=== PATIENT | female | born 1950 | race Caucasian/White ===

== ENCOUNTER 2017-04-12 07:28 | Day surgery (SDC) | payer MEDICARE ==
[2017-04-10 15:59] VITALS: BMI 24.4
[~2017-04-12 07:28] MED LIST: TRIAMCINOLONE ACET 40MG/1ML VIAL IJ ONE
[2017-04-12] MEDS ORDERED: TRIAMCINOLONE ACET 40MG/1ML VIAL ONE (07:38)
[2017-04-12] MEDS ORDERED: ACETAMINOPHEN 325 MG TABLET (FP) PO PRN (07:42)
[2017-04-12] MEDS ORDERED: CIPROFLOXACIN 0.3% EYE DROPS 5 ML BOTTLE ONE (08:11)
[2017-04-12] MEDS ORDERED: FLURBIPROFEN 0.03% OPHTH SOLN 2.5 ML BOTTLE ONE (08:11)
[2017-04-12] MEDS ORDERED: TROPICAMIDE 1% OPHTH SOLN 15 ML BOTTLE ONE (08:11)
[2017-04-12] MEDS ORDERED: PHENYLEPHRINE 2.5% OPHTH SOLN 15 ML BOTTLE ONE (08:11)
[2017-04-12] MEDS ORDERED: CYCLOPENTOLATE HCL 1% OPHTH SOLN 2 ML BOTTLE ONE (08:11)
[2017-04-12] MEDS: CIPROFLOXACIN HCL 0.3% OPHTH 2.5ML BOTTLE OP SCH ×3 (08:20→08:36)
[2017-04-12 08:34] VITALS: TEMP 97.8
[2017-04-12] MEDS ORDERED: LIDOCAINE HCL 2% JELLY (5 ML/TUBE) ONE (08:46)
[2017-04-12] MEDS ORDERED: MIDAZOLAM HCL 2 MG/2 ML SINGLE DOSE VIAL ONE (08:46)
[2017-04-12] MEDS ORDERED: LIDOCAINE HCL 2% JELLY (5 ML/TUBE) TP ONE (08:51)
[2017-04-12] MEDS ORDERED: POVIDONE-IODINE 5% OPHTHALMIC PREP 30 ML SOLUTION OS ONE (09:12)
[2017-04-12] MEDS ORDERED: BSS (NA/CA/MG/K) BALANCED SALT SOLUTION OPHTH SOLN 15 ML BOTTLE OS ONE (09:17)
[2017-04-12] MEDS ORDERED: TRIAMCINOLONE ACET 40MG/1ML VIAL IJ ONE (09:45)
[2017-04-12] MEDS ORDERED: ACETAMINOPHEN 325 MG TABLET (FP) ONE (10:56)
[2017-04-12 11:58] VITALS: BP 132/67; PULSE 78
--- NOTE | 2017-04-12 12:03 | OP ---
DATE OF OPERATION: 04/12/2017 SURGEON: Saad Calderón M.D. PREOPERATIVE DIAGNOSIS: Pterygium, left eye. POSTOPERATIVE DIAGNOSIS: Pterygium, left eye. PROCEDURE: Excision of pterygium with amniotic membrane transplant and Tisseel glue fixation. ANESTHESIA: Topical MAC. COMPLICATONS: None. DESCRIPTION OF PROCEDURE: The patient was brought into the operating room and correctly identified along with the operative site. She was then prepped and draped in the usual sterile fashion including 5% Betadine solution in the conjunctival sac and an eyelid drape. An eyelid speculum was then placed into the right eye. The eye was inspected, and the base of the pterygium was marked with a marking pen. Two relaxing incisions were made superiorly and inferiorly on the pterygium, and dissection placement performed beneath it using Ethan scissors to bare sclera. The head of the pterygium was then freed from the corneal surface with blunt dissection using Colibri forceps as well as a Weck-Merna spear-sponge. The corneal defect was then polished using a 57 blade as well as a raúl gosia. There was no residual opacity noted. The pterygium was then excised at its base, and the conjunctival defect measured 5 mm horizontally by 7 mm vertically. An appropriately sized amniotic membrane transplant was then created and placed in the conjunctival defect. It was then secured with five 10-0 nylon sutures in the corners, and then, Tisseel glue placed beneath it. At the end of the procedure, the amniotic membrane was noted to be well secured. Subconjunctival Kenalog given. Topical vancomycin given. The eye patched, and the patient discharged from the operating room in a stable condition. SAAD CALDERÓN M.D. [id number]
--- NOTE | 2017-04-13 13:47 | PATH ---
Surgical Pathology Report Patient Name: MARISA ZIEGLER [facility]. Rec. #: [id number] /Age/Gender: 1950 (Age: 67) / F Account: [id number] Location: [facility] SURGICAL Taken: 04/12/2017 Received: 04/12/2017 Reported: 04/13/2017 Physicians: Saad Escalante M.D. Specimen(s) Received PTERYGIUM, LEFT EYE Clinical History Pterygium left eye Final Diagnosis CONJUNCTIVA, LEFT EYE, EXCISION: PTERYGIUM. Electronically Signed Jordan Aguilar M.D. Gross Description Received in formalin, labeled "pterygium left eye" is a way, irregular portion of soft tissue measuring 0.2 cm. in greatest dimension. The specimen is submitted in toto in one cassette. 04/12/201704/12/2017
== END 2017-04-12 11:35 | disposition home or self-care (01) ==
LOC: JASU-SURG 07:28
PROVIDERS: ATTEND Ophthalmology
PROC: 08R Eye, Replacement (ICD-10-PCS; principal; 2017-04-12 09:00)
DX: H11.002 Unspecified pterygium of left eye (principal)
CPT/HCPCS: 88304-TC

== ENCOUNTER 2017-09-17 18:28 | Emergency (ER) | payer MEDICARE ==
[2017-09-17 18:53] VITALS: BP 163/78; PULSE 99; TEMP 99.5; BMI 24.4
[2017-09-17] MEDS ORDERED: ONDANSETRON 4 MG/2 ML VIAL IVPB ONE ×2 (19:05→22:14)
[2017-09-17] MEDS ORDERED: SODIUM CHLORIDE 1,000 ML IV STA (19:05)
--- NOTE | 2017-09-17 19:05 | PDOC ---
History of Present Illness - History of Present Illness Initial Comments: 09/17/17 19:55 History of Present Illness: 67 y/o F with a PMH of metastatic ovarian CA, high grade serous carcinoma, splenectomy presents to the ED with LUQ pain and vomiting for over a week. She reports going to see her doctor earlier this week, whoc prescribed her Zofran, which did not relieve her symptoms. She reports attempting to eat soup earlier today, but could not keep it down and vomited immediately after. She reports some constipation. She had a CT and blood work done on 5 days ago, and is going for follow up with her doctor this week. Patient is going to start chemotherapy on 09/29. Denies fever, chills. Denies diarrhea. Denies chest pain, SOB. Review of Systems: CONSTITUTIONAL: Absent: fever, chills, diaphoresis, generalized weakness, malaise, loss of appetite HEENT: Absent: rhinorrhea, nasal congestion, throat pain, throat swelling, difficulty swallowing, mouth swelling, ear pain, eye pain, visual changes CARDIOVASCULAR: Absent: chest pain, syncope, palpitations, irregular heart rate , lightheadedness, peripheral edema RESPIRATORY: Absent: cough, shortness of breath, dyspnea with exertion, orthopnea, wheezing, stridor, hemoptysis GASTROINTESTINAL: +LUQ pain, constipation, vomiting. Absent: abdominal distension, diarrhea, melena, hematochezia GENITOURINARY: Absent: dysuria, frequency, urgency, hesitancy, hematuria, flank pain, genital pain MUSCULOSKELETAL: Absent: myalgia, arthralgia, joint swelling SKIN: Absent: rash, itching, pallor HEMATOLOGIC/IMMUNOLOGIC: Absent: easy bleeding, easy bruising, lymphadenopathy, frequent infections ENDOCRINE: Absent: unexplained weight gain, unexplained weight loss, heat intolerance, cold intolerance NEUROLOGIC: Absent: headache, focal weakness or paresthesias, dizziness, unsteady gait, seizure, mental status changes, bladder or bowel incontinence PSYCHIATRIC: Absent: anxiety, depression, suicidal or homicidal ideation, hallucinations. <Maritza Caruso - Last Filed: 09/17/17 19:55> <Ector Guadalupe - Last Filed: 09/22/17 07:22> - General Chief Complaint: Nausea/Vomiting Stated Complaint: VOMITING, METASTATIC CANCER Time Seen by Provider: 09/17/17 19:00 Past History <Maritza Caruso - Last Filed: 09/17/17 19:55> - Past Medical History Anemia: No Asthma: No Cancer: Yes (OVARIAN CA WITH METS, HIGH GRADE SEROUS CARINOMA) Cardiac Disorders: No CVA: No COPD: No CHF: No Dementia: No Diabetes: No GI Disorders: No Disorders: No HTN: No Hypercholesterolemia: No Liver Disease: No Seizures: No Thyroid Disease: Yes - Surgical History Abdominal Surgery: Yes (SPLEENECTOMY) Appendectomy: Yes Cardiac Surgery: No Cholecystectomy: No Lung Surgery: No Neurologic Surgery: Yes (BACK SURGERY) Orthopedic Surgery: No - Suicide/Smoking/Psychosocial Hx Smoking History: Never smoked Have you smoked in the past 12 months: No Hx Alcohol Use: No Drug/Substance Use Hx: No Substance Use Type: None Hx Substance Use Treatment: No <Ector Guadalupe - Last Filed: 09/22/17 07:22> - Past Medical History Allergies/Adverse Reactions: Allergies Allergy/AdvReac Type Severity Reaction Status Date / Time No Known Drug Allergies Allergy Verified 09/17/17 18:41 Home Medications: Ambulatory Orders Docusate Sodium [Colace] 100 mg PO TID 09/17/17 Ergocalciferol (Vitamin D2) [Vitamin D2] 50,000 unit PO WEEKLY 09/17/17 Levothyroxine [Synthroid -] 50 mcg PO DAILY 09/17/17 Ondansetron [Zofran *Odt*] 8 mg SL TID PRN #20 od.tablet 09/17/17 Sennosides [Senna] 8.6 mg PO HS PRN 09/17/17 *Physical Exam - Vital Signs Last Vital Signs Temp Pulse Resp BP Pulse Ox 99.5 F 99 H 20 163/78 94 L 09/17/17 18:31 09/17/17 18:31 09/17/17 18:31 09/17/17 18:31 09/17/17 18:31 <Maritza Caruso - Last Filed: 09/17/17 19:55> - Vital Signs Last Vital Signs Temp Pulse Resp BP Pulse Ox 99.5 F 99 H 20 163/78 94 L 09/17/17 18:31 09/17/17 18:31 09/17/17 18:31 09/17/17 18:31 09/17/17 18:31 <CollinsEctor - Last Filed: 09/22/17 07:22> ED Treatment Course - LABORATORY CBC & Chemistry Diagram: 09/17/17 19:30 09/17/17 19:30 - Medications Given in the ED: ED Medications Discontinued Medications Generic Name Dose Route Start Last Admin Trade Name Lea PRN Reason Stop Dose Admin Ondansetron HCl 4 mg 09/17/17 19:05 09/17/17 19:30 Zofran Injection IVPB 09/17/17 19:06 4 mg ONCE ONE Administration <Maritza Caruso - Last Filed: 09/17/17 19:55> - LABORATORY CBC & Chemistry Diagram: 09/17/17 19:30 09/17/17 19:30 <CollinsEctor Bin - Last Filed: 09/22/17 07:22> Medical Decision Making - Medical Decision Making 09/17/17 19:39 67-year-old female with recently diagnosed mucinous carcinoma, metastatic, 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 Surgery in late August, awaiting chemotherapy. Complains of left upper quadrant pain, nausea, and vomiting for approximately 2 days. Unable to hold down food or fluids. Past medical history: Otherwise noncontributory. Patient states that oral Zofran and Reglan only make her nausea and vomiting worse. Her pain is not severe enough for her to want to take pain medication. However, she was prescribed analgesic by her physician. She had a CAT scan on Monday, along with blood work, with her oncologist, and is scheduled for another appointment next Monday Physical exam: Alert and oriented somewhat cachectic but no acute distress, cooperative. She does not appear in significant pain. She has not retching. Afebrile, vital signs normal Pale, nonicteric. PERRLA, fundi benign, ENT clear except for mildly dry mucous membranes Neck supple without bruit mass or nodes Chest clear with full breath sounds throughout bilaterally. CV regular without murmur rub or gallop pulses full and symmetric no JVD or edema Abdomen nondistended. Bowel sounds normal. Soft without mass or organomegaly. Although she indicates left upper quadrant pain, there is no tenderness to palpation or mass appreciated with vigorous palpation of the right upper quadrant of the abdomen, no rib cage, with a CVA. Neurological generalized weakness but no focal deficits. Cranial nerves intact. Extremities no CCE Skin clear, no rash, adequate turgor. Impression: Nausea and vomiting, most likely from progression of disease, or superimposed viral gastroenteritis. Left upper quadrant pain most likely gastric spasm, no tenderness whatsoever to palpation. Patient does not visibly uncomfortable. Plan: Labs, IV fluids, antiemetic, and observation. Attempt to provide symptomatic relief until next physician appointment on Monday. Since her physician has performed abdominal CAT scan less than one week ago, and will be reevaluating the patient in 2 days, no further imaging appears to be necessary at this point. Labs show no significant abnormalities. Patient much improved with Zofran and fluids. Nausea has resolved. No further vomiting. No further abdominal pain. Abdomen remained soft and nontender. Discharged fully ambulatory with family, return to ER if symptoms recur, otherwise treatment for viral gastroenteritis and follow-up with oncologist as scheduled. <Ector Guadalupe - Last Filed: 09/22/17 07:22> *DC/Admit/Observation/Transfer - Attestations Scribe Attestion: 09/17/17 19:55 Documentation prepared by Maritza Caruso, acting as medical videographer for Ector Wilson MD. <Maritza Caruso - Last Filed: 09/17/17 19:55> - Discharge Dispostion Admit: No <Ector Guadalupe - Last Filed: 09/22/17 07:22> Diagnosis at time of Disposition: Viral gastroenteritis - Discharge Dispostion Disposition: HOME Condition at time of disposition: Improved - Prescriptions Prescriptions: Ondansetron [Zofran *Odt*] 8 mg SL TID PRN #20 od.tablet PRN Reason: Nausea And/Or Vomiting - Patient Instructions Printed Discharge Instructions: DI for Nausea -- Adult, DI for Vomiting -- Adult Additional Instructions: Stay hydrated by drinking small amounts of liquid frequently. He is medication for nausea or vomiting. If symptoms worsen return to the ER or check with her primary physician or oncologist.
[2017-09-17] MEDS ORDERED: ONDANSETRON 4 MG/2 ML VIAL ONE ×2 (19:08→22:16)
[2017-09-17 19:58] LABS: HEMOGLOBIN 13.1 GM/dl (10.7-15.3); RDW 13.6 % (11.6-15.6); WHITE BLOOD COUNT 4.7 K/mm3 (4.0-10.8)
[2017-09-17 20:02] LABS: HEMATOCRIT 41.3 % (32.4-45.2); LYMPH % 22.1 % (8-40); MCH 26.9 pg (25.7-33.7); MCHC 31.8 g/dl (32.0-36.0); MEAN CELL VOLUME 84.7 fl (80-96); MONO % 7.2 % (3.8-10.2); NEUT % 69.7 % (42.8-82.8); PLATELET COUNT 423 K/MM3 (134-434); RBC 4.88 M/mm3 (3.60-5.2)
[2017-09-17 20:04] LABS: ALBUMIN 4.2 g/dl (3.5-5.0); ALK PHOS 68 U/L (32-92); ANION GAP 10 (8-16); BILIRUBIN,TOTAL 0.6 mg/dl (0.2-1.0); BLOOD UREA NITROGEN 7 mg/dl (7-18); CHLORIDE 91 mmol/L (98-107); CO2 30 mmol/L (22-28); CREATININE 0.5 mg/dl (0.6-1.3); GLUCOSE,RANDOM 164 mg/dl (74-106); POTASSIUM 4.2 mmol/L (3.5-5.1); SGOT/AST 35 U/L (10-42); SGPT/ALT 15 U/L (10-40); SODIUM 131 mmol/L (136-145)
[2017-09-17] MEDS ORDERED: ONDANSETRON *ODT* 4 MG TABLET SL ONE (23:10)
[2017-09-17] MEDS ORDERED: ONDANSETRON *ODT* 4 MG TABLET ONE (23:18)
== END 2017-09-17 23:27 | disposition home or self-care (01) ==
LOC: FER 18:28
PROC: 3E033GC Introduction of Other Therapeutic Substance into Peripheral Vein, Percutaneous Approach (ICD-10-PCS; principal; 2017-09-17)
PROC: 3E0337Z Introduction of Electrolytic and Water Balance Substance into Peripheral Vein, Percutaneous Approach (ICD-10-PCS; 2017-09-17)
DX: A08.4 Viral intestinal infection, unspecified (principal); C56.9 Malignant neoplasm of unspecified ovary
CPT/HCPCS: 36415; 80053; 85025; 99283-25

== ENCOUNTER 2019-02-05 12:07 | Inpatient (IN) | payer MEDICARE, OTHER ==
--- NOTE | 2019-02-05 12:22 | PDOC ---
History of Present Illness <Lucy Kramer - Last Filed: 02/05/19 16:34> - General History Source: Patient, [employer] Used Exam Limitations: Language Barrier - History of Present Illness Initial Comments: History is limited bc patient speaks Maltese - paymio diplomatic interpreter used - Estela - #[id number] - Patient also has a Maltese speaking aid at bedside who provides some history but does not know much about the patient's medical hx. CC: Weak, dizzy - lightheaded, not eating, E/t falling out of her hands. When she wants to call someone she is not able to hold the phone or dial. She was " of course" able to do this last week. But since Monday everything has been off. 68 yo F w a hx stage 4 recurrent ovarian cancer - currently receiving chemo for this and has peritoneal carcinomatosis. Also hx of hypothyroidism and varicose veins. "Doctor said she has a mass in her stomach" that's why she is receiving 3 additional chemo's. Cancer was diagnosed in August. She has cancer in one ovary but doesn't know which one. They have done a surgery for this cancer but not sure of the details - it was an "exploratory surgery" She states she had 3 chemotherapy treatments. Bad reaction to last chemo on Monday which has made her feel badly and now she feels weak, dizzy, and everything falls out of her hand. She doesn't want to eat. Can only eat soup and pedialyte. Also states her throat hurts, she has allergies, and her knees hurt alot. Calling patient's Oncology center: Charge Nurse practitioner Chantell states she had her last chemo on Monday the . - Chemotherapy drugs: Taxol and carboplatin Calling patient's PCP office: Last CT on 07/21/18 scan showed retroperitoneal metastatsis, peritoneal carcinomatosis, omental caking, and metastasis all over her abdomen including her stomach. PCP: Toribio Rosales Oncologist: Apple Hoyt - At [facility] - [phone] Allergies: NKA, NKDA PSH: Multiple exploratory ovarian surgeries, back scoliosis surgery 40 years ago. Social HX: Has a new home sales consultant who takes care of the patient 9 am - 3 pm Monday through Monday. Patient lives at home. The patient's niece and other family members help out as well but they do not live with the patient. The patient denies smoking, drinking, or other substance usage. <Pasha Patino - Last Filed: 02/05/19 17:30> - General Stated Complaint: Weakness Time Seen by Provider: 02/05/19 12:18 Past History <Lucy Kramer - Last Filed: 02/05/19 16:34> <Pasha Patino - Last Filed: 02/05/19 17:30> - Past Medical History Allergies/Adverse Reactions: Allergies Allergy/AdvReac Type Severity Reaction Status Date / Time No Allergy Information Allergy Verified 02/05/19 13:01 Available Review of Systems - Review of Systems Able to Perform ROS?: Yes Comments:: CONSTITUTIONAL: No fever, + chills, + fatigue EYES: No visual changes ENT: No ear pain, + sore throat CARDIOVASCULAR: No chest pain, no palpitations RESPIRATORY: No cough, + SOB GI: + abdominal pain, + nausea, no vomiting, + constipation, no diarrhea GENITOURINARY: No dysuria, no frequency, no hematuria MUSKULOSKELETAL: + backpain, + joint pain, + myalgias SKIN: No rash NEURO: No headache <Pasha Patino - Last Filed: 02/05/19 17:30> *Physical Exam - Vital Signs Last Vital Signs Temp Pulse Resp BP Pulse Ox 99.0 F 109 H 24 H 124/63 42 L 02/05/19 12:23 02/05/19 16:03 02/05/19 16:03 02/05/19 16:03 02/05/19 16:03 <Lucy Kramer - Last Filed: 02/05/19 16:34> - Physical Exam Comments: CONSTITUTIONAL: Ill-appearing. Mal-nourished. Bald. Mild distress. HEAD: Normocephalic; atraumatic EYES: PERRL; EOM intact ENMT: External appears normal; normal oropharynx NECK: Supple; non-tender; no cervical lymphadenopathy CARD: Tachycardic rate. Normal S1, S2; no murmurs, rubs, or gallops RESP: Normal chest excursion with respiration; breath sounds clear and equal bilaterally; no wheezes, rhonchi, or rales ABD: Soft, distended; non-tender; EXT: Normal ROM in all four extremities; non-tender to palpation; distal pulses intact SKIN: Warm, dry, no rash NEURO: No focal neurological deficiencies. <Pasha Patino - Last Filed: 02/05/19 17:30> ED Treatment Course - LABORATORY CBC & Chemistry Diagram: 02/05/19 15:24 02/05/19 14:14 - ADDITIONAL ORDERS Additional order review: Laboratory Results 02/05/19 02/05/19 02/05/19 16:09 14:14 14:14 PT with INR INR Anticoagulation Therapy No Result Required. VBG pH 7.29 L POC VBG pCO2 83.4 H* POC VBG pO2 50.7 H VBG HCO3 39.1 H VBG O2 Sat (Palak) 78.9 VBG Base Excess 10.2 H O2 Delivery Device No Result Required. Oxygen Flow Rate No Result Required. Vent Mode No Result Required. Vent Rate No Result Required. Mechanical Rate No Result Required. Pressure Support Vent No Result Required. Sodium Potassium Chloride Carbon Dioxide Anion Gap BUN Creatinine Est GFR (CKD-EPI)AfAm Est GFR (CKD-EPI)NonAf Random Glucose Lactic Acid Calcium Total Bilirubin AST ALT Alkaline Phosphatase Troponin I B-Natriuretic Peptide Total Protein Albumin Urine Color Urine Appearance Urine pH Ur Specific [place] Urine Protein Urine Glucose (UA) Urine Ketones Urine Blood Urine Nitrite Urine Bilirubin Urine Urobilinogen Ur Leukocyte Esterase Urine WBC (Auto) Urine RBC (Auto) Urine Casts (Auto) U Epithel Cells (Auto) Urine Bacteria (Auto) Blood Type O POSITIVE Antibody Screen Negative 02/05/19 02/05/19 02/05/19 14:14 14:14 13:57 PT with INR 13.30 H INR 1.13 H Anticoagulation Therapy VBG pH POC VBG pCO2 POC VBG pO2 VBG HCO3 VBG O2 Sat (Palak) VBG Base Excess O2 Delivery Device Oxygen Flow Rate Vent Mode Vent Rate Mechanical Rate Pressure Support Vent Sodium 126 L Potassium 4.5 Chloride 84 L Carbon Dioxide 39 H Anion Gap 4 L BUN 17 Creatinine 0.5 L Est GFR (CKD-EPI)AfAm 115.26 Est GFR (CKD-EPI)NonAf 99.45 Random Glucose 157 H Lactic Acid 1.2 Calcium 8.3 L Total Bilirubin 1.1 H AST 74 H ALT 164 H Alkaline Phosphatase 157 H Troponin I 0.09 H B-Natriuretic Peptide 7240.7 H Total Protein 6.4 Albumin 3.5 Urine Color Urine Appearance Urine pH Ur Specific [place] Urine Protein Urine Glucose (UA) Urine Ketones Urine Blood Urine Nitrite Urine Bilirubin Urine Urobilinogen Ur Leukocyte Esterase Urine WBC (Auto) Urine RBC (Auto) Urine Casts (Auto) U Epithel Cells (Auto) Urine Bacteria (Auto) Blood Type Antibody Screen 02/05/19 13:51 PT with INR INR Anticoagulation Therapy VBG pH POC VBG pCO2 POC VBG pO2 VBG HCO3 VBG O2 Sat (Palak) VBG Base Excess O2 Delivery Device Oxygen Flow Rate Vent Mode Vent Rate Mechanical Rate Pressure Support Vent Sodium Potassium Chloride Carbon Dioxide Anion Gap BUN Creatinine Est GFR (CKD-EPI)AfAm Est GFR (CKD-EPI)NonAf Random Glucose Lactic Acid Calcium Total Bilirubin AST ALT Alkaline Phosphatase Troponin I B-Natriuretic Peptide Total Protein Albumin Urine Color Yellow Urine Appearance Clear Urine pH 7.0 Ur Specific [place] 1.021 Urine Protein 1+ H Urine Glucose (UA) 1+ H Urine Ketones Negative Urine Blood Trace Urine Nitrite Negative Urine Bilirubin Negative Urine Urobilinogen 0.2 Ur Leukocyte Esterase Trace Urine WBC (Auto) 5 Urine RBC (Auto) 6 Urine Casts (Auto) 1 U Epithel Cells (Auto) 3.1 Urine Bacteria (Auto) 4.6 Blood Type Antibody Screen 02/05/19 02/05/19 02/05/19 15:24 15:11 13:40 RBC 3.48 L 3.51 L Cancelled MCV 98.7 H 98.6 H Cancelled MCHC 32.0 32.4 Cancelled RDW 15.0 14.7 Cancelled MPV 11.3 H 11.3 H Cancelled Neutrophils % 92.8 H 93.4 H Cancelled Lymphocytes % 4.3 L 3.8 L Cancelled Monocytes % 1.9 L 1.5 L Cancelled Eosinophils % 0.3 0.6 Cancelled Basophils % 0.7 0.7 Cancelled - Medications Given in the ED: ED Medications Discontinued Medications Generic Name Dose Route Start Last Admin Trade Name Freq PRN Reason Stop Dose Admin Sodium Chloride 500 mls @ 500 mls/hr 02/05/19 13:17 02/05/19 14:15 Normal Saline - IV 02/05/19 14:16 500 mls/hr ASDIR STA Administration <Lucy Kramer - Last Filed: 02/05/19 16:34> - LABORATORY CBC & Chemistry Diagram: 02/05/19 15:24 02/05/19 14:14 <Pasha Patino - Last Filed: 02/05/19 17:30> Medical Decision Making - Medical Decision Making 68 yo F w a hx stage 4 recurrent ovarian cancer - currently receiving chemo for this and has peritoneal carcinomatosis. Also hx of hypothyroidism and varicose veins. Here for weakness, lightheadedness, after chemo 5 days prior. VS: Tachycardic, tachypneic, hypoxic Patient is high risk for a PE Patient walked to bathroom and became hypoxic to the 60's EKG: There is an S1Q3T3, Tachycardia, incomplete RBBB. Bedside ECHO: RV enlarged, tachycardic. Plan: Labs - cbc, cmp, trop, bnp, lactic, vbg, UA, blood and urine cultures, CTA -PE, re-assess. CTA-PE negative for acute PE. CBC,CMP WBC 25.8 K/mm3 (4.0-10.0) H 02/05/19 15:24 Corrected WBC (auto) Cancelled 02/05/19 13:40 RBC 3.48 M/mm3 (3.60-5.2) L 02/05/19 15:24 Hgb 11.0 GM/dL (10.7-15.3) 02/05/19 15:24 Hct 34.3 % (32.4-45.2) 02/05/19 15:24 MCV 98.7 fl (80-96) H 02/05/19 15:24 MCH 31.5 pg (25.7-33.7) 02/05/19 15:24 MCHC 32.0 g/dl (32.0-36.0) 02/05/19 15:24 RDW 15.0 % (11.6-15.6) 02/05/19 15:24 Plt Count 80 K/MM3 (134-434) L 02/05/19 15:24 MPV 11.3 fl (7.5-11.1) H 02/05/19 15:24 Absolute Neuts (auto) 23.9 K/mm3 (1.5-8.0) H 02/05/19 15:24 Neutrophils % 92.8 % (42.8-82.8) H 02/05/19 15:24 Neutrophils % (Manual) 95.0 % (42.8-82.8) H 02/05/19 15:11 Band Neutrophils % 1.0 % 02/05/19 15:11 Lymphocytes % 4.3 % (8-40) L 02/05/19 15:24 Lymphocytes % (Manual) 2.0 % (8-40) L 02/05/19 15:11 Monocytes % 1.9 % (3.8-10.2) L 02/05/19 15:24 Monocytes % (Manual) 0 % (3.8-10.2) L 02/05/19 15:11 Eosinophils % 0.3 % (0-4.5) 02/05/19 15:24 Eosinophils % (Manual) 1.0 % (0-4.5) 02/05/19 15:11 Basophils % 0.7 % (0-2.0) 02/05/19 15:24 Nucleated RBC % 0 % (0-0) 02/05/19 15:24 Metamyelocytes 1 % (0-2) 02/05/19 15:11 Differential Comment 02/05/19 15:11 Other Cell Type Pelger huet 02/05/19 15:11 Platelet Estimate Decreased 02/05/19 15:11 Platelet Comment No clumping noted 02/05/19 15:11 Basophilic Stippling Rare 02/05/19 15:11 [place] Bodies Rare 02/05/19 15:11 Sodium 126 mmol/L (136-145) L 02/05/19 14:14 Potassium 4.5 mmol/L (3.5-5.1) 02/05/19 14:14 Chloride 84 mmol/L (98-107) L 02/05/19 14:14 Carbon Dioxide 39 mmol/L (21-32) H 02/05/19 14:14 Anion Gap 4 MMOL/L (8-16) L 02/05/19 14:14 BUN 17 mg/dL (7-18) 02/05/19 14:14 Creatinine 0.5 mg/dL (0.55-1.3) L 02/05/19 14:14 Est GFR (CKD-EPI)AfAm 115.26 02/05/19 14:14 Est GFR (CKD-EPI)NonAf 99.45 02/05/19 14:14 Random Glucose 157 mg/dL (74-106) H 02/05/19 14:14 Lactic Acid 1.2 mmol/L (0.4-2.0) 02/05/19 13:57 Calcium 8.3 mg/dL (8.5-10.1) L 02/05/19 14:14 Total Bilirubin 1.1 mg/dL (0.2-1) H 02/05/19 14:14 AST 74 U/L (15-37) H 02/05/19 14:14 ALT 164 U/L (13-61) H 02/05/19 14:14 Alkaline Phosphatase 157 U/L (45-117) H 02/05/19 14:14 Troponin I 0.09 ng/ml (0.00-0.05) H 02/05/19 14:14 B-Natriuretic Peptide 7240.7 pg/ml (5-125) H 02/05/19 14:14 Total Protein 6.4 g/dl (6.4-8.2) 02/05/19 14:14 Albumin 3.5 g/dl (3.4-5.0) 02/05/19 14:14 We will start Abx treatment in ED with Vanc/Zosyn and then admit the patient to [facility] for further care a disposition. <Pasha Patino - Last Filed: 02/05/19 17:30> *DC/Admit/Observation/Transfer - Discharge Dispostion Decision to Admit order: Yes Decision to Admit order Date/Time: 02/05/19 16:34 <Lucy Kramer - Last Filed: 02/05/19 16:34> - Discharge Dispostion Decision to Admit order: Yes <Pasha Patino - Last Filed: 02/05/19 17:30> Diagnosis at time of Disposition: Hyponatremia, Elevated brain natriuretic peptide (BNP) level, Hypoxia, Carcinoma of ovary, stage 4, Peritoneal carcinomatosis, Weakness, Hypercapnia, Acute respiratory failure - Discharge Dispostion Condition at time of disposition: Guarded - Referrals Referrals: Wayne Carballo MD [Primary Care Provider] -
[2019-02-05] MEDS ORDERED: SODIUM CHLORIDE 500 ML IV STA (13:17)
--- NOTE | 2019-02-05 14:14 | PDOC ---
Documentation entered by London Bhagat SCRIBE, acting as scribe for Lucy Kramer MD. Lucy Kramer MD: This documentation has been prepared by the Olayinka sam Nirvannie, SCRIBE, under my direction and personally reviewed by me in its entirety. I confirm that the documentation accurately reflects all work, treatment, procedures, and medical decision making performed by me. 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 She notes only being able to consume soup and Pedialyte since the onset of her symptoms. She notes secondary to her symptoms she has been having worsening allergies with throat pain and bilateral knee pain. Denies fever, chills, chest pain, SOB, palpitation, N, V, D, abdominal pain, bladder and bowel problems, leg swelling, No sick contacts or travel. No new changes in medications. No suspicious food intake Allergies: None Past Medical History: as documented in EMR/HPI Social history: Lives with family. No tobacco, ETOH or drug use. Surgical history: Multiple exploratory ovarian surgeries, back scoliosis surgery 40 years ago. Meds: as documented in EMR PMD: Dr. Toribio Rosales Oncologist: Dr. Apple Hoyt ([facility] - [phone]) - Physicial Exam PE: 02/05/19 13:49 Agree with the resident's HPI and PE as documented in the electronic medical record. malaised appearing, EOMI, PERRL, MMM, nl conjunctiva, anicteric; neck supple. lungs with basilar crackles, on nasal cannula, tachycardic, abdomen soft nontender. Back nontender. VENTURA x4, no focal neuro deficits. No peripheral edema. normal color for ethnicity, WWP. 02/05/19 14:10 - Critical Care Time Total Critical Care Time: 60 (acute respiratory failure) Critical Care Statement: The care of this patient involved high complexity decision making to prevent further life threatening deterioration of the patient 's condition and/or to evaluate & treat vital organ system(s) failure or risk of failure. - Medical Decision Making 02/05/19 14:10 See HPI for details. Prior notes reviewed, including admissions, discharges and consultations. Vital signs reviewed, tachycardia noted. +hypoxic to the bathroom with ambulation down to 69% - improved with rest and NRB, now on nasal cannula DDx SOB: ACS, PE, PTX, CHF, pulmonary edema, pleurisy, pneumonia, viral syndrome. effusion. anemia, electrolyte/metabolic derangements. POCUS echo and thoracic exam performed and documented/saved, indication includes chest pain/dyspnea. views obtained (PSLA, PSS, A4, SX, IVC, bilateral lung mccormick). Findings include normal EF on visual estimation, no pericardial or pleural effusion, primarily A lines, plethoric IVC with minimal collapse <50% . RV=LV. Impression: enlarged RV, hyperdynamic contractility laboratory results and imaging reviewed, basic labs and lytes notable for hyponatremia 126 , normal cr and lytes otherwise CXR_limited Cardiac panel_trop and bnp elevated biomarkers, concern for RV strain and at least submassive PE EKG sinus tachycardia at 106 bpm, no interval abnormalities, narrow QRS, ST and T wave segments and morphology normal. incomplete RBBB, Nonspecific T wave abnormalities with TWI in III, anterior leads - no prior ED course -interventions: IVF 500cc. zosyn and vancomycin - suspicion high for PE. with echo findings of dilated RV, anterior ischemia on ekg and elevated biomarkers. -while in the ED at bedside after returning from CT, hypoxia down to 40s with good waveform, dyspneic, no cyanosis. CT chest angiogram no exit of her pulmonary embolism however there is right- sided lower lobe atelectasis versus effusions/pneumonia. We'll treat as infection at this time given immunocompromised state, rabidity saturations of hypoxia with ambulation requiring supplemental oxygenation. IV vancomycin and Zosyn will be administered, gentle fluid hydration. Consultation with ICU for higher level care due to her symptoms and presentation. 02/05/19 17:14 seen by ICU team, ok for telemetry as stable on supp O2, no further desats mae in place IV abx already given as alternative etiology pna. immuncompromised state with leukocytosis and respiratory sx. admit to telemetry for medical management, IV abx, supportive care and pna tx. Heart Score/ECG Review #1 ECG reviewed & interpreted by me at: 13:20 General ECG Interpretation: Sinus Rhythm, Normal Intervals Compared to previous ECG there are: Previous ECG unavail 02/05/19 14:14 EKG sinus tachycardia at 106 bpm, no interval abnormalities, narrow QRS, ST and T wave segments and morphology normal. T wave abnormalities with TWI in III, anterior leads - no prior 02/05/19 14:15 EKG sinus tachycardia at 106 bpm, no interval abnormalities, narrow QRS, ST and T wave segments and morphology normal. incomplete RBBB, Nonspecific T wave abnormalities with TWI in III, anterior leads - no prior Procedures - Bedside Ultrasound Bedside Ultrasound: Cardiac Remarks: 02/05/19 15:33 POCUS echo and thoracic exam performed and documented/saved, indication includes chest pain/dyspnea. views obtained (PSLA, PSS, A4, SX, IVC, bilateral lung mccormick). Findings include normal EF on visual estimation, no pericardial or pleural effusion, primarily A lines, plethoric IVC with minimal collapse <50% . RV=LV. Impression: enlarged RV, hyperdynamic contractility
[2019-02-05 14:32] LABS: VENOUS PH 7.29 (7.31-7.41); VENOUS PO2 50.7 mmHg (30-40)
[2019-02-05 14:36] LABS: EPI CELLS 3.1 /HPF (0-5/HPF); HYALINE CASTS 1 /lpf (0-8); URINE APPEARANCE CLEAR; URINE BACTERIA 4.6 /hpf (NEGATIVE); URINE BILIRUBIN NEGATIVE (NEGATIVE); URINE COLOR YELLOW; URINE GLUCOSE (UA) 1+ (NEGATIVE); URINE KETONE NEGATIVE (NEGATIVE); URINE LEUK ESTERASE TRACE (NEGATIVE); URINE NITRITE NEGATIVE (NEGATIVE); URINE PROTEIN 1+ (NEGATIVE); URINE RBC 6 /hpf (0-4); URINE UROBILINOGEN 0.2 mg/dL (0.2-1.0); URINE WBC 5 /hpf (0-5)
[2019-02-05 14:39] LABS: VENOUS PC02 83.4 mmHg (41-51)
[2019-02-05 14:47] LABS: INR 1.13 (0.83-1.09); PROTHROMBIN TIME (PATIENT) 13.3 SEC (9.7-13.0)
[2019-02-05 14:56] LABS: ALBUMIN 3.5 g/dl (3.4-5.0); BILIRUBIN,TOTAL 1.1 mg/dL (0.2-1); CALCIUM 8.3 mg/dL (8.5-10.1); CREATININE 0.5 mg/dL (0.55-1.3); POTASSIUM 4.5 mmol/L (3.5-5.1); TOT PROT 6.4 g/dl (6.4-8.2)
[2019-02-05 15:22] LABS: N-TERMINAL BNP 7240.7 pg/ml (5-125)
[2019-02-05 15:29] LABS: BASO % 0.7 % (0-2.0); EOS % 0.6 % (0-4.5); HEMATOCRIT 34.6 % (32.4-45.2); HEMOGLOBIN 11.2 GM/dL (10.7-15.3); LYMPH % 3.8 % (8-40); MCH 31.9 pg (25.7-33.7); MCHC 32.4 g/dl (32.0-36.0); MEAN CELL VOLUME 98.6 fl (80-96); MEAN PLT VOLUME 11.3 fl (7.5-11.1); MONO % 1.5 % (3.8-10.2); NEUT % 93.4 % (42.8-82.8); PLATELET COUNT 75 K/MM3 (134-434); RBC 3.51 M/mm3 (3.60-5.2); RDW 14.7 % (11.6-15.6); WHITE BLOOD COUNT 24.8 K/mm3 (4.0-10.0)
[2019-02-05 15:46] LABS: BASO % 0.7 % (0-2.0); EOS % 0.3 % (0-4.5); HEMATOCRIT 34.3 % (32.4-45.2); LYMPH % 4.3 % (8-40); MCH 31.5 pg (25.7-33.7); MEAN CELL VOLUME 98.7 fl (80-96); MEAN PLT VOLUME 11.3 fl (7.5-11.1); MONO % 1.9 % (3.8-10.2); NEUT % 92.8 % (42.8-82.8); PLATELET COUNT 80 K/MM3 (134-434); RBC 3.48 M/mm3 (3.60-5.2); WHITE BLOOD COUNT 25.8 K/mm3 (4.0-10.0)
[2019-02-05] MEDS ORDERED: PIPERACILLIN/TAZOB 4.5 GM 4.5 GM in DEXTROSE 5%-WATER 100 ML IVPB ONE (17:13)
[2019-02-05] MEDS ORDERED: VANCOMYCIN 1,500 MG in DEXTROSE 5%-WATER - 250 ML IVPB ONE (17:13)
[2019-02-05 17:23] LABS: HOWELL-JOLLY BODIES RARE
[2019-02-05 17:25] LABS: PLATELET ESTIMATE DECREASED
--- NOTE | 2019-02-05 17:40 | CONSULT ---
Consultation: REQUESTING PROVIDER: Dr. Kramer CONSULT REQUEST: Hypercapnic respiratory failure HISTORY OF PRESENT ILLNESS: 68 year old chilean-speaking female with a past medical history of metastatic ovarian cancer with peritoneal carcinomatosis presents to the hospital for generalized weakness and shortness of breath since Monday. States that she received chemotherapy (carbotaxol) on Monday, and since then has been short of breath on exertion with weakness, decreased appetite and poor PO intake. States that she also has been suffering from a cough productive of yellow sputum. Denies any over chest pain, shortness of breath at rest, nausea, vomiting, diarrhea, fevers, chills. Denies any swelling in her legs, headache, vision changes, dysuria, abdominal pain. Denies recent travel or sick contacts. Patient is from [facility] and has no children. Lives alone at home with an aid for 1/4th of the day and ambulates with a walker. Reports difficulty in ambulating after her chemotherapy treatment. She states she has not had an adverse reaction from her chemotherapy in the past. She follows with Oncologist Dr. Hoyt at [facility] Reports being diagnosed with ovarian CA in 2017 and had a surgery to resect ovaries. Per ED, patient was saturating in the 60s with a respiratory acidosis on VBG and concern was risen about respiratory status and need for ICU monitoring. REVIEW OF SYSTEMS: CONSTITUTIONAL: generalized weakness, malaise Absent: fever, chills, diaphoresis, loss of appetite, weight change HEENT: Absent: rhinorrhea, nasal congestion, throat pain, throat swelling, difficulty swallowing, mouth swelling, ear pain, eye pain, visual changes CARDIOVASCULAR: Absent: chest pain, syncope, palpitations, irregular heart rate, lightheadedness , peripheral edema RESPIRATORY: cough, shortness of breath, dyspnea with exertion, Absent: orthopnea, wheezing, stridor, hemoptysis GASTROINTESTINAL: Absent: abdominal pain, abdominal distension, nausea, vomiting, diarrhea, constipation, melena, hematochezia GENITOURINARY: Absent: dysuria, frequency, urgency, hesitancy, hematuria, flank pain, genital pain MUSCULOSKELETAL: Absent: myalgia, arthralgia, joint swelling, back pain, neck pain SKIN: Absent: rash, itching, pallor HEMATOLOGIC/IMMUNOLOGIC: Absent: easy bleeding, easy bruising, lymphadenopathy, frequent infections ENDOCRINE: Absent: unexplained weight gain, unexplained weight loss, heat intolerance, cold intolerance NEUROLOGIC: Absent: headache, focal weakness or paresthesias, dizziness, unsteady gait, seizure, mental status changes, bladder or bowel incontinence PSYCHIATRIC: Absent: anxiety, depression, suicidal or homicidal ideation, hallucinations. PHYSICAL EXAMINATION Vital Signs - 24 hr 02/05/19 02/05/19 02/05/19 12:23 13:02 14:38 Temperature 99.0 F Pulse Rate 106 H Pulse Rate [ Apical] Respiratory 16 Rate Blood Pressure 142/66 Blood Pressure [Right Arm] O2 Sat by Pulse 99 100 99 Oximetry (%) 02/05/19 02/05/19 16:03 16:44 Temperature 99.0 F Pulse Rate Pulse Rate [ 109 H 99 H Apical] Respiratory 24 H 18 Rate Blood Pressure Blood Pressure 124/63 124/63 [Right Arm] O2 Sat by Pulse 42 L 98 Oximetry (%) GENERAL: A&Ox3, no acute distress EYES: PERRLA, EOMI ENT: Moist mucus membranes NECK: No JVD LUNGS: b/l crackles at bases, worse at the R base HEART: mildly tachycardic, no murmurs ABDOMEN: Soft, nontender, BS present MUSCULOSKELETAL: No CVA Tenderness EXTREMITIES: 2+ pulses, no edema. NEUROLOGICAL: Cranial nerves II-XII intact. generalized weakness with 4/5 muscle strength bilaterally in upper and lower extremities Laboratory Results - last 24 hr 02/05/19 02/05/19 02/05/19 13:40 13:51 13:57 WBC Cancelled Corrected WBC (auto) Cancelled RBC Cancelled Hgb Cancelled Hct Cancelled MCV Cancelled MCH Cancelled MCHC Cancelled RDW Cancelled Plt Count Cancelled MPV Cancelled Absolute Neuts (auto) Cancelled Neutrophils % Cancelled Neutrophils % (Manual) Band Neutrophils % Lymphocytes % Cancelled Lymphocytes % (Manual) Monocytes % Cancelled Monocytes % (Manual) Eosinophils % Cancelled Eosinophils % (Manual) Basophils % Cancelled Nucleated RBC % Cancelled Metamyelocytes Differential Comment Other Cell Type Platelet Estimate Cancelled Platelet Comment Cancelled Basophilic Stippling [place] Bodies PT with INR INR Anticoagulation Therapy Puncture Site Patient Temperature ABG pH ABG pCO2 at Pt Temp ABG pO2 at Pt Temp ABG HCO3 ABG O2 Sat (Measured) ABG O2 Content ABG Base Excess Rupesh Test VBG pH POC VBG pCO2 POC VBG pO2 VBG HCO3 VBG O2 Sat (Palak) VBG Base Excess Carboxyhemoglobin Methemoglobin O2 Delivery Device Oxygen Flow Rate Vent Mode Vent Rate Mechanical Rate PEEP Pressure Support Vent Sodium Potassium Chloride Carbon Dioxide Anion Gap BUN Creatinine Est GFR (CKD-EPI)AfAm Est GFR (CKD-EPI)NonAf Random Glucose Lactic Acid 1.2 Calcium Total Bilirubin AST ALT Alkaline Phosphatase Troponin I B-Natriuretic Peptide Total Protein Albumin Urine Color Yellow Urine Appearance Clear Urine pH 7.0 Ur Specific Oriental 1.021 Urine Protein 1+ H Urine Glucose (UA) 1+ H Urine Ketones Negative Urine Blood Trace Urine Nitrite Negative Urine Bilirubin Negative Urine Urobilinogen 0.2 Ur Leukocyte Esterase Trace Urine WBC (Auto) 5 Urine RBC (Auto) 6 Urine Casts (Auto) 1 U Epithel Cells (Auto) 3.1 Urine Bacteria (Auto) 4.6 Blood Type Antibody Screen 02/05/19 02/05/19 02/05/19 14:14 14:14 14:14 WBC Corrected WBC (auto) RBC Hgb Hct MCV MCH MCHC RDW Plt Count MPV Absolute Neuts (auto) Neutrophils % Neutrophils % (Manual) Band Neutrophils % Lymphocytes % Lymphocytes % (Manual) Monocytes % Monocytes % (Manual) Eosinophils % Eosinophils % (Manual) Basophils % Nucleated RBC % Metamyelocytes Differential Comment Other Cell Type Platelet Estimate Platelet Comment Basophilic Stippling [place] Bodies PT with INR 13.30 H INR 1.13 H Anticoagulation Therapy Puncture Site Patient Temperature ABG pH ABG pCO2 at Pt Temp ABG pO2 at Pt Temp ABG HCO3 ABG O2 Sat (Measured) ABG O2 Content ABG Base Excess Rupesh Test VBG pH POC VBG pCO2 POC VBG pO2 VBG HCO3 VBG O2 Sat (Palak) VBG Base Excess Carboxyhemoglobin Methemoglobin O2 Delivery Device Oxygen Flow Rate Vent Mode Vent Rate Mechanical Rate PEEP Pressure Support Vent Sodium 126 L Potassium 4.5 Chloride 84 L Carbon Dioxide 39 H Anion Gap 4 L BUN 17 Creatinine 0.5 L Est GFR (CKD-EPI)AfAm 115.26 Est GFR (CKD-EPI)NonAf 99.45 Random Glucose 157 H Lactic Acid Calcium 8.3 L Total Bilirubin 1.1 H AST 74 H ALT 164 H Alkaline Phosphatase 157 H Troponin I 0.09 H B-Natriuretic Peptide 7240.7 H Total Protein 6.4 Albumin 3.5 Urine Color Urine Appearance Urine pH Ur Specific Oriental Urine Protein Urine Glucose (UA) Urine Ketones Urine Blood Urine Nitrite Urine Bilirubin Urine Urobilinogen Ur Leukocyte Esterase Urine WBC (Auto) Urine RBC (Auto) Urine Casts (Auto) U Epithel Cells (Auto) Urine Bacteria (Auto) Blood Type O POSITIVE Antibody Screen Negative 02/05/19 02/05/19 02/05/19 14:14 15:11 15:24 WBC 24.8 H 25.8 H Corrected WBC (auto) RBC 3.51 L 3.48 L Hgb 11.2 11.0 Hct 34.6 34.3 MCV 98.6 H 98.7 H MCH 31.9 31.5 MCHC 32.4 32.0 RDW 14.7 15.0 Plt Count 75 L 80 L MPV 11.3 H 11.3 H Absolute Neuts (auto) 23.1 H 23.9 H Neutrophils % 93.4 H 92.8 H Neutrophils % (Manual) 95.0 H Band Neutrophils % 1.0 Lymphocytes % 3.8 L 4.3 L Lymphocytes % (Manual) 2.0 L Monocytes % 1.5 L 1.9 L Monocytes % (Manual) 0 L Eosinophils % 0.6 0.3 Eosinophils % (Manual) 1.0 Basophils % 0.7 0.7 Nucleated RBC % 0 0 Metamyelocytes 1 Differential Comment Other Cell Type Pelger huet Platelet Estimate Decreased Platelet Comment No clumping noted Basophilic Stippling Rare [place] Bodies Rare PT with INR INR Anticoagulation Therapy Puncture Site Patient Temperature ABG pH ABG pCO2 at Pt Temp ABG pO2 at Pt Temp ABG HCO3 ABG O2 Sat (Measured) ABG O2 Content ABG Base Excess Rupesh Test VBG pH 7.29 L POC VBG pCO2 83.4 H* POC VBG pO2 50.7 H VBG HCO3 39.1 H VBG O2 Sat (Palak) 78.9 VBG Base Excess 10.2 H Carboxyhemoglobin Methemoglobin O2 Delivery Device Oxygen Flow Rate Vent Mode Vent Rate Mechanical Rate PEEP Pressure Support Vent Sodium Potassium Chloride Carbon Dioxide Anion Gap BUN Creatinine Est GFR (CKD-EPI)AfAm Est GFR (CKD-EPI)NonAf Random Glucose Lactic Acid Calcium Total Bilirubin AST ALT Alkaline Phosphatase Troponin I B-Natriuretic Peptide Total Protein Albumin Urine Color Urine Appearance Urine pH Ur Specific Oriental Urine Protein Urine Glucose (UA) Urine Ketones Urine Blood Urine Nitrite Urine Bilirubin Urine Urobilinogen Ur Leukocyte Esterase Urine WBC (Auto) Urine RBC (Auto) Urine Casts (Auto) U Epithel Cells (Auto) Urine Bacteria (Auto) Blood Type Antibody Screen 02/05/19 16:09 WBC Corrected WBC (auto) RBC Hgb Hct MCV MCH MCHC RDW Plt Count MPV Absolute Neuts (auto) Neutrophils % Neutrophils % (Manual) Band Neutrophils % Lymphocytes % Lymphocytes % (Manual) Monocytes % Monocytes % (Manual) Eosinophils % Eosinophils % (Manual) Basophils % Nucleated RBC % Metamyelocytes Differential Comment Other Cell Type Platelet Estimate Platelet Comment Basophilic Stippling [place] Bodies PT with INR INR Anticoagulation Therapy Cancelled Puncture Site Cancelled Patient Temperature Cancelled ABG pH Cancelled ABG pCO2 at Pt Temp Cancelled ABG pO2 at Pt Temp Cancelled ABG HCO3 Cancelled ABG O2 Sat (Measured) Cancelled ABG O2 Content Cancelled ABG Base Excess Cancelled Rupesh Test Cancelled VBG pH POC VBG pCO2 POC VBG pO2 VBG HCO3 VBG O2 Sat (Palak) VBG Base Excess Carboxyhemoglobin Cancelled Methemoglobin Cancelled O2 Delivery Device Cancelled Oxygen Flow Rate Cancelled Vent Mode Cancelled Vent Rate Cancelled Mechanical Rate Cancelled PEEP Cancelled Pressure Support Vent Cancelled Sodium Potassium Chloride Carbon Dioxide Anion Gap BUN Creatinine Est GFR (CKD-EPI)AfAm Est GFR (CKD-EPI)NonAf Random Glucose Lactic Acid Calcium Total Bilirubin AST ALT Alkaline Phosphatase Troponin I B-Natriuretic Peptide Total Protein Albumin Urine Color Urine Appearance Urine pH Ur Specific Oriental Urine Protein Urine Glucose (UA) Urine Ketones Urine Blood Urine Nitrite Urine Bilirubin Urine Urobilinogen Ur Leukocyte Esterase Urine WBC (Auto) Urine RBC (Auto) Urine Casts (Auto) U Epithel Cells (Auto) Urine Bacteria (Auto) Blood Type Antibody Screen Active Medications Generic Name Dose Route Start Last Admin Trade Name Freq PRN Reason Stop Dose Admin Vancomycin HCl 1,500 mg/ 250 mls @ 250 mls/2 hr 02/05/19 17:13 Dextrose IVPB 02/05/19 19:12 ONCE ONE Protocol Piperacillin Sod/Tazobactam 100 mls @ 200 mls/hr 02/05/19 17:13 Sod 4.5 gm/ Dextrose IVPB 02/05/19 17:42 ONCE ONE Protocol ASSESSMENT/PLAN: #Neuro -patient is A&Ox3 without any focal neurologic deficits -weakness is generalized and likely metabolic in origin vs neurologic in #Pulmonary -patient has a primary chronic respiratory acidosis with superimposed metabolic alkalosis based on VBG analysis -patient is saturating at 100% on 3L nasal cannula and is not in any respiratory distress at rest -CTA negative for PE, however there is questionable right lower lobe atelectasis vs infiltrate consistent with physical exam findings (rhales, cough with yellow sputum) -Because white count is 25 and patient is tachycardic, meets SIRS criteria possibly secondary to pneumonia; patient may not be able to mount a fever due to immunocompromised status from chemotherapy -would recommend covering patient with abx for pneumonia given immunocompromised status. Vanc/zosyn given in ED -would recommend ordering legionella/pneumococcal antigens -recommend telemetry monitoring given O2 saturation is normal on 2-3L nasal cannula without increased work of breathing -if patient becomes more dyspneic, can consider BiPap as patient is A&Ox3 and is able to work with bipap #Cardiac -troponins were slightly elevated at 0.09, could be related to demand cardiac ischemia -would recommend trending troponins and hydrate patient -EKG: Tachycardia w/ recognized [id number], incomplete RBBB. -CTA negative for PE #Gastrointestinal -elevated transaminases -would recommend RUQ ultrasound, hepatitis panel and trending the AST/ALT in the morning #Renal -patient is hyponatremic; would get renal consultation -recommend ordering osmolarity studies -hydrate patient with normal saline, repeat serum sodium in AM -BNP elevated; patient does not appear hypervolemic #Infectious Disease -patient meets SIRS criteria (WBC 25 with neutrophilic predominance/tachycardic/ tachypneic) -questionable RLL infiltrate with cough and yellow sputum production in immunocompromised patient s/p chemotherapy, who may not be able to mount fever -would get antigens for legionella/pneumococcus -would order blood/urine cultures -empirically cover with broad spectrum antibiotics -consider ID consultation -UA negative #Heme/ONC -gets treatment at [facility] -thrombocytopenia/anemia could be 2/2 marrow suppression from chemo, repeat labs in AM #Disposition -Based on stable respiratory status on nasal cannula, can be monitored on telemetry. Please call back if needed. -If patient's respiratory status worsens, will upgrade to ICU level of care. -Thank you for this consultative opportunity. Visit type - Emergency Visit Emergency Visit: Yes Care time: The patient presented to the Emergency Department on the above date and was hospitalized for further evaluation of their emergent condition. - New Patient This patient is new to me today: Yes Date on this admission: 02/05/19 - Critical Care Critical Care patient: No
[2019-02-05] MEDS ORDERED: PIPERACILLIN/TAZOB 4.5 GM 4.5 GM/100 ML BAG IVPB ONE (18:20)
[2019-02-05] MEDS ORDERED: VANCOMYCIN 1 GRAM (PRE-DOCKED) 1,000 MG/250 ML BAG IVPB ONE (18:20)
[2019-02-05] MEDS ORDERED: VANCOMYCIN 500 MG VIAL (RESTRICTED TO ID ONLY) ONE (18:29)
[2019-02-05 18:53] LABS: ARTERIAL BLD GAS O2 SATURATION 96.8 % (95-98); ARTERIAL BLOOD GAS PO2 105 mmHg (80-105); ARTERIAL BLOOD GAS pH 7.25 (7.35-7.45)
[2019-02-05 19:08] LABS: ARTERIAL BLOOD GAS PCO2 90.3 mmHg (35-45)
[2019-02-05] MEDS ORDERED: CARBOXYMETHYLCELLULOSE SODIUM OU PRN (19:21)
[2019-02-05] MEDS ORDERED: ACETAMINOPHEN 325 MG TABLET (FP) PO PRN ×2 (19:24→22:55)
--- NOTE | 2019-02-05 19:39 | HP ---
Admitting History and Physical - Primary Care Physician PCP: Wayne Carballo - Admission Chief Complaint: shortness of breath, malaise, decreased appetite History of Present Illness: 68 year old F with h/o HLD, hypothyroidism, GERD, asthma and stage 4 recurrent ovarian cancer (receiving chemo w/ Taxol and carboplatin), complicated by peritoneal carcinomatosis (followed by [facility] oncologist) presents to ED for evaluation of malaise and dyspnea x 5days. Ms. Villegas reports symptoms started after her chemo session last thursday 02/01. She reports dizziness, malaise , dyspnea and decreased appetite, which has progressed to sore throat, productive cough, nausea prompting her to remain in bed. she denies fever/chills /vomiting, chest pain or palpitations. Upon presenting to ED vitals were: BP 124/63, HR 109bpm, RR 24, Sat 99% on 3L. Pt was noted to be hypoxic (O2 sat 69%) while ambulating to bathroom, which improved with NRB and rest. CXR w/ significant pulm congestion EKG: ST 106bpm with non-specific changes Labs: trop 0.09, WBC 25.8, Neutrophils 93%, Na 126, lac 1.2, BNP 7240.7, AST/ ALT 74/164 VEnous blood gas: 7.29/83.4/50.7/39.1/78.9% CT chest angiogram neg pulmonary embolism however there is right-sided lower lobe atelectasis versus effusions/pneumonia Pt was treated with IVF 500ml, Zosyn/vanco Follow up AB.25/90.3/105/38.1/96.8 Admitted for management of hypercapnea and possible PNA. Pt initially admitted to cardiac unit and placed on BIPAP. Decision made to transfer to ICU for closer monitoring. Repeat AB.26/88.6/60.3/38.7/86.1% History Source: Patient, Family Member Limitations to Obtaining History: No Limitations - Past Medical History Cardiovascular: Yes: Hyperlipdemia Pulmonary: Yes: Asthma Reproductive: Yes: Postmenopausal Endocrine: Yes: Hypothyroidism - Past Surgical History Additional Past Surgical History: Multiple exploratory ovarian surgeries, scoliosis surgery 40 years ago. - Advance Directives Advance Directives: Yes: Health Care Proxy (Deleelaine [phone]) - Smoking History Smoking history: Unknown if ever smoked Have you smoked in the past 12 months: No - Alcohol/Substance Use Hx Alcohol Use: No History of Substance Use: reports: None - Social History Usual Living Arrangement: Yes: Alone ADL: Support Services ([employer] 6hrs x 5days per week) History of Recent Travel: No Other Social History: Born in [facility] Home Medications - Allergies Allergies/Adverse Reactions: Allergies Allergy/AdvReac Type Severity Reaction Status Date / Time No Allergy Information Allergy Verified 02/05/19 13:01 Available - Home Medications Home Medications: Ambulatory Orders Albuterol Sulfate Inhaler - [Ventolin HFA Inhaler -] 2 puff PO QID 02/05/19 Atorvastatin Calcium [Lipitor] 1 tab PO HS 02/05/19 Carboxymethylcellulose Sodium [Refresh Celluvisc] 1 drop OU BID PRN 02/05/19 Ergocalciferol (Vitamin D2) [Vitamin D2] 1 cap PO WEEKLY 02/05/19 Ferrous Sulfate 325 mg PO DAILY 02/05/19 Levothyroxine [Synthroid -] 50 mcg PO DAILY 02/05/19 Magnesium Oxide [Magnesium] 1 tab PO DAILY 02/05/19 Omeprazole 1 tab PO DAILY 02/05/19 Family Disease History - Family Disease History Family History: Unable to Obtain Review of Systems - Review of Systems Constitutional: reports: Lethargy, Loss of Appetite, Malaise, Weakness Eyes: reports: No Symptoms HENT: reports: Other (sore throat) Neck: reports: No Symptoms Cardiovascular: reports: Shortness of Breath Respiratory: reports: Cough, SOB, SOB on Exertion Gastrointestinal: reports: Nausea Breasts: reports: No Symptoms Reported Musculoskeletal: reports: Muscle Weakness Integumentary: reports: No Symptoms Neurological: reports: Dizziness, Weakness Hematology/Lymphatic: reports: No Symptoms Psychiatric: reports: No Symptoms Physical Examination Vital Signs: Vital Signs Temperature 98.2 F 02/05/19 19:30 Pulse Rate 101 H 02/05/19 19:30 Respiratory Rate 20 02/05/19 19:30 Blood Pressure 121/62 02/05/19 19:30 O2 Sat by Pulse Oximetry (%) 98 02/05/19 16:44 Constitutional: Yes: No Distress, Ashen, Thin Eyes: Yes: Conjunctiva Clear, PERRL HENT: Yes: Atraumatic, Normocephalic, Other (significant hair loss due to chemo agents) Cardiovascular: Yes: Regular Rate and Rhythm Respiratory: Yes: CTA Bilaterally, Diminished (bases), On Nasal O2, Tachypnea Gastrointestinal: Yes: Normal Bowel Sounds, Soft ...Rectal Exam: Yes: Deferred Musculoskeletal: Yes: Muscle Weakness Extremities: Yes: WNL Edema: No Peripheral Pulses WNL: Yes Peripheral Pulses: Left Radial: 2+, Right Radial: 2+, Left Doralis Pedis: 2+, Right Dorsalis Pedis: 2+ Integumentary: Yes: WNL Neurological: Yes: Alert, Oriented Psychiatric: Yes: Oriented (but fatigued) Labs: CBC, BMP 02/05/19 15:24 02/05/19 14:14 Imaging - Results Chest X-ray: Report Reviewed (CXR 02/05/2019: impression: SColiosis with convexity to the right. Large heart, unfolded and right infiltrate with some atelectasis or infiltrate at the left base. Read by Dr. Dipak Esposito MD) Cat Scan: Report Reviewed (CTA chest 02/05/2019 Impression: No CT evidence of PE. Partial RLL atelectasis is seen. Small right sided and trace left sided pleural effusions are noted. Possible cardiomegaly. Moderate to marked dextroscoliosis. Marked T7 vertebral body anterior wedging on a congenital basis , less likely due to a remote fracture. Reported by Dr. Lawson boyer MD. R) Problem List - Problems (1) Pneumonia Assessment/Plan: ID consult placed Vanco 1G daily, check level before 4th dose Zosyn TID trend temp curve and WBC trends follow up sputum culture and blood cx nebs PRN Code(s): J18.9 - PNEUMONIA, UNSPECIFIED ORGANISM (2) Prophylactic measure Assessment/Plan: Heparin SC TID bowel regimen with senna and colace APAP PRN temp > 101.2 Turn and position Q2hrs Code(s): Z29.9 - ENCOUNTER FOR PROPHYLACTIC MEASURES, UNSPECIFIED (3) Carcinoma of ovary, stage 4 Assessment/Plan: case reviewed by ED staff with [facility] heme-onc Dr. Apple Hoyt ( [facility] - [phone]) Code(s): C56.9 - MALIGNANT NEOPLASM OF UNSPECIFIED OVARY (4) Elevated brain natriuretic peptide (BNP) level Assessment/Plan: maynorix daily monitor electrolyte daily and replete as needed Code(s): R79.89 - OTHER SPECIFIED ABNORMAL FINDINGS OF BLOOD CHEMISTRY (5) Hypercapnia Assessment/Plan: Admit to ICU Trial of BIPAP, if she continue to remain hypercapnic, consider intubation FAmily currently would like all life sustaining measures undertaken. Code(s): R06.89 - OTHER ABNORMALITIES OF BREATHING Visit type - Emergency Visit Emergency Visit: Yes ED Registration Date: 02/05/19 Care time: The patient presented to the Emergency Department on the above date and was hospitalized for further evaluation of their emergent condition. - New Patient This patient is new to me today: Yes Date on this admission: 02/05/19 - Critical Care Critical Care patient: No
--- NOTE | 2019-02-05 19:48 | PN ---
Progress Note (short form) - Note Progress Note: UPDATE 2; On arrival to ICU pt minimally responsive to sternal rub on NIPPV. Pt hemodynamics stable at this time, however pt is extremely lethargic. Discussed with family about intubation and how pt made the decision to be full code prior. Anesthesia called and intubated pt for protection of airway and hypoxic, hypercapneic respiratory failure. --will use fentanyl and ativan for comfort due to pt's labile BP with propofol. Can escalate for vent synchrony as hemodynamics permit --Changed Protonix and synthroid doses to IV equivalents --CXR post-intubation with questionable proximity to anjel; pulled ETT to marker 21 from 22 --rpt CXR and ABG in AM --given pt's hyponatremia, hypochloridemia and sepsis 2/2 to PNA will hydrate gently at 75cc/hr for 1 bag ----- UPDATE 1: Upon re-evaluation of 2 hours on BiLevel pt's ABG 7.26 (delta 0.01), pCO2 88 (delta 2), pO2 60. Pt remains compensated at current moment without any signs of CO2 narcosis, however due to likelihood of rapid decline can transfer to ICU for closer monitoring. Agree with primary team adjustment of Bilevel to 08/09/20 RR/ and increase I:E ratio. ----- Recalled to assess pt given ph 7.25, pCO2 90 on recent ABG. Pt to be trialed on BiLevel for 1 hr with repeat ABG. If improvement will watch closely on telemetry floor, however if no improvement will transfer to ICU and reassess GOC for possible intubation. Discussed with pt at bedside and pt is agreeable to current plan of action. Will reassess in 1 hr. Currently pt feels weak, however does not have any clouding of sensorium, disorientation, or lethargy
[2019-02-05 20:32] LABS: HOWELL-JOLLY BODIES RARE; PLATELET ESTIMATE DECREASED
[2019-02-05] MEDS: ALBUTEROL SO4 0.083% IH SOL 2.5 MG/3 ML VIAL.NEB. NEB SCH (21:40)
[2019-02-05] MEDS: IPRATROPIUM BR 0.02% 0.5 MG/2.5 ML VIAL.NEB. NEB SCH (21:40)
[2019-02-05 21:54] LABS: ARTERIAL BLD GAS O2 SATURATION 86.1 % (95-98); ARTERIAL BLOOD GAS BASE EXCESS 9.2 meq/l (-2-2); ARTERIAL BLOOD GAS pH 7.26 (7.35-7.45)
[2019-02-05 21:58] LABS: ALLENS TEST POSITIVE
[2019-02-05] MEDS ORDERED: MUPIROCIN 2% TOPICAL OINTMENT FOR DECOLONIZATION NS SCH (22:00)
[2019-02-05] MEDS ORDERED: CHLORHEXIDINE GLUCONATE 4% CLEANSER FOR DECOLONIZATION TP SCH (22:00)
[2019-02-05 22:01] LABS: ARTERIAL BLOOD GAS PO2 60.3 mmHg (80-105)
[2019-02-05 22:02] LABS: ARTERIAL BLOOD GAS PCO2 88.6 mmHg (35-45)
[2019-02-05] MEDS ORDERED: RAPID SEQUENCE INTUBATION KIT NR ONE (23:09)
[2019-02-05] MEDS ORDERED: fentaNYL CITRATE 250 MCG/5 ML VIAL ONE (23:36)
--- NOTE | 2019-02-05 23:46 | PROC ---
Intubation - Intubation Time of Intubation: 23:30 Intubation Method: orotracheal Blade used: Mac (4) Tube Size (cm): 7.5 Tube position @ lip (cm): 20 Tube position confirmed by: Direct visualization, CO2 detector, Chest x-ray ( CXR pending), Breath sounds Breath Sounds after Intubation: equal Post Intubation Xray: Yes (pending) Remarks: Anesthesiology Called by Resident Dr. Marina boland. pt. with worsening respiratory and mental status, hypercapnia, not improving on BiPAP. NKA, pt. NPO, K+ wnl. Pt. positioned in bed. Propofol 100mg IV followed by Succinylcholine 100mg IV. Easy BMV with AMBU. MAC 4 with grade 1 view by resident. ETT passed with ease; upon cuff inflation, noted to not hold pressure. Cuff deflated completely, ETT removed, BMV and then Propofol 100mg IV. Grade 1 view by myself, new 7.5.ETT passed with ease. Cuff inflated appropriately. VSS: BP 98/58 HR 77, SpO2 100%. CXR ordered and pending.
[2019-02-05] MEDS ORDERED: SODIUM CHLORIDE 250 ML IV STA (23:51)
[2019-02-06] MEDS: FENTANYL INJECTION 500 MCG in DEXTROSE 5%-WATER - 90 ML IVPB SCH (00:07)
[2019-02-06] MEDS: SENNOSIDES 8.6MG TABLET (FP) PO SCH ×2 (00:07→22:21)
[2019-02-06] MEDS: ATORVASTATIN CA 20 MG TABLET (FP) PO SCH ×2 (00:07→22:21)
[2019-02-06] MEDS ORDERED: PROPOFOL 1,000,000 MCG/100 ML VIAL ONE (00:10)
[2019-02-06] MEDS ORDERED: SODIUM CHLORIDE 250 ML IV STA ×2 (00:32→02:38)
[2019-02-06] MEDS ORDERED: SODIUM CHLORIDE 1,000 ML IV SCH ×2 (00:45→02:39)
[2019-02-06] MEDS ORDERED: DEXMEDETOMIDINE HCL 200 MCG in SODIUM CHLORIDE 48 ML IVPB SCH (00:45)
[2019-02-06] MEDS ORDERED: LORazepam 2 MG/ML SDV VIAL IVPUSH ONE (00:46)
[2019-02-06] MEDS ORDERED: LORazepam 2 MG/ML SDV VIAL ONE (00:47)
[2019-02-06] MEDS ORDERED: PIPERACILLIN/TAZOBACTAM 3.375 GM VIAL IVPB ONE ×2 (01:08→08:59)
[2019-02-06] MEDS ORDERED: DEXTROSE 5%-WATER - 50 ML IVPB ONE ×2 (01:08→08:59)
[2019-02-06] MEDS: HEPARIN NA (PORCINE) 5,000 UNITS/ML 1ML VIAL SQ SCH ×3 (01:36→17:14)
[2019-02-06] MEDS: PIPERACILLIN/TAZOB 3.375 GM 3.375 GM in DEXTROSE 5%-WATER - 50 ML IVPB SCH ×2 (01:36→09:57)
[2019-02-06] MEDS ORDERED: PIPERACILLIN/TAZOB 3.375 GM 3.375 GM in DEXTROSE 5%-WATER - 50 ML IVPB SCH (02:00)
[2019-02-06] MEDS ORDERED: ACETAMINOPHEN 1000 MG/100 ML VIAL (NON FORMULARY) IVPB PRN (02:37)
[2019-02-06] MEDS ORDERED: fentaNYL CITRATE 250 MCG/5 ML VIAL ONE (03:16)
[2019-02-06] MEDS ORDERED: VANCOMYCIN 1 GM in D5W (PRE-DOCKED) 1,000 MG/250 ML IVPB SCH (06:00)
[2019-02-06] MEDS: PROPOFOL 1,000,000 MCG/100 ML VIAL IVPB SCH (06:42)
[2019-02-06] MEDS: LEVOTHYROXINE SODIUM 100 MCG VIAL IVPUSH SCH (06:44)
[2019-02-06 06:58] LABS: ARTERIAL BLD GAS O2 SATURATION 98.1 % (95-98); ARTERIAL BLOOD GAS BASE EXCESS 11.4 meq/l (-2-2); ARTERIAL BLOOD GAS PCO2 43.8 mmHg (35-45); ARTERIAL BLOOD GAS PO2 87.7 mmHg (80-105); ARTERIAL BLOOD GAS pH 7.52 (7.35-7.45)
[2019-02-06 06:59] LABS: ALLENS TEST POSITIVE
[2019-02-06] MEDS ORDERED: LEVOTHYROXINE NA 50 MCG TABLET (FP) PO SCH (07:00)
[2019-02-06 07:42] LABS: BASO % 0.5 % (0-2.0); EOS % 1.1 % (0-4.5); HEMATOCRIT 32.9 % (32.4-45.2); HEMOGLOBIN 10.9 GM/dL (10.7-15.3); LYMPH % 12.8 % (8-40); MCH 32.3 pg (25.7-33.7); MEAN CELL VOLUME 97.9 fl (80-96); MEAN PLT VOLUME 12.2 fl (7.5-11.1); MONO % 1.5 % (3.8-10.2); NEUT % 84.1 % (42.8-82.8); PLATELET COUNT 51 K/MM3 (134-434); RBC 3.36 M/mm3 (3.60-5.2); RDW 15.2 % (11.6-15.6); WHITE BLOOD COUNT 8.6 K/mm3 (4.0-10.0)
[2019-02-06] MEDS: IPRATROPIUM BR 0.02% 0.5 MG/2.5 ML VIAL.NEB. NEB SCH ×4 (08:00→19:55)
[2019-02-06] MEDS: ALBUTEROL SO4 0.083% IH SOL 2.5 MG/3 ML VIAL.NEB. NEB SCH ×4 (08:00→19:55)
[2019-02-06 08:02] LABS: ALBUMIN 3.1 g/dl (3.4-5.0); CALCIUM 8.1 mg/dL (8.5-10.1); MAGNESIUM 1.5 mg/dL (1.8-2.4); POTASSIUM 3.8 mmol/L (3.5-5.1)
--- NOTE | 2019-02-06 08:06 | PN ---
Progress Note, Physician History of Present Illness: 68 year old maltese-speaking female with a past medical history of metastatic ovarian cancer with peritoneal carcinomatosis presents to the hospital for generalized weakness and shortness of breath since Monday. States that she received chemotherapy (carbotaxol) on Monday, and since then has been short of breath on exertion with weakness, decreased appetite and poor PO intake. States that she also has been suffering from a cough productive of yellow sputum. Denies any over chest pain, shortness of breath at rest, nausea, vomiting, diarrhea, fevers, chills. Denies any swelling in her legs, headache, vision changes, dysuria, abdominal pain. Denies recent travel or sick contacts. Patient is from [facility] and has no children. Lives alone at home with an aid for 1/4th of the day and ambulates with a walker. Reports difficulty in ambulating after her chemotherapy treatment. She follows with Oncologist Dr. Hoyt at [facility] Reports being diagnosed with ovarian CA in 2017 and had a surgery to resect ovaries. Per ED, patient was saturating in the 60s with a respiratory acidosis on VBG and concern was risen about respiratory status and need for ICU monitoring. - Current Medication List Current Medications: Active Medications Acetaminophen (Ofirmev Injection -) 1,000 mg IVPB Q6H PRN PRN Reason: FEVER Last Admin: 02/06/19 03:07 Dose: 1,000 mg Albuterol Sulfate (Ventolin 0.083% Nebulizer Soln -) 1 amp NEB RQID PAUL Last Admin: 02/05/19 21:40 Dose: 1 amp Atorvastatin Calcium (Lipitor -) 20 mg PO HS PAUL Last Admin: 02/06/19 00:07 Dose: Not Given Heparin Sodium (Porcine) (Heparin -) 5,000 unit SQ Q8H-IV PAUL Last Admin: 02/06/19 01:36 Dose: 5,000 unit Piperacillin Sod/Tazobactam (Sod 3.375 gm/ Dextrose) 50 mls @ 100 mls/hr IVPB Q8H-IV PAUL Piperacillin Sod/Tazobactam (Sod 3.375 gm/ Dextrose) 50 mls @ 100 mls/hr IVPB Q8H-IV PAUL Stop: 02/06/19 10:29 Last Admin: 02/06/19 01:36 Dose: 100 mls/hr Fentanyl 500 mcg/ Dextrose 100 mls @ 1 mls/hr IVPB TITR [facility]; Protocol Last Admin: 02/06/19 00:07 Dose: 5 mcg/hr, 1 mls/hr Sodium Chloride (Normal Saline -) 1,000 mls @ 125 mls/hr IV ASDIR [facility] Last Admin: 02/06/19 03:06 Dose: 125 mls/hr Propofol (Diprivan -) 1,000,000 mcg in 100 mls @ 0.72 mls/hr IVPB TITR [facility]; Protocol Last Admin: 02/06/19 06:42 Dose: 3 mcg/kg/min, 1.08 mls/hr Ipratropium [place] (Atrovent 0.02% Nebulizer -) 1 amp NEB RQID [facility] Last Admin: 02/05/19 21:40 Dose: 1 amp Levothyroxine Sodium (Synthroid Injection -) 25 mcg IVPUSH AM [facility] Last Admin: 02/06/19 06:44 Dose: 25 mcg Non-Formulary Medication (Carboxymethylcellulose Sodium [Refresh Celluvisc]) 1 drop OU BID PRN PRN Reason: DRY EYES Pantoprazole Sodium (Protonix Iv) 40 mg IVPUSH DAILY [facility] Senna (Senna -) 2 tab PO HS [facility] Last Admin: 02/06/19 00:07 Dose: Not Given Vancomycin HCl (Vancomycin (Pre-Docked)) 1,000 mg IVPB DAILY@0600 [facility]; Protocol - Objective Vital Signs: Vital Signs Temperature 100.5 F H 02/06/19 06:00 Pulse Rate 83 02/06/19 06:00 Respiratory Rate 14 02/06/19 07:00 Blood Pressure 118/63 02/06/19 06:00 O2 Sat by Pulse Oximetry (%) 100 02/05/19 23:00 Constitutional: Yes: Calm, Other (Patient orally intubated on propofol and fentany gtt/weaning off for extubation) Eyes: Yes: WNL, Conjunctiva Clear, EOM Intact HENT: Yes: WNL, Atraumatic, Normocephalic Neck: Yes: WNL Cardiovascular: Yes: WNL, Regular Rate and Rhythm Respiratory: Yes: Diminished, Mechanically Ventilated, Rhonchi (BL) Gastrointestinal: Yes: Normal Bowel Sounds Genitourinary: Yes: Sow Present Breast(s): Yes: WNL Musculoskeletal: Yes: Other (not able to assess) Extremities: Yes: WNL Edema: Yes Edema: LLE: 2+, RLE: 2+ Peripheral Pulses WNL: Yes Neurological: Yes: Alert (to verbal commands) ...Motor Strength: LUE, LLE, RUE, RLE (4/5) Psychiatric: Yes: Other (sedated) Labs: CBC, BMP 02/06/19 05:57 02/06/19 05:57 INR, PTT INR 1.13 (0.83-1.09) H 02/05/19 14:14 - ....Imaging Chest X-ray: Report Reviewed (orally intubted with ETT 1cm above anjel, BL inflltrates noted), Image Reviewed Cat Scan: Report Reviewed (CTA no PE) MRI: Report Reviewed (Impression: No CT evidence of pulmonary embolism is identified. Partial right lower lobe atelectasis is seen. An underlying infiltrate would be difficult to exclude on the basis of imaging only. Correlate clinically. Small right-sided and trace left-sided pleural effusions are noted. Possible mild cardiomegaly. Moderate to marked thoracic dextroscoliosis. Marked T7 vertebral body anterior wedging probably on a congenital basis, less likely due to a remote fracture.) Problem List - Problems (1) Acute respiratory failure Assessment/Plan: patient orally intubated overnight in ICU -plan to wean to extubation as per Critical Care -Bipap as needed post-extubation -incentive spirometry and chest PT post-extubation Code(s): J96.00 - ACUTE RESPIRATORY FAILURE, UNSP W HYPOXIA OR HYPERCAPNIA Qualifiers: Respiratory failure complication: hypoxia and hypercapnia Qualified Code(s) : J96.01 - Acute respiratory failure with hypoxia; J96.02 - Acute respiratory failure with hypercapnia (2) Carcinoma of ovary, stage 4 Assessment/Plan: -gets treatment at [facility] Code(s): C56.9 - MALIGNANT NEOPLASM OF UNSPECIFIED OVARY (3) Elevated brain natriuretic peptide (BNP) level Assessment/Plan: continue to trend BNP, downtrending -CTA negative for PE Code(s): R79.89 - OTHER SPECIFIED ABNORMAL FINDINGS OF BLOOD CHEMISTRY (4) Hypercapnia Assessment/Plan: resolved with positive pressure ventilation Code(s): R06.89 - OTHER ABNORMALITIES OF BREATHING (5) Hyponatremia Assessment/Plan: resolving maintian on NS free water restriction when taking fluids monitor daily CMP Code(s): E87.1 - HYPO-OSMOLALITY AND HYPONATREMIA (6) Hypoxia Assessment/Plan: 2/2 RLL pneumonia; patient is immunocompromised -antigens for legionella/pneumococcus -follow cultures -Vanc/Zosyn -continue with supplemental O2 with BiPap as needed Code(s): R09.02 - HYPOXEMIA (7) Pneumonia Assessment/Plan: - RLL pneumonia; patient is immunocompromised -follow cultures -Vanc/Zosyn -ID following and appreciate -UA negative Code(s): J18.9 - PNEUMONIA, UNSPECIFIED ORGANISM (8) Prophylactic measure Assessment/Plan: FEN monitor daily CMP NPO, advance as tolerated IVF NS Heparin sq 5000u TID PPI BID Dispo -ICU monitoring full code possible transfer to in patient floor in am Code(s): Z29.9 - ENCOUNTER FOR PROPHYLACTIC MEASURES, UNSPECIFIED (9) Thrombocytopenia Assessment/Plan: -thrombocytopenia/anemia could be 2/2 marrow suppression from chemo, platelets decreasing to 51 - reassess in AM and consider Heme/Onc consultation if continues to decrease further Code(s): D69.6 - THROMBOCYTOPENIA, UNSPECIFIED (10) Transaminitis Assessment/Plan: -elevated transaminases - RUQ ultrasound showed fatty liver -hepatitis panel pending Code(s): R74.0 - NONSPEC ELEV OF LEVELS OF TRANSAMNS & LACTIC ACID DEHYDRGNSE (11) Admitted to intensive care unit Assessment/Plan: remains in ICU appreciate Critical Care mananagement possible transfer to floor in am Code(s): Z78.9 - OTHER SPECIFIED HEALTH STATUS Visit type - Emergency Visit Emergency Visit: Yes ED Registration Date: 02/05/19 Care time: The patient presented to the Emergency Department on the above date and was hospitalized for further evaluation of their emergent condition. - New Patient This patient is new to me today: Yes Date on this admission: 02/06/19 - Critical Care Critical Care patient: Yes Total Critical Care Time (in minutes): 30 Critical Care Statement: The care of this patient involved high complexity decision making to prevent further life threatening deterioration of the patient 's condition and/or to evaluate & treat vital organ system(s) failure or risk of failure. - Discharge Referral Referred to [facility] No
[2019-02-06 08:14] LABS: BILIRUBIN,TOTAL 1.1 mg/dL (0.2-1); CREATININE 0.5 mg/dL (0.55-1.3); N-TERMINAL BNP 4916.4 pg/ml (5-125); PHOSPHOROUS 1.3 mg/dL (2.5-4.9); TOT PROT 5.5 g/dl (6.4-8.2)
[2019-02-06 08:29] LABS: INR 1.17 (0.83-1.09); PROTHROMBIN TIME (PATIENT) 13.8 SEC (9.7-13.0)
[2019-02-06 08:32] LABS: ACTIVATED PTT 29.4 SECONDS (25.2-36.5)
--- NOTE | 2019-02-06 08:57 | PN ---
Physical Exam: SUBJECTIVE: Patient seen and examined at bedside. She is awake and alert, oriented. She is vented. Overnight she was intubated for airway protection due to lethargy and likely CO2 narcosis. Has been off of propofol this morning. Febrile overnight OBJECTIVE: Vital Signs Period Temp Pulse Resp BP Sys/Humphrey Pulse Ox Last 24 Hr 98.2 F-101 F 81-109 14-24 81-142/54-66 42-100 GENERAL: A&O, no acute distress, patient is vented EYES: PERRLA, EOMI ENT: Moist mucus membranes NECK: No JVD LUNGS: course breath sounds bilaterally, no wheezes HEART: RRR, no murmurs ABDOMEN: Soft, nontender, BS present MUSCULOSKELETAL: No CVA Tenderness EXTREMITIES: 2+ pulses, no edema. NEUROLOGICAL: Cranial nerves II-XII intact. Laboratory Results - last 24 hr 02/05/19 02/05/19 02/05/19 13:40 13:51 13:57 WBC Cancelled Corrected WBC (auto) Cancelled RBC Cancelled Hgb Cancelled Hct Cancelled MCV Cancelled MCH Cancelled MCHC Cancelled RDW Cancelled Plt Count Cancelled MPV Cancelled Absolute Neuts (auto) Cancelled Neutrophils % Cancelled Neutrophils % (Manual) Band Neutrophils % Lymphocytes % Cancelled Lymphocytes % (Manual) Monocytes % Cancelled Monocytes % (Manual) Eosinophils % Cancelled Eosinophils % (Manual) Basophils % Cancelled Nucleated RBC % Cancelled Metamyelocytes Differential Comment Other Cell Type Platelet Estimate Cancelled Platelet Comment Cancelled Basophilic Stippling Mendoza-Cliffdell Bodies PT with INR INR PTT (Actin FS) Anticoagulation Therapy Puncture Site Patient Temperature ABG pH ABG pCO2 at Pt Temp ABG pO2 at Pt Temp ABG HCO3 ABG O2 Sat (Measured) ABG O2 Content ABG Base Excess Rupesh Test VBG pH POC VBG pCO2 POC VBG pO2 VBG HCO3 VBG O2 Sat (Palak) VBG Base Excess Carboxyhemoglobin Methemoglobin O2 Delivery Device Oxygen Flow Rate Vent Mode Vent Rate Mechanical Rate PEEP Pressure Support Vent Sodium Potassium Chloride Carbon Dioxide Anion Gap BUN Creatinine Est GFR (CKD-EPI)AfAm Est GFR (CKD-EPI)NonAf Random Glucose Lactic Acid 1.2 Calcium Phosphorus Magnesium Total Bilirubin AST ALT Alkaline Phosphatase Troponin I B-Natriuretic Peptide Total Protein Albumin TSH Urine Color Yellow Urine Appearance Clear Urine pH 7.0 Ur Specific [place] 1.021 Urine Protein 1+ H Urine Glucose (UA) 1+ H Urine Ketones Negative Urine Blood Trace Urine Nitrite Negative Urine Bilirubin Negative Urine Urobilinogen 0.2 Ur Leukocyte Esterase Trace Urine WBC (Auto) 5 Urine RBC (Auto) 6 Urine Casts (Auto) 1 U Epithel Cells (Auto) 3.1 Urine Bacteria (Auto) 4.6 Blood Type Antibody Screen 02/05/19 02/05/19 02/05/19 14:14 14:14 14:14 WBC Corrected WBC (auto) RBC Hgb Hct MCV MCH MCHC RDW Plt Count MPV Absolute Neuts (auto) Neutrophils % Neutrophils % (Manual) Band Neutrophils % Lymphocytes % Lymphocytes % (Manual) Monocytes % Monocytes % (Manual) Eosinophils % Eosinophils % (Manual) Basophils % Nucleated RBC % Metamyelocytes Differential Comment Other Cell Type Platelet Estimate Platelet Comment Basophilic Stippling Mendoza-Cliffdell Bodies PT with INR 13.30 H INR 1.13 H PTT (Actin FS) Anticoagulation Therapy Puncture Site Patient Temperature ABG pH ABG pCO2 at Pt Temp ABG pO2 at Pt Temp ABG HCO3 ABG O2 Sat (Measured) ABG O2 Content ABG Base Excess Rupesh Test VBG pH POC VBG pCO2 POC VBG pO2 VBG HCO3 VBG O2 Sat (Palak) VBG Base Excess Carboxyhemoglobin Methemoglobin O2 Delivery Device Oxygen Flow Rate Vent Mode Vent Rate Mechanical Rate PEEP Pressure Support Vent Sodium 126 L Potassium 4.5 Chloride 84 L Carbon Dioxide 39 H Anion Gap 4 L BUN 17 Creatinine 0.5 L Est GFR (CKD-EPI)AfAm 115.26 Est GFR (CKD-EPI)NonAf 99.45 Random Glucose 157 H Lactic Acid Calcium 8.3 L Phosphorus Magnesium Total Bilirubin 1.1 H AST 74 H ALT 164 H Alkaline Phosphatase 157 H Troponin I 0.09 H B-Natriuretic Peptide 7240.7 H Total Protein 6.4 Albumin 3.5 TSH Urine Color Urine Appearance Urine pH Ur Specific [place] Urine Protein Urine Glucose (UA) Urine Ketones Urine Blood Urine Nitrite Urine Bilirubin Urine Urobilinogen Ur Leukocyte Esterase Urine WBC (Auto) Urine RBC (Auto) Urine Casts (Auto) U Epithel Cells (Auto) Urine Bacteria (Auto) Blood Type O POSITIVE Antibody Screen Negative 02/05/19 02/05/19 02/05/19 14:14 15:11 15:24 WBC 24.8 H 25.8 H Corrected WBC (auto) RBC 3.51 L 3.48 L Hgb 11.2 11.0 Hct 34.6 34.3 MCV 98.6 H 98.7 H MCH 31.9 31.5 MCHC 32.4 32.0 RDW 14.7 15.0 Plt Count 75 L 80 L MPV 11.3 H 11.3 H Absolute Neuts (auto) 23.1 H 23.9 H Neutrophils % 93.4 H 92.8 H Neutrophils % (Manual) 95.0 H 95.0 H Band Neutrophils % 1.0 1.0 Lymphocytes % 3.8 L 4.3 L Lymphocytes % (Manual) 2.0 L 2.0 L Monocytes % 1.5 L 1.9 L Monocytes % (Manual) 0 L 0 L Eosinophils % 0.6 0.3 Eosinophils % (Manual) 1.0 1.0 Basophils % 0.7 0.7 Nucleated RBC % 0 0 Metamyelocytes 1 1 Differential Comment Other Cell Type Pelger huet Platelet Estimate Decreased Decreased Platelet Comment No clumping noted No clumping noted Basophilic Stippling Rare Rare Mendoza-Cliffdell Bodies Rare Rare PT with INR INR PTT (Actin FS) Anticoagulation Therapy Puncture Site Patient Temperature ABG pH ABG pCO2 at Pt Temp ABG pO2 at Pt Temp ABG HCO3 ABG O2 Sat (Measured) ABG O2 Content ABG Base Excess Rupesh Test VBG pH 7.29 L POC VBG pCO2 83.4 H* POC VBG pO2 50.7 H VBG HCO3 39.1 H VBG O2 Sat (Palak) 78.9 VBG Base Excess 10.2 H Carboxyhemoglobin Methemoglobin O2 Delivery Device Oxygen Flow Rate Vent Mode Vent Rate Mechanical Rate PEEP Pressure Support Vent Sodium Potassium Chloride Carbon Dioxide Anion Gap BUN Creatinine Est GFR (CKD-EPI)AfAm Est GFR (CKD-EPI)NonAf Random Glucose Lactic Acid Calcium Phosphorus Magnesium Total Bilirubin AST ALT Alkaline Phosphatase Troponin I B-Natriuretic Peptide Total Protein Albumin TSH Urine Color Urine Appearance Urine pH Ur Specific [place] Urine Protein Urine Glucose (UA) Urine Ketones Urine Blood Urine Nitrite Urine Bilirubin Urine Urobilinogen Ur Leukocyte Esterase Urine WBC (Auto) Urine RBC (Auto) Urine Casts (Auto) U Epithel Cells (Auto) Urine Bacteria (Auto) Blood Type Antibody Screen 06/04/19 06/04/19 06/04/19 16:09 17:26 21:25 WBC Corrected WBC (auto) RBC Hgb Hct MCV MCH MCHC RDW Plt Count MPV Absolute Neuts (auto) Neutrophils % Neutrophils % (Manual) Band Neutrophils % Lymphocytes % Lymphocytes % (Manual) Monocytes % Monocytes % (Manual) Eosinophils % Eosinophils % (Manual) Basophils % Nucleated RBC % Metamyelocytes Differential Comment Other Cell Type Platelet Estimate Platelet Comment Basophilic Stippling Mendoza-Cliffdell Bodies PT with INR INR PTT (Actin FS) Anticoagulation Therapy Cancelled No Result Required. No Result Required. Puncture Site Cancelled No Result Required. Left radial Patient Temperature Cancelled ABG pH Cancelled 7.25 L 7.26 L ABG pCO2 at Pt Temp Cancelled 90.3 H* 88.6 H* ABG pO2 at Pt Temp Cancelled 105 60.3 L ABG HCO3 Cancelled 38.1 H 38.7 H ABG O2 Sat (Measured) Cancelled 96.8 86.1 L ABG O2 Content Cancelled 16.4 13.2 L ABG Base Excess Cancelled 8.0 H 9.2 H Rupesh Test Cancelled No Result Required. Positive VBG pH POC VBG pCO2 POC VBG pO2 VBG HCO3 VBG O2 Sat (Palak) VBG Base Excess Carboxyhemoglobin Cancelled Methemoglobin Cancelled O2 Delivery Device Cancelled No Result Required. Bipap Oxygen Flow Rate Cancelled No Result Required. 30% Vent Mode Cancelled No Result Required. S/t Vent Rate Cancelled No Result Required. 14 Mechanical Rate Cancelled No Result Required. No Result Required. PEEP Cancelled Pressure Support Vent Cancelled No Result Required. 12/6 Sodium Potassium Chloride Carbon Dioxide Anion Gap BUN Creatinine Est GFR (CKD-EPI)AfAm Est GFR (CKD-EPI)NonAf Random Glucose Lactic Acid Calcium Phosphorus Magnesium Total Bilirubin AST ALT Alkaline Phosphatase Troponin I B-Natriuretic Peptide Total Protein Albumin TSH Urine Color Urine Appearance Urine pH Ur Specific [place] Urine Protein Urine Glucose (UA) Urine Ketones Urine Blood Urine Nitrite Urine Bilirubin Urine Urobilinogen Ur Leukocyte Esterase Urine WBC (Auto) Urine RBC (Auto) Urine Casts (Auto) U Epithel Cells (Auto) Urine Bacteria (Auto) Blood Type Antibody Screen 02/06/19 02/06/19 02/06/19 05:57 05:57 06:50 WBC 8.6 Corrected WBC (auto) RBC 3.36 L Hgb 10.9 Hct 32.9 MCV 97.9 H MCH 32.3 MCHC 33.0 RDW 15.2 Plt Count 51 L D MPV 12.2 H Absolute Neuts (auto) 7.2 Neutrophils % 84.1 H Neutrophils % (Manual) Band Neutrophils % Lymphocytes % 12.8 D Lymphocytes % (Manual) Monocytes % 1.5 L Monocytes % (Manual) Eosinophils % 1.1 D Eosinophils % (Manual) Basophils % 0.5 Nucleated RBC % 0 Metamyelocytes Differential Comment Other Cell Type Platelet Estimate Platelet Comment Basophilic Stippling Mendoza-Cliffdell Bodies PT with INR INR PTT (Actin FS) Anticoagulation Therapy Puncture Site Right radial Patient Temperature ABG pH 7.52 H ABG pCO2 at Pt Temp 43.8 ABG pO2 at Pt Temp 87.7 ABG HCO3 35.5 H ABG O2 Sat (Measured) 98.1 H ABG O2 Content 14.0 L ABG Base Excess 11.4 H Rupesh Test Positive VBG pH POC VBG pCO2 POC VBG pO2 VBG HCO3 VBG O2 Sat (Palak) VBG Base Excess Carboxyhemoglobin Methemoglobin O2 Delivery Device Oxygen Flow Rate 40% Vent Mode A/c Vent Rate 14 Mechanical Rate PEEP 5.0 Pressure Support Vent 400 Sodium 133 L Potassium 3.8 Chloride 91 L Carbon Dioxide 36 H Anion Gap 6 L BUN 10 Creatinine 0.5 L Est GFR (CKD-EPI)AfAm 115.26 Est GFR (CKD-EPI)NonAf 99.45 Random Glucose 87 Lactic Acid Calcium 8.1 L Phosphorus 1.3 L Magnesium 1.5 L Total Bilirubin 1.1 H AST 57 H ALT 124 H Alkaline Phosphatase 130 H Troponin I 0.08 H B-Natriuretic Peptide 4916.4 H Total Protein 5.5 L Albumin 3.1 L TSH 5.39 H Urine Color Urine Appearance Urine pH Ur Specific [place] Urine Protein Urine Glucose (UA) Urine Ketones Urine Blood Urine Nitrite Urine Bilirubin Urine Urobilinogen Ur Leukocyte Esterase Urine WBC (Auto) Urine RBC (Auto) Urine Casts (Auto) U Epithel Cells (Auto) Urine Bacteria (Auto) Blood Type Antibody Screen 02/06/19 02/06/19 08:00 08:00 WBC Corrected WBC (auto) RBC Hgb Hct MCV MCH MCHC RDW Plt Count MPV Absolute Neuts (auto) Neutrophils % Neutrophils % (Manual) Band Neutrophils % Lymphocytes % Lymphocytes % (Manual) Monocytes % Monocytes % (Manual) Eosinophils % Eosinophils % (Manual) Basophils % Nucleated RBC % Metamyelocytes Differential Comment Other Cell Type Platelet Estimate Platelet Comment Basophilic Stippling Mendoza-Cliffdell Bodies PT with INR 13.80 H INR 1.17 H PTT (Actin FS) 29.4 Anticoagulation Therapy Puncture Site Patient Temperature ABG pH ABG pCO2 at Pt Temp ABG pO2 at Pt Temp ABG HCO3 ABG O2 Sat (Measured) ABG O2 Content ABG Base Excess Rupesh Test VBG pH POC VBG pCO2 POC VBG pO2 VBG HCO3 VBG O2 Sat (Palak) VBG Base Excess Carboxyhemoglobin Methemoglobin O2 Delivery Device Oxygen Flow Rate Vent Mode Vent Rate Mechanical Rate PEEP Pressure Support Vent Sodium Potassium Chloride Carbon Dioxide Anion Gap BUN Creatinine Est GFR (CKD-EPI)AfAm Est GFR (CKD-EPI)NonAf Random Glucose Lactic Acid 1.3 Calcium Phosphorus Magnesium Total Bilirubin AST ALT Alkaline Phosphatase Troponin I B-Natriuretic Peptide Total Protein Albumin TSH Urine Color Urine Appearance Urine pH Ur Specific [place] Urine Protein Urine Glucose (UA) Urine Ketones Urine Blood Urine Nitrite Urine Bilirubin Urine Urobilinogen Ur Leukocyte Esterase Urine WBC (Auto) Urine RBC (Auto) Urine Casts (Auto) U Epithel Cells (Auto) Urine Bacteria (Auto) Blood Type Antibody Screen Active Medications Generic Name Dose Route Start Last Admin Trade Name Freq PRN Reason Stop Dose Admin Acetaminophen 1,000 mg 02/06/19 02:37 02/06/19 03:07 Ofirmev Injection - IVPB 1,000 mg Q6H PRN Administration FEVER Albuterol Sulfate 1 amp 02/05/19 20:00 02/05/19 21:40 Ventolin 0.083% Nebulizer Soln - NEB 1 amp RQID PAUL Administration Atorvastatin Calcium 20 mg 02/05/19 22:00 02/06/19 00:07 Lipitor - PO Not Given HS PAUL Heparin Sodium (Porcine) 5,000 unit 02/06/19 02:00 02/06/19 01:36 Heparin - SQ 5,000 unit Q8H-IV PAUL Administration Piperacillin Sod/Tazobactam 50 mls @ 100 mls/hr 02/06/19 02:00 Sod 3.375 gm/ Dextrose IVPB Q8H-IV PAUL Piperacillin Sod/Tazobactam 50 mls @ 100 mls/hr 02/06/19 02:00 02/06/19 01:36 Sod 3.375 gm/ Dextrose IVPB 02/06/19 10:29 100 mls/hr Q8H-IV PAUL Administration Fentanyl 500 mcg/ Dextrose 100 mls @ 1 mls/hr 02/05/19 23:45 02/06/19 00:07 IVPB 5 mcg/hr TITR PAUL 1 mls/hr Administration Protocol 5 MCG/HR Sodium Chloride 1,000 mls @ 125 mls/hr 02/06/19 02:39 02/06/19 03:06 Normal Saline - IV 125 mls/hr ASDIR PAUL Administration Propofol 1,000,000 mcg in 100 mls @ 0.72 mls/hr 02/06/19 06:15 02/06/19 06:42 Diprivan - IVPB 3 mcg/kg/min TITR PAUL 1.08 mls/hr Administration Protocol 2 MCG/KG/MIN Ipratropium [place] 1 amp 02/05/19 20:00 02/05/19 21:40 Atrovent 0.02% Nebulizer - NEB 1 amp RQID PAUL Administration Levothyroxine Sodium 25 mcg 02/06/19 07:00 02/06/19 06:44 Synthroid Injection - IVPUSH 25 mcg AM PAUL Administration Magnesium Sulfate 2 gm 02/06/19 08:08 Magnesium Sulfate IVPB 02/06/19 08:09 ONCE ONE Non-Formulary Medication 1 drop 02/05/19 19:21 Carboxymethylcellulose Sodium [Refresh Celluvisc] OU BID PRN DRY EYES Pantoprazole Sodium 40 mg 02/06/19 10:00 Protonix Iv IVPUSH DAILY [facility] Potassium Phos/Sodium Phos 1 packet 02/06/19 08:50 Phos-Nak Packet - NGT 02/06/19 08:51 ONCE ONE Senna 2 tab 02/05/19 22:00 02/06/19 00:07 Senna - PO Not Given HS [facility] Vancomycin HCl 1,000 mg 02/06/19 06:00 Vancomycin (Pre-Docked) IVPB DAILY@0600 [facility] Protocol ASSESSMENT/PLAN: 68 year old french-speaking female with a past medical history of metastatic ovarian cancer with peritoneal carcinomatosis presents to the hospital for generalized weakness and shortness of breath since Monday and admitted for hypoxic/hypercapnic respiratory failure due to sepsis/pneumonia #Neuro -patient is A&Ox3 without any focal neurologic deficits, previously sedated on propofol, off since this morning and mentating well #Pulmonary -she is vented on A/C with settings tV 400, rate 12, FiO2 40, PEEP5; PIP 12, plateau pressure 13.5; RSBI 25 -patient's ABG improved and is now alkalotic at a pH of 7.52, CO2 43.8 (down from 89), and HCO3 of 35. -patient does well on spontaneous breathing trial, but occasional apnea for several seconds, could be 2/2 to decreased respiratory drive, which could explain CO2 retention -extubate today -CTA negative for PE, however there is questionable right lower lobe atelectasis vs infiltrate consistent with physical exam findings (rhales, cough with yellow sputum) -white count improved to 8 from 25 -patient is newly febrile overnight -continue zosyn per ID -ID consultation #Cardiac -troponins were slightly elevated at 0.09, could be related to demand cardiac ischemia, repeat plateaued to 0.08 -hydrating patient decreased BNP -EKG: Tachycardia w/ recognized [id number], incomplete RBBB. -CTA negative for PE #Gastrointestinal -elevated transaminases -f/u RUQ ultrasound and hepatitis panel #Renal -patient is hyponatremic, improved from yesterday -hydrate patient with normal saline, repeat serum sodium in AM -BNP elevated; but patient does not appear hypervolemic #Infectious Disease -patient meets sepsis 2/2 RLL pneumonia; patient is immunocompromised -antigens for legionella/pneumococcus -follow cultures -Vanc/Zosyn -ID consultation -UA negative #Heme/ONC -gets treatment at [facility] -thrombocytopenia/anemia could be 2/2 marrow suppression from chemo, platelets decreasing today, reassess in AM and consider Heme/Onc consultation if continues to decrease #Disposition -ICU monitoring -Thank you for this consultative opportunity. Visit type - Emergency Visit Emergency Visit: No - New Patient This patient is new to me today: No - Critical Care Critical Care patient: Yes Total Critical Care Time (in minutes): 35 Critical Care Statement: The care of this patient involved high complexity decision making to prevent further life threatening deterioration of the patient 's condition and/or to evaluate & treat vital organ system(s) failure or risk of failure.
--- NOTE | 2019-02-06 09:24 | CON.ID ---
Consult Consult Specialty:: infectious disease Referred by:: hospitalist Reason for Consultation:: pneumonia - History of Present Illness Chief Complaint: weak and dizzy History of Present Illness: 68 yo female with stage 4 ovarian cancer followed at [facility], s/p chemo- taxol and carboplatin on Thursday 02/01- has been weak since yesterday she felt worse with sore throat and cough no fevers noted ie ED was hyoxic with elevated WBC chest CTA no pe but possible RLL infiltrate worsening hypercapneic, hypoxemic respiratory failure requiring intubation and transfer to ICU last night currently awake and alert no pain resting comfortably - History Source History Provided By: Medical Record Limitations to Obtaining History: Clinical Condition - Past Medical History Cardio/Vascular: Yes: Hyperlipdemia Pulmonary: Yes: Asthma Heme/Onc: Yes: Cancer (ovarian cancer) Endocrine: Yes: Hypothyroidism - Past Surgical History Additional Surgical History: ex lap for the cancer- details not known - Alcohol/Substance Use Hx Alcohol Use: No History of Substance Use: reports: None - Smoking History Smoking history: Unknown if ever smoked Have you smoked in the past 12 months: No - Social History Usual Living Arrangement: Alone ADL: Support Services ([employer] 6hrs x 5days per week) Place of : Other ([facility]) History of Recent Travel: No Home Medications - Allergies Allergies/Adverse Reactions: Allergies Allergy/AdvReac Type Severity Reaction Status Date / Time No Allergy Information Allergy Verified 02/05/19 13:01 Available - Home Medications Home Medications: Ambulatory Orders Albuterol Sulfate Inhaler - [Ventolin HFA Inhaler -] 2 puff PO QID 02/05/19 Atorvastatin Calcium [Lipitor] 1 tab PO HS 02/05/19 Carboxymethylcellulose Sodium [Refresh Celluvisc] 1 drop OU BID PRN 02/05/19 Ergocalciferol (Vitamin D2) [Vitamin D2] 1 cap PO WEEKLY 02/05/19 Ferrous Sulfate 325 mg PO DAILY 02/05/19 Levothyroxine [Synthroid -] 50 mcg PO DAILY 02/05/19 Magnesium Oxide [Magnesium] 1 tab PO DAILY 02/05/19 Omeprazole 1 tab PO DAILY 02/05/19 Family Disease History - Family Disease History Family History: Unable to Obtain Review of Systems Unable to obtain ROS, reason: per ER/HPI - Review of Systems Constitutional: reports: Lethargy, Weakness. denies: Fever HENT: reports: Throat Pain Respiratory: reports: Cough Gastrointestinal: reports: Nausea. denies: Diarrhea, Vomiting Neurological: reports: Dizziness Physical Exam Vital Signs: Vital Signs Temperature 100.7 F H 02/06/19 08:00 Pulse Rate 86 02/06/19 08:00 Respiratory Rate 17 02/06/19 08:00 Blood Pressure 106/63 02/06/19 08:00 O2 Sat by Pulse Oximetry (%) 100 02/05/19 23:00 Constitutional: Yes: No Distress, Calm Eyes: Yes: Conjunctiva Clear HENT: Yes: Atraumatic, Normocephalic Neck: Yes: Supple Cardiovascular: Yes: Regular Rate and Rhythm Respiratory: Yes: Diminished, Rhonchi, Other (orally intubated) Gastrointestinal: Yes: Normal Bowel Sounds, Soft. No: Tenderness ...Rectal Exam: Yes: Deferred Extremities: Yes: WNL Edema: No Psychiatric: Yes: Alert Labs: CBC, BMP 02/06/19 05:57 02/06/19 05:57 Imaging - Results Chest X-ray: Report Reviewed, Image Reviewed Cat Scan: Report Reviewed, Image Reviewed Problem List - Problems (1) Acute respiratory failure Code(s): J96.00 - ACUTE RESPIRATORY FAILURE, UNSP W HYPOXIA OR HYPERCAPNIA Qualifiers: Respiratory failure complication: hypoxia and hypercapnia Qualified Code(s) : J96.01 - Acute respiratory failure with hypoxia; J96.02 - Acute respiratory failure with hypercapnia (2) Pneumonia Code(s): J18.9 - PNEUMONIA, UNSPECIFIED ORGANISM (3) Carcinoma of ovary, stage 4 Code(s): C56.9 - MALIGNANT NEOPLASM OF UNSPECIFIED OVARY Assessment/Plan acute respiratory failure with pneumonia ovarian cancer s/p chemo continue zosyn leukocytosis improved f/u cultures send sputum culture and urinary antigens d/w icu staff icu nurse
[2019-02-06] MEDS ORDERED: MAGNESIUM SULF 50% (8.12 MEQ/2 ML-1 GM VIAL) IVPB ONE (09:45)
[2019-02-06] MEDS ORDERED: NAPH,MB-DB/K PH,MBDB POWDER PACKET NGT ONE (09:45)
[2019-02-06] MEDS: PANTOPRAZOLE SODIUM 40 MG VIAL IVPUSH SCH (09:57)
[2019-02-06] MEDS ORDERED: MUPIROCIN 2% TOPICAL OINTMENT FOR DECOLONIZATION NS SCH (10:00)
[2019-02-06] MEDS ORDERED: FUROSEMIDE 20 MG TABLET (FP) PO SCH (10:00)
[2019-02-06] MEDS ORDERED: PANTOPRAZOLE 40 MG TABLET (FP) PO SCH (10:00)
--- NOTE | 2019-02-06 10:06 | EKG ---
Test Reason : Blood Pressure : / mmHG Vent. Rate : 106 BPM Atrial Rate : 106 BPM P-R Int : 116 ms QRS Dur : 094 ms QT Int : 334 ms P-R-T Axes : 072 102 018 degrees QTc Int : 443 ms SINUS TACHYCARDIA LEFT ATRIAL ENLARGEMENT INCOMPLETE RIGHT BUNDLE BRANCH BLOCK RIGHT VENTRICULAR HYPERTROPHY WITH REPOLARIZATION ABNORMALITY NONSPECIFIC T WAVE ABNORMALITY ABNORMAL ECG NO PREVIOUS ECGS AVAILABLE Confirmed by NICO BUI MD ([id number]) on 02/06/2019 10:06:20 AM Referred By: Confirmed By:NICO BUI MD
[2019-02-06 11:27] LABS: ARTERIAL BLD GAS O2 SATURATION 94.2 % (95-98); ARTERIAL BLOOD GAS BASE EXCESS 8.6 meq/l (-2-2); ARTERIAL BLOOD GAS PCO2 61.7 mmHg (35-45); ARTERIAL BLOOD GAS PO2 76.1 mmHg (80-105); ARTERIAL BLOOD GAS pH 7.37 (7.35-7.45)
[2019-02-06 11:28] LABS: ALLENS TEST POSITIVE
[2019-02-06] MEDS ORDERED: PIPERACILLIN/TAZOB 4.5 GM 4.5 GM in DEXTROSE 5%-WATER 100 ML IVPB SCH (11:45)
--- NOTE | 2019-02-06 11:57 | PN ---
Teaching Attending Note Name of Resident: Dipak Dexter ATTENDING PHYSICIAN STATEMENT I saw and evaluated the patient. I reviewed the resident's note and discussed the case with the resident. I agree with the resident's findings and plan as documented. SUBJECTIVE: Pt seen and examined in the ICU. Intubated, awake, alert and following commands. Tolerated CPAP/PS trials and subsequently extubated during rounds. OBJECTIVE: Vital Signs Period Temp Pulse Resp BP Sys/Humphrey Pulse Ox Last 24 Hr 98.2 F-101 F 81-109 12-24 81-142/54-66 42-100 Intake & Output 02/03/19 02/04/19 02/05/19 02/06/19 23:59 23:59 23:59 23:59 Intake Total 2120 Output Total 1100 Balance 1020 Weight 58.967 kg 60 kg Gen: extubated Heart: RRR Lung: distant breath sounds Abd: soft, nontender Ext: no edema CBC, BMP 02/06/19 05:57 02/06/19 05:57 Active Medications Acetaminophen (Ofirmev Injection -) 1,000 mg IVPB Q6H PRN PRN Reason: FEVER Last Admin: 02/06/19 03:07 Dose: 1,000 mg Albuterol Sulfate (Ventolin 0.083% Nebulizer Soln -) 1 amp NEB RQID PAUL Last Admin: 02/06/19 08:00 Dose: 1 amp Atorvastatin Calcium (Lipitor -) 20 mg PO HS PAUL Last Admin: 02/06/19 00:07 Dose: Not Given Heparin Sodium (Porcine) (Heparin -) 5,000 unit SQ Q8H-IV PAUL Last Admin: 02/06/19 09:57 Dose: 5,000 unit Fentanyl 500 mcg/ Dextrose 100 mls @ 1 mls/hr IVPB TITR PAUL; Protocol Last Admin: 02/06/19 00:07 Dose: 5 mcg/hr, 1 mls/hr Sodium Chloride (Normal Saline -) 1,000 mls @ 125 mls/hr IV ASDIR PAUL Last Admin: 02/06/19 03:06 Dose: 125 mls/hr Propofol (Diprivan -) 1,000,000 mcg in 100 mls @ 0.72 mls/hr IVPB TITR PAUL; Protocol Last Admin: 02/06/19 06:42 Dose: 3 mcg/kg/min, 1.08 mls/hr Piperacillin Sod/Tazobactam (Sod 4.5 gm/ Dextrose) 100 mls @ 200 mls/hr IVPB Q8H-IV PAUL; Protocol Ipratropium [place] (Atrovent 0.02% Nebulizer -) 1 amp NEB RQID [facility] Last Admin: 02/06/19 08:00 Dose: 1 amp Levothyroxine Sodium (Synthroid Injection -) 25 mcg IVPUSH AM [facility] Last Admin: 02/06/19 06:44 Dose: 25 mcg Non-Formulary Medication (Carboxymethylcellulose Sodium [Refresh Celluvisc]) 1 drop OU BID PRN PRN Reason: DRY EYES Pantoprazole Sodium (Protonix Iv) 40 mg IVPUSH DAILY [facility] Last Admin: 02/06/19 09:57 Dose: 40 mg Senna (Senna -) 2 tab PO HS [facility] Last Admin: 02/06/19 00:07 Dose: Not Given Vancomycin HCl (Vancomycin (Pre-Docked)) 1,000 mg IVPB DAILY@0600 [facility]; Protocol ASSESSMENT AND PLAN: Acute on Chronic Hypercapneic Respiratory Failure Pneumonia Sepsis +Troponins likely Demand Ischemia Elevated LFTs Thrombocytopenia Metastatic Ovarian Cancer on chemotherapy Hyperlipidemia Hypothyroidism - pt extubated - continue antibiotics - f/u cultures - IVF - monitor urine output, creatinine - O2 to keep spO2 >90% - inhaled bronchodilators - PO as tolerated - DVT prophylaxis - continue ICU monitoring critical care time spent in reviewing chart, evaluating patient and formulating plan 35 min
[2019-02-06 12:48] LABS: ANISOCYTOSIS 0; MACROCYTOSIS 0; PLATELET ESTIMATE DECREASED
--- NOTE | 2019-02-06 13:16 | ECHO ---
Name: MARISA ZIEGLER Exam:Adult Echocardiogram Study Date: 02/06/2019 08:08 AM Age: 68 yrs Reason For Study: MARK LAMBERT LEAK Height: 59 in Weight: 130 lb BSA: 1.5 m2 MMode/2D Measurements & Calculations IVSd: 0.80 cm Ao root diam: 2.6 cm LVIDd: 3.0 cm LA dimension: 3.0 cm LVIDs: 1.9 cm LVPWd: 0.73 cm EDV(Teich): 35.7 ml LVOT diam: 2.0 cm ESV(Teich): 11.4 ml LAV (MOD-bp): 41.7 ml Doppler Measurements & Calculations MV E max pedro: 81.5 cm/sec Ao V2 max: 165.6 cm/sec MV A max pedro: 91.2 cm/sec Ao max P.0 mmHg MV E/A: 0.89 MV dec time: 0.18 sec MARTA(V,D): 2.1 cm2 LV V1 max P.2 mmHg MR max pedro: 464.8 cm/sec LV V1 max: 113.5 cm/sec MR max P.4 mmHg TR max pedro: 240.7 cm/sec PA V2 max: 111.3 cm/sec TR max P.5 mmHg PA max P.0 mmHg Med Peak E' Pedro: 6.7 cm/sec Med E/e': 12.1 Lat Peak E' Pedro: 8.5 cm/sec Lat E/e': 9.6 Procedure A two-dimensional transthoracic echocardiogram with color flow and Doppler was performed. Left Ventricle The left ventricular size, thickness and function are normal. The left ventricular ejection fraction is normal. E/A reversal consistent with but not diagnostic of poor LV compliance. Regional wall motion abnormalities cannot be excluded due to limited visualization. Right Ventricle The right ventricle is normal in size and function. Atria Normal left and right atrial size and function. Mitral Valve There is trivial mitral valve thickening. There is no mitral valve stenosis. There is trace to mild m itral regurgitation. Tricuspid Valve The tricuspid valve is normal in structure and function. There is no tricuspid stenosis. There is Tra ce to mild tricuspid regurgitation. Right ventricular systolic pressure is normal. Aortic Valve The aortic valve is normal in structure and function. No hemodynamically significant valvular aortic stenosis. No aortic regurgitation is present. Pulmonic Valve The pulmonic valve is not well visualized. Great Vessels The aortic root is normal size. Pericardium/Pleura There is no pericardial effusion. Interpretation Summary The left ventricular size, thickness and function are normal The left ventricular ejection fraction is normal. There is trace to mild mitral regurgitation. There is Trace to mild tricuspid regurgitation. Right ventricular systolic pressure is normal. E/A reversal consistent with but not diagnostic of poor LV compliance Regional wall motion abnormalities cannot be excluded due to limited visualization. MD Jayden Garza 02/06/2019 01:15 PM
[2019-02-06] MEDS ORDERED: DEXTROSE 5%-WATER 100 ML IVPB ONE (17:12)
[2019-02-06] MEDS ORDERED: PIPERACILLIN/TAZOBACTAM 4.5 GM VIAL IVPB ONE (17:12)
[2019-02-06] MEDS: PIPERACILLIN/TAZOB 4.5 GM 4.5 GM in DEXTROSE 5%-WATER 100 ML IVPB SCH (17:13)
[2019-02-06] MEDS ORDERED: PT OWN MED DRAWER 7, Y5N ONE (20:36)
[2019-02-06] MEDS ORDERED: CHLORHEXIDINE GLUCONATE 4% CLEANSER FOR DECOLONIZATION TP SCH (22:00)
[2019-02-06] MEDS: SODIUM CHLORIDE 1,000 ML IV SCH (22:19)
[2019-02-07] MEDS: HEPARIN NA (PORCINE) 5,000 UNITS/ML 1ML VIAL SQ SCH ×3 (03:15→17:51)
[2019-02-07] MEDS: PIPERACILLIN/TAZOB 4.5 GM 4.5 GM in DEXTROSE 5%-WATER 100 ML IVPB SCH ×2 (03:15→10:18)
[2019-02-07] MEDS: FENTANYL INJECTION 500 MCG in DEXTROSE 5%-WATER - 90 ML IVPB SCH (03:16)
[2019-02-07] MEDS ORDERED: PT OWN MED DRAWER 7, Y5N ONE ×2 (04:26→09:25)
[2019-02-07] MEDS ORDERED: DEXTROSE 5%-WATER 100 ML IVPB ONE ×3 (04:27→16:43)
[2019-02-07] MEDS ORDERED: PIPERACILLIN/TAZOBACTAM 4.5 GM VIAL IVPB ONE ×2 (04:27→09:25)
[2019-02-07 05:12] LABS: HEP.C VIRUS AB <0.1 s/co ratio (0.0-0.9)
[2019-02-07] MEDS: PROPOFOL 1,000,000 MCG/100 ML VIAL IVPB SCH (06:01)
[2019-02-07] MEDS: LEVOTHYROXINE SODIUM 100 MCG VIAL IVPUSH SCH (06:02)
[2019-02-07 06:44] LABS: BASO % 0.4 % (0-2.0); EOS % 8.7 % (0-4.5); HEMATOCRIT 33.4 % (32.4-45.2); HEMOGLOBIN 10.7 GM/dL (10.7-15.3); LYMPH % 29.4 % (8-40); MCH 31.9 pg (25.7-33.7); MCHC 31.9 g/dl (32.0-36.0); MEAN CELL VOLUME 99.8 fl (80-96); MEAN PLT VOLUME 12.7 fl (7.5-11.1); MONO % 9.7 % (3.8-10.2); NEUT % 51.8 % (42.8-82.8); PLATELET COUNT 41 K/MM3 (134-434); RBC 3.35 M/mm3 (3.60-5.2); RDW 15.4 % (11.6-15.6); WHITE BLOOD COUNT 3.2 K/mm3 (4.0-10.0)
[2019-02-07 06:48] LABS: ALBUMIN 2.9 g/dl (3.4-5.0); BILIRUBIN,TOTAL 0.6 mg/dL (0.2-1); CALCIUM 8.5 mg/dL (8.5-10.1); CREATININE 0.3 mg/dL (0.55-1.3); MAGNESIUM 1.7 mg/dL (1.8-2.4); POTASSIUM 3.9 mmol/L (3.5-5.1); TOT PROT 5.5 g/dl (6.4-8.2)
[2019-02-07 06:54] LABS: INR 1.06 (0.83-1.09); PROTHROMBIN TIME (PATIENT) 12.5 SEC (9.7-13.0)
[2019-02-07] MEDS: IPRATROPIUM BR 0.02% 0.5 MG/2.5 ML VIAL.NEB. NEB SCH ×4 (08:10→21:01)
[2019-02-07] MEDS: ALBUTEROL SO4 0.083% IH SOL 2.5 MG/3 ML VIAL.NEB. NEB SCH ×4 (08:10→21:01)
--- NOTE | 2019-02-07 08:17 | PN ---
Progress Note, Physician History of Present Illness: 68 year old hebrew-speaking female with a past medical history of metastatic ovarian cancer with peritoneal carcinomatosis presents to the hospital for generalized weakness and shortness of breath since Monday. States that she received chemotherapy (carbotaxol) on Monday, and since then has been short of breath on exertion with weakness, decreased appetite and poor PO intake. States that she also has been suffering from a cough productive of yellow sputum. Denies any over chest pain, shortness of breath at rest, nausea, vomiting, diarrhea, fevers, chills. Denies any swelling in her legs, headache, vision changes, dysuria, abdominal pain. Denies recent travel or sick contacts. Patient is from [facility] and has no children. Lives alone at home with an aid for 1/4th of the day and ambulates with a walker. Reports difficulty in ambulating after her chemotherapy treatment. She follows with Oncologist Dr. Hoyt at [facility] Reports being diagnosed with ovarian CA in 2017 and had a surgery to resect ovaries. Per ED, patient was saturating in the 60s with a respiratory acidosis on VBG and concern was risen about respiratory status and need for ICU monitoring. - Current Medication List Current Medications: Active Medications Acetaminophen (Ofirmev Injection -) 1,000 mg IVPB Q6H PRN PRN Reason: FEVER Last Admin: 02/06/19 03:07 Dose: 1,000 mg Albuterol Sulfate (Ventolin 0.083% Nebulizer Soln -) 1 amp NEB RQID PAUL Last Admin: 02/06/19 19:55 Dose: 1 amp Atorvastatin Calcium (Lipitor -) 20 mg PO HS PAUL Last Admin: 02/06/19 22:21 Dose: Not Given Heparin Sodium (Porcine) (Heparin -) 5,000 unit SQ Q8H-IV PAUL Last Admin: 02/07/19 03:15 Dose: 5,000 unit Fentanyl 500 mcg/ Dextrose 100 mls @ 1 mls/hr IVPB TITR PAUL; Protocol Last Admin: 02/07/19 03:16 Dose: Not Given Propofol (Diprivan -) 1,000,000 mcg in 100 mls @ 0.72 mls/hr IVPB TITR PAUL; Protocol Last Admin: 02/07/19 06:01 Dose: Not Given Piperacillin Sod/Tazobactam (Sod 4.5 gm/ Dextrose) 100 mls @ 200 mls/hr IVPB Q8H-IV PAUL; Protocol Last Admin: 02/07/19 03:15 Dose: 200 mls/hr Sodium Chloride (Normal Saline -) 1,000 mls @ 10 mls/hr IV ASDIR [facility] Last Admin: 02/06/19 22:19 Dose: 10 mls/hr Ipratropium [place] (Atrovent 0.02% Nebulizer -) 1 amp NEB RQID [facility] Last Admin: 02/06/19 19:55 Dose: 1 amp Levothyroxine Sodium (Synthroid Injection -) 25 mcg IVPUSH AM [facility] Last Admin: 02/07/19 06:02 Dose: 25 mcg Non-Formulary Medication (Carboxymethylcellulose Sodium [Refresh Celluvisc]) 1 drop OU BID PRN PRN Reason: DRY EYES Pantoprazole Sodium (Protonix Iv) 40 mg IVPUSH DAILY [facility] Last Admin: 02/06/19 09:57 Dose: 40 mg Senna (Senna -) 2 tab PO HS [facility] Last Admin: 02/06/19 22:21 Dose: Not Given Vancomycin HCl (Vancomycin (Pre-Docked)) 1,000 mg IVPB DAILY@0600 [facility]; Protocol - Objective Vital Signs: Vital Signs Temperature 99.0 F 02/07/19 08:00 Pulse Rate 89 02/07/19 08:00 Respiratory Rate 16 02/07/19 08:00 Blood Pressure 102/55 L 02/07/19 08:00 O2 Sat by Pulse Oximetry (%) 100 02/07/19 06:39 Constitutional: Yes: Calm, Thin Eyes: Yes: WNL, Conjunctiva Clear, EOM Intact HENT: Yes: WNL, Atraumatic, Normocephalic Neck: Yes: WNL, Supple, Trachea Midline Cardiovascular: Yes: WNL, Regular Rate and Rhythm Respiratory: Yes: WNL, Regular, Diminished (at bases), On Nasal O2 Gastrointestinal: Yes: WNL, Hypoactive Bowel Sounds ...Rectal Exam: Yes: Deferred Genitourinary: Yes: Sow Present Musculoskeletal: Yes: Muscle Weakness Extremities: Yes: WNL Edema: Yes Edema: LLE: 1+, RLE: 1+ Peripheral Pulses WNL: Yes Integumentary: Yes: WNL Neurological: Yes: WNL, Alert, Oriented ...Motor Strength: WNL, LUE (weakness), LLE Psychiatric: Yes: WNL, Alert, Oriented Labs: CBC, BMP 02/07/19 06:00 02/07/19 06:00 INR, PTT INR 1.06 (0.83-1.09) 02/07/19 06:00 - ....Imaging Chest X-ray: Report Reviewed, Image Reviewed Problem List - Problems (1) Acute respiratory failure Assessment/Plan: patient extubated yesterday -Bipap as needed post-extubation -incentive spirometry and chest PT post-extubation -supplemental O2 to maintain O2 <92 Code(s): J96.00 - ACUTE RESPIRATORY FAILURE, UNSP W HYPOXIA OR HYPERCAPNIA Qualifiers: Respiratory failure complication: hypoxia and hypercapnia Qualified Code(s) : J96.01 - Acute respiratory failure with hypoxia; J96.02 - Acute respiratory failure with hypercapnia (2) Carcinoma of ovary, stage 4 Assessment/Plan: -gets treatment at [facility] Code(s): C56.9 - MALIGNANT NEOPLASM OF UNSPECIFIED OVARY (3) Elevated brain natriuretic peptide (BNP) level Assessment/Plan: continue to trend BNP, downtrending, does not appear overloaded -CTA negative for PE Code(s): R79.89 - OTHER SPECIFIED ABNORMAL FINDINGS OF BLOOD CHEMISTRY (4) Hypercapnia Assessment/Plan: resolved with positive pressure ventilation Code(s): R06.89 - OTHER ABNORMALITIES OF BREATHING (5) Hyponatremia Assessment/Plan: resolving maintian on NS free water restriction when taking fluids monitor daily CMP Code(s): E87.1 - HYPO-OSMOLALITY AND HYPONATREMIA (6) Hypoxia Assessment/Plan: 2/2 RLL pneumonia; patient is immunocompromised -antigens for legionella/pneumococcus -follow cultures -Vanc/Zosyn -continue with supplemental O2 with BiPap as needed Code(s): R09.02 - HYPOXEMIA (7) Pneumonia Assessment/Plan: - RLL pneumonia; patient is immunocompromised -Vanc/Zosyn -ID following and appreciate Cx as followin02/06/19 09:45 Sputum - Endotrachea Suction/Ventilator Sputum Culture - Preliminary NORMAL RESPIRATORY [place] 02/05/19 14:14 Blood NGTD 02/05/19 13:40 Blood NGTD 02/06/19 09:45 Urine Legionella Antigen 02/06/19 09:45 Urine - Streptococcus pneumoniae Antigen Sow 02/05/19 13:51 Urine - Urine Clean Catch NGTD clean catch Code(s): J18.9 - PNEUMONIA, UNSPECIFIED ORGANISM (8) Prophylactic measure Assessment/Plan: FEN monitor daily CMP NPO, advance as tolerated IVF NS Heparin sq 5000u TID PPI BID Dispo -trabsfer to floor on tele full code Code(s): Z29.9 - ENCOUNTER FOR PROPHYLACTIC MEASURES, UNSPECIFIED (9) Thrombocytopenia Assessment/Plan: -thrombocytopenia/anemia could be 2/2 marrow suppression from chemo, platelets decreasing to 51 -plt continue to drop Heme/Onc consultation requested Code(s): D69.6 - THROMBOCYTOPENIA, UNSPECIFIED (10) Transaminitis Assessment/Plan: -elevated transaminases - RUQ ultrasound showed fatty liver -hepatitis panel negative Code(s): R74.0 - NONSPEC ELEV OF LEVELS OF TRANSAMNS & LACTIC ACID DEHYDRGNSE (11) Admitted to intensive care unit Assessment/Plan: remains in ICU appreciate Critical Care mananagement pending transfer to floor Code(s): Z78.9 - OTHER SPECIFIED HEALTH STATUS Visit type - Emergency Visit Emergency Visit: Yes ED Registration Date: 02/05/19 Care time: The patient presented to the Emergency Department on the above date and was hospitalized for further evaluation of their emergent condition. - New Patient This patient is new to me today: No - Critical Care Critical Care patient: Yes Total Critical Care Time (in minutes): 30 Critical Care Statement: The care of this patient involved high complexity decision making to prevent further life threatening deterioration of the patient 's condition and/or to evaluate & treat vital organ system(s) failure or risk of failure.
[2019-02-07] MEDS ORDERED: INSULIN (NOVOLOG) ASPART 100 UNITS/ML 10ML VIAL ONE (09:26)
[2019-02-07] MEDS: PANTOPRAZOLE SODIUM 40 MG VIAL IVPUSH SCH (10:19)
[2019-02-07 10:37] LABS: ANISOCYTOSIS 2+; MACROCYTOSIS 0; PLATELET ESTIMATE DECREASED
--- NOTE | 2019-02-07 11:26 | PN ---
Teaching Attending Note Name of Resident: Dipak Dexter ATTENDING PHYSICIAN STATEMENT I saw and evaluated the patient. I reviewed the resident's note and discussed the case with the resident. I agree with the resident's findings and plan as documented. SUBJECTIVE: Patient seen and examined in the ICU. Remains extubated. Awake and responsive on NC O2. NIPPV support overnight. Reports mild, diffuse lower abdominal discomfort. Intake & Output 02/04/19 02/05/19 02/06/19 02/07/19 23:59 23:59 23:59 23:59 Intake Total 4040 350 Output Total 2300 Balance 1740 350 Weight 130 lb 132 lb 135 lb 5.821 oz Last Vital Signs Temp Pulse Resp BP Pulse Ox 99.0 F 94 H 18 102/49 L 99 02/07/19 10:00 02/07/19 10:00 02/07/19 10:00 02/07/19 10:00 02/07/19 08:00 Active Medications Acetaminophen (Ofirmev Injection -) 1,000 mg IVPB Q6H PRN PRN Reason: FEVER Last Admin: 02/06/19 03:07 Dose: 1,000 mg Albuterol Sulfate (Ventolin 0.083% Nebulizer Soln -) 1 amp NEB RQID PAUL Last Admin: 02/07/19 08:10 Dose: 1 amp Atorvastatin Calcium (Lipitor -) 20 mg PO HS PAUL Last Admin: 02/06/19 22:21 Dose: Not Given Heparin Sodium (Porcine) (Heparin -) 5,000 unit SQ Q8H-IV PAUL Last Admin: 02/07/19 03:15 Dose: 5,000 unit Fentanyl 500 mcg/ Dextrose 100 mls @ 1 mls/hr IVPB TITR PAUL; Protocol Last Admin: 02/07/19 03:16 Dose: Not Given Propofol (Diprivan -) 1,000,000 mcg in 100 mls @ 0.72 mls/hr IVPB TITR PAUL; Protocol Last Admin: 02/07/19 06:01 Dose: Not Given Piperacillin Sod/Tazobactam (Sod 4.5 gm/ Dextrose) 100 mls @ 200 mls/hr IVPB Q8H-IV PAUL; Protocol Last Admin: 02/07/19 10:18 Dose: 200 mls/hr Sodium Chloride (Normal Saline -) 1,000 mls @ 10 mls/hr IV ASDIR PAUL Last Admin: 02/06/19 22:19 Dose: 10 mls/hr Ipratropium [place] (Atrovent 0.02% Nebulizer -) 1 amp NEB RQID [facility] Last Admin: 02/07/19 08:10 Dose: 1 amp Levothyroxine Sodium (Synthroid Injection -) 25 mcg IVPUSH AM [facility] Last Admin: 02/07/19 06:02 Dose: 25 mcg Non-Formulary Medication (Carboxymethylcellulose Sodium [Refresh Celluvisc]) 1 drop OU BID PRN PRN Reason: DRY EYES Pantoprazole Sodium (Protonix Iv) 40 mg IVPUSH DAILY [facility] Last Admin: 02/07/19 10:19 Dose: 40 mg Senna (Senna -) 2 tab PO HS [facility] Last Admin: 02/06/19 22:21 Dose: Not Given Vancomycin HCl (Vancomycin (Pre-Docked)) 1,000 mg IVPB DAILY@0600 [facility]; Protocol Gen: Extubated, NAD on NC O2 Heart: RRR Lung: scattered rhonchi, diminished BS at the bases Abd: soft, (+) mild diffuse non-specific tenderness to palpation, (-) guarding / rigidity Ext: no edema Laboratory Results - last 24 hr 02/06/19 02/06/19 02/06/19 05:57 08:00 11:12 WBC RBC Hgb Hct MCV MCH MCHC RDW Plt Count MPV Absolute Neuts (auto) Neutrophils % Neutrophils % (Manual) 83.3 H Band Neutrophils % 1.0 Lymphocytes % Lymphocytes % (Manual) 10.8 D Monocytes % Monocytes % (Manual) 1 L D Eosinophils % Eosinophils % (Manual) 0.0 D Basophils % Basophils % (Manual) 0.0 Myelocytes % (Man) 0 Promyelocytes % (Man) 0 Blast Cells % (Manual) 0 Nucleated RBC % 0 Metamyelocytes 4 H D Hypochromia 2+ Platelet Estimate Decreased Platelet Comment Polychromasia 0 Poikilocytosis 0 Anisocytosis 0 Microcytosis 0 Macrocytosis 0 PT with INR INR Puncture Site Left radial ABG pH 7.37 ABG pCO2 at Pt Temp 61.7 H ABG pO2 at Pt Temp 76.1 L ABG HCO3 35.0 H ABG O2 Sat (Measured) 94.2 L ABG O2 Content 13.4 L ABG Base Excess 8.6 H Rupesh Test Positive Oxygen Flow Rate 40% Sodium Potassium Chloride Carbon Dioxide Anion Gap BUN Creatinine Est GFR (CKD-EPI)AfAm Est GFR (CKD-EPI)NonAf Random Glucose Calcium Magnesium Total Bilirubin AST ALT Alkaline Phosphatase Total Protein Albumin Hepatitis A IgM Ab Negative Hep Bs Antigen Negative Hep B Core IgM Ab Negative Hepatitis C Antibody <0.1 02/07/19 02/07/19 02/07/19 06:00 06:00 06:00 WBC 3.2 L RBC 3.35 L Hgb 10.7 Hct 33.4 MCV 99.8 H MCH 31.9 MCHC 31.9 L RDW 15.4 Plt Count 41 L MPV 12.7 H Absolute Neuts (auto) 1.6 Neutrophils % 51.8 D Neutrophils % (Manual) 59.4 Band Neutrophils % 0.0 Lymphocytes % 29.4 D Lymphocytes % (Manual) 26.7 D Monocytes % 9.7 D Monocytes % (Manual) 5 D Eosinophils % 8.7 H D Eosinophils % (Manual) 7.9 H D Basophils % 0.4 Basophils % (Manual) 0.0 Myelocytes % (Man) 0 Promyelocytes % (Man) 0 Blast Cells % (Manual) 0 Nucleated RBC % 0 Metamyelocytes 1 D Hypochromia 1+ Platelet Estimate Decreased Platelet Comment Present Polychromasia 0 Poikilocytosis 0 Anisocytosis 2+ Microcytosis 2+ Macrocytosis 0 PT with INR 12.50 INR 1.06 Puncture Site ABG pH ABG pCO2 at Pt Temp ABG pO2 at Pt Temp ABG HCO3 ABG O2 Sat (Measured) ABG O2 Content ABG Base Excess Rupesh Test Oxygen Flow Rate Sodium 134 L Potassium 3.9 Chloride 92 L Carbon Dioxide 39 H Anion Gap 3 L BUN 6 L Creatinine 0.3 L Est GFR (CKD-EPI)AfAm 136.35 Est GFR (CKD-EPI)NonAf 117.65 Random Glucose 95 Calcium 8.5 Magnesium 1.7 L Total Bilirubin 0.6 AST 36 ALT 95 H Alkaline Phosphatase 111 Total Protein 5.5 L Albumin 2.9 L Hepatitis A IgM Ab Hep Bs Antigen Hep B Core IgM Ab Hepatitis C Antibody ASSESSMENT AND PLAN: Acute on Chronic Hypercapneic Respiratory Failure Pneumonia Sepsis +Troponins likely Demand Ischemia Elevated LFTs Thrombocytopenia Metastatic Ovarian Cancer on chemotherapy Hyperlipidemia Hypothyroidism - NC O2 to maintain saturation - NIPPV support QHS & PRN - continue antibiotics - f/u final cultures - Workup of abdominal discomfort ongoing - monitor urine output, creatinine - inhaled bronchodilators - PO as tolerated - VTE prophylaxis - 4W / 4S monitoring Dr Wang
[2019-02-07] MEDS ORDERED: PHENOL 177 ML SPRAY BOTTLE MM PRN (12:54)
--- NOTE | 2019-02-07 13:27 | PN ---
Physical Exam: SUBJECTIVE: Patient seen and examined at bedside. No acute complaints. OBJECTIVE: Vital Signs Period Temp Pulse Resp BP Sys/Humphrey Pulse Ox Last 24 Hr 98.3 F-99.5 F 89-106 14-25 92-113/48-59 95-100 GENERAL: A&O, no acute distress EYES: PERRLA, EOMI ENT: Moist mucus membranes NECK: No JVD LUNGS: clear breath sounds bilaterally HEART: RRR, no murmurs ABDOMEN: Soft, nontender, BS present MUSCULOSKELETAL: No CVA Tenderness EXTREMITIES: 2+ pulses, no edema. NEUROLOGICAL: Cranial nerves II-XII intact. Laboratory Results - last 24 hr 02/06/19 02/07/19 02/07/19 08:00 06:00 06:00 WBC 3.2 L RBC 3.35 L Hgb 10.7 Hct 33.4 MCV 99.8 H MCH 31.9 MCHC 31.9 L RDW 15.4 Plt Count 41 L MPV 12.7 H Absolute Neuts (auto) 1.6 Neutrophils % 51.8 D Neutrophils % (Manual) 59.4 Band Neutrophils % 0.0 Lymphocytes % 29.4 D Lymphocytes % (Manual) 26.7 D Monocytes % 9.7 D Monocytes % (Manual) 5 D Eosinophils % 8.7 H D Eosinophils % (Manual) 7.9 H D Basophils % 0.4 Basophils % (Manual) 0.0 Myelocytes % (Man) 0 Promyelocytes % (Man) 0 Blast Cells % (Manual) 0 Nucleated RBC % 0 Metamyelocytes 1 D Hypochromia 1+ Platelet Estimate Decreased Platelet Comment Present Polychromasia 0 Poikilocytosis 0 Anisocytosis 2+ Microcytosis 2+ Macrocytosis 0 PT with INR 12.50 INR 1.06 Sodium Potassium Chloride Carbon Dioxide Anion Gap BUN Creatinine Est GFR (CKD-EPI)AfAm Est GFR (CKD-EPI)NonAf Random Glucose Calcium Magnesium Total Bilirubin AST ALT Alkaline Phosphatase Total Protein Albumin Hepatitis A IgM Ab Negative Hep Bs Antigen Negative Hep B Core IgM Ab Negative Hepatitis C Antibody <0.1 02/07/19 06:00 WBC RBC Hgb Hct MCV MCH MCHC RDW Plt Count MPV Absolute Neuts (auto) Neutrophils % Neutrophils % (Manual) Band Neutrophils % Lymphocytes % Lymphocytes % (Manual) Monocytes % Monocytes % (Manual) Eosinophils % Eosinophils % (Manual) Basophils % Basophils % (Manual) Myelocytes % (Man) Promyelocytes % (Man) Blast Cells % (Manual) Nucleated RBC % Metamyelocytes Hypochromia Platelet Estimate Platelet Comment Polychromasia Poikilocytosis Anisocytosis Microcytosis Macrocytosis PT with INR INR Sodium 134 L Potassium 3.9 Chloride 92 L Carbon Dioxide 39 H Anion Gap 3 L BUN 6 L Creatinine 0.3 L Est GFR (CKD-EPI)AfAm 136.35 Est GFR (CKD-EPI)NonAf 117.65 Random Glucose 95 Calcium 8.5 Magnesium 1.7 L Total Bilirubin 0.6 AST 36 ALT 95 H Alkaline Phosphatase 111 Total Protein 5.5 L Albumin 2.9 L Hepatitis A IgM Ab Hep Bs Antigen Hep B Core IgM Ab Hepatitis C Antibody Active Medications Generic Name Dose Route Start Last Admin Trade Name Freq PRN Reason Stop Dose Admin Acetaminophen 1,000 mg 02/06/19 02:37 02/06/19 03:07 Ofirmev Injection - IVPB 1,000 mg Q6H PRN Administration FEVER Albuterol Sulfate 1 amp 02/05/19 20:00 02/07/19 08:10 Ventolin 0.083% Nebulizer Soln - NEB 1 amp RQID PAUL Administration Atorvastatin Calcium 20 mg 02/05/19 22:00 02/06/19 22:21 Lipitor - PO Not Given HS PAUL Heparin Sodium (Porcine) 5,000 unit 02/06/19 02:00 02/07/19 11:00 Heparin - SQ Not Given Q8H-IV PAUL Fentanyl 500 mcg/ Dextrose 100 mls @ 1 mls/hr 02/05/19 23:45 02/07/19 03:16 IVPB Not Given TITR PAUL Protocol 5 MCG/HR Propofol 1,000,000 mcg in 100 mls @ 0.72 mls/hr 02/06/19 06:15 02/07/19 06:01 Diprivan - IVPB Not Given TITR PAUL Protocol 2 MCG/KG/MIN Piperacillin Sod/Tazobactam 100 mls @ 200 mls/hr 02/06/19 18:00 02/07/19 10: 18 Sod 4.5 gm/ Dextrose IVPB 200 mls/hr Q8H-IV PAUL Administration Protocol Sodium Chloride 1,000 mls @ 10 mls/hr 02/06/19 21:45 02/06/19 22:19 Normal Saline - IV 10 mls/hr ASDIR PAUL Administration Ipratropium [place] 1 amp 02/05/19 20:00 02/07/19 08:10 Atrovent 0.02% Nebulizer - NEB 1 amp RQID PAUL Administration Levothyroxine Sodium 25 mcg 02/06/19 07:00 02/07/19 06:02 Synthroid Injection - IVPUSH 25 mcg AM [facility] Administration Non-Formulary Medication 1 drop 02/05/19 19:21 Carboxymethylcellulose Sodium [Refresh Celluvisc] OU BID PRN DRY EYES Pantoprazole Sodium 40 mg 02/06/19 10:00 02/07/19 10:19 Protonix Iv IVPUSH 40 mg DAILY [facility] Administration Phenol/Menthol 1 spray 02/07/19 12:54 Chloraseptic - MM Q6HPO PRN SORE THROAT Senna 2 tab 02/05/19 22:00 02/06/19 22:21 Senna - PO Not Given HS [facility] Vancomycin HCl 1,000 mg 02/06/19 06:00 Vancomycin (Pre-Docked) IVPB DAILY@0600 [facility] Protocol ASSESSMENT/PLAN: 68 year old nepalese-speaking female with a past medical history of metastatic ovarian cancer with peritoneal carcinomatosis presents to the hospital for generalized weakness and shortness of breath since Monday and admitted for hypoxic/hypercapnic respiratory failure due to sepsis/pneumonia #Neuro -patient is A&Ox3 without any focal neurologic deficits, previously sedated on propofol, off since this morning and mentating well #Pulmonary -patient extubated and saturating well on nasal cannula -CTA negative for PE, however there is questionable right lower lobe atelectasis vs infiltrate consistent with physical exam findings (rhales, cough with yellow sputum) -continue zosyn per ID for sepsis 2/2 PNA -likely chronically retaining CO2 from scoliosis and superimposed PNA, decreased respiratory drive could have resulted from recent chemotherapy -recommend trial bipap overnight -ID consultation #Cardiac -EKG: Tachycardia w/ recognized [id number], incomplete RBBB. -CTA negative for PE #Gastrointestinal -elevated transaminases, RUQ ultrasound negative -US positive for hepatocellular disease, non-visualization of gallbladder -hepatitis negative #Renal -patient is hyponatremic, improved from yesterday -hydrate patient with normal saline, repeat serum sodium in AM -BNP elevated; but patient does not appear hypervolemic #Infectious Disease -patient meets sepsis 2/2 RLL pneumonia; patient is immunocompromised -antigens for legionella/pneumococcus negative -follow cultures -Zosyn -ID consultation -UA negative #Heme/ONC -gets treatment at [facility] -thrombocytopenia/anemia could be 2/2 marrow suppression from chemo, platelets decreasing today, reassess in AM and consider Heme/Onc consultation if continues to decrease #Endocrine -continue levothyroxine #Disposition -transfer to telemetry -Thank you for this consultative opportunity. Visit type - Emergency Visit Emergency Visit: No - New Patient This patient is new to me today: No - Critical Care Critical Care patient: Yes Total Critical Care Time (in minutes): 36 Critical Care Statement: The care of this patient involved high complexity decision making to prevent further life threatening deterioration of the patient 's condition and/or to evaluate & treat vital organ system(s) failure or risk of failure.
--- NOTE | 2019-02-07 13:35 | PN ---
Progress Note (short form) - Note Progress Note: no vomiting extubated yesterday alert feels well Vital Signs Period Temp Pulse Resp BP Sys/Humphrey Pulse Ox Last 24 Hr 98.3 F-99.5 F 89-106 14-25 92-113/48-59 95-100 cor-rrr lungs decreased bs at bases abd soft,nt ext no edema CBC, BMP 02/07/19 06:00 02/07/19 06:00 Microbiology 02/06/19 09:45 Sputum - Endotrachea Suction/Ventilator Sputum Culture - Preliminary NORMAL RESPIRATORY MON[place] 02/05/19 14:14 Blood - Peripheral Venous Blood Culture - Preliminary NO GROWTH OBTAINED AFTER 24 HOURS, INCUBATION TO CONTINUE FOR 4 DAYS. 02/05/19 13:40 Blood - Peripheral Venous Blood Culture - Preliminary NO GROWTH OBTAINED AFTER 24 HOURS, INCUBATION TO CONTINUE FOR 4 DAYS. 02/06/19 09:45 Urine - Urine Sow Legionella Antigen - Final 02/06/19 09:45 Urine - Urine Sow Streptococcus pneumoniae Antigen (M - Final 02/05/19 13:51 Urine - Urine Clean Catch Urine Culture - Final NO GROWTH OBTAINED a/p pneumonia metastatic ovarian cancer doing well extubated switch to rocephin Problem List - Problems (1) Carcinoma of ovary, stage 4 Code(s): C56.9 - MALIGNANT NEOPLASM OF UNSPECIFIED OVARY (2) Acute respiratory failure Code(s): J96.00 - ACUTE RESPIRATORY FAILURE, UNSP W HYPOXIA OR HYPERCAPNIA Qualifiers: Respiratory failure complication: hypoxia and hypercapnia Qualified Code(s) : J96.01 - Acute respiratory failure with hypoxia; J96.02 - Acute respiratory failure with hypercapnia (3) Pneumonia Code(s): J18.9 - PNEUMONIA, UNSPECIFIED ORGANISM
[2019-02-07] MEDS ORDERED: CEFTRIAXONE 2 GM-D5W BAG 2 GM/50 ML BAG IVPB SCH (15:00)
[2019-02-07] MEDS: SODIUM CHLORIDE 1,000 ML IV SCH (21:27)
[2019-02-07] MEDS: SENNOSIDES 8.6MG TABLET (FP) PO SCH (21:54)
[2019-02-07] MEDS: ATORVASTATIN CA 20 MG TABLET (FP) PO SCH (21:54)
[2019-02-08] MEDS: HEPARIN NA (PORCINE) 5,000 UNITS/ML 1ML VIAL SQ SCH (01:02)
[2019-02-08 05:58] LABS: BASO % 0.1 % (0-2.0); EOS % 9.3 % (0-4.5); HEMATOCRIT 33.5 % (32.4-45.2); HEMOGLOBIN 10.8 GM/dL (10.7-15.3); LYMPH % 26.5 % (8-40); MCH 32.1 pg (25.7-33.7); MCHC 32.4 g/dl (32.0-36.0); MEAN CELL VOLUME 99.3 fl (80-96); MONO % 38.7 % (3.8-10.2); NEUT % 25.4 % (42.8-82.8); RBC 3.37 M/mm3 (3.60-5.2); RDW 15.2 % (11.6-15.6); WHITE BLOOD COUNT 3.3 K/mm3 (4.0-10.0)
[2019-02-08 06:08] LABS: INR 1.11 (0.83-1.09); PROTHROMBIN TIME (PATIENT) 13.1 SEC (9.7-13.0)
[2019-02-08] MEDS ORDERED: PT OWN MED DRAWER 7, Y5N ONE (06:14)
[2019-02-08 06:26] LABS: ALK PHOS 106 U/L (45-117); ANION GAP 2 MMOL/L (8-16); BILIRUBIN,TOTAL 0.3 mg/dL (0.2-1); CALCIUM 8.4 mg/dL (8.5-10.1); CHLORIDE 90 mmol/L (98-107); CO2 > 45 mmol/L (21-32); CREATININE 0.4 mg/dL (0.55-1.3); GLUCOSE,RANDOM 99 mg/dL (74-106); MAGNESIUM 1.4 mg/dL (1.8-2.4); POTASSIUM 3.9 mmol/L (3.5-5.1); SGOT/AST 25 U/L (15-37); SGPT/ALT 79 U/L (13-61); SODIUM 137 mmol/L (136-145); TOT PROT 5.8 g/dl (6.4-8.2)
[2019-02-08] MEDS: LEVOTHYROXINE SODIUM 100 MCG VIAL IVPUSH SCH (06:26)
[2019-02-08] MEDS ORDERED: MAGNESIUM OXIDE 400 MG TABLET (FP) PO ONE (06:27)
[2019-02-08 06:30] LABS: BLOOD UREA NITROGEN 2 mg/dL (7-18)
--- NOTE | 2019-02-08 07:25 | PN ---
Progress Note, Physician History of Present Illness: 68 year old turkmen-speaking female with a past medical history of metastatic ovarian cancer with peritoneal carcinomatosis presents to the hospital for generalized weakness and shortness of breath since Monday. States that she received chemotherapy (carbotaxol) on Monday, and since then has been short of breath on exertion with weakness, decreased appetite and poor PO intake. States that she also has been suffering from a cough productive of yellow sputum. Denies any over chest pain, shortness of breath at rest, nausea, vomiting, diarrhea, fevers, chills. Denies any swelling in her legs, headache, vision changes, dysuria, abdominal pain. Denies recent travel or sick contacts. Patient is from [facility] and has no children. Lives alone at home with an aid for 1/4th of the day and ambulates with a walker. Reports difficulty in ambulating after her chemotherapy treatment. She follows with Oncologist Dr. Hoyt at [facility] Reports being diagnosed with ovarian CA in 2017 and had a surgery to resect ovaries. Per ED, patient was saturating in the 60s with a respiratory acidosis on VBG and concern was risen about respiratory status and need for ICU monitoring. - Current Medication List Current Medications: Active Medications Acetaminophen (Ofirmev Injection -) 1,000 mg IVPB Q6H PRN PRN Reason: FEVER Last Admin: 02/06/19 03:07 Dose: 1,000 mg Albuterol Sulfate (Ventolin 0.083% Nebulizer Soln -) 1 amp NEB RQID PAUL Last Admin: 02/07/19 21:01 Dose: 1 amp Atorvastatin Calcium (Lipitor -) 20 mg PO HS PAUL Last Admin: 02/07/19 21:54 Dose: 20 mg Sodium Chloride (Normal Saline -) 1,000 mls @ 10 mls/hr IV ASDIR PAUL Last Admin: 02/07/19 21:27 Dose: 10 mls/hr Ceftriaxone Sodium 2 gm/ (Dextrose) 100 mls @ 100 mls/hr IVPB DAILY [facility]; Protocol Ipratropium [place] (Atrovent 0.02% Nebulizer -) 1 amp NEB RQID PAUL Last Admin: 02/07/19 21:01 Dose: 1 amp Levothyroxine Sodium (Synthroid Injection -) 25 mcg IVPUSH AM PAUL Last Admin: 02/08/19 06:26 Dose: 25 mcg Non-Formulary Medication (Carboxymethylcellulose Sodium [Refresh Celluvisc]) 1 drop OU BID PRN PRN Reason: DRY EYES Pantoprazole Sodium (Protonix Iv) 40 mg IVPUSH DAILY [facility] Last Admin: 02/07/19 10:19 Dose: 40 mg Phenol/Menthol (Chloraseptic -) 1 spray MM Q6HPO PRN PRN Reason: SORE THROAT Last Admin: 02/07/19 16:45 Dose: 1 spray Senna (Senna -) 2 tab PO HS PAUL Last Admin: 02/07/19 21:54 Dose: 2 tab - Objective Vital Signs: Vital Signs Temperature 97.1 F L 02/08/19 07:00 Pulse Rate 97 H 02/08/19 07:00 Respiratory Rate 14 02/08/19 07:00 Blood Pressure 122/54 L 02/08/19 07:00 O2 Sat by Pulse Oximetry (%) 98 02/08/19 06:55 Constitutional: Yes: No Distress, Calm, Pallor, Thin Eyes: Yes: WNL, Conjunctiva Clear, EOM Intact HENT: Yes: WNL, Atraumatic, Normocephalic Neck: Yes: WNL, Supple, Trachea Midline Cardiovascular: Yes: WNL, Regular Rate and Rhythm Respiratory: Yes: WNL, Regular, Diminished (bases BL), On BiPap (intermittent) Gastrointestinal: Yes: WNL, Normal Bowel Sounds, Soft ...Rectal Exam: Yes: Deferred Genitourinary: Yes: WNL Musculoskeletal: Yes: Muscle Weakness Extremities: Yes: WNL Edema: No Peripheral Pulses WNL: Yes Integumentary: Yes: WNL Neurological: Yes: WNL, Alert, Oriented ...Motor Strength: LUE, LLE (4/5) Labs: CBC, BMP 02/08/19 05:30 02/08/19 05:30 INR, PTT INR 1.11 (0.83-1.09) H 02/08/19 05:30 - ....Imaging Chest X-ray: Report Reviewed, Image Reviewed Cat Scan: Report Reviewed (CTA) Ultrasound: Report Reviewed (US abd) EKG: Report Reviewed, Image Reviewed Problem List - Problems (1) Acute respiratory failure Assessment/Plan: patient remains extubated on intermittent BiPap -Bipap as needed, follow clinal exam -incentive spirometry and chest PT -supplemental O2 to maintain O2 <92 Code(s): J96.00 - ACUTE RESPIRATORY FAILURE, UNSP W HYPOXIA OR HYPERCAPNIA Qualifiers: Respiratory failure complication: hypoxia and hypercapnia Qualified Code(s) : J96.01 - Acute respiratory failure with hypoxia; J96.02 - Acute respiratory failure with hypercapnia (2) Carcinoma of ovary, stage 4 Assessment/Plan: -gets treatment at [facility] Code(s): C56.9 - MALIGNANT NEOPLASM OF UNSPECIFIED OVARY (3) Elevated brain natriuretic peptide (BNP) level Assessment/Plan: continue to trend BNP, downtrending, does not appear overloaded will repeat with morning labs -CTA negative for PE Code(s): R79.89 - OTHER SPECIFIED ABNORMAL FINDINGS OF BLOOD CHEMISTRY (4) Hypercapnia Assessment/Plan: resolved with positive pressure ventilation BiPap as needed Code(s): R06.89 - OTHER ABNORMALITIES OF BREATHING (5) Hyponatremia Assessment/Plan: resolved Na 137 maintian on NS free water restriction when taking fluids monitor daily CMP Code(s): E87.1 - HYPO-OSMOLALITY AND HYPONATREMIA (6) Hypoxia Assessment/Plan: 2/2 RLL pneumonia; patient is immunocompromised -antigens for legionella/pneumococcus -follow cultures -Vanc/Zosyn -continue with supplemental O2 with BiPap as needed Code(s): R09.02 - HYPOXEMIA (7) Pneumonia Assessment/Plan: - RLL pneumonia; patient is immunocompromised -Vanc/Zosyn -ID following and appreciate Cx as followin02/06/19 09:45 Sputum - Endotrachea Suction/Ventilator Sputum Culture - Preliminary NORMAL RESPIRATORY MONICA 02/05/19 14:14 Blood NGTD 02/05/19 13:40 Blood NGTD 02/06/19 09:45 Urine Legionella Antigen 02/06/19 09:45 Urine - Streptococcus pneumoniae Antigen Sow 02/05/19 13:51 Urine - Urine Clean Catch NGTD clean catch Code(s): J18.9 - PNEUMONIA, UNSPECIFIED ORGANISM (8) Prophylactic measure Assessment/Plan: FEN monitor daily CMP NPO, advance as tolerated IVF NS Heparin held due to downtrending Plt, will reassess in am High rsik for DVT SCDs in place PPI BID Dispo -transfer to floor on tele full code Code(s): Z29.9 - ENCOUNTER FOR PROPHYLACTIC MEASURES, UNSPECIFIED (9) Thrombocytopenia Assessment/Plan: -thrombocytopenia/anemia could be 2/2 marrow suppression from chemo, platelets now55 up from 41 yesterday -will call Heme/Onc if drops again Code(s): D69.6 - THROMBOCYTOPENIA, UNSPECIFIED (10) Transaminitis Assessment/Plan: -resolving transaminitis - RUQ ultrasound showed fatty liver -hepatitis panel negative Code(s): R74.0 - NONSPEC ELEV OF LEVELS OF TRANSAMNS & LACTIC ACID DEHYDRGNSE (11) Admitted to intensive care unit Assessment/Plan: remains in ICU awaitng tele bed appreciate Critical Care mananagement pending transfer to floor Code(s): Z78.9 - OTHER SPECIFIED HEALTH STATUS Impression/Plan Impression/Plan: - Visit type - Emergency Visit Emergency Visit: Yes ED Registration Date: 02/05/19 Care time: The patient presented to the Emergency Department on the above date and was hospitalized for further evaluation of their emergent condition. - New Patient This patient is new to me today: No - Critical Care Critical Care patient: No - Discharge Referral Referred to [facility] Med P.C.: No
[2019-02-08] MEDS: IPRATROPIUM BR 0.02% 0.5 MG/2.5 ML VIAL.NEB. NEB SCH ×4 (08:04→21:15)
[2019-02-08] MEDS: ALBUTEROL SO4 0.083% IH SOL 2.5 MG/3 ML VIAL.NEB. NEB SCH ×4 (08:05→21:15)
[2019-02-08] MEDS ORDERED: DEXTROSE 5%-WATER 100 ML IVPB ONE (09:42)
[2019-02-08 10:15] LABS: ANISOCYTOSIS 2+; MACROCYTOSIS 0; PLATELET ESTIMATE DECREASED
[2019-02-08] MEDS: CEFTRIAXONE 2 GM in DEXTROSE 5%-WATER 100 ML IVPB SCH (10:26)
[2019-02-08] MEDS: PANTOPRAZOLE SODIUM 40 MG VIAL IVPUSH SCH (10:26)
[2019-02-08 10:28] LABS: PLATELET COUNT 55 K/MM3 (134-434)
[2019-02-08] MEDS ORDERED: SODIUM CHLORIDE 500 ML IV STA (11:18)
--- NOTE | 2019-02-08 11:43 | PN ---
Teaching Attending Note Name of Resident: Jose M Brar ATTENDING PHYSICIAN STATEMENT I saw and evaluated the patient. I reviewed the resident's note and discussed the case with the resident. I agree with the resident's findings and plan as documented. SUBJECTIVE: Patient seen and examined in the ICU. Remains extubated. Awake and responsive on NC O2. Did not use NIPPV support overnight. Less mild lower abdominal discomfort. Intake & Output 02/05/19 02/06/19 02/07/19 02/08/19 23:59 23:59 23:59 23:59 Intake Total 4040 730 Output Total 2300 1300 Balance 1740 -570 Weight 130 lb 132 lb 135 lb 5.821 oz 132 lb 15.02 oz Last Vital Signs Temp Pulse Resp BP Pulse Ox 97.1 F L 97 H 14 122/54 L 98 02/08/19 07:00 02/08/19 07:00 02/08/19 07:00 02/08/19 07:00 02/08/19 06:55 Active Medications Acetaminophen (Ofirmev Injection -) 1,000 mg IVPB Q6H PRN PRN Reason: FEVER Last Admin: 02/06/19 03:07 Dose: 1,000 mg Albuterol Sulfate (Ventolin 0.083% Nebulizer Soln -) 1 amp NEB RQID PAUL Last Admin: 02/08/19 08:05 Dose: 1 amp Atorvastatin Calcium (Lipitor -) 20 mg PO HS PAUL Last Admin: 02/07/19 21:54 Dose: 20 mg Sodium Chloride (Normal Saline -) 1,000 mls @ 10 mls/hr IV ASDIR PAUL Last Admin: 02/07/19 21:27 Dose: 10 mls/hr Ceftriaxone Sodium 2 gm/ (Dextrose) 100 mls @ 100 mls/hr IVPB DAILY PAUL; Protocol Last Admin: 02/08/19 10:26 Dose: 100 mls/hr Sodium Chloride (Normal Saline -) 500 mls @ 500 mls/hr IV ASDIR STA Stop: 02/08/19 12:17 Ipratropium [place] (Atrovent 0.02% Nebulizer -) 1 amp NEB RQID PAUL Last Admin: 02/08/19 08:04 Dose: 1 amp Levothyroxine Sodium (Synthroid Injection -) 25 mcg IVPUSH AM PAUL Last Admin: 02/08/19 06:26 Dose: 25 mcg Pantoprazole Sodium (Protonix Iv) 40 mg IVPUSH DAILY PAUL Last Admin: 02/08/19 10:26 Dose: 40 mg Phenol/Menthol (Chloraseptic -) 1 spray MM Q6HPO PRN PRN Reason: SORE THROAT Last Admin: 02/07/19 16:45 Dose: 1 spray Senna (Senna -) 2 tab PO HS PAUL Last Admin: 02/07/19 21:54 Dose: 2 tab Gen: Extubated, NAD on NC O2 Heart: RRR Lung: scattered rhonchi, diminished BS at the bases Abd: soft, (+) mild diffuse non-specific tenderness to palpation, (-) guarding / rigidity Ext: no edema Laboratory Results - last 24 hr 02/08/19 02/08/19 02/08/19 05:30 05:30 05:30 WBC 3.3 L RBC 3.37 L Hgb 10.8 Hct 33.5 MCV 99.3 H MCH 32.1 MCHC 32.4 RDW 15.2 Plt Count 55 L D MPV 11.0 D Absolute Neuts (auto) 0.8 L Neutrophils % 25.4 L D Neutrophils % (Manual) 28.0 L Band Neutrophils % 0.0 Lymphocytes % 26.5 Lymphocytes % (Manual) 26.2 Monocytes % 38.7 H D Monocytes % (Manual) 35 H D Eosinophils % 9.3 H Eosinophils % (Manual) 10.3 H Basophils % 0.1 Basophils % (Manual) 0.9 D Myelocytes % (Man) 0 Promyelocytes % (Man) 0 Blast Cells % (Manual) 0 Nucleated RBC % 0 Metamyelocytes 0 D Hypochromia 2+ Platelet Estimate Decreased Polychromasia 0 Poikilocytosis 0 Anisocytosis 2+ Microcytosis 2+ Macrocytosis 0 PT with INR 13.10 H INR 1.11 H Sodium 137 Potassium 3.9 Chloride 90 L Carbon Dioxide > 45 H Anion Gap 2 L BUN 2 L* Creatinine 0.4 L Est GFR (CKD-EPI)AfAm 124.04 Est GFR (CKD-EPI)NonAf 107.02 Random Glucose 99 Calcium 8.4 L Magnesium 1.4 L Total Bilirubin 0.3 AST 25 ALT 79 H Alkaline Phosphatase 106 Total Protein 5.8 L Albumin 3.0 L ASSESSMENT AND PLAN: Acute on Chronic Hypercapneic Respiratory Failure Pneumonia Sepsis +Troponins likely Demand Ischemia Elevated LFTs Thrombocytopenia Metastatic Ovarian Cancer on chemotherapy Hyperlipidemia Hypothyroidism - NC O2 to maintain saturation - NIPPV support QHS & PRN - continue antibiotics - f/u final cultures - Workup of abdominal discomfort ongoing - monitor urine output, creatinine - inhaled bronchodilators - PO as tolerated - VTE prophylaxis - Follow Acid base - 4W / 4S monitoring Dr Wang
[2019-02-08] MEDS ORDERED: NAPH,MB-DB/K PH,MBDB POWDER PACKET PO ONE (11:56)
--- NOTE | 2019-02-08 12:31 | PN ---
Progress Note (short form) - Note Progress Note: no vomiting at home remains extubated no complaints Vital Signs Period Temp Pulse Resp BP Sys/Humphrey Pulse Ox Last 24 Hr 97.1 F-98.8 F 75-101 12-24 92-130/42-65 96-100 cor-rrr lungs decreased bs at bases abd soft,nt ext no edema CBC, BMP 02/08/19 05:30 02/08/19 05:30 Microbiology 02/06/19 09:45 Sputum - Endotrachea Suction/Ventilator Gram Stain - Final 02/06/19 09:45 Sputum - Endotrachea Suction/Ventilator Sputum Culture - Final NORMAL RESPIRATORY MONICA 02/05/19 14:14 Blood - Peripheral Venous Blood Culture - Preliminary NO GROWTH OBTAINED AFTER 48 HOURS, INCUBATION TO CONTINUE FOR 3 DAYS. 02/05/19 13:40 Blood - Peripheral Venous Blood Culture - Preliminary NO GROWTH OBTAINED AFTER 48 HOURS, INCUBATION TO CONTINUE FOR 3 DAYS. 02/06/19 09:45 Urine - Urine Sow Legionella Antigen - Final 02/06/19 09:45 Urine - Urine Sow Streptococcus pneumoniae Antigen (M - Final 02/05/19 13:51 Urine - Urine Clean Catch Urine Culture - Final NO GROWTH OBTAINED a/p pneumonia metastatic ovarian cancer lfts improving suspect leukopenia/thrombocytopenia secondary to chemo doing well extubated continue rocephins- day #3 Problem List - Problems (1) Carcinoma of ovary, stage 4 Code(s): C56.9 - MALIGNANT NEOPLASM OF UNSPECIFIED OVARY (2) Acute respiratory failure Code(s): J96.00 - ACUTE RESPIRATORY FAILURE, UNSP W HYPOXIA OR HYPERCAPNIA Qualifiers: Respiratory failure complication: hypoxia and hypercapnia Qualified Code(s) : J96.01 - Acute respiratory failure with hypoxia; J96.02 - Acute respiratory failure with hypercapnia (3) Pneumonia Code(s): J18.9 - PNEUMONIA, UNSPECIFIED ORGANISM
--- NOTE | 2019-02-08 15:58 | PN ---
Physical Exam: SUBJECTIVE: Patient seen and examined at bedside Pt comfortable, sitting up in bed, eating. States she has no difficulty breathing at this time. On 2L NC No complaints of pain OBJECTIVE: Vital Signs Period Temp Pulse Resp BP Sys/Humphrey Pulse Ox Last 24 Hr 97.1 F-98.8 F 75-101 12-24 92-130/42-65 96-100 GENERAL: The patient is awake, alert, and fully oriented, in no acute distress. HEAD: Normal with no signs of trauma. EYES: PERRL, extraocular movements intact, sclera anicteric, conjunctiva clear. No ptosis. ENT: Ears normal, nares patent, oropharynx clear without exudates, moist mucous membranes. NECK: Trachea midline, full range of motion, supple. LUNGS: Breath sounds equal, clear to auscultation bilaterally, no wheezes, no crackles, no accessory muscle use. HEART: Regular rate and rhythm, S1, S2 without murmur, rub or gallop. ABDOMEN: Soft, nontender, nondistended, normoactive bowel sounds, no guarding, no rebound, no hepatosplenomegaly, no masses. EXTREMITIES: 2+ pulses, warm, well-perfused, no edema. NEUROLOGICAL: Cranial nerves II through XII grossly intact. Normal speech, gait not observed. PSYCH: Normal mood, normal affect. SKIN: Warm, dry, normal turgor, no rashes or lesions noted Laboratory Results - last 24 hr 02/08/19 02/08/19 02/08/19 05:30 05:30 05:30 WBC 3.3 L RBC 3.37 L Hgb 10.8 Hct 33.5 MCV 99.3 H MCH 32.1 MCHC 32.4 RDW 15.2 Plt Count 55 L D MPV 11.0 D Absolute Neuts (auto) 0.8 L Neutrophils % 25.4 L D Neutrophils % (Manual) 28.0 L Band Neutrophils % 0.0 Lymphocytes % 26.5 Lymphocytes % (Manual) 26.2 Monocytes % 38.7 H D Monocytes % (Manual) 35 H D Eosinophils % 9.3 H Eosinophils % (Manual) 10.3 H Basophils % 0.1 Basophils % (Manual) 0.9 D Myelocytes % (Man) 0 Promyelocytes % (Man) 0 Blast Cells % (Manual) 0 Nucleated RBC % 0 Metamyelocytes 0 D Hypochromia 2+ Platelet Estimate Decreased Polychromasia 0 Poikilocytosis 0 Anisocytosis 2+ Microcytosis 2+ Macrocytosis 0 PT with INR 13.10 H INR 1.11 H Sodium 137 Potassium 3.9 Chloride 90 L Carbon Dioxide > 45 H Anion Gap 2 L BUN 2 L* Creatinine 0.4 L Est GFR (CKD-EPI)AfAm 124.04 Est GFR (CKD-EPI)NonAf 107.02 Random Glucose 99 Calcium 8.4 L Magnesium 1.4 L Total Bilirubin 0.3 AST 25 ALT 79 H Alkaline Phosphatase 106 Total Protein 5.8 L Albumin 3.0 L Active Medications Generic Name Dose Route Start Last Admin Trade Name Freq PRN Reason Stop Dose Admin Acetaminophen 1,000 mg 02/06/19 02:37 02/06/19 03:07 Ofirmev Injection - IVPB 1,000 mg Q6H PRN Administration FEVER Albuterol Sulfate 1 amp 02/05/19 20:00 02/08/19 12:06 Ventolin 0.083% Nebulizer Soln - NEB 1 amp RQID PAUL Administration Atorvastatin Calcium 20 mg 02/05/19 22:00 02/07/19 21:54 Lipitor - PO 20 mg HS PAUL Administration Sodium Chloride 1,000 mls @ 10 mls/hr 02/06/19 21:45 02/07/19 21:27 Normal Saline - IV 10 mls/hr ASDIR PAUL Administration Ceftriaxone Sodium 2 gm/ 100 mls @ 100 mls/hr 02/07/19 16:29 02/08/19 10:26 Dextrose IVPB 100 mls/hr DAILY PAUL Administration Protocol Ipratropium [place] 1 amp 02/05/19 20:00 02/08/19 12:05 Atrovent 0.02% Nebulizer - NEB 1 amp RQID PAUL Administration Levothyroxine Sodium 25 mcg 02/06/19 07:00 02/08/19 06:26 Synthroid Injection - IVPUSH 25 mcg AM PAUL Administration Pantoprazole Sodium 40 mg 02/06/19 10:00 02/08/19 10:26 Protonix Iv IVPUSH 40 mg DAILY PAUL Administration Phenol/Menthol 1 spray 02/07/19 12:54 02/07/19 16:45 Chloraseptic - MM 1 spray Q6HPO PRN Administration SORE THROAT Senna 2 tab 02/05/19 22:00 02/07/19 21:54 Senna - PO 2 tab HS PAUL Administration ASSESSMENT/PLAN: #Pulmonary -Likely Sepsis secondary to PNA -patient has a primary chronic respiratory acidosis with superimposed metabolic alkalosis based on VBG analysis. -patient is saturating at 100% on 2L nasal cannula and is not in any respiratory distress at rest -CTA negative for PE -white count reduced after Antibiotics. Continue Antibiotics for PNA -legionella/pneumococcal antigens negative -Pt comfortable, no increased WOB, ambulatory a few steps according to PT, will reassess and likely DC to the floor -if patient becomes more dyspneic, can consider BiPap as patient is A&Ox3 and is able to work with bipap #Neuro -patient is A&Ox3 without any focal neurologic deficits -weakness is generalized and likely metabolic in origin vs neurologic in #Cardiac -troponins were slightly elevated at 0.09 trending down, likely due to demand ischemia -EKG: Tachycardia w/ recognized S1Q3T3, incomplete RBBB. -CTA negative for PE #Gastrointestinal -elevated transaminases -would recommend RUQ ultrasound, hepatitis panel and trending the AST/ALT in the morning #Renal -patient is hyponatremic, improved #Infectious Disease -patient meets SIRS criteria (WBC 25 with neutrophilic predominance/tachycardic/ tachypneic) -questionable RLL infiltrate with cough and yellow sputum production in immunocompromised patient s/p chemotherapy, who may not be able to mount fever -antigens for legionella/pneumococcus negative -blood/urine cultures negative -on antibiotics -consider ID consultation -UA negative #Heme/ONC -gets treatment at [facility] -thrombocytopenia/anemia could be 2/2 marrow suppression from chemo, repeat labs in AM -continue to trend labs for pancytopenia likely from recent chemo #Disposition Pt will likely be DC to the floor. Continues to be stable, ambulates a few steps without significant SOB Visit type - Emergency Visit Emergency Visit: No - New Patient This patient is new to me today: Yes Date on this admission: 02/08/19 - Critical Care Critical Care patient: Yes Total Critical Care Time (in minutes): 36 Critical Care Statement: The care of this patient involved high complexity decision making to prevent further life threatening deterioration of the patient 's condition and/or to evaluate & treat vital organ system(s) failure or risk of failure. - Discharge Referral Referred to [facility] Med P.C.: No
[2019-02-08] MEDS ORDERED: ACETAMINOPHEN 1000 MG/100 ML VIAL (NON FORMULARY) IVPB PRN (19:26)
[2019-02-08] MEDS ORDERED: VANCOMYCIN 1,500 MG in DEXTROSE 5%-WATER - 250 ML IVPB ONE (19:26)
[2019-02-08] MEDS: SENNOSIDES 8.6MG TABLET (FP) PO SCH (21:34)
[2019-02-08] MEDS: ATORVASTATIN CA 20 MG TABLET (FP) PO SCH (21:34)
[2019-02-08] MEDS: SODIUM CHLORIDE 1,000 ML IV SCH (21:43)
[2019-02-08 22:08] LABS: ARTERIAL BLD GAS O2 SATURATION 89.5 % (95-98); ARTERIAL BLOOD GAS BASE EXCESS 16.6 meq/l (-2-2); ARTERIAL BLOOD GAS PO2 57.3 mmHg (80-105); ARTERIAL BLOOD GAS pH 7.28 (7.35-7.45)
[2019-02-08 22:15] LABS: ALLENS TEST POSITIVE
[2019-02-08 22:16] LABS: ARTERIAL BLOOD GAS PCO2 102 mmHg (35-45)
--- NOTE | 2019-02-08 23:57 | PN ---
Physical Exam: SUBJECTIVE: Patient seen and examined OBJECTIVE: Vital Signs Period Temp Pulse Resp BP Sys/Humphrey Pulse Ox Last 24 Hr 97.1 F-97.3 F 92-100 12-16 93-123/50-72 95-100 GENERAL: The patient is awake, alert, and fully oriented, in no acute distress. HEAD: Normal with no signs of trauma. EYES: PERRL, extraocular movements intact, sclera anicteric, conjunctiva clear. No ptosis. ENT: Ears normal, nares patent, oropharynx clear without exudates, moist mucous membranes. NECK: Trachea midline, full range of motion, supple. LUNGS: Breath sounds equal, clear to auscultation bilaterally, no wheezes, no crackles, no accessory muscle use. HEART: Regular rate and rhythm, S1, S2 without murmur, rub or gallop. ABDOMEN: Soft, nontender, nondistended, normoactive bowel sounds, no guarding, no rebound, no hepatosplenomegaly, no masses. EXTREMITIES: 2+ pulses, warm, well-perfused, no edema. NEUROLOGICAL: Cranial nerves II through XII grossly intact. Normal speech, gait not observed. PSYCH: Normal mood, normal affect. SKIN: Warm, dry, normal turgor, no rashes or lesions noted Laboratory Results - last 24 hr 02/08/19 02/08/19 02/08/19 05:30 05:30 05:30 WBC 3.3 L RBC 3.37 L Hgb 10.8 Hct 33.5 MCV 99.3 H MCH 32.1 MCHC 32.4 RDW 15.2 Plt Count 55 L D MPV 11.0 D Absolute Neuts (auto) 0.8 L Neutrophils % 25.4 L D Neutrophils % (Manual) 28.0 L Band Neutrophils % 0.0 Lymphocytes % 26.5 Lymphocytes % (Manual) 26.2 Monocytes % 38.7 H D Monocytes % (Manual) 35 H D Eosinophils % 9.3 H Eosinophils % (Manual) 10.3 H Basophils % 0.1 Basophils % (Manual) 0.9 D Myelocytes % (Man) 0 Promyelocytes % (Man) 0 Blast Cells % (Manual) 0 Nucleated RBC % 0 Metamyelocytes 0 D Hypochromia 2+ Platelet Estimate Decreased Polychromasia 0 Poikilocytosis 0 Anisocytosis 2+ Microcytosis 2+ Macrocytosis 0 PT with INR 13.10 H INR 1.11 H Puncture Site ABG pH ABG pCO2 at Pt Temp ABG pO2 at Pt Temp ABG HCO3 ABG O2 Sat (Measured) ABG O2 Content ABG Base Excess Rupesh Test O2 Delivery Device Oxygen Flow Rate Sodium 137 Potassium 3.9 Chloride 90 L Carbon Dioxide > 45 H Anion Gap 2 L BUN 2 L* Creatinine 0.4 L Est GFR (CKD-EPI)AfAm 124.04 Est GFR (CKD-EPI)NonAf 107.02 Random Glucose 99 Calcium 8.4 L Magnesium 1.4 L Total Bilirubin 0.3 AST 25 ALT 79 H Alkaline Phosphatase 106 Total Protein 5.8 L Albumin 3.0 L 02/08/19 22:00 WBC RBC Hgb Hct MCV MCH MCHC RDW Plt Count MPV Absolute Neuts (auto) Neutrophils % Neutrophils % (Manual) Band Neutrophils % Lymphocytes % Lymphocytes % (Manual) Monocytes % Monocytes % (Manual) Eosinophils % Eosinophils % (Manual) Basophils % Basophils % (Manual) Myelocytes % (Man) Promyelocytes % (Man) Blast Cells % (Manual) Nucleated RBC % Metamyelocytes Hypochromia Platelet Estimate Polychromasia Poikilocytosis Anisocytosis Microcytosis Macrocytosis PT with INR INR Puncture Site Left radial ABG pH 7.28 L ABG pCO2 at Pt Temp 102 H* ABG pO2 at Pt Temp 57.3 L ABG HCO3 46.4 H ABG O2 Sat (Measured) 89.5 L ABG O2 Content 12.3 L ABG Base Excess 16.6 H Rupesh Test Positive O2 Delivery Device Nasal Oxygen Flow Rate 3 Sodium Potassium Chloride Carbon Dioxide Anion Gap BUN Creatinine Est GFR (CKD-EPI)AfAm Est GFR (CKD-EPI)NonAf Random Glucose Calcium Magnesium Total Bilirubin AST ALT Alkaline Phosphatase Total Protein Albumin Active Medications Generic Name Dose Route Start Last Admin Trade Name Freq PRN Reason Stop Dose Admin Acetaminophen 1,000 mg 02/08/19 19:26 Ofirmev Injection - IVPB Q6H PRN FEVER Albuterol Sulfate 1 amp 02/08/19 20:00 02/08/19 21:15 Ventolin 0.083% Nebulizer Soln - NEB 1 amp RQID PAUL Administration Atorvastatin Calcium 20 mg 02/08/19 22:00 02/08/19 21:34 Lipitor - PO 20 mg HS PAUL Administration Ceftriaxone Sodium 2 gm/ 100 mls @ 100 mls/hr 02/07/19 16:29 02/08/19 10:26 Dextrose IVPB 100 mls/hr DAILY PAUL Administration Protocol Sodium Chloride 1,000 mls @ 10 mls/hr 02/08/19 19:26 02/08/19 21:43 Normal Saline - IV 10 mls/hr ASDIR PAUL Administration Ipratropium [place] 1 amp 02/08/19 20:00 02/08/19 21:15 Atrovent 0.02% Nebulizer - NEB 1 amp RQID PAUL Administration Levothyroxine Sodium 25 mcg 02/09/19 07:00 Synthroid Injection - IVPUSH AM PAUL Pantoprazole Sodium 40 mg 02/09/19 10:00 Protonix Iv IVPUSH DAILY [facility] Phenol/Menthol 1 spray 02/07/19 12:54 02/07/19 16:45 Chloraseptic - MM 1 spray Q6HPO PRN Administration SORE THROAT Senna 2 tab 02/08/19 22:00 02/08/19 21:34 Senna - PO 2 tab HS PAUL Administration ASSESSMENT/PLAN:
--- NOTE | 2019-02-09 00:03 | HOSP ---
Physical Examination Vital Signs: Vital Signs Temperature 97.1 F L 02/08/19 07:00 Pulse Rate 100 H 02/08/19 18:00 Respiratory Rate 16 02/08/19 22:08 Blood Pressure 93/72 02/08/19 18:00 O2 Sat by Pulse Oximetry (%) 95 02/08/19 22:45 Labs: CBC, BMP 02/08/19 05:30 02/08/19 05:30 Hospitalist Encounter Assessment: Called to see the patient because she appeared somewhat confused compared to this afternoon. Examined pt. Restless. Alert and oriented x 3. Neuro exam unremarkable. No focal deficits. Obeys commands and answers questions. Concern for CO2 retention considering pt's pulmonary status. ABG ordered. Revealed resp acidosis acute rise in CO2 from previous. Restart BiLevel and repeat ABG Visit type - Emergency Visit Emergency Visit: No - New Patient This patient is new to me today: No - Critical Care Critical Care patient: Yes Total Critical Care Time (in minutes): 10
[2019-02-09 00:46] LABS: ARTERIAL BLOOD GAS PO2 87.7 mmHg (80-105); ARTERIAL BLOOD GAS pH 7.29 (7.35-7.45)
[2019-02-09 00:47] LABS: ALLENS TEST POSITIVE; ARTERIAL BLD GAS O2 SATURATION 96.9 % (95-98); ARTERIAL BLOOD GAS BASE EXCESS 16.6 meq/l (-2-2)
[2019-02-09 00:51] LABS: ARTERIAL BLOOD GAS PCO2 99.3 mmHg (35-45)
[2019-02-09] MEDS ORDERED: PT OWN MED DRAWER 7, Y5N ONE (06:13)
[2019-02-09] MEDS: LEVOTHYROXINE SODIUM 100 MCG VIAL IVPUSH SCH (06:20)
[2019-02-09 06:41] LABS: BASO % 0.1 % (0-2.0); EOS % 2.1 % (0-4.5); HEMATOCRIT 31.4 % (32.4-45.2); HEMOGLOBIN 10.2 GM/dL (10.7-15.3); LYMPH % 12.5 % (8-40); MCH 32.1 pg (25.7-33.7); MCHC 32.3 g/dl (32.0-36.0); MEAN CELL VOLUME 99.1 fl (80-96); MEAN PLT VOLUME 10.9 fl (7.5-11.1); MONO % 21.3 % (3.8-10.2); RBC 3.17 M/mm3 (3.60-5.2); WHITE BLOOD COUNT 12.2 K/mm3 (4.0-10.0)
[2019-02-09 06:46] LABS: ARTERIAL BLD GAS O2 SATURATION 98.2 % (95-98); ARTERIAL BLOOD GAS PCO2 77.5 mmHg (35-45); ARTERIAL BLOOD GAS PO2 91.3 mmHg (80-105)
[2019-02-09 06:47] LABS: ALLENS TEST POSITIVE; ARTERIAL BLOOD GAS BASE EXCESS 19.7 meq/l (-2-2)
[2019-02-09 06:50] LABS: INR 1.22 (0.83-1.09); PROTHROMBIN TIME (PATIENT) 14.4 SEC (9.7-13.0)
[2019-02-09 07:04] LABS: ALK PHOS 107 U/L (45-117); ANION GAP 7 MMOL/L (8-16); BILIRUBIN,TOTAL 0.4 mg/dL (0.2-1); CALCIUM 8.7 mg/dL (8.5-10.1); CHLORIDE 85 mmol/L (98-107); CO2 > 45 mmol/L (21-32); CREATININE 0.4 mg/dL (0.55-1.3); GLUCOSE,RANDOM 84 mg/dL (74-106); MAGNESIUM 0.9 mg/dL (1.8-2.4); POTASSIUM 3.3 mmol/L (3.5-5.1); SGOT/AST 17 U/L (15-37); SGPT/ALT 61 U/L (13-61); SODIUM 137 mmol/L (136-145); TOT PROT 5.5 g/dl (6.4-8.2)
[2019-02-09] MEDS ORDERED: POTASSIUM CHLORIDE ORAL LIQUID 20 MEQ/15 ML PO ONE (07:30)
--- NOTE | 2019-02-09 07:40 | PN ---
Progress Note, Physician History of Present Illness: 68 year old ukrainian-speaking female with a past medical history of metastatic ovarian cancer with peritoneal carcinomatosis presents to the hospital for generalized weakness and shortness of breath since Monday. States that she received chemotherapy (carbotaxol) on Monday, and since then has been short of breath on exertion with weakness, decreased appetite and poor PO intake. States that she also has been suffering from a cough productive of yellow sputum. Denies any over chest pain, shortness of breath at rest, nausea, vomiting, diarrhea, fevers, chills. Denies any swelling in her legs, headache, vision changes, dysuria, abdominal pain. Denies recent travel or sick contacts. Patient is from [facility] and has no children. Lives alone at home with an aid for 1/4th of the day and ambulates with a walker. Reports difficulty in ambulating after her chemotherapy treatment. She follows with Oncologist Dr. Hoyt at [facility] Reports being diagnosed with ovarian CA in 2017 and had a surgery to resect ovaries. Per ED, patient was saturating in the 60s with a respiratory acidosis on VBG and concern was risen about respiratory status and need for ICU monitoring. - Current Medication List Current Medications: Active Medications Acetaminophen (Ofirmev Injection -) 1,000 mg IVPB Q6H PRN PRN Reason: FEVER Albuterol Sulfate (Ventolin 0.083% Nebulizer Soln -) 1 amp NEB RQID PAUL Last Admin: 02/08/19 21:15 Dose: 1 amp Atorvastatin Calcium (Lipitor -) 20 mg PO HS PAUL Last Admin: 02/08/19 21:34 Dose: 20 mg Ceftriaxone Sodium 2 gm/ (Dextrose) 100 mls @ 100 mls/hr IVPB DAILY PAUL; Protocol Last Admin: 02/08/19 10:26 Dose: 100 mls/hr Sodium Chloride (Normal Saline -) 1,000 mls @ 10 mls/hr IV ASDIR PAUL Last Admin: 02/08/19 21:43 Dose: 10 mls/hr Ipratropium [place] (Atrovent 0.02% Nebulizer -) 1 amp NEB RQID PAUL Last Admin: 02/08/19 21:15 Dose: 1 amp Levothyroxine Sodium (Synthroid Injection -) 25 mcg IVPUSH AM PAUL Last Admin: 02/09/19 06:20 Dose: 25 mcg Pantoprazole Sodium (Protonix Iv) 40 mg IVPUSH DAILY [facility] Phenol/Menthol (Chloraseptic -) 1 spray MM Q6HPO PRN PRN Reason: SORE THROAT Last Admin: 02/07/19 16:45 Dose: 1 spray Senna (Senna -) 2 tab PO HS PAUL Last Admin: 02/08/19 21:34 Dose: 2 tab - Objective Vital Signs: Vital Signs Temperature 98.9 F 02/09/19 06:00 Pulse Rate 91 H 02/09/19 06:00 Respiratory Rate 24 H 02/09/19 06:00 Blood Pressure 130/59 L 02/09/19 06:00 O2 Sat by Pulse Oximetry (%) 96 02/09/19 02:46 Constitutional: Yes: No Distress, Anxious (daughter at bedside, stated that someone was trying to kill last night), Thin Eyes: Yes: Conjunctiva Clear, EOM Intact HENT: Yes: WNL, Atraumatic, Normocephalic Neck: Yes: WNL, Supple, Trachea Midline Cardiovascular: Yes: WNL, Regular Rate and Rhythm Respiratory: Yes: WNL, Regular, Diminished (at bases) Gastrointestinal: Yes: WNL, Normal Bowel Sounds, Soft Genitourinary: Yes: WNL Extremities: Yes: WNL Edema: No Peripheral Pulses WNL: Yes Integumentary: Yes: WNL Neurological: Yes: WNL, Alert, Oriented ...Motor Strength: LLE, RLE (weak) Psychiatric: Yes: WNL, Alert, Oriented Labs: CBC, BMP 02/09/19 05:35 02/09/19 05:35 INR, PTT INR 1.22 (0.83-1.09) H 02/09/19 05:35 - ....Imaging Chest X-ray: Report Reviewed, Image Reviewed (no effusion/infiltrates) EKG: Report Reviewed, Image Reviewed Problem List - Problems (1) Acute respiratory failure Assessment/Plan: patient remains extubated on intermittent BiPap -PCO2 last night >99, Bipap placed and decreased. Will order for BiPap to be placed when ever the patient is sleeping or napping -incentive spirometry and chest PT -supplemental O2 to maintain O2 <92-presently 2L Code(s): J96.00 - ACUTE RESPIRATORY FAILURE, UNSP W HYPOXIA OR HYPERCAPNIA Qualifiers: Respiratory failure complication: hypoxia and hypercapnia Qualified Code(s) : J96.01 - Acute respiratory failure with hypoxia; J96.02 - Acute respiratory failure with hypercapnia (2) Carcinoma of ovary, stage 4 Assessment/Plan: -gets treatment at [facility] Code(s): C56.9 - MALIGNANT NEOPLASM OF UNSPECIFIED OVARY (3) Elevated brain natriuretic peptide (BNP) level Assessment/Plan: No further need to trend BNP does not appear overloaded -CTA negative for PE Code(s): R79.89 - OTHER SPECIFIED ABNORMAL FINDINGS OF BLOOD CHEMISTRY (4) Hypercapnia Assessment/Plan: PCO2 >99, resolved with positive pressure ventilation BiPap as needed & while sleeping or napping Code(s): R06.89 - OTHER ABNORMALITIES OF BREATHING (5) Hyponatremia Assessment/Plan: resolved Na 137 maintian on NS free water restriction when taking fluids monitor daily CMP Code(s): E87.1 - HYPO-OSMOLALITY AND HYPONATREMIA (6) Hypoxia Assessment/Plan: 2/2 RLL pneumonia; patient is immunocompromised -antigens for legionella/pneumococcus neg - cultures NGTD -Vanc/Zosyn -continue with supplemental O2 with BiPap as needed Code(s): R09.02 - HYPOXEMIA (7) Pneumonia Assessment/Plan: - RLL pneumonia; patient is immunocompromised -Vanc x 1 dose /Zosyn to continue -ID following and appreciate Cx as followin02/06/19 09:45 Sputum - Endotrachea Suction/Ventilator Sputum Culture - Preliminary NORMAL RESPIRATORY MONICA 02/05/19 14:14 Blood NGTD 02/05/19 13:40 Blood NGTD 02/06/19 09:45 Urine Legionella Antigen 02/06/19 09:45 Urine - Streptococcus pneumoniae Antigen Sow 02/05/19 13:51 Urine - Urine Clean Catch NGTD clean catch Code(s): J18.9 - PNEUMONIA, UNSPECIFIED ORGANISM (8) Prophylactic measure Assessment/Plan: FEN monitor daily CMP NPO, advance as tolerated IVF NS Heparin held due to downtrending Plt, will reassess in am High rsik for DVT SCDs in place PPI BID Dispo -transfer to floor on tele when bed available full code Code(s): Z29.9 - ENCOUNTER FOR PROPHYLACTIC MEASURES, UNSPECIFIED (9) Thrombocytopenia Assessment/Plan: -thrombocytopenia/anemia could be 2/2 marrow suppression from chemo, Trending up ,platelets now 74 up from 41 yesterday -will call Heme/Onc if drops again -daily cbc Code(s): D69.6 - THROMBOCYTOPENIA, UNSPECIFIED (10) Transaminitis Assessment/Plan: -resolving transaminitis - RUQ ultrasound showed fatty liver -hepatitis panel negative Code(s): R74.0 - NONSPEC ELEV OF LEVELS OF TRANSAMNS & LACTIC ACID DEHYDRGNSE (11) Admitted to intensive care unit Assessment/Plan: remains in ICU awaitng tele bed appreciate Critical Care mananagement pending transfer to floor Code(s): Z78.9 - OTHER SPECIFIED HEALTH STATUS Visit type - Emergency Visit Emergency Visit: Yes ED Registration Date: 02/05/19 Care time: The patient presented to the Emergency Department on the above date and was hospitalized for further evaluation of their emergent condition. - New Patient This patient is new to me today: No - Critical Care Critical Care patient: Yes Total Critical Care Time (in minutes): 30 Critical Care Statement: The care of this patient involved high complexity decision making to prevent further life threatening deterioration of the patient 's condition and/or to evaluate & treat vital organ system(s) failure or risk of failure. - Discharge Referral Referred to [facility] No
[2019-02-09] MEDS ORDERED: MAGNESIUM SULF 50% (8.12 MEQ/2 ML-1 GM VIAL) IVPB ONE (07:56)
[2019-02-09] MEDS: IPRATROPIUM BR 0.02% 0.5 MG/2.5 ML VIAL.NEB. NEB SCH ×4 (08:17→21:00)
[2019-02-09] MEDS: ALBUTEROL SO4 0.083% IH SOL 2.5 MG/3 ML VIAL.NEB. NEB SCH ×4 (08:18→21:00)
[2019-02-09 08:49] LABS: BLOOD UREA NITROGEN 1.2 mg/dL (7-18)
[2019-02-09 09:15] LABS: PLATELET COUNT 74 K/MM3 (134-434)
[2019-02-09 09:35] LABS: ARTERIAL BLD GAS O2 SATURATION 95.9 % (95-98); ARTERIAL BLOOD GAS BASE EXCESS 19.6 meq/l (-2-2); ARTERIAL BLOOD GAS PO2 72.6 mmHg (80-105); ARTERIAL BLOOD GAS pH 7.41 (7.35-7.45)
[2019-02-09 09:44] LABS: ANISOCYTOSIS 0; MACROCYTOSIS 0; PLATELET ESTIMATE DECREASED
[2019-02-09] MEDS ORDERED: DEXTROSE 5%-WATER 100 ML IVPB ONE (09:48)
[2019-02-09] MEDS: CEFTRIAXONE 2 GM in DEXTROSE 5%-WATER 100 ML IVPB SCH (09:59)
[2019-02-09] MEDS: PANTOPRAZOLE SODIUM 40 MG VIAL IVPUSH SCH (09:59)
[2019-02-09 10:00] LABS: ARTERIAL BLOOD GAS PCO2 76.7 mmHg (35-45)
[2019-02-09 10:01] LABS: ALLENS TEST POSITIVE
--- NOTE | 2019-02-09 10:30 | PN ---
Teaching Attending Note Name of Resident: Jose M Brar ATTENDING PHYSICIAN STATEMENT I saw and evaluated the patient. I reviewed the resident's note and discussed the case with the resident. I agree with the resident's findings and plan as documented. SUBJECTIVE: Pt seen and examined in the ICU. Placed on BiPAP overnight for increasing hypercapnea and altered mental status with improvement. Now alert, awake. OBJECTIVE: Vital Signs Period Temp Pulse Resp BP Sys/Humphrey Pulse Ox Last 24 Hr 97.5 F-99.9 F 86-107 14-25 93-130/27-101 95-100 Intake & Output 02/06/19 02/07/19 02/08/19 02/09/19 23:59 23:59 23:59 23:59 Intake Total 4040 730 120 Output Total 2300 1300 300 Balance 1740 -570 -180 Weight 59.874 kg 61.4 kg 60.3 kg 59.965 kg Gen: mildly tachypneic on BiPAP Heart: RRR Lung: decreased breath sounds right base Abd: soft, nontender Ext: no edema CBC, BMP 02/09/19 05:35 02/09/19 05:35 ABG Results ABG pH 7.41 (7.35-7.45) 02/09/19 09:20 ABG pCO2 at Pt Temp 76.7 mmHg (35-45) H* 02/09/19 09:20 ABG pO2 at Pt Temp 72.6 mmHg (80-105) L 02/09/19 09:20 ABG HCO3 47.4 mmol/L (22-27) H 02/09/19 09:20 ABG O2 Sat (Measured) 95.9 % (95-98) 02/09/19 09:20 ABG O2 Content 13.3 % vol (15-22) L 02/09/19 09:20 ABG Base Excess 19.6 meq/l (-2-2) H 02/09/19 09:20 Active Medications Acetaminophen (Ofirmev Injection -) 1,000 mg IVPB Q6H PRN PRN Reason: FEVER Albuterol Sulfate (Ventolin 0.083% Nebulizer Soln -) 1 amp NEB RQID PAUL Last Admin: 02/09/19 08:18 Dose: 1 amp Atorvastatin Calcium (Lipitor -) 20 mg PO HS PAUL Last Admin: 02/08/19 21:34 Dose: 20 mg Ceftriaxone Sodium 2 gm/ (Dextrose) 100 mls @ 100 mls/hr IVPB DAILY PAUL; Protocol Last Admin: 02/09/19 09:59 Dose: 100 mls/hr Sodium Chloride (Normal Saline -) 1,000 mls @ 10 mls/hr IV ASDIR PAUL Last Admin: 02/08/19 21:43 Dose: 10 mls/hr Ipratropium [place] (Atrovent 0.02% Nebulizer -) 1 amp NEB RQID [facility] Last Admin: 02/09/19 08:17 Dose: 1 amp Levothyroxine Sodium (Synthroid Injection -) 25 mcg IVPUSH AM [facility] Last Admin: 02/09/19 06:20 Dose: 25 mcg Pantoprazole Sodium (Protonix Iv) 40 mg IVPUSH DAILY [facility] Last Admin: 02/09/19 09:59 Dose: 40 mg Phenol/Menthol (Chloraseptic -) 1 spray MM Q6HPO PRN PRN Reason: SORE THROAT Last Admin: 02/07/19 16:45 Dose: 1 spray Senna (Senna -) 2 tab PO HS [facility] Last Admin: 02/08/19 21:34 Dose: 2 tab ASSESSMENT AND PLAN: Acute on Chronic Hypercapneic Respiratory Failure improving Severe Scoliosis/Restrictive Lung Disease Pneumonia Sepsis +Troponins likely [place]and Ischemia Elevated LFTs Thrombocytopenia Metastatic Ovarian Cancer on chemotherapy Hyperlipidemia Hypothyroidism - continue antibiotics - f/u cultures - monitor urine output, creatinine - O2 to keep spO2 >90% - inhaled bronchodilators - BiPAP at night and PRN during the day - PO as tolerated - replete lytes - DVT prophylaxis - can monitor on telemetry with pulse oximetry monitoring critical care time spent in reviewing chart, evaluating patient and formulating plan 35 min
--- NOTE | 2019-02-09 11:52 | PN ---
Physical Exam: SUBJECTIVE: Patient seen and examined at bedside. Overnight reports of increasing hypercapnia and AMS, Bipap started with some improvement, most recent ABG continues to show improvement Pt has not complaints, denies SOB or increased WOB. Sitting up in bed, AOX3 OBJECTIVE: Vital Signs Period Temp Pulse Resp BP Sys/Humphrey Pulse Ox Last 24 Hr 97.5 F-99.9 F 86-107 14-25 93-130/27-101 95-100 GENERAL: The patient is awake, alert, and fully oriented, in no acute distress. HEAD: Normal with no signs of trauma. EYES: PERRL, extraocular movements intact, sclera anicteric, conjunctiva clear. No ptosis. ENT: Ears normal, nares patent, oropharynx clear without exudates, moist mucous membranes. NECK: Trachea midline, full range of motion, supple. LUNGS: Breath sounds equal, clear to auscultation bilaterally, no wheezes, no crackles, no accessory muscle use. HEART: Regular rate and rhythm, S1, S2 without murmur, rub or gallop. ABDOMEN: Soft, nontender, nondistended, normoactive bowel sounds, no guarding, no rebound, no hepatosplenomegaly, no masses. EXTREMITIES: 2+ pulses, warm, well-perfused, no edema. NEUROLOGICAL: Cranial nerves II through XII grossly intact. Normal speech, gait not observed. PSYCH: Normal mood, normal affect. SKIN: Warm, dry, normal turgor, no rashes or lesions noted Laboratory Results - last 24 hr 02/08/19 02/08/19 02/09/19 22:00 23:54 05:35 WBC 12.2 H RBC 3.17 L Hgb 10.2 L Hct 31.4 L MCV 99.1 H MCH 32.1 MCHC 32.3 RDW 15.0 Plt Count 74 L D MPV 10.9 Absolute Neuts (auto) 7.8 Neutrophils % 64.0 D Neutrophils % (Manual) 53.0 Band Neutrophils % 9.0 Lymphocytes % 12.5 D Lymphocytes % (Manual) 12.0 D Monocytes % 21.3 H Monocytes % (Manual) 22 H Eosinophils % 2.1 Eosinophils % (Manual) 2.0 D Basophils % 0.1 Basophils % (Manual) 0.0 Myelocytes % (Man) 2 D Promyelocytes % (Man) 0 Blast Cells % (Manual) 0 Nucleated RBC % 0 Metamyelocytes 0 Hypochromia 1+ Platelet Estimate Decreased Polychromasia 0 Poikilocytosis 0 Anisocytosis 0 Microcytosis 0 Macrocytosis 0 Stomatocytes 1+ PT with INR INR Puncture Site Left radial Right radial ABG pH 7.28 L 7.29 L ABG pCO2 at Pt Temp 102 H* 99.3 H* ABG pO2 at Pt Temp 57.3 L 87.7 ABG HCO3 46.4 H 46.0 H ABG O2 Sat (Measured) 89.5 L 96.9 ABG O2 Content 12.3 L 12.7 L ABG Base Excess 16.6 H 16.6 H Rupesh Test Positive Positive O2 Delivery Device Nasal Bipap Oxygen Flow Rate 3 40% Vent Mode Vent Rate 20 PEEP Pressure Support Vent 12/6 Sodium Potassium Chloride Carbon Dioxide Anion Gap BUN Creatinine Est GFR (CKD-EPI)AfAm Est GFR (CKD-EPI)NonAf Random Glucose Calcium Magnesium Total Bilirubin AST ALT Alkaline Phosphatase Total Protein Albumin 02/09/19 02/09/19 02/09/19 05:35 05:35 06:36 WBC RBC Hgb Hct MCV MCH MCHC RDW Plt Count MPV Absolute Neuts (auto) Neutrophils % Neutrophils % (Manual) Band Neutrophils % Lymphocytes % Lymphocytes % (Manual) Monocytes % Monocytes % (Manual) Eosinophils % Eosinophils % (Manual) Basophils % Basophils % (Manual) Myelocytes % (Man) Promyelocytes % (Man) Blast Cells % (Manual) Nucleated RBC % Metamyelocytes Hypochromia Platelet Estimate Polychromasia Poikilocytosis Anisocytosis Microcytosis Macrocytosis Stomatocytes PT with INR 14.40 H INR 1.22 H Puncture Site Right radial ABG pH 7.40 ABG pCO2 at Pt Temp 77.5 H* ABG pO2 at Pt Temp 91.3 ABG HCO3 47.5 H ABG O2 Sat (Measured) 98.2 H ABG O2 Content 12.9 L ABG Base Excess 19.7 H Rupesh Test Positive O2 Delivery Device Bipap Oxygen Flow Rate 40% Vent Mode S/t Vent Rate 20 PEEP 0.0 Pressure Support Vent 15/5 Sodium 137 Potassium 3.3 L Chloride 85 L Carbon Dioxide > 45 H Anion Gap 7 L BUN 1.2 L* Creatinine 0.4 L Est GFR (CKD-EPI)AfAm 124.04 Est GFR (CKD-EPI)NonAf 107.02 Random Glucose 84 Calcium 8.7 Magnesium 0.9 L Total Bilirubin 0.4 AST 17 ALT 61 Alkaline Phosphatase 107 Total Protein 5.5 L Albumin 3.0 L 02/09/19 09:20 WBC RBC Hgb Hct MCV MCH MCHC RDW Plt Count MPV Absolute Neuts (auto) Neutrophils % Neutrophils % (Manual) Band Neutrophils % Lymphocytes % Lymphocytes % (Manual) Monocytes % Monocytes % (Manual) Eosinophils % Eosinophils % (Manual) Basophils % Basophils % (Manual) Myelocytes % (Man) Promyelocytes % (Man) Blast Cells % (Manual) Nucleated RBC % Metamyelocytes Hypochromia Platelet Estimate Polychromasia Poikilocytosis Anisocytosis Microcytosis Macrocytosis Stomatocytes PT with INR INR Puncture Site Right radial ABG pH 7.41 ABG pCO2 at Pt Temp 76.7 H* ABG pO2 at Pt Temp 72.6 L ABG HCO3 47.4 H ABG O2 Sat (Measured) 95.9 ABG O2 Content 13.3 L ABG Base Excess 19.6 H Rupesh Test Positive O2 Delivery Device Oxygen Flow Rate 40% Vent Mode Vent Rate 20 PEEP 5.0 Pressure Support Vent Sodium Potassium Chloride Carbon Dioxide Anion Gap BUN Creatinine Est GFR (CKD-EPI)AfAm Est GFR (CKD-EPI)NonAf Random Glucose Calcium Magnesium Total Bilirubin AST ALT Alkaline Phosphatase Total Protein Albumin Active Medications Generic Name Dose Route Start Last Admin Trade Name Freq PRN Reason Stop Dose Admin Acetaminophen 1,000 mg 02/08/19 19:26 Ofirmev Injection - IVPB Q6H PRN FEVER Albuterol Sulfate 1 amp 02/08/19 20:00 02/09/19 08:18 Ventolin 0.083% Nebulizer Soln - NEB 1 amp RQID PAUL Administration Atorvastatin Calcium 20 mg 02/08/19 22:00 02/08/19 21:34 Lipitor - PO 20 mg HS PAUL Administration Enoxaparin Sodium 40 mg 02/09/19 11:45 Lovenox - SQ DAILY PAUL Ceftriaxone Sodium 2 gm/ 100 mls @ 100 mls/hr 02/07/19 16:29 02/09/19 09:59 Dextrose IVPB 100 mls/hr DAILY PAUL Administration Protocol Sodium Chloride 1,000 mls @ 10 mls/hr 02/08/19 19:26 02/08/19 21:43 Normal Saline - IV 10 mls/hr ASDIR PAUL Administration Ipratropium [place] 1 amp 02/08/19 20:00 02/09/19 08:17 Atrovent 0.02% Nebulizer - NEB 1 amp RQID PAUL Administration Levothyroxine Sodium 25 mcg 02/09/19 07:00 02/09/19 06:20 Synthroid Injection - IVPUSH 25 mcg AM PAUL Administration Pantoprazole Sodium 40 mg 02/09/19 10:00 02/09/19 09:59 Protonix Iv IVPUSH 40 mg DAILY PAUL Administration Phenol/Menthol 1 spray 02/07/19 12:54 02/07/19 16:45 Chloraseptic - MM 1 spray Q6HPO PRN Administration SORE THROAT Senna 2 tab 02/08/19 22:00 02/08/19 21:34 Senna - PO 2 tab HS PAUL Administration ASSESSMENT/PLAN: 68 year old danish-speaking female with a past medical history of metastatic ovarian cancer with peritoneal carcinomatosis presents to the hospital for generalized weakness and shortness of breath since Monday and admitted for hypoxic/hypercapnic respiratory failure due to sepsis/pneumonia Pt scheduled for transfer to the Tele unit for continuous O2 monitoring today. Due to overnight hypercapnia, will watch pt in the ICU for new events during the day and possibly transfer later tonight with Bipap ready at the bedside. #Neuro -patient is A&Ox3 without any focal neurologic deficits, previously sedated on propofol, off since this morning and mentating well #Pulmonary -patient extubated and saturating well on nasal cannula -CTA negative for PE, however there is questionable right lower lobe atelectasis vs infiltrate consistent with physical exam findings (rhales, cough with yellow sputum) -continue zosyn per ID for sepsis 2/2 PNA -likely chronically retaining CO2 from scoliosis and superimposed PNA, decreased respiratory drive could have resulted from recent chemotherapy -recommend trial bipap overnight -ID consultation #Cardiac -EKG: Tachycardia w/ recognized S1Q3T3, incomplete RBBB. -CTA negative for PE #Gastrointestinal -elevated transaminases, RUQ ultrasound negative -US positive for hepatocellular disease, non-visualization of gallbladder -hepatitis negative #Renal -patient is hyponatremic, improved from yesterday -hydrate patient with normal saline, repeat serum sodium in AM -BNP elevated; but patient does not appear hypervolemic #Infectious Disease -patient meets sepsis 2/2 RLL pneumonia; patient is immunocompromised -antigens for legionella/pneumococcus negative -follow cultures -Zosyn -ID consultation -UA negative #Heme/ONC -[facility] -thrombocytopenia/anemia could be 2/2 marrow suppression from chemo, platelets decreasing today, reassess in AM and consider Heme/Onc consultation if continues to decrease #Endocrine -continue levothyroxine #Disposition -transfer to telemetry -Thank you for this consultative opportunity. Visit type - Emergency Visit Emergency Visit: No - New Patient This patient is new to me today: No - Critical Care Critical Care patient: Yes Total Critical Care Time (in minutes): 40 Critical Care Statement: The care of this patient involved high complexity decision making to prevent further life threatening deterioration of the patient 's condition and/or to evaluate & treat vital organ system(s) failure or risk of failure.
[2019-02-09] MEDS: ENOXAPARIN NA (PORCINE) 40 MG/0.4 ML DISP.SYRIN SQ SCH (12:19)
[2019-02-09 19:52] LABS: ALLENS TEST POSITIVE; ARTERIAL BLD GAS O2 SATURATION 96.4 % (95-98); ARTERIAL BLOOD GAS BASE EXCESS 20.2 meq/l (-2-2); ARTERIAL BLOOD GAS PO2 75.4 mmHg (80-105); ARTERIAL BLOOD GAS pH 7.44 (7.35-7.45)
[2019-02-09 19:53] LABS: ARTERIAL BLOOD GAS PCO2 71.2 mmHg (35-45)
[2019-02-09] MEDS ORDERED: BISACODYL 10 MG SUPP.RECT PR ONE (20:50)
[2019-02-09] MEDS: POLYETHYLENE GLYCOL 3350 119 GM BTL PO SCH (20:53)
[2019-02-09] MEDS: SENNOSIDES 8.6MG TABLET (FP) PO SCH (21:00)
[2019-02-09] MEDS: ATORVASTATIN CA 20 MG TABLET (FP) PO SCH (21:00)
[2019-02-09] MEDS: SODIUM CHLORIDE 1,000 ML IV SCH (21:45)
[2019-02-10 07:09] LABS: INR 1.23 (0.83-1.09); PROTHROMBIN TIME (PATIENT) 14.6 SEC (9.7-13.0)
[2019-02-10 07:12] LABS: ALBUMIN 2.8 g/dl (3.4-5.0); ALK PHOS 121 U/L (45-117); ANION GAP 1 MMOL/L (8-16); BILIRUBIN,TOTAL 0.3 mg/dL (0.2-1); CALCIUM 8.2 mg/dL (8.5-10.1); CHLORIDE 91 mmol/L (98-107); CO2 > 45 mmol/L (21-32); CREATININE 0.3 mg/dL (0.55-1.3); GLUCOSE,RANDOM 96 mg/dL (74-106); MAGNESIUM 0.9 mg/dL (1.8-2.4); SGOT/AST 21 U/L (15-37); SGPT/ALT 46 U/L (13-61); SODIUM 136 mmol/L (136-145); TOT PROT 5.2 g/dl (6.4-8.2)
[2019-02-10 07:31] LABS: BASO % 0.3 % (0-2.0); EOS % 0.6 % (0-4.5); HEMATOCRIT 31.2 % (32.4-45.2); HEMOGLOBIN 10.2 GM/dL (10.7-15.3); MCH 32.4 pg (25.7-33.7); MCHC 32.7 g/dl (32.0-36.0); MEAN CELL VOLUME 99.1 fl (80-96); MEAN PLT VOLUME 11.8 fl (7.5-11.1); MONO % 6.7 % (3.8-10.2); NEUT % 82.4 % (42.8-82.8); RBC 3.15 M/mm3 (3.60-5.2); RDW 14.8 % (11.6-15.6); WHITE BLOOD COUNT 27.1 K/mm3 (4.0-10.0)
[2019-02-10 07:36] LABS: BLOOD UREA NITROGEN 2.6 mg/dL (7-18)
[2019-02-10 07:37] LABS: POTASSIUM 2.9 mmol/L (3.5-5.1)
[2019-02-10] MEDS: ALBUTEROL SO4 0.083% IH SOL 2.5 MG/3 ML VIAL.NEB. NEB SCH ×4 (07:52→19:32)
[2019-02-10] MEDS: IPRATROPIUM BR 0.02% 0.5 MG/2.5 ML VIAL.NEB. NEB SCH ×4 (07:52→19:32)
--- NOTE | 2019-02-10 08:10 | PN ---
Physical Exam: SUBJECTIVE: Patient seen and examined at bedside this morning. Patient denies shortness of breath, or cough. Currently on Bilevel ventilation, saturating well. She denies subjective fevers, chills, shortness of breath, chest pain, palpitations, abdominal pain, nausea, vomiting. OBJECTIVE: Vital Signs Period Temp Pulse Resp BP Sys/Humphrey Pulse Ox Last 24 Hr 98 F-100.1 F 88-100 16-23 111-141/55-86 97-100 GENERAL: The patient is awake, alert, and fully oriented, in no acute distress. HEAD: Normocephalic, atraumatic. EYES: PERRL, extraocular movements intact, sclera anicteric, conjunctiva clear. ENT: Oropharynx clear without exudates, moist mucous membranes. NECK: Trachea midline, supple without lymphadenopathy. LUNGS: Currently on Bilevel ventilation. Faint rhonchi auscultated bilateral lower lobes. No accessory muscles of respiration. HEART: Regular rate and rhythm, S1, S2 without murmur, rub or gallop. ABDOMEN: Soft, nontender, nondistended x4 quadrants. Normoactive bowel sounds, no guarding, no rebound tendernes. EXTREMITIES: 2+ radial, dorsalis pedis pulses bilaterally, warm, well-perfused. No lower extremity edema. NEUROLOGICAL: Cranial nerves II through XII grossly intact. Normal speech. PSYCH: Normal mood, normal affect upon my encounter. SKIN: Warm, dry. Laboratory Results - last 24 hr 02/09/19 02/09/19 02/09/19 05:35 05:35 09:20 WBC RBC Hgb Hct MCV MCH MCHC RDW Plt Count 74 L D MPV Absolute Neuts (auto) Neutrophils % Neutrophils % (Manual) 53.0 Band Neutrophils % 9.0 Lymphocytes % Lymphocytes % (Manual) 12.0 D Monocytes % Monocytes % (Manual) 22 H Eosinophils % Eosinophils % (Manual) 2.0 D Basophils % Basophils % (Manual) 0.0 Myelocytes % (Man) 2 D Promyelocytes % (Man) 0 Blast Cells % (Manual) 0 Nucleated RBC % Metamyelocytes 0 Hypochromia 1+ Platelet Estimate Decreased Polychromasia 0 Poikilocytosis 0 Anisocytosis 0 Microcytosis 0 Macrocytosis 0 Stomatocytes 1+ PT with INR INR Puncture Site Right radial ABG pH 7.41 ABG pCO2 at Pt Temp 76.7 H* ABG pO2 at Pt Temp 72.6 L ABG HCO3 47.4 H ABG O2 Sat (Measured) 95.9 ABG O2 Content 13.3 L ABG Base Excess 19.6 H Rupesh Test Positive O2 Delivery Device Oxygen Flow Rate 40% Vent Mode Vent Rate 20 PEEP 5.0 Pressure Support Vent Sodium Potassium Chloride Carbon Dioxide Anion Gap BUN 1.2 L* Creatinine Est GFR (CKD-EPI)AfAm Est GFR (CKD-EPI)NonAf Random Glucose Calcium Magnesium Total Bilirubin AST ALT Alkaline Phosphatase Total Protein Albumin 02/09/19 02/10/19 02/10/19 19:45 05:25 05:25 WBC 27.1 H RBC 3.15 L Hgb 10.2 L Hct 31.2 L MCV 99.1 H MCH 32.4 MCHC 32.7 RDW 14.8 Plt Count MPV 11.8 H Absolute Neuts (auto) 22.3 H Neutrophils % 82.4 D Neutrophils % (Manual) Band Neutrophils % Lymphocytes % 10.0 Lymphocytes % (Manual) Monocytes % 6.7 Monocytes % (Manual) Eosinophils % 0.6 Eosinophils % (Manual) Basophils % 0.3 Basophils % (Manual) Myelocytes % (Man) Promyelocytes % (Man) Blast Cells % (Manual) Nucleated RBC % 0 Metamyelocytes Hypochromia Platelet Estimate Polychromasia Poikilocytosis Anisocytosis Microcytosis Macrocytosis Stomatocytes PT with INR 14.60 H INR 1.23 H Puncture Site Right radial ABG pH 7.44 ABG pCO2 at Pt Temp 71.2 H* ABG pO2 at Pt Temp 75.4 L ABG HCO3 47.6 H ABG O2 Sat (Measured) 96.4 ABG O2 Content 13.2 L ABG Base Excess 20.2 H Rupesh Test Positive O2 Delivery Device Bipap Oxygen Flow Rate 40% Vent Mode S/t Vent Rate 20 PEEP 0.0 Pressure Support Vent 15/5 Sodium Potassium Chloride Carbon Dioxide Anion Gap BUN Creatinine Est GFR (CKD-EPI)AfAm Est GFR (CKD-EPI)NonAf Random Glucose Calcium Magnesium Total Bilirubin AST ALT Alkaline Phosphatase Total Protein Albumin 02/10/19 05:25 WBC RBC Hgb Hct MCV MCH MCHC RDW Plt Count MPV Absolute Neuts (auto) Neutrophils % Neutrophils % (Manual) Band Neutrophils % Lymphocytes % Lymphocytes % (Manual) Monocytes % Monocytes % (Manual) Eosinophils % Eosinophils % (Manual) Basophils % Basophils % (Manual) Myelocytes % (Man) Promyelocytes % (Man) Blast Cells % (Manual) Nucleated RBC % Metamyelocytes Hypochromia Platelet Estimate Polychromasia Poikilocytosis Anisocytosis Microcytosis Macrocytosis Stomatocytes PT with INR INR Puncture Site ABG pH ABG pCO2 at Pt Temp ABG pO2 at Pt Temp ABG HCO3 ABG O2 Sat (Measured) ABG O2 Content ABG Base Excess Rupesh Test O2 Delivery Device Oxygen Flow Rate Vent Mode Vent Rate PEEP Pressure Support Vent Sodium 136 Potassium 2.9 L* Chloride 91 L Carbon Dioxide > 45 H Anion Gap 1 L BUN 2.6 L* Creatinine 0.3 L Est GFR (CKD-EPI)AfAm 136.35 Est GFR (CKD-EPI)NonAf 117.65 Random Glucose 96 Calcium 8.2 L Magnesium 0.9 L Total Bilirubin 0.3 AST 21 ALT 46 Alkaline Phosphatase 121 H Total Protein 5.2 L Albumin 2.8 L Active Medications Generic Name Dose Route Start Last Admin Trade Name Freq PRN Reason Stop Dose Admin Acetaminophen 1,000 mg 02/08/19 19:26 Ofirmev Injection - IVPB Q6H PRN FEVER Albuterol Sulfate 1 amp 02/08/19 20:00 02/10/19 07:52 Ventolin 0.083% Nebulizer Soln - NEB Not Given RQID PAUL Atorvastatin Calcium 20 mg 02/08/19 22:00 02/09/19 21:00 Lipitor - PO Not Given HS PAUL Enoxaparin Sodium 40 mg 02/09/19 11:45 02/09/19 12:19 Lovenox - SQ 40 mg DAILY PAUL Administration Ceftriaxone Sodium 2 gm/ 100 mls @ 100 mls/hr 02/07/19 16:29 02/09/19 09:59 Dextrose IVPB 100 mls/hr DAILY PAUL Administration Protocol Sodium Chloride 1,000 mls @ 10 mls/hr 02/08/19 19:26 02/09/19 21:45 Normal Saline - IV Not Given ASDIR PAUL Potassium Chloride 10 meq in 100 mls @ 100 mls/hr 02/10/19 08:15 Potassium Chloride 10 Meq Premix Ivpb - IVPB 02/10/19 11:14 Q60M PAUL Ipratropium [place] 1 amp 02/08/19 20:00 02/10/19 07:52 Atrovent 0.02% Nebulizer - NEB Not Given RQID PAUL Levothyroxine Sodium 25 mcg 02/09/19 07:00 02/09/19 06:20 Synthroid Injection - IVPUSH 25 mcg AM PAUL Administration Pantoprazole Sodium 40 mg 02/09/19 10:00 02/09/19 09:59 Protonix Iv IVPUSH 40 mg DAILY PAUL Administration Phenol/Menthol 1 spray 02/07/19 12:54 02/07/19 16:45 Chloraseptic - MM 1 spray Q6HPO PRN Administration SORE THROAT Polyethylene Glycol 17 gm 02/09/19 20:45 02/09/19 20:53 Miralax (For Daily Use) - PO Not Given DAILY PAUL Senna 2 tab 02/08/19 22:00 02/09/19 21:00 Senna - PO Not Given HS PAUL ASSESSMENT/PLAN: Patient is a 68 year old female with history of metastatic ovarian cancer with peritoneal carcinomatosis, admitted to ICU for hypoxic, hypercapnic respiratory failure. Neurologic -Patient is awake, alert, oriented and communicative. -Currently on no sedating medications. -Monitor for signs of mental status change. Pulmonary Acute on chronic hypoxic, hypercapnic respiratory failure -Patient remains extubated, saturating well on Bilevel ventilation -Begin empiric Methylprednisone 40mg IV daily -Ipratropium 1AMP QID -Zosyn switched to Ceftriaxone 2 gram IV daily -ID recommendations (Dr. Sher) appreciated -Maintain oxygen saturation greater than 90% Cardiac History of hyperlipidemia -EKG upon admission remarkable to S1Q3T3. CTA chest negative for pulmonary embolism -Cardiac ECHO shows left ventricular size, thickness, and systolic function grossly normal. EF normal. -Atorvastatin 20mg PO HS -Cardiac monitoring Gastrointestinal -RUQ ultrasound remarkable for mild fatty infiltration of liver vs. hepatocellular disease. -Hepatitis A/B/C serology negative -Miralax 17 grams PO daily -Senna 2 tabs PO daily -Soft diet Nephrologic -Hyponatremia; responded to IV normal saline hydration. Resolved -Follow CMP Hematology/ Oncology History of metastatic ovarian cancer with peritoneal carcinomatosis -Thrombocytopenia, anemia likely secondary to myelosupression due to chemotherapy. -Patient follows oncologist at [facility]. Endocrine History of hypothyroidism -Levothyroxine 25mcg PO daily FEN -Fluids IV normal saline at 10cc/ hour -Electrolytes: Hypokalemia, Hypomagnesemia repleted. Follow CMP, replete as necessary -Nutrition: Soft diet. Prophylaxis -Lovenox 40mg IV daily Disposition -Patient medically stable for transfer to Telemetry floor with pulse oximetry monitoring. Visit type - Emergency Visit Emergency Visit: Yes ED Registration Date: 02/05/19 Care time: The patient presented to the Emergency Department on the above date and was hospitalized for further evaluation of their emergent condition. - New Patient This patient is new to me today: Yes Date on this admission: 02/10/19 - Critical Care Critical Care patient: Yes Total Critical Care Time (in minutes): 35 Critical Care Statement: The care of this patient involved high complexity decision making to prevent further life threatening deterioration of the patient 's condition and/or to evaluate & treat vital organ system(s) failure or risk of failure. - Discharge Referral Referred to [facility] Med P.C.: No
[2019-02-10] MEDS: KCL 10 MEQ IVPB 10 MEQ/100 ML INFUS.BAG IVPB SCH ×3 (08:40→10:25)
[2019-02-10] MEDS ORDERED: PT OWN MED DRAWER 7, Y5N ONE (08:42)
[2019-02-10] MEDS ORDERED: DEXTROSE 5%-WATER 100 ML IVPB ONE (08:43)
[2019-02-10] MEDS ORDERED: MAGNESIUM SULF 50% (8.12 MEQ/2 ML-1 GM VIAL) IVPB ONE (09:15)
[2019-02-10] MEDS: LEVOTHYROXINE SODIUM 100 MCG VIAL IVPUSH SCH (09:54)
[2019-02-10] MEDS: ENOXAPARIN NA (PORCINE) 40 MG/0.4 ML DISP.SYRIN SQ SCH (09:54)
[2019-02-10] MEDS: PANTOPRAZOLE SODIUM 40 MG VIAL IVPUSH SCH (09:55)
[2019-02-10] MEDS: POLYETHYLENE GLYCOL 3350 119 GM BTL PO SCH (09:55)
[2019-02-10] MEDS: CEFTRIAXONE 2 GM in DEXTROSE 5%-WATER 100 ML IVPB SCH (09:55)
--- NOTE | 2019-02-10 10:56 | PN ---
Teaching Attending Note Name of Resident: Manjit Zepeda ATTENDING PHYSICIAN STATEMENT I saw and evaluated the patient. I reviewed the resident's note and discussed the case with the resident. I agree with the resident's findings and plan as documented. SUBJECTIVE: Pt seen and examined in the ICU. On/off BiPAP overnight. States breathing better on BiPAP. OBJECTIVE: Vital Signs Period Temp Pulse Resp BP Sys/Humphrey Pulse Ox Last 24 Hr 98.1 F-100.1 F 88-100 16-23 111-141/55-86 97-100 Intake & Output 02/07/19 02/08/19 02/09/19 02/10/19 23:59 23:59 23:59 23:59 Intake Total 730 560 120 Output Total 1300 800 Balance -570 -240 120 Weight 61.4 kg 60.3 kg 59.965 kg Gen: mildly tachypneic on BiPAP Heart: RRR Lung: scattered rhonchi Abd: soft, nontender Ext: no edema CBC, BMP 02/10/19 05:25 02/10/19 05:25 Active Medications Acetaminophen (Ofirmev Injection -) 1,000 mg IVPB Q6H PRN PRN Reason: FEVER Albuterol Sulfate (Ventolin 0.083% Nebulizer Soln -) 1 amp NEB RQID PAUL Last Admin: 02/10/19 07:52 Dose: Not Given Atorvastatin Calcium (Lipitor -) 20 mg PO HS [facility] Last Admin: 02/09/19 21:00 Dose: Not Given Enoxaparin Sodium (Lovenox -) 40 mg SQ DAILY PAUL Last Admin: 02/10/19 09:54 Dose: 40 mg Ceftriaxone Sodium 2 gm/ (Dextrose) 100 mls @ 100 mls/hr IVPB DAILY [facility]; Protocol Last Admin: 02/10/19 09:55 Dose: 100 mls/hr Sodium Chloride (Normal Saline -) 1,000 mls @ 10 mls/hr IV ASDIR PAUL Last Admin: 02/09/19 21:45 Dose: Not Given Potassium Chloride (Potassium Chloride 10 Meq Premix Ivpb -) 10 meq in 100 mls @ 100 mls/hr IVPB Q60M PAUL Stop: 02/10/19 11:14 Last Admin: 02/10/19 10:25 Dose: 100 mls/hr Ipratropium [place] (Atrovent 0.02% Nebulizer -) 1 amp NEB RQID [facility] Last Admin: 02/10/19 07:52 Dose: Not Given Levothyroxine Sodium (Synthroid Injection -) 25 mcg IVPUSH AM [facility] Last Admin: 02/10/19 09:54 Dose: 25 mcg Pantoprazole Sodium (Protonix Iv) 40 mg IVPUSH DAILY [facility] Last Admin: 02/10/19 09:55 Dose: 40 mg Phenol/Menthol (Chloraseptic -) 1 spray MM Q6HPO PRN PRN Reason: SORE THROAT Last Admin: 02/07/19 16:45 Dose: 1 spray Polyethylene Glycol (Miralax (For Daily Use) -) 17 gm PO DAILY [facility] Last Admin: 02/10/19 09:55 Dose: Not Given Senna (Senna -) 2 tab PO HS [facility] Last Admin: 02/09/19 21:00 Dose: Not Given ASSESSMENT AND PLAN: Acute on Chronic Hypercapneic Respiratory Failure improving Severe Scoliosis/Restrictive Lung Disease Pneumonia Sepsis +Troponins likely Demand Ischemia Elevated LFTs Thrombocytopenia Metastatic Ovarian Cancer on chemotherapy Hyperlipidemia Hypothyroidism - continue antibiotics - monitor urine output, creatinine - O2 to keep spO2 >90% - inhaled bronchodilators - start empiric medrol daily - BiPAP at night and PRN during the day - PO as tolerated - replete lytes - DVT prophylaxis - can monitor on telemetry with pulse oximetry monitoring critical care time spent in reviewing chart, evaluating patient and formulating plan 35 min
--- NOTE | 2019-02-10 11:02 | PN ---
Progress Note, Physician Chief Complaint: Feels comfortable no c/o fever, cough or diarrhea History of Present Illness: 68 year old estonian-speaking female with a past medical history of metastatic ovarian cancer with peritoneal carcinomatosis presents to the hospital for generalized weakness and shortness of breath since Monday. States that she received chemotherapy (carbotaxol) on Monday, and since then has been short of breath on exertion with weakness, - Current Medication List Current Medications: Active Medications Acetaminophen (Ofirmev Injection -) 1,000 mg IVPB Q6H PRN PRN Reason: FEVER Albuterol Sulfate (Ventolin 0.083% Nebulizer Soln -) 1 amp [facility] RQID [facility] Last Admin: 02/10/19 07:52 Dose: Not Given Atorvastatin Calcium (Lipitor -) 20 mg PO HS [facility] Last Admin: 02/09/19 21:00 Dose: Not Given Enoxaparin Sodium (Lovenox -) 40 mg SQ DAILY [facility] Last Admin: 02/10/19 09:54 Dose: 40 mg Ceftriaxone Sodium 2 gm/ (Dextrose) 100 mls @ 100 mls/hr IVPB DAILY [facility]; Protocol Last Admin: 02/10/19 09:55 Dose: 100 mls/hr Sodium Chloride (Normal Saline -) 1,000 mls @ 10 mls/hr IV ASDIR [facility] Last Admin: 02/09/19 21:45 Dose: Not Given Potassium Chloride (Potassium Chloride 10 Meq Premix Ivpb -) 10 meq in 100 mls @ 100 mls/hr IVPB Q60M [facility] Stop: 02/10/19 11:14 Last Admin: 02/10/19 10:25 Dose: 100 mls/hr Ipratropium [place] (Atrovent 0.02% Nebulizer -) 1 amp NEB RQID [facility] Last Admin: 02/10/19 07:52 Dose: Not Given Levothyroxine Sodium (Synthroid Injection -) 25 mcg IVPUSH AM [facility] Last Admin: 02/10/19 09:54 Dose: 25 mcg Pantoprazole Sodium (Protonix Iv) 40 mg IVPUSH DAILY [facility] Last Admin: 02/10/19 09:55 Dose: 40 mg Phenol/Menthol (Chloraseptic -) 1 spray MM Q6HPO PRN PRN Reason: SORE THROAT Last Admin: 02/07/19 16:45 Dose: 1 spray Polyethylene Glycol (Miralax (For Daily Use) -) 17 gm PO DAILY [facility] Last Admin: 02/10/19 09:55 Dose: Not Given Senna (Senna -) 2 tab PO HS [facility] Last Admin: 02/09/19 21:00 Dose: Not Given - Objective Vital Signs: Vital Signs Temperature 98.1 F 02/10/19 06:00 Pulse Rate 96 H 02/10/19 07:00 Respiratory Rate 20 02/10/19 07:00 Blood Pressure 141/67 02/10/19 07:00 O2 Sat by Pulse Oximetry (%) 98 02/10/19 08:59 Elderly f on BIPAP saturating well HEENT: Mm dry, anemia NECK: No JVD No Bruit CHEST: b/L basal crepts ABD: soft non tender Bs + EXT; trace hipolito afeet REVIEW SPECIALIST: AOX3 non focal Labs: CBC, BMP 02/10/19 05:25 02/10/19 05:25 INR, PTT INR 1.23 (0.83-1.09) H 02/10/19 05:25 - ....Imaging Chest X-ray: Report Reviewed (Stable pleural and parenchymal changes) Problem List - Problems (1) Acute respiratory failure Assessment/Plan: post chemotherapy s/p Intubation and extubation now on BIPAP doing well off steroid on Ceftriaxone feeling improved F/U Pulmonary recommendations. Code(s): J96.00 - ACUTE RESPIRATORY FAILURE, UNSP W HYPOXIA OR HYPERCAPNIA Qualifiers: Respiratory failure complication: hypoxia and hypercapnia Qualified Code(s) : J96.01 - Acute respiratory failure with hypoxia; J96.02 - Acute respiratory failure with hypercapnia (2) Carcinoma of ovary, stage 4 Assessment/Plan: on chemotherapy Code(s): C56.9 - MALIGNANT NEOPLASM OF UNSPECIFIED OVARY (3) Peritoneal carcinomatosis Assessment/Plan: chemotherapy Code(s): C78.6 - SECONDARY MALIGNANT NEOPLASM OF RETROPERITON AND PERITONEUM; C80.1 - MALIGNANT (PRIMARY) NEOPLASM, UNSPECIFIED (4) Elevated WBC count Assessment/Plan: elevated TWBC on Ceftriaxone afebrile, non toxic no obcvious source will discuss with Pulm and ID for input no obvious source considering hemodynamic stability will observe on current management. Code(s): D72.829 - ELEVATED WHITE BLOOD CELL COUNT, UNSPECIFIED
[2019-02-10 13:19] LABS: ANISOCYTOSIS 1+; MACROCYTOSIS 0; PLATELET ESTIMATE DECREASED; TARGET CELLS 1+; TEAR DROP CELLS 1+
[2019-02-10 13:43] LABS: PLATELET COUNT 52 K/MM3 (134-434)
[2019-02-10] MEDS: methylPREDNISolone NA SUCC 40 MG/1 ML VIAL IVPUSH SCH (18:33)
[2019-02-10] MEDS: SODIUM CHLORIDE 1,000 ML IV SCH (21:30)
[2019-02-10] MEDS: SENNOSIDES 8.6MG TABLET (FP) PO SCH (21:30)
[2019-02-10] MEDS: ATORVASTATIN CA 20 MG TABLET (FP) PO SCH ×2 (21:30→21:39)
[2019-02-11] MEDS ORDERED: PT OWN MED DRAWER 7, Y5N ONE ×2 (05:45→18:42)
[2019-02-11 06:10] LABS: BASO % 0.3 % (0-2.0); HEMATOCRIT 33.7 % (32.4-45.2); LYMPH % 4.1 % (8-40); MCH 31.8 pg (25.7-33.7); MCHC 32.5 g/dl (32.0-36.0); MEAN PLT VOLUME 9.9 fl (7.5-11.1); MONO % 5.6 % (3.8-10.2); PLATELET COUNT 72 K/MM3 (134-434); RBC 3.44 M/mm3 (3.60-5.2); RDW 15.2 % (11.6-15.6); WHITE BLOOD COUNT 28.4 K/mm3 (4.0-10.0)
[2019-02-11 06:28] LABS: INR 1.17 (0.83-1.09); PROTHROMBIN TIME (PATIENT) 13.8 SEC (9.7-13.0)
[2019-02-11 06:29] LABS: ALBUMIN 2.8 g/dl (3.4-5.0); ALK PHOS 140 U/L (45-117); ANION GAP 2 MMOL/L (8-16); BILIRUBIN,TOTAL 0.3 mg/dL (0.2-1); CALCIUM 8.3 mg/dL (8.5-10.1); CHLORIDE 94 mmol/L (98-107); CO2 > 45 mmol/L (21-32); CREATININE 0.3 mg/dL (0.55-1.3); GLUCOSE,RANDOM 141 mg/dL (74-106); MAGNESIUM 1.2 mg/dL (1.8-2.4); PHOSPHOROUS 3.8 mg/dL (2.5-4.9); POTASSIUM 4.1 mmol/L (3.5-5.1); SGOT/AST 19 U/L (15-37); SGPT/ALT 42 U/L (13-61); SODIUM 142 mmol/L (136-145); TOT PROT 5.5 g/dl (6.4-8.2)
[2019-02-11 06:40] LABS: BLOOD UREA NITROGEN 2.7 mg/dL (7-18)
[2019-02-11] MEDS: IPRATROPIUM BR 0.02% 0.5 MG/2.5 ML VIAL.NEB. NEB SCH ×4 (07:35→20:50)
[2019-02-11] MEDS: ALBUTEROL SO4 0.083% IH SOL 2.5 MG/3 ML VIAL.NEB. NEB SCH ×4 (07:35→20:50)
--- NOTE | 2019-02-11 07:39 | PN ---
Progress Note, Physician Chief Complaint: Feels comfortable no new symptoms except flatulence History of Present Illness: 68 year old albanian-speaking female with a past medical history of metastatic ovarian cancer with peritoneal carcinomatosis presents to the hospital for generalized weakness and SOB. States that she received chemotherapy (carbotaxol ) on Monday, and since then has been short of breath on exertion with weakness, - Current Medication List Current Medications: Active Medications Acetaminophen (Ofirmev Injection -) 1,000 mg IVPB Q6H PRN PRN Reason: FEVER Albuterol Sulfate (Ventolin 0.083% Nebulizer Soln -) 1 amp NEB RQID [facility] Last Admin: 02/10/19 19:32 Dose: 1 amp Atorvastatin Calcium (Lipitor -) 20 mg PO HS [facility] Last Admin: 02/10/19 21:39 Dose: Not Given Enoxaparin Sodium (Lovenox -) 40 mg SQ DAILY [facility] Last Admin: 02/10/19 09:54 Dose: 40 mg Ceftriaxone Sodium 2 gm/ (Dextrose) 100 mls @ 100 mls/hr IVPB DAILY [facility]; Protocol Last Admin: 02/10/19 09:55 Dose: 100 mls/hr Sodium Chloride (Normal Saline -) 1,000 mls @ 10 mls/hr IV ASDIR PAUL Last Admin: 02/10/19 21:30 Dose: 10 mls/hr Ipratropium [place] (Atrovent 0.02% Nebulizer -) 1 amp NEB RQID [facility] Last Admin: 02/10/19 19:32 Dose: 1 amp Levothyroxine Sodium (Synthroid Injection -) 25 mcg IVPUSH AM [facility] Last Admin: 02/10/19 09:54 Dose: 25 mcg Methylprednisolone Sodium Succinate (Solu-Medrol -) 40 mg IVPUSH DAILY [facility] Last Admin: 02/10/19 18:33 Dose: 40 mg Pantoprazole Sodium (Protonix Iv) 40 mg IVPUSH DAILY [facility] Last Admin: 02/10/19 09:55 Dose: 40 mg Phenol/Menthol (Chloraseptic -) 1 spray MM Q6HPO PRN PRN Reason: SORE THROAT Last Admin: 02/07/19 16:45 Dose: 1 spray Polyethylene Glycol (Miralax (For Daily Use) -) 17 gm PO DAILY PAUL Last Admin: 02/10/19 09:55 Dose: Not Given Senna (Senna -) 2 tab PO HS [facility] Last Admin: 02/10/19 21:30 Dose: 2 tab - Objective Vital Signs: Vital Signs Temperature 98.1 F 02/11/19 06:00 Pulse Rate 86 02/11/19 06:00 Respiratory Rate 22 H 02/11/19 06:00 Blood Pressure 132/72 02/11/19 06:00 O2 Sat by Pulse Oximetry (%) 98 02/11/19 06:06 Elderly f comfortable on NC 3 Ltr HEENT: Mm dry, anemia NECK: No JVD No Bruit CHEST: b/L basal crepts ABD: soft non tender Bs + EXT: trace edema feet FIRMWARE MANAGER: AOX3 non focal Labs: CBC, BMP 02/11/19 05:30 02/11/19 05:30 INR, PTT INR 1.17 (0.83-1.09) H 02/11/19 05:30 Problem List - Problems (1) Acute respiratory failure Assessment/Plan: post chemotherapy s/p Intubation and extubation on Ceftriaxone day 6 feeling improved ID and Pulm evaluted the patient recommonded cont Ceftriaxone Rpt CT chest. Code(s): J96.00 - ACUTE RESPIRATORY FAILURE, UNSP W HYPOXIA OR HYPERCAPNIA Qualifiers: Respiratory failure complication: hypoxia and hypercapnia Qualified Code(s) : J96.01 - Acute respiratory failure with hypoxia; J96.02 - Acute respiratory failure with hypercapnia (2) Carcinoma of ovary, stage 4 Assessment/Plan: on chemotherapy Code(s): C56.9 - MALIGNANT NEOPLASM OF UNSPECIFIED OVARY (3) Peritoneal carcinomatosis Assessment/Plan: chemotherapy Code(s): C78.6 - SECONDARY MALIGNANT NEOPLASM OF RETROPERITON AND PERITONEUM; C80.1 - MALIGNANT (PRIMARY) NEOPLASM, UNSPECIFIED (4) Elevated WBC count Assessment/Plan: elevated TWBC on Ceftriaxone afebrile, non toxic no obvious source discuss with Pulm and ID , no obvious source considering hemodynamic stability will observe on current management. [place]ly due to Neupogen related as patient received Chemo in 02/01/2019 Code(s): D72.829 - ELEVATED WHITE BLOOD CELL COUNT, UNSPECIFIED (5) Hypothyroid Assessment/Plan: On Levothyroxine Code(s): E03.9 - HYPOTHYROIDISM, UNSPECIFIED
[2019-02-11 08:20] LABS: ANISOCYTOSIS 1+; MACROCYTOSIS 0; PLATELET ESTIMATE DECREASED
[2019-02-11] MEDS ORDERED: DEXTROSE 5%-WATER 100 ML IVPB ONE (09:24)
[2019-02-11] MEDS: ENOXAPARIN NA (PORCINE) 40 MG/0.4 ML DISP.SYRIN SQ SCH (09:34)
[2019-02-11] MEDS: POLYETHYLENE GLYCOL 3350 119 GM BTL PO SCH (09:34)
[2019-02-11] MEDS: methylPREDNISolone NA SUCC 40 MG/1 ML VIAL IVPUSH SCH (09:35)
[2019-02-11] MEDS: PANTOPRAZOLE SODIUM 40 MG VIAL IVPUSH SCH (09:35)
[2019-02-11] MEDS: CEFTRIAXONE 2 GM in DEXTROSE 5%-WATER 100 ML IVPB SCH (09:35)
--- NOTE | 2019-02-11 11:58 | PN ---
Progress Note (short form) - Note Progress Note: PULMONARY Feels better today. Denies shortness of breath. Minimal cough. No diarrhea. No fevers or chills. Vital Signs Period Temp Pulse Resp BP Sys/Humphrey Pulse Ox Last 24 Hr 97.5 F-98.6 F 86-102 18-22 98-137/56-88 96-100 Gen: NAD at rest Heart: RRR Lung: decreased breath sounds at the bases Abd: soft, nontender Ext: no edema CBC, BMP 02/11/19 05:30 02/11/19 05:30 Active Medications Acetaminophen (Ofirmev Injection -) 1,000 mg IVPB Q6H PRN PRN Reason: FEVER Albuterol Sulfate (Ventolin 0.083% Nebulizer Soln -) 1 amp NEB RQID [facility] Last Admin: 02/11/19 11:29 Dose: 1 amp Atorvastatin Calcium (Lipitor -) 20 mg PO HS [facility] Last Admin: 02/10/19 21:39 Dose: Not Given Enoxaparin Sodium (Lovenox -) 40 mg SQ DAILY [facility] Last Admin: 02/11/19 09:34 Dose: 40 mg Ceftriaxone Sodium 2 gm/ (Dextrose) 100 mls @ 100 mls/hr IVPB DAILY [facility]; Protocol Last Admin: 02/11/19 09:35 Dose: 100 mls/hr Sodium Chloride (Normal Saline -) 1,000 mls @ 10 mls/hr IV ASDIR PAUL Last Admin: 02/10/19 21:30 Dose: 10 mls/hr Ipratropium [place] (Atrovent 0.02% Nebulizer -) 1 amp NEB RQID [facility] Last Admin: 02/11/19 11:29 Dose: 1 amp Levothyroxine Sodium (Synthroid Injection -) 25 mcg IVPUSH AM [facility] Last Admin: 02/10/19 09:54 Dose: 25 mcg Methylprednisolone Sodium Succinate (Solu-Medrol -) 40 mg IVPUSH DAILY [facility] Last Admin: 02/11/19 09:35 Dose: 40 mg Pantoprazole Sodium (Protonix Iv) 40 mg IVPUSH DAILY [facility] Last Admin: 02/11/19 09:35 Dose: 40 mg Phenol/Menthol (Chloraseptic -) 1 spray MM Q6HPO PRN PRN Reason: SORE THROAT Last Admin: 02/07/19 16:45 Dose: 1 spray Polyethylene Glycol (Miralax (For Daily Use) -) 17 gm PO DAILY [facility] Last Admin: 02/11/19 09:34 Dose: 17 grams Senna (Senna -) 2 tab PO HS [facility] Last Admin: 02/10/19 21:30 Dose: 2 tab A/P Acute on Chronic Hypercapneic Respiratory Failure improving Severe Scoliosis/Restrictive Lung Disease Pneumonia Sepsis +Troponins likely Demand Ischemia Elevated LFTs Thrombocytopenia Metastatic Ovarian Cancer on chemotherapy Hyperlipidemia Hypothyroidism - continue antibiotics - monitor fever curve, WBC trend - O2 to keep spO2 >90% - inhaled bronchodilators - on empiric medrol - BiPAP at night and PRN during the day - PO as tolerated - replete lytes - DVT prophylaxis
--- NOTE | 2019-02-11 13:50 | PN ---
Progress Note (short form) - Note Progress Note: started on steroids yesterday unexplained leukocytosis for 2 days no diarrhea Vital Signs Period Temp Pulse Resp BP Sys/Humphrey Pulse Ox Last 24 Hr 97.5 F-98.1 F 86-102 18-22 98-137/56-76 96-100 no thrush cor-rrr lungs bibasilar crackles abd soft,nt ext no edema CBC, BMP 02/11/19 05:30 02/11/19 05:30 Microbiology 02/05/19 14:14 Blood - Peripheral Venous Blood Culture - Final NO GROWTH AFTER 5 DAYS INCUBATION 02/05/19 13:40 Blood - Peripheral Venous Blood Culture - Final NO GROWTH AFTER 5 DAYS INCUBATION 02/06/19 09:45 Sputum - Endotrachea Suction/Ventilator Gram Stain - Final 02/06/19 09:45 Sputum - Endotrachea Suction/Ventilator Sputum Culture - Final NORMAL RESPIRATORY MONICA 02/06/19 09:45 Urine - Urine Sow Legionella Antigen - Final 02/06/19 09:45 Urine - Urine Sow Streptococcus pneumoniae Antigen (M - Final 02/05/19 13:51 Urine - Urine Clean Catch Urine Culture - Final NO GROWTH OBTAINED cxray-difficult to interpret given scoliosis a/p leukocytosis-would repeat chest ct, last chemo was 02/01 was she given neulasta? pneumonia metastatic ovarian cancer doing well extubated continue rocephins- day #6 d/w Dr Naidu Problem List - Problems (1) Carcinoma of ovary, stage 4 Code(s): C56.9 - MALIGNANT NEOPLASM OF UNSPECIFIED OVARY (2) Acute respiratory failure Code(s): J96.00 - ACUTE RESPIRATORY FAILURE, UNSP W HYPOXIA OR HYPERCAPNIA Qualifiers: Respiratory failure complication: hypoxia and hypercapnia Qualified Code(s) : J96.01 - Acute respiratory failure with hypoxia; J96.02 - Acute respiratory failure with hypercapnia (3) Pneumonia Code(s): J18.9 - PNEUMONIA, UNSPECIFIED ORGANISM
[2019-02-11] MEDS ORDERED: ONDANSETRON *ODT* 4 MG TABLET SL PRN (17:07)
[2019-02-11] MEDS ORDERED: PHENOL 177 ML SPRAY BOTTLE MM PRN (17:23)
[2019-02-11] MEDS ORDERED: VANCOMYCIN HCL 1,500 MG in DEXTROSE 5%-WATER - 500 ML IVPB ONE (17:23)
[2019-02-11] MEDS: SODIUM CHLORIDE 1,000 ML IV SCH (17:28)
[2019-02-11] MEDS ORDERED: MAG HYDROX/AL HYDROX/SIMETH -MYLANTA- ORAL SUSPENSION PO SCH (18:00)
[2019-02-11] MEDS: ATORVASTATIN CA 20 MG TABLET (FP) PO SCH (22:15)
[2019-02-11] MEDS: DOCUSATE SODIUM 100 MG CAPSULE (FP) PO SCH (22:15)
[2019-02-11] MEDS: SENNOSIDES 8.6MG TABLET (FP) PO SCH (22:15)
[2019-02-12 05:41] LABS: BASO % 0.2 % (0-2.0); EOS % 0.1 % (0-4.5); HEMATOCRIT 32.1 % (32.4-45.2); HEMOGLOBIN 10.3 GM/dL (10.7-15.3); LYMPH % 10.1 % (8-40); MCH 31.7 pg (25.7-33.7); MCHC 32.2 g/dl (32.0-36.0); MEAN CELL VOLUME 98.5 fl (80-96); MEAN PLT VOLUME 9.7 fl (7.5-11.1); MONO % 9.6 % (3.8-10.2); RBC 3.25 M/mm3 (3.60-5.2); RDW 15.2 % (11.6-15.6)
[2019-02-12] MEDS: DOCUSATE SODIUM 100 MG CAPSULE (FP) PO SCH ×3 (05:58→21:10)
[2019-02-12] MEDS: MAG HYDROX/AL HYDROX/SIMETH 30 ML UNIT-DOSE CUP PO SCH ×4 (05:58→18:16)
[2019-02-12 06:04] LABS: BLOOD UREA NITROGEN 4.1 mg/dL (7-18); CALCIUM 8.3 mg/dL (8.5-10.1); CREATININE 0.4 mg/dL (0.55-1.3); POTASSIUM 3.3 mmol/L (3.5-5.1)
[2019-02-12 06:32] LABS: PLATELET COUNT 95 K/MM3 (134-434)
[2019-02-12] MEDS: ALBUTEROL SO4 0.083% IH SOL 2.5 MG/3 ML VIAL.NEB. NEB SCH ×4 (07:40→21:00)
[2019-02-12] MEDS: IPRATROPIUM BR 0.02% 0.5 MG/2.5 ML VIAL.NEB. NEB SCH ×4 (07:40→21:00)
[2019-02-12] MEDS ORDERED: DEXTROSE 5%-WATER 100 ML IVPB ONE (08:55)
[2019-02-12] MEDS: ENOXAPARIN NA (PORCINE) 40 MG/0.4 ML DISP.SYRIN SQ SCH (08:59)
[2019-02-12] MEDS: CEFTRIAXONE 2 GM in DEXTROSE 5%-WATER 100 ML IVPB SCH (08:59)
[2019-02-12] MEDS: methylPREDNISolone NA SUCC 40 MG/1 ML VIAL IVPUSH SCH (08:59)
[2019-02-12] MEDS: POLYETHYLENE GLYCOL 3350 119 GM BTL PO SCH (09:00)
[2019-02-12] MEDS: PANTOPRAZOLE 20 MG TABLET (FP) PO SCH (09:00)
--- NOTE | 2019-02-12 09:11 | PN ---
Progress Note, Physician Chief Complaint: feeling better, but still short of breath denies chest pain feels weak initial symptoms began with upper extremity weakness, unable to hold anything in her hands and generalized lower ext weakness. History of Present Illness: Patient is a 68 year old female with a significant past medical history of HLD , hypothyroidism, GERD, asthma and stage 4 recurrent ovarian cancer (receiving chemo w/ Taxol and carboplatin), complicated by peritoneal carcinomatosis ( followed by [facility] oncologist). She presents to the ED for evaluation of malaise, upper extremity weakness and dyspnea x 5 days. Her symptoms started after her chemo session last Monday02/01/2019. She reports dizziness, malaise, dyspnea, upper extremity weakness (unable to hold objects in her hand) and decreased appetite. She denies chest pain. - Current Medication List Current Medications: Active Medications Al Hydroxide/Mg Hydroxide (Mylanta Oral Suspension -) 30 ml PO Q6HPO [facility] Last Admin: 02/12/19 05:58 Dose: 30 ml Albuterol Sulfate (Ventolin 0.083% Nebulizer Soln -) 1 amp NEB RQID [facility] Last Admin: 02/12/19 07:40 Dose: 1 amp Atorvastatin Calcium (Lipitor -) 20 mg PO HS [facility] Last Admin: 02/11/19 22:15 Dose: 20 mg Docusate Sodium (Colace -) 100 mg PO TID [facility] Last Admin: 02/12/19 05:58 Dose: 100 mg Enoxaparin Sodium (Lovenox -) 40 mg SQ DAILY [facility] Last Admin: 02/12/19 08:59 Dose: 40 mg Ceftriaxone Sodium 2 gm/ (Dextrose) 100 mls @ 200 mls/hr IVPB DAILY [facility]; Protocol Last Admin: 02/12/19 08:59 Dose: 200 mls/hr Sodium Chloride (Normal Saline -) 1,000 mls @ 10 mls/hr IV ASDIR [facility] Last Admin: 02/11/19 17:28 Dose: Not Given Ipratropium [place] (Atrovent 0.02% Nebulizer -) 1 amp NEB RQID [facility] Last Admin: 02/12/19 07:40 Dose: 1 amp Levothyroxine Sodium (Synthroid -) 50 mcg PO AM [facility] Methylprednisolone Sodium Succinate (Solu-Medrol -) 40 mg IVPUSH DAILY [facility] Last Admin: 02/12/19 08:59 Dose: 40 mg Ondansetron HCl (Zofran Odt -) 8 mg SL Q8H PRN PRN Reason: NAUSEA AND/OR VOMITING Pantoprazole Sodium (Protonix -) 20 mg PO DAILY [facility] Last Admin: 02/12/19 09:00 Dose: 20 mg Phenol/Menthol (Chloraseptic -) 1 spray MM Q6HPO PRN PRN Reason: SORE THROAT Polyethylene Glycol (Miralax (For Daily Use) -) 17 gm PO DAILY [facility] Last Admin: 02/12/19 09:00 Dose: 17 grams Senna (Senna -) 2 tab PO HS [facility] Last Admin: 02/11/19 22:15 Dose: 2 tab - Objective Vital Signs: Vital Signs Temperature 98.2 F 02/12/19 05:00 Pulse Rate 90 02/12/19 05:00 Respiratory Rate 18 02/12/19 05:00 Blood Pressure 128/57 L 02/12/19 05:00 O2 Sat by Pulse Oximetry (%) 99 02/12/19 08:09 Constitutional: Yes: Calm, Cachectic Eyes: Yes: WNL HENT: Yes: WNL, Atraumatic Neck: Yes: Supple Cardiovascular: Yes: Regular Rate and Rhythm, Tachycardia Respiratory: Yes: On Nasal O2, Rales (bilateral lower lobes with crackles), SOB Gastrointestinal: Yes: Normal Bowel Sounds, Soft ...Rectal Exam: Yes: Deferred, Other Musculoskeletal: Yes: Muscle Weakness Extremities: Yes: WNL Edema: No Peripheral Pulses WNL: No Integumentary: Yes: WNL Neurological: Yes: Alert, Oriented (primarily norwegian speaking) Psychiatric: Yes: WNL, Alert, Oriented Labs: CBC, BMP 02/12/19 05:25 02/12/19 05:25 INR, PTT INR 1.17 (0.83-1.09) H 02/11/19 05:30 - ....Imaging Chest X-ray: Report Reviewed, Image Reviewed Problem List - Problems (1) Acute respiratory failure Assessment/Plan: Respiratory failure likely secondary to acute pneumonia. Patient intubated on 02/05/19 for acute respiratory failure and retention of CO2. She was extubated 02/07/2019 and has been maintained on supplemental oxygen at 2 liters. Pulmonary following. Bipap at night and PRN. Code(s): J96.00 - ACUTE RESPIRATORY FAILURE, UNSP W HYPOXIA OR HYPERCAPNIA Qualifiers: Respiratory failure complication: hypoxia and hypercapnia Qualified Code(s) : J96.01 - Acute respiratory failure with hypoxia; J96.02 - Acute respiratory failure with hypercapnia (2) Carcinoma of ovary, stage 4 Assessment/Plan: Follows with an oncologist at [facility], recent chemotherapy 02/01/19 which patient states was her last treatment for chemo. Code(s): C56.9 - MALIGNANT NEOPLASM OF UNSPECIFIED OVARY (3) Elevated WBC count Assessment/Plan: Leukocytosis on admission 24>3>28. Afebrile, immunocompromised. unclear if patient had a bone marrow stimulant or placed on steroids as an outpatient. will reach out to her oncologist. Code(s): D72.829 - ELEVATED WHITE BLOOD CELL COUNT, UNSPECIFIED (4) Hyponatremia Assessment/Plan: Monitor CMP daily. Code(s): E87.1 - HYPO-OSMOLALITY AND HYPONATREMIA (5) Pneumonia Assessment/Plan: Chest CT/CTA shows No PE but with a right sided and trace left sided pleural effusion. On Ceftriaxone. On cultures negative to date. IV solumedrol discontinued. Code(s): J18.9 - PNEUMONIA, UNSPECIFIED ORGANISM (6) Thrombocytopenia Assessment/Plan: Platelets stable at 95. Maintain bleeding precautions. maintain platelets above 80. Code(s): D69.6 - THROMBOCYTOPENIA, UNSPECIFIED (7) Transaminitis Assessment/Plan: resolved. daily monitoring. Code(s): R74.0 - NONSPEC ELEV OF LEVELS OF TRANSAMNS & LACTIC ACID DEHYDRGNSE (8) Prophylactic measure Assessment/Plan: fen tolerating PO monitor electrolytes regular diet lovenox 40mg daily Code(s): Z29.9 - ENCOUNTER FOR PROPHYLACTIC MEASURES, UNSPECIFIED Visit type - Emergency Visit Emergency Visit: Yes ED Registration Date: 02/05/19 Care time: The patient presented to the Emergency Department on the above date and was hospitalized for further evaluation of their emergent condition. - New Patient This patient is new to me today: Yes Date on this admission: 02/12/19 - Critical Care Critical Care patient: Yes Total Critical Care Time (in minutes): 45 Critical Care Statement: The care of this patient involved high complexity decision making to prevent further life threatening deterioration of the patient 's condition and/or to evaluate & treat vital organ system(s) failure or risk of failure.
[2019-02-12] MEDS ORDERED: OMEPRAZOLE PO SCH (10:00)
[2019-02-12 12:23] LABS: ANISOCYTOSIS 1+; MACROCYTOSIS 1+; PLATELET ESTIMATE DECREASED
--- NOTE | 2019-02-12 13:36 | PN ---
Progress Note (short form) - Note Progress Note: PULMONARY Denies shortness of breath. Minimal cough. No diarrhea. No fevers or chills. Vital Signs Period Temp Pulse Resp BP Sys/Humphrey Pulse Ox Last 24 Hr 98 F-98.5 F 90-112 18-20 110-130/55-64 94-99 Gen: NAD at rest Heart: RRR Lung: decreased breath sounds at the bases Abd: soft, nontender Ext: no edema CBC, BMP 02/12/19 05:25 02/12/19 05:25 Active Medications Al Hydroxide/Mg Hydroxide (Mylanta Oral Suspension -) 30 ml PO Q6HPO [facility] Last Admin: 02/12/19 05:58 Dose: 30 ml Albuterol Sulfate (Ventolin 0.083% Nebulizer Soln -) 1 amp NEB RQID [facility] Last Admin: 02/12/19 11:18 Dose: 1 amp Atorvastatin Calcium (Lipitor -) 20 mg PO HS [facility] Last Admin: 02/11/19 22:15 Dose: 20 mg Docusate Sodium (Colace -) 100 mg PO TID [facility] Last Admin: 02/12/19 05:58 Dose: 100 mg Enoxaparin Sodium (Lovenox -) 40 mg SQ DAILY [facility] Last Admin: 02/12/19 08:59 Dose: 40 mg Ceftriaxone Sodium 2 gm/ (Dextrose) 100 mls @ 200 mls/hr IVPB DAILY [facility]; Protocol Last Admin: 02/12/19 08:59 Dose: 200 mls/hr Sodium Chloride (Normal Saline -) 1,000 mls @ 10 mls/hr IV ASDIR [facility] Last Admin: 02/11/19 17:28 Dose: Not Given Ipratropium [place] (Atrovent 0.02% Nebulizer -) 1 amp NEB RQID [facility] Last Admin: 02/12/19 07:40 Dose: 1 amp Levothyroxine Sodium (Synthroid -) 50 mcg PO AM [facility] Methylprednisolone Sodium Succinate (Solu-Medrol -) 40 mg IVPUSH DAILY [facility] Last Admin: 02/12/19 08:59 Dose: 40 mg Ondansetron HCl (Zofran Odt -) 8 mg SL Q8H PRN PRN Reason: NAUSEA AND/OR VOMITING Pantoprazole Sodium (Protonix -) 20 mg PO DAILY [facility] Last Admin: 02/12/19 09:00 Dose: 20 mg Phenol/Menthol (Chloraseptic -) 1 spray MM Q6HPO PRN PRN Reason: SORE THROAT Polyethylene Glycol (Miralax (For Daily Use) -) 17 gm PO DAILY [facility] Last Admin: 02/12/19 09:00 Dose: 17 grams Senna (Senna -) 2 tab PO HS [facility] Last Admin: 02/11/19 22:15 Dose: 2 tab A/P Acute on Chronic Hypercapneic Respiratory Failure improving Severe Scoliosis/Restrictive Lung Disease Pneumonia Sepsis +Troponins likely Demand Ischemia Elevated LFTs Thrombocytopenia Metastatic Ovarian Cancer on chemotherapy Hyperlipidemia Hypothyroidism - continue antibiotics - monitor fever curve, WBC trend - agree with CT chest - O2 to keep spO2 >90% - inhaled bronchodilators - will d/c empiric medrol - BiPAP at night and PRN during the day - PO as tolerated - replete lytes - DVT prophylaxis
--- NOTE | 2019-02-12 13:47 | PN ---
Progress Note (short form) - Note Progress Note: alert no complaints Vital Signs Period Temp Pulse Resp BP Sys/Humphrey Pulse Ox Last 24 Hr 98 F-98.5 F 90-112 18-20 110-130/55-64 94-99 no thrush cor-rrr lungs-decreased bs at bases abd soft,nt ext-trace edema CBC, BMP 02/12/19 05:25 02/12/19 05:25 Microbiology 02/05/19 14:14 Blood - Peripheral Venous Blood Culture - Final NO GROWTH AFTER 5 DAYS INCUBATION 02/05/19 13:40 Blood - Peripheral Venous Blood Culture - Final NO GROWTH AFTER 5 DAYS INCUBATION 02/06/19 09:45 Sputum - Endotrachea Suction/Ventilator Gram Stain - Final 02/06/19 09:45 Sputum - Endotrachea Suction/Ventilator Sputum Culture - Final NORMAL RESPIRATORY MONICA 02/06/19 09:45 Urine - Urine Swo Legionella Antigen - Final 02/06/19 09:45 Urine - Urine Sow Streptococcus pneumoniae Antigen (M - Final 02/05/19 13:51 Urine - Urine Clean Catch Urine Culture - Final NO GROWTH OBTAINED cxray-difficult to interpret given scoliosis a/p leukocytosis-would repeat chest ct, last chemo was 02/01 was she given neulasta? pneumonia metastatic ovarian cancer doing well extubated continue rocephins- day #7 d/w Dr Naidu will order chest ct Problem List - Problems (1) Carcinoma of ovary, stage 4 Code(s): C56.9 - MALIGNANT NEOPLASM OF UNSPECIFIED OVARY (2) Acute respiratory failure Code(s): J96.00 - ACUTE RESPIRATORY FAILURE, UNSP W HYPOXIA OR HYPERCAPNIA Qualifiers: Respiratory failure complication: hypoxia and hypercapnia Qualified Code(s) : J96.01 - Acute respiratory failure with hypoxia; J96.02 - Acute respiratory failure with hypercapnia (3) Pneumonia Code(s): J18.9 - PNEUMONIA, UNSPECIFIED ORGANISM
[2019-02-12] MEDS ORDERED: POTASSIUM CHLORIDE TABS 20 MEQ TABLET.ER (FP) PO ONE (17:05)
[2019-02-12] MEDS: SODIUM CHLORIDE 1,000 ML IV SCH (20:53)
[2019-02-12] MEDS: ATORVASTATIN CA 20 MG TABLET (FP) PO SCH (21:09)
[2019-02-12] MEDS: SENNOSIDES 8.6MG TABLET (FP) PO SCH (21:09)
[2019-02-13] MEDS: MAG HYDROX/AL HYDROX/SIMETH 30 ML UNIT-DOSE CUP PO SCH ×5 (00:24→23:35)
[2019-02-13] MEDS: LEVOTHYROXINE NA 50 MCG TABLET (FP) PO SCH ×2 (00:25→11:40)
[2019-02-13] MEDS: DOCUSATE SODIUM 100 MG CAPSULE (FP) PO SCH ×3 (06:28→21:20)
[2019-02-13] MEDS: IPRATROPIUM BR 0.02% 0.5 MG/2.5 ML VIAL.NEB. NEB SCH ×4 (08:44→21:00)
[2019-02-13] MEDS: ALBUTEROL SO4 0.083% IH SOL 2.5 MG/3 ML VIAL.NEB. NEB SCH ×4 (08:45→21:00)
--- NOTE | 2019-02-13 10:45 | PN ---
Progress Note, Physician Chief Complaint: Dr. Apple Hoyt ([facility] - [phone]) office called regarding patient WBC count. Per Dr Hoyt ([facility]) office, patient received Neulasta injection, 1st dose of January 11 and 2nd dose of Neulasta on February 01 after chemotherapy. She also received Dexamethasone 10mg prior to chemotherapy on 02/01/2019. patient is sitting in chair, in no acute distress. georgian speaking only. had two episodes of watery diarrhea overnight. feels better today, denies chest pain. Imaging: Chest CT 02/13/2019: CT chest showing largely unchanged right base infiltrate/ atelectasis and new left base atelectasis vs infiltrate. History of Present Illness: Patient is a 68 year old female with a significant past medical history of HLD , hypothyroidism, GERD, asthma and stage 4 recurrent ovarian cancer (receiving chemo w/ Taxol and carboplatin), complicated by peritoneal carcinomatosis ( followed by [facility] oncologist). She presents to the ED for evaluation of malaise, upper extremity weakness and dyspnea x 5 days. Her symptoms started after her chemo session last Monday02/01/2019. She reports dizziness, malaise, dyspnea, upper extremity weakness (unable to hold objects in her hand) and decreased appetite. She denies chest pain. - Current Medication List Current Medications: Active Medications Al Hydroxide/Mg Hydroxide (Mylanta Oral Suspension -) 30 ml PO Q6HPO [facility] Last Admin: 02/13/19 06:28 Dose: 30 ml Albuterol Sulfate (Ventolin 0.083% Nebulizer Soln -) 1 amp NEB RQID [facility] Last Admin: 02/13/19 08:45 Dose: 1 amp Atorvastatin Calcium (Lipitor -) 20 mg PO HS [facility] Last Admin: 02/12/19 21:09 Dose: 20 mg Docusate Sodium (Colace -) 100 mg PO TID [facility] Last Admin: 02/13/19 06:28 Dose: 100 mg Enoxaparin Sodium (Lovenox -) 40 mg SQ DAILY [facility] Last Admin: 02/12/19 08:59 Dose: 40 mg Ceftriaxone Sodium 2 gm/ (Dextrose) 100 mls @ 200 mls/hr IVPB DAILY [facility]; Protocol Last Admin: 02/12/19 08:59 Dose: 200 mls/hr Sodium Chloride (Normal Saline -) 1,000 mls @ 10 mls/hr IV ASDIR [facility] Last Admin: 02/12/19 20:53 Dose: Not Given Ipratropium [place] (Atrovent 0.02% Nebulizer -) 1 amp NEB RQID [facility] Last Admin: 02/13/19 08:44 Dose: 1 amp Levothyroxine Sodium (Synthroid -) 50 mcg PO AM [facility] Last Admin: 02/13/19 00:25 Dose: Not Given Ondansetron HCl (Zofran Odt -) 8 mg SL Q8H PRN PRN Reason: NAUSEA AND/OR VOMITING Pantoprazole Sodium (Protonix -) 20 mg PO DAILY [facility] Last Admin: 02/12/19 09:00 Dose: 20 mg Phenol/Menthol (Chloraseptic -) 1 spray MM Q6HPO PRN PRN Reason: SORE THROAT Polyethylene Glycol (Miralax (For Daily Use) -) 17 gm PO DAILY [facility] Last Admin: 02/12/19 09:00 Dose: 17 grams Senna (Senna -) 2 tab PO HS [facility] Last Admin: 02/12/19 21:09 Dose: 2 tab - Objective Vital Signs: Vital Signs Temperature 98.2 F 02/13/19 06:00 Pulse Rate 89 02/13/19 06:00 Respiratory Rate 16 02/13/19 06:00 Blood Pressure 103/56 L 02/13/19 06:00 O2 Sat by Pulse Oximetry (%) 99 02/13/19 08:43 Constitutional: Yes: No Distress, Calm Eyes: Yes: WNL HENT: Yes: WNL Neck: Yes: WNL, Supple Cardiovascular: Yes: Regular Rate and Rhythm, Tachycardia Respiratory: Yes: WNL, Diminished Gastrointestinal: Yes: WNL ...Rectal Exam: Yes: Deferred Genitourinary: Yes: WNL Extremities: Yes: WNL Edema: No Peripheral Pulses WNL: No Integumentary: Yes: WNL Neurological: Yes: Alert, Oriented Labs: CBC, BMP 02/12/19 05:25 02/12/19 05:25 INR, PTT INR 1.17 (0.83-1.09) H 02/11/19 05:30 Problem List - Problems (1) Acute respiratory failure Assessment/Plan: Respiratory failure likely secondary to acute pneumonia. Patient intubated on 02/05/19 for acute respiratory failure and retention of CO2. She was extubated 02/07/2019 and has been maintained on supplemental oxygen at 2 liters with stable saturations. alert, oriented to person, place and time. On Bipap at night and PRN. Code(s): J96.00 - ACUTE RESPIRATORY FAILURE, UNSP W HYPOXIA OR HYPERCAPNIA Qualifiers: Respiratory failure complication: hypoxia and hypercapnia Qualified Code(s) : J96.01 - Acute respiratory failure with hypoxia; J96.02 - Acute respiratory failure with hypercapnia (2) Carcinoma of ovary, stage 4 Assessment/Plan: Follows with an oncologist at [facility], recent chemotherapy 02/01/19 which patient states was her last treatment for chemo Received Neulasta. Patient was for a follow CT scan of abdomen on February 152018 for follow up with her oncologist . Code(s): C56.9 - MALIGNANT NEOPLASM OF UNSPECIFIED OVARY (3) Elevated WBC count Assessment/Plan: Leukocytosis on admission 24>3>28>23 Afebrile, immunocompromised. Patient has received two Neulasta injections with her oncologist and dexamathasone on 02/01 prior to chemo. Her WBC on 02/01/2019 was 5.5 per her oncology PA. Code(s): D72.829 - ELEVATED WHITE BLOOD CELL COUNT, UNSPECIFIED (4) Hyponatremia Assessment/Plan: Monitor CMP daily. Code(s): E87.1 - HYPO-OSMOLALITY AND HYPONATREMIA (5) Pneumonia Assessment/Plan: Chest CT/CTA shows No PE but with a right sided and trace left sided pleural effusion. On Ceftriaxone. On cultures negative to date. IV solumedrol discontinued. Code(s): J18.9 - PNEUMONIA, UNSPECIFIED ORGANISM (6) Thrombocytopenia Assessment/Plan: Platelets stable. Maintain bleeding precautions. maintain platelets above 80. Code(s): D69.6 - THROMBOCYTOPENIA, UNSPECIFIED (7) Transaminitis Assessment/Plan: resolved. daily monitoring. Code(s): R74.0 - NONSPEC ELEV OF LEVELS OF TRANSAMNS & LACTIC ACID DEHYDRGNSE (8) Hypomagnesemia Assessment/Plan: repleted. monitor daily. Code(s): E83.42 - HYPOMAGNESEMIA (9) Prophylactic measure Assessment/Plan: fen tolerating PO monitor electrolytes regular diet lovenox 40mg daily Code(s): Z29.9 - ENCOUNTER FOR PROPHYLACTIC MEASURES, UNSPECIFIED Visit type - Emergency Visit Emergency Visit: Yes ED Registration Date: 02/05/19 Care time: The patient presented to the Emergency Department on the above date and was hospitalized for further evaluation of their emergent condition. - New Patient This patient is new to me today: No - Critical Care Critical Care patient: Yes Total Critical Care Time (in minutes): 45 Critical Care Statement: The care of this patient involved high complexity decision making to prevent further life threatening deterioration of the patient 's condition and/or to evaluate & treat vital organ system(s) failure or risk of failure. - Discharge Referral Referred to [facility] Med [facility].: No
[2019-02-13 10:55] LABS: BASO % 0.3 % (0-2.0); EOS % 0.4 % (0-4.5); HEMATOCRIT 35.7 % (32.4-45.2); HEMOGLOBIN 11.6 GM/dL (10.7-15.3); LYMPH % 9.8 % (8-40); MCH 31.9 pg (25.7-33.7); MCHC 32.4 g/dl (32.0-36.0); MEAN CELL VOLUME 98.6 fl (80-96); MEAN PLT VOLUME 9.6 fl (7.5-11.1); NEUT % 81.5 % (42.8-82.8); PLATELET COUNT 110 K/MM3 (134-434); RBC 3.62 M/mm3 (3.60-5.2); RDW 15.2 % (11.6-15.6)
[2019-02-13] MEDS ORDERED: DEXTROSE 5%-WATER 100 ML IVPB ONE (11:25)
[2019-02-13] MEDS: CEFTRIAXONE 2 GM in DEXTROSE 5%-WATER 100 ML IVPB SCH (11:35)
[2019-02-13] MEDS: PANTOPRAZOLE 20 MG TABLET (FP) PO SCH (11:39)
[2019-02-13] MEDS: POLYETHYLENE GLYCOL 3350 119 GM BTL PO SCH (11:39)
[2019-02-13] MEDS: ENOXAPARIN NA (PORCINE) 40 MG/0.4 ML DISP.SYRIN SQ SCH (11:39)
[2019-02-13 11:41] LABS: ALBUMIN 3.1 g/dl (3.4-5.0); ALK PHOS 156 U/L (45-117); ANION GAP 2 MMOL/L (8-16); BILIRUBIN,TOTAL 0.3 mg/dL (0.2-1); BLOOD UREA NITROGEN 5.5 mg/dL (7-18); CALCIUM 8.7 mg/dL (8.5-10.1); CHLORIDE 93 mmol/L (98-107); CO2 > 45 mmol/L (21-32); CREATININE 0.5 mg/dL (0.55-1.3); GLUCOSE,RANDOM 125 mg/dL (74-106); MAGNESIUM 1.3 mg/dL (1.8-2.4); POTASSIUM 4.2 mmol/L (3.5-5.1); SGOT/AST 22 U/L (15-37); SGPT/ALT 37 U/L (13-61); SODIUM 140 mmol/L (136-145)
[2019-02-13 11:51] LABS: ANISOCYTOSIS 1+; MACROCYTOSIS 1+; PLATELET ESTIMATE DECREASED; TARGET CELLS 1+
--- NOTE | 2019-02-13 12:12 | PN ---
Progress Note (short form) - Note Progress Note: PULMONARY Denies shortness of breath. Minimal cough. No diarrhea. No fevers or chills. Repeat CT chest showing largely unchanged right base infiltrate/atelectasis and new left base atelectasis vs infiltrate. Vital Signs Period Temp Pulse Resp BP Sys/Humphrey Pulse Ox Last 24 Hr 98.2 F-99 F 89-103 14-18 103-122/56-66 97-100 Gen: NAD in chair Heart: RRR Lung: decreased breath sounds at the bases Abd: soft, nontender Ext: no edema CBC, BMP 02/13/19 10:42 02/13/19 10:42 Active Medications Al Hydroxide/Mg Hydroxide (Mylanta Oral Suspension -) 30 ml PO Q6HPO [facility] Last Admin: 02/13/19 11:38 Dose: Not Given Albuterol Sulfate (Ventolin 0.083% Nebulizer Soln -) 1 amp NEB RQID [facility] Last Admin: 02/13/19 11:58 Dose: 1 amp Atorvastatin Calcium (Lipitor -) 20 mg PO HS [facility] Last Admin: 02/12/19 21:09 Dose: 20 mg Docusate Sodium (Colace -) 100 mg PO TID [facility] Last Admin: 02/13/19 06:28 Dose: 100 mg Enoxaparin Sodium (Lovenox -) 40 mg SQ DAILY [facility] Last Admin: 02/13/19 11:39 Dose: 40 mg Ceftriaxone Sodium 2 gm/ (Dextrose) 100 mls @ 200 mls/hr IVPB DAILY [facility]; Protocol Last Admin: 02/13/19 11:35 Dose: 200 mls/hr Sodium Chloride (Normal Saline -) 1,000 mls @ 10 mls/hr IV ASDIR [facility] Last Admin: 02/12/19 20:53 Dose: Not Given Ipratropium [place] (Atrovent 0.02% Nebulizer -) 1 amp NEB RQID [facility] Last Admin: 02/13/19 11:58 Dose: 1 amp Levothyroxine Sodium (Synthroid -) 50 mcg PO AM [facility] Last Admin: 02/13/19 11:40 Dose: Not Given Ondansetron HCl (Zofran Odt -) 8 mg SL Q8H PRN PRN Reason: NAUSEA AND/OR VOMITING Pantoprazole Sodium (Protonix -) 20 mg PO DAILY [facility] Last Admin: 02/13/19 11:39 Dose: 20 mg Phenol/Menthol (Chloraseptic -) 1 spray MM Q6HPO PRN PRN Reason: SORE THROAT Polyethylene Glycol (Miralax (For Daily Use) -) 17 gm PO DAILY [facility] Last Admin: 02/13/19 11:39 Dose: Not Given Senna (Senna -) 2 tab PO HS [facility] Last Admin: 02/12/19 21:09 Dose: 2 tab A/P Acute on Chronic Hypercapneic Respiratory Failure improving Severe Scoliosis/Restrictive Lung Disease Pneumonia Sepsis +Troponins likely Demand Ischemia Elevated LFTs Thrombocytopenia Metastatic Ovarian Cancer on chemotherapy Hyperlipidemia Hypothyroidism - consider d/c antibiotics and observe - monitor fever curve, WBC trend - O2 to keep spO2 >90% - inhaled bronchodilators - monitor off steroids - BiPAP at night and PRN during the day - PO as tolerated - replete lytes - DVT prophylaxis
[2019-02-13] MEDS ORDERED: MAGNESIUM SULF 50% (8.12 MEQ/2 ML-1 GM VIAL) IVPB ONE (12:52)
--- NOTE | 2019-02-13 18:31 | PN ---
Progress Note (short form) - Note Progress Note: alert no complaints Vital Signs Period Temp Pulse Resp BP Sys/Humphrey Pulse Ox Last 24 Hr 98.0 F-99 F 89-103 14-18 103-121/56-66 96-100 cor-rrr lungs decreased bs at bases abd soft,nt ext no edema CBC, BMP 02/13/19 10:42 02/13/19 10:42 Microbiology 02/05/19 14:14 Blood - Peripheral Venous Blood Culture - Final NO GROWTH AFTER 5 DAYS INCUBATION 02/05/19 13:40 Blood - Peripheral Venous Blood Culture - Final NO GROWTH AFTER 5 DAYS INCUBATION 02/06/19 09:45 Sputum - Endotrachea Suction/Ventilator Gram Stain - Final 02/06/19 09:45 Sputum - Endotrachea Suction/Ventilator Sputum Culture - Final NORMAL RESPIRATORY [place] 02/06/19 09:45 Urine - Urine Sow Legionella Antigen - Final 02/06/19 09:45 Urine - Urine Sow Streptococcus pneumoniae Antigen (M - Final 02/05/19 13:51 Urine - Urine Clean Catch Urine Culture - Final NO GROWTH OBTAINED chest ct scan - unchanged lower lobe infiltrates, new atelectasis left base a/p leukocytosis-most likely due to neulasta pneumonia metastatic ovarian cancer doing well extubated continue rocephins- day #8 switch to augmentin to finish 14 days please call back if needed Problem List - Problems (1) Carcinoma of ovary, stage 4 Code(s): C56.9 - MALIGNANT NEOPLASM OF UNSPECIFIED OVARY (2) Acute respiratory failure Code(s): J96.00 - ACUTE RESPIRATORY FAILURE, UNSP W HYPOXIA OR HYPERCAPNIA Qualifiers: Respiratory failure complication: hypoxia and hypercapnia Qualified Code(s) : J96.01 - Acute respiratory failure with hypoxia; J96.02 - Acute respiratory failure with hypercapnia (3) Pneumonia Code(s): J18.9 - PNEUMONIA, UNSPECIFIED ORGANISM
[2019-02-13] MEDS: ATORVASTATIN CA 20 MG TABLET (FP) PO SCH (21:20)
[2019-02-13] MEDS: SENNOSIDES 8.6MG TABLET (FP) PO SCH (21:20)
[2019-02-14] MEDS: DOCUSATE SODIUM 100 MG CAPSULE (FP) PO SCH ×3 (05:46→21:39)
[2019-02-14] MEDS: MAG HYDROX/AL HYDROX/SIMETH 30 ML UNIT-DOSE CUP PO SCH ×3 (05:46→17:59)
[2019-02-14] MEDS: LEVOTHYROXINE NA 50 MCG TABLET (FP) PO SCH (06:34)
[2019-02-14] MEDS: IPRATROPIUM BR 0.02% 0.5 MG/2.5 ML VIAL.NEB. NEB SCH ×3 (08:04→20:50)
[2019-02-14] MEDS: ALBUTEROL SO4 0.083% IH SOL 2.5 MG/3 ML VIAL.NEB. NEB SCH ×4 (08:05→20:50)
--- NOTE | 2019-02-14 08:45 | PN ---
Progress Note, Physician Chief Complaint: on 02/13/2019, Dr. Apple Hoyt ([facility] - [phone]) office called regarding patient WBC count. Per Dr Hoyt ([facility]) office, patient received Neulasta injection, 1st dose of January 11 and 2nd dose of Neulasta on February 01 after chemotherapy. She also received Dexamethasone 10mg prior to chemotherapy on 02/01/2019. patient is sitting in chair, in no acute distress. citizen of [place] speaking only. feels better today, denies chest pain. having some shortness of breath intermittently. Imaging: Chest CT 02/13/2019: CT chest showing largely unchanged right base infiltrate/ atelectasis and new left base atelectasis vs infiltrate. History of Present Illness: Patient is a 68 year old female with a significant past medical history of HLD , hypothyroidism, GERD, asthma and stage 4 recurrent ovarian cancer (receiving chemo w/ Taxol and carboplatin), complicated by peritoneal carcinomatosis ( followed by [facility] oncologist). She presents to the ED for evaluation of malaise, upper extremity weakness and dyspnea x 5 days. Her symptoms started after her chemo session last Monday02/01/2019. She reports dizziness, malaise, dyspnea, upper extremity weakness (unable to hold objects in her hand) and decreased appetite. She denies chest pain. - Current Medication List Current Medications: Active Medications Al Hydroxide/Mg Hydroxide (Mylanta Oral Suspension -) 30 ml PO Q6HPO [facility] Last Admin: 02/14/19 05:46 Dose: Not Given Albuterol Sulfate (Ventolin 0.083% Nebulizer Soln -) 1 amp NEB RQID [facility] Last Admin: 02/14/19 08:05 Dose: 1 amp Amoxicillin/Clavulanate Potassium (Augmentin - 875mg Tablet) 1 tab PO BID@0800, 1730 [facility] Atorvastatin Calcium (Lipitor -) 20 mg PO HS [facility] Last Admin: 02/13/19 21:20 Dose: 20 mg Docusate Sodium (Colace -) 100 mg PO TID [facility] Last Admin: 02/14/19 05:46 Dose: Not Given Enoxaparin Sodium (Lovenox -) 40 mg SQ DAILY [facility] Last Admin: 02/13/19 11:39 Dose: 40 mg Ipratropium [place] (Atrovent 0.02% Nebulizer -) 1 amp NEB RQID [facility] Last Admin: 02/14/19 08:04 Dose: 1 amp Levothyroxine Sodium (Synthroid -) 50 mcg PO AM [facility] Last Admin: 02/14/19 06:34 Dose: 50 mcg Ondansetron HCl (Zofran Odt -) 8 mg SL Q8H PRN PRN Reason: NAUSEA AND/OR VOMITING Pantoprazole Sodium (Protonix -) 20 mg PO DAILY [facility] Last Admin: 02/13/19 11:39 Dose: 20 mg Phenol/Menthol (Chloraseptic -) 1 spray MM Q6HPO PRN PRN Reason: SORE THROAT Polyethylene Glycol (Miralax (For Daily Use) -) 17 gm PO DAILY [facility] Last Admin: 02/13/19 11:39 Dose: Not Given Senna (Senna -) 2 tab PO HS [facility] Last Admin: 02/13/19 21:20 Dose: Not Given - Objective Vital Signs: Vital Signs Temperature 98.1 F 02/14/19 06:00 Pulse Rate 89 02/14/19 06:00 Respiratory Rate 17 02/14/19 06:00 Blood Pressure 104/55 L 02/14/19 06:00 O2 Sat by Pulse Oximetry (%) 97 02/14/19 06:24 Constitutional: Yes: No Distress, Calm Eyes: Yes: WNL HENT: Yes: Atraumatic Neck: Yes: Supple Cardiovascular: Yes: Regular Rate and Rhythm Respiratory: Yes: Regular, Rales (mild crackles at lower lobes) Gastrointestinal: Yes: Normal Bowel Sounds ...Rectal Exam: Yes: Deferred Extremities: Yes: WNL Edema: No Neurological: Yes: Alert, Oriented, Unsteady Gait Labs: CBC, BMP 02/13/19 10:42 02/13/19 10:42 INR, PTT INR 1.17 (0.83-1.09) H 02/11/19 05:30 - ....Imaging Chest X-ray: Image Reviewed Cat Scan: Image Reviewed Problem List - Problems (1) Acute respiratory failure Assessment/Plan: Respiratory failure likely secondary to acute pneumonia. improving. On Nasal cannula @ 3 liters. Patient intubated on 02/05/19 for acute respiratory failure and retention of CO2. She was extubated 02/07/2019 and has been maintained on supplemental oxygen between 2-3 liters with stable saturations. alert, oriented to person, place and time. On Bipap at night and PRN. Code(s): J96.00 - ACUTE RESPIRATORY FAILURE, UNSP W HYPOXIA OR HYPERCAPNIA Qualifiers: Respiratory failure complication: hypoxia and hypercapnia Qualified Code(s) : J96.01 - Acute respiratory failure with hypoxia; J96.02 - Acute respiratory failure with hypercapnia (2) Carcinoma of ovary, stage 4 Assessment/Plan: Follows with an oncologist at [facility], recent chemotherapy 02/01/19 which patient states was her last treatment for chemo Received Neulasta. Patient was for a follow CT scan of abdomen at [facility] on February 15 for follow up with her oncologist. Oncologist office informed of patient's hospitalization and they will reschedule abdomen CT scan. Code(s): C56.9 - MALIGNANT NEOPLASM OF UNSPECIFIED OVARY (3) Elevated WBC count Assessment/Plan: Leukocytosis on admission 24 >28>19 Afebrile, immunocompromised. Patient has received two Neulasta injections with her oncologist and dexamathasone on 02/01 prior to chemo. Her WBC on 02/01/2019 was 5.5 per her oncology PA. Code(s): D72.829 - ELEVATED WHITE BLOOD CELL COUNT, UNSPECIFIED (4) Hyponatremia Assessment/Plan: Monitor CMP daily. Code(s): E87.1 - HYPO-OSMOLALITY AND HYPONATREMIA (5) Pneumonia Assessment/Plan: Chest CT/CTA shows No PE but with a right sided and trace left sided pleural effusion. BC cultures negative to date. IV solumedrol discontinued. pulmonary following. Code(s): J18.9 - PNEUMONIA, UNSPECIFIED ORGANISM (6) Thrombocytopenia Assessment/Plan: Platelets stable. Maintain bleeding precautions. maintain platelets above 80. Code(s): D69.6 - THROMBOCYTOPENIA, UNSPECIFIED (7) Transaminitis Assessment/Plan: resolved. daily monitoring. Code(s): R74.0 - NONSPEC ELEV OF LEVELS OF TRANSAMNS & LACTIC ACID DEHYDRGNSE (8) Hypomagnesemia Assessment/Plan: repleted. monitor daily. Code(s): E83.42 - HYPOMAGNESEMIA (9) Prophylactic measure Assessment/Plan: fen tolerating PO monitor electrolytes regular diet lovenox 40mg daily Code(s): Z29.9 - ENCOUNTER FOR PROPHYLACTIC MEASURES, UNSPECIFIED Visit type - Emergency Visit Emergency Visit: Yes ED Registration Date: 02/05/19 Care time: The patient presented to the Emergency Department on the above date and was hospitalized for further evaluation of their emergent condition. - New Patient This patient is new to me today: No - Critical Care Critical Care patient: Yes Total Critical Care Time (in minutes): 60 Critical Care Statement: The care of this patient involved high complexity decision making to prevent further life threatening deterioration of the patient 's condition and/or to evaluate & treat vital organ system(s) failure or risk of failure.
[2019-02-14] MEDS ORDERED: PT OWN MED DRAWER 7, Y5N ONE ×2 (08:51→11:50)
[2019-02-14] MEDS: ENOXAPARIN NA (PORCINE) 40 MG/0.4 ML DISP.SYRIN SQ SCH (09:34)
[2019-02-14] MEDS: PANTOPRAZOLE 20 MG TABLET (FP) PO SCH (09:34)
[2019-02-14] MEDS: POLYETHYLENE GLYCOL 3350 119 GM BTL PO SCH (09:35)
[2019-02-14 10:50] LABS: BASO % 0.1 % (0-2.0); EOS % 0.8 % (0-4.5); HEMOGLOBIN 11.9 GM/dL (10.7-15.3); LYMPH % 6.8 % (8-40); MCH 31.8 pg (25.7-33.7); MCHC 32.1 g/dl (32.0-36.0); MEAN CELL VOLUME 99.2 fl (80-96); MEAN PLT VOLUME 9.9 fl (7.5-11.1); MONO % 7.5 % (3.8-10.2); NEUT % 84.8 % (42.8-82.8); RBC 3.73 M/mm3 (3.60-5.2); RDW 15.4 % (11.6-15.6); WHITE BLOOD COUNT 19.1 K/mm3 (4.0-10.0)
[2019-02-14 10:52] LABS: PLATELET COUNT 123 K/MM3 (134-434)
[2019-02-14 11:11] LABS: ALBUMIN 3.2 g/dl (3.4-5.0); ALK PHOS 152 U/L (45-117); ANION GAP 2 MMOL/L (8-16); BILIRUBIN,TOTAL 0.3 mg/dL (0.2-1); BLOOD UREA NITROGEN 6.1 mg/dL (7-18); CALCIUM 8.8 mg/dL (8.5-10.1); CHLORIDE 92 mmol/L (98-107); CO2 > 45 mmol/L (21-32); CREATININE 0.4 mg/dL (0.55-1.3); GLUCOSE,RANDOM 132 mg/dL (74-106); MAGNESIUM 1.6 mg/dL (1.8-2.4); POTASSIUM 4.9 mmol/L (3.5-5.1); SGOT/AST 19 U/L (15-37); SGPT/ALT 30 U/L (13-61); SODIUM 138 mmol/L (136-145); TOT PROT 6.2 g/dl (6.4-8.2)
[2019-02-14] MEDS: AMOX TR/POT CLAV 875MG/125MG TABLETS (FP) PO SCH ×2 (11:52→17:56)
--- NOTE | 2019-02-14 12:52 | PN ---
Progress Note (short form) - Note Progress Note: PULMONARY Breathing continues to improve. No fevers recorded. Vital Signs Period Temp Pulse Resp BP Sys/Humphrey Pulse Ox Last 24 Hr 98.0 F-98.3 F 89-99 17-18 104-121/55-59 96-100 Gen: NAD in chair Heart: RRR Lung: decreased breath sounds at the bases Abd: soft, nontender Ext: no edema CBC, BMP 02/14/19 10:20 02/14/19 10:20 Active Medications Al Hydroxide/Mg Hydroxide (Mylanta Oral Suspension -) 30 ml PO Q6HPO [facility] Last Admin: 02/14/19 05:46 Dose: Not Given Albuterol Sulfate (Ventolin 0.083% Nebulizer Soln -) 1 amp NEB RQID [facility] Last Admin: 02/14/19 11:49 Dose: 1 amp Amoxicillin/Clavulanate Potassium (Augmentin - 875mg Tablet) 1 tab PO BID@0800, 1730 [facility] Last Admin: 02/14/19 11:52 Dose: 1 tab Atorvastatin Calcium (Lipitor -) 20 mg PO HS [facility] Last Admin: 02/13/19 21:20 Dose: 20 mg Docusate Sodium (Colace -) 100 mg PO TID [facility] Last Admin: 02/14/19 05:46 Dose: Not Given Enoxaparin Sodium (Lovenox -) 40 mg SQ DAILY [facility] Last Admin: 02/14/19 09:34 Dose: 40 mg Ipratropium [place] (Atrovent 0.02% Nebulizer -) 1 amp NEB RQID [facility] Last Admin: 02/14/19 11:49 Dose: 1 amp Levothyroxine Sodium (Synthroid -) 50 mcg PO AM [facility] Last Admin: 02/14/19 06:34 Dose: 50 mcg Ondansetron HCl (Zofran Odt -) 8 mg SL Q8H PRN PRN Reason: NAUSEA AND/OR VOMITING Pantoprazole Sodium (Protonix -) 20 mg PO DAILY [facility] Last Admin: 02/14/19 09:34 Dose: 20 mg Phenol/Menthol (Chloraseptic -) 1 spray MM Q6HPO PRN PRN Reason: SORE THROAT Polyethylene Glycol (Miralax (For Daily Use) -) 17 gm PO DAILY [facility] Last Admin: 02/14/19 09:35 Dose: Not Given Senna (Senna -) 2 tab PO HS [facility] Last Admin: 02/13/19 21:20 Dose: Not Given A/P Acute on Chronic Hypercapneic Respiratory Failure improving Severe Scoliosis/Restrictive Lung Disease Pneumonia Sepsis +Troponins likely [place] Ischemia Elevated LFTs Thrombocytopenia Metastatic Ovarian Cancer on chemotherapy Hyperlipidemia Hypothyroidism - antibiotics per ID - monitor fever curve, WBC trend - O2 to keep spO2 >90% - inhaled bronchodilators - monitor off steroids - BiPAP at night and PRN during the day - PO as tolerated - rehab/PT - DVT prophylaxis
[2019-02-14 14:06] LABS: ANISOCYTOSIS 2+; MACROCYTOSIS 1+; OVALOCYTE 1+; PLATELET ESTIMATE DECREASED; TARGET CELLS 1+; TEAR DROP CELLS 1+
[2019-02-14] MEDS: SENNOSIDES 8.6MG TABLET (FP) PO SCH (21:39)
[2019-02-14] MEDS: MAGNESIUM OXIDE 400 MG TABLET (FP) PO SCH (21:42)
[2019-02-14] MEDS: ATORVASTATIN CA 20 MG TABLET (FP) PO SCH (21:42)
[2019-02-15] MEDS: MAG HYDROX/AL HYDROX/SIMETH 30 ML UNIT-DOSE CUP PO SCH ×5 (01:27→18:05)
[2019-02-15] MEDS: DOCUSATE SODIUM 100 MG CAPSULE (FP) PO SCH ×3 (05:57→21:53)
[2019-02-15] MEDS: LEVOTHYROXINE NA 50 MCG TABLET (FP) PO SCH (06:25)
[2019-02-15] MEDS ORDERED: PT OWN MED DRAWER 7, Y5N ONE (08:32)
[2019-02-15] MEDS: AMOX TR/POT CLAV 875MG/125MG TABLETS (FP) PO SCH ×2 (08:32→18:04)
[2019-02-15] MEDS ORDERED: ACETAMINOPHEN 325 MG TABLET (FP) PO PRN (08:59)
--- NOTE | 2019-02-15 09:00 | PN ---
Progress Note, Physician Chief Complaint: having headaches, not feeling well, coughing. mild shortness of breath, still using oxygen. will attempt to wean off as tolerated. patient will consider Pt/rehab for lower ext weakness as well as upper ext weakness. History of Present Illness: Patient is a 68 year old female with a significant past medical history of HLD , hypothyroidism, GERD, asthma and stage 4 recurrent ovarian cancer (receiving chemo w/ Taxol and carboplatin), complicated by peritoneal carcinomatosis ( followed by [facility] oncologist). She presents to the ED for evaluation of malaise, upper extremity weakness and dyspnea x 5 days. Her symptoms started after her chemo session last Monday02/01/2019. She reports dizziness, malaise, dyspnea, upper extremity weakness (unable to hold objects in her hand) and decreased appetite. She denies chest pain. Dr. Apple Hoyt ([facility] -[phone]) office called regarding patient WBC count. Per Dr Hoyt ([facility]) office, patient received Neulasta injection, 1st dose of January 11 and 2nd dose of Neulasta on February 01 after chemotherapy. She also received Dexamethasone 10mg prior to chemotherapy on 02/01/2019. - Current Medication List Current Medications: Active Medications Acetaminophen (Tylenol -) 650 mg PO Q6H PRN PRN Reason: HEADACHE Al Hydroxide/Mg Hydroxide (Mylanta Oral Suspension -) 30 ml PO Q6HPO [facility] Last Admin: 02/15/19 06:25 Dose: 30 ml Albuterol Sulfate (Ventolin 0.083% Nebulizer Soln -) 1 amp NEB RQID [facility] Last Admin: 02/14/19 20:50 Dose: 1 amp Amoxicillin/Clavulanate Potassium (Augmentin - 875mg Tablet) 1 tab PO BID@0800, 1730 [facility] Last Admin: 02/15/19 08:32 Dose: 1 tab Atorvastatin Calcium (Lipitor -) 20 mg PO HS [facility] Last Admin: 02/14/19 21:42 Dose: 20 mg Docusate Sodium (Colace -) 100 mg PO TID [facility] Last Admin: 02/15/19 05:57 Dose: Not Given Enoxaparin Sodium (Lovenox -) 40 mg SQ DAILY [facility] Last Admin: 02/14/19 09:34 Dose: 40 mg Ipratropium [place] (Atrovent 0.02% Nebulizer -) 1 amp NEB RQID [facility] Last Admin: 02/14/19 20:50 Dose: 1 amp Levothyroxine Sodium (Synthroid -) 50 mcg PO AM [facility] Last Admin: 02/15/19 06:25 Dose: 50 mcg Magnesium Oxide (Mag-Ox -) 400 mg PO BID [facility] Last Admin: 02/14/19 21:42 Dose: 400 mg Ondansetron HCl (Zofran Odt -) 8 mg SL Q8H PRN PRN Reason: NAUSEA AND/OR VOMITING Pantoprazole Sodium (Protonix -) 20 mg PO DAILY [facility] Last Admin: 02/14/19 09:34 Dose: 20 mg Phenol/Menthol (Chloraseptic -) 1 spray MM Q6HPO PRN PRN Reason: SORE THROAT Polyethylene Glycol (Miralax (For Daily Use) -) 17 gm PO DAILY [facility] Last Admin: 02/14/19 09:35 Dose: Not Given Senna (Senna -) 2 tab PO HS [facility] Last Admin: 02/14/19 21:39 Dose: Not Given - Objective Vital Signs: Vital Signs Temperature 98.6 F 02/15/19 06:00 Pulse Rate 106 H 02/15/19 06:00 Respiratory Rate 19 02/15/19 06:00 Blood Pressure 121/56 L 02/15/19 06:00 O2 Sat by Pulse Oximetry (%) 98 02/14/19 20:26 Constitutional: Yes: Well Nourished, No Distress Eyes: Yes: WNL HENT: Yes: WNL Neck: Yes: WNL Cardiovascular: Yes: WNL, Regular Rate and Rhythm Respiratory: Yes: Accessory Muscle Use, Diminished, Rales, SOB, SOB on Exertion Gastrointestinal: Yes: Normal Bowel Sounds ...Rectal Exam: Yes: Deferred Genitourinary: Yes: WNL Breast(s): Yes: WNL Musculoskeletal: Yes: WNL Extremities: Yes: WNL Integumentary: Yes: WNL Neurological: Yes: Alert, Oriented, Weakness Psychiatric: Yes: Alert, Oriented Labs: CBC, BMP 02/14/19 10:20 02/14/19 10:20 INR, PTT INR 1.17 (0.83-1.09) H 02/11/19 05:30 Problem List - Problems (1) Acute respiratory failure Assessment/Plan: Respiratory failure likely secondary to acute pneumonia. improving. Chest CT 02/13/19: development of atelectasis on LLL, lungs with bibaslar congestive changes with air bronchospams. On Nasal cannula @ 3 liters, to be weaned off oxygen as tolerated. She is not oxygen dependent. Patient intubated on 02/05/19 for acute respiratory failure and retention of CO2. She was extubated 02/07/2019 and has been maintained on supplemental oxygen between 2-3 liters with stable saturations. She alert, oriented to person, place and time. On Bipap at night and PRN. Pulmonary following. On Augmentin. Code(s): J96.00 - ACUTE RESPIRATORY FAILURE, UNSP W HYPOXIA OR HYPERCAPNIA Qualifiers: Respiratory failure complication: hypoxia and hypercapnia Qualified Code(s) : J96.01 - Acute respiratory failure with hypoxia; J96.02 - Acute respiratory failure with hypercapnia (2) Carcinoma of ovary, stage 4 Assessment/Plan: Follows with an oncologist at [facility], recent chemotherapy 02/01/19 which patient states was her last treatment for chemo Received Neulasta. Patient was for a follow CT scan of abdomen at [facility] on February 15 for follow up with her oncologist. Oncologist office informed of patient's hospitalization and they will reschedule abdomen CT scan. Code(s): C56.9 - MALIGNANT NEOPLASM OF UNSPECIFIED OVARY (3) Elevated WBC count Assessment/Plan: Leukocytosis on admission 24 >28>19>15. Afebrile, immunocompromised. Patient has received two Neulasta injections with her oncologist and dexamathasone on 02/01 prior to chemo. Her WBC on 02/01/2019 was 5.5 per her oncology PA. Code(s): D72.829 - ELEVATED WHITE BLOOD CELL COUNT, UNSPECIFIED (4) Hyponatremia Assessment/Plan: Monitor CMP daily. Code(s): E87.1 - HYPO-OSMOLALITY AND HYPONATREMIA (5) Pneumonia Assessment/Plan: Chest CT/CTA shows No PE but with a right sided and trace left sided pleural effusion. BC cultures negative to date. IV solumedrol discontinued. pulmonary following. Code(s): J18.9 - PNEUMONIA, UNSPECIFIED ORGANISM (6) Thrombocytopenia Assessment/Plan: Platelets stable. Maintain bleeding precautions. maintain platelets above 80. Code(s): D69.6 - THROMBOCYTOPENIA, UNSPECIFIED (7) Transaminitis Assessment/Plan: resolved. daily monitoring. Code(s): R74.0 - NONSPEC ELEV OF LEVELS OF TRANSAMNS & LACTIC ACID DEHYDRGNSE (8) Hypomagnesemia Assessment/Plan: on magnesium 400mg bid, but levels still low. will give 1 mag run now and repeat levels in a.m. Code(s): E83.42 - HYPOMAGNESEMIA (9) Prophylactic measure Assessment/Plan: fen tolerating PO monitor electrolytes regular diet lovenox 40mg daily Code(s): Z29.9 - ENCOUNTER FOR PROPHYLACTIC MEASURES, UNSPECIFIED Visit type - Emergency Visit Emergency Visit: Yes ED Registration Date: 02/05/19 Care time: The patient presented to the Emergency Department on the above date and was hospitalized for further evaluation of their emergent condition. - New Patient This patient is new to me today: No - Critical Care Critical Care patient: No - Discharge Referral Referred to [facility] No
[2019-02-15] MEDS: IPRATROPIUM BR 0.02% 0.5 MG/2.5 ML VIAL.NEB. NEB SCH ×4 (09:10→21:15)
[2019-02-15] MEDS: ALBUTEROL SO4 0.083% IH SOL 2.5 MG/3 ML VIAL.NEB. NEB SCH ×4 (09:10→21:15)
[2019-02-15 10:22] LABS: BASO % 0.3 % (0-2.0); HEMATOCRIT 37.1 % (32.4-45.2); HEMOGLOBIN 11.9 GM/dL (10.7-15.3); LYMPH % 8.2 % (8-40); MCHC 32.1 g/dl (32.0-36.0); MEAN CELL VOLUME 99.6 fl (80-96); MEAN PLT VOLUME 9.6 fl (7.5-11.1); NEUT % 82.5 % (42.8-82.8); PLATELET COUNT 127 K/MM3 (134-434); RBC 3.73 M/mm3 (3.60-5.2); RDW 15.2 % (11.6-15.6); WHITE BLOOD COUNT 15.8 K/mm3 (4.0-10.0)
[2019-02-15] MEDS: ENOXAPARIN NA (PORCINE) 40 MG/0.4 ML DISP.SYRIN SQ SCH (10:22)
[2019-02-15] MEDS: PANTOPRAZOLE 20 MG TABLET (FP) PO SCH (10:22)
[2019-02-15] MEDS: MAGNESIUM OXIDE 400 MG TABLET (FP) PO SCH ×2 (10:22→21:52)
[2019-02-15] MEDS: POLYETHYLENE GLYCOL 3350 119 GM BTL PO SCH (10:22)
[2019-02-15 10:52] LABS: ALBUMIN 3.1 g/dl (3.4-5.0); ALK PHOS 138 U/L (45-117); ANION GAP -1 MMOL/L (8-16); BILIRUBIN,TOTAL 0.4 mg/dL (0.2-1); BLOOD UREA NITROGEN 5.5 mg/dL (7-18); CALCIUM 8.8 mg/dL (8.5-10.1); CHLORIDE 93 mmol/L (98-107); CO2 > 45 mmol/L (21-32); CREATININE 0.4 mg/dL (0.55-1.3); GLUCOSE,RANDOM 124 mg/dL (74-106); MAGNESIUM 1.4 mg/dL (1.8-2.4); POTASSIUM 4.3 mmol/L (3.5-5.1); SGOT/AST 15 U/L (15-37); SGPT/ALT 25 U/L (13-61); SODIUM 136 mmol/L (136-145); TOT PROT 6.1 g/dl (6.4-8.2)
[2019-02-15 11:41] LABS: ANISOCYTOSIS 1+; MACROCYTOSIS 1+; PLATELET ESTIMATE DECREASED; TARGET CELLS 2+
[2019-02-15] MEDS ORDERED: MAGNESIUM SULF 50% (8.12 MEQ/2 ML-1 GM VIAL) IVPB ONE (13:00)
[2019-02-15] MEDS ORDERED: MAGNESIUM SULF 50% (8.12 MEQ/2 ML-1 GM VIAL) ONE (14:01)
--- NOTE | 2019-02-15 15:35 | PN ---
Progress Note (short form) - Note Progress Note: Breathing continues to slowly improve. No acute events overnight. Intake & Output 02/12/19 02/13/19 02/14/19 02/15/19 23:59 23:59 23:59 23:59 Intake Total 1010 790 600 100 Balance 1010 790 600 100 Weight 133 lb 127 lb 6.4 oz 125 lb 6.4 oz 125 lb 6 oz Last Vital Signs Temp Pulse Resp BP Pulse Ox 99.4 F 87 20 112/55 L 100 02/15/19 10:00 02/15/19 10:00 02/15/19 10:00 02/15/19 10:00 02/15/19 09:00 Active Medications Acetaminophen (Tylenol -) 650 mg PO Q6H PRN PRN Reason: HEADACHE Al Hydroxide/Mg Hydroxide (Mylanta Oral Suspension -) 30 ml PO Q6HPO [facility] Last Admin: 02/15/19 12:28 Dose: 30 ml Albuterol Sulfate (Ventolin 0.083% Nebulizer Soln -) 1 amp NEB RQID [facility] Last Admin: 02/15/19 11:28 Dose: 1 amp Amoxicillin/Clavulanate Potassium (Augmentin - 875mg Tablet) 1 tab PO BID@0800, 1730 [facility] Last Admin: 02/15/19 08:32 Dose: 1 tab Atorvastatin Calcium (Lipitor -) 20 mg PO HS [facility] Last Admin: 02/14/19 21:42 Dose: 20 mg Docusate Sodium (Colace -) 100 mg PO TID [facility] Last Admin: 02/15/19 14:05 Dose: Not Given Enoxaparin Sodium (Lovenox -) 40 mg SQ DAILY [facility] Last Admin: 02/15/19 10:22 Dose: 40 mg Ipratropium [place] (Atrovent 0.02% Nebulizer -) 1 amp NEB RQID [facility] Last Admin: 02/15/19 11:27 Dose: 1 amp Levothyroxine Sodium (Synthroid -) 50 mcg PO AM [facility] Last Admin: 02/15/19 06:25 Dose: 50 mcg Magnesium Oxide (Mag-Ox -) 400 mg PO BID [facility] Last Admin: 02/15/19 10:22 Dose: 400 mg Ondansetron HCl (Zofran Odt -) 8 mg SL Q8H PRN PRN Reason: NAUSEA AND/OR VOMITING Pantoprazole Sodium (Protonix -) 20 mg PO DAILY [facility] Last Admin: 02/15/19 10:22 Dose: 20 mg Phenol/Menthol (Chloraseptic -) 1 spray MM Q6HPO PRN PRN Reason: SORE THROAT Polyethylene Glycol (Miralax (For Daily Use) -) 17 gm PO DAILY [facility] Last Admin: 02/15/19 10:22 Dose: Not Given Senna (Senna -) 2 tab PO HS [facility] Last Admin: 02/14/19 21:39 Dose: Not Given Gen: NAD Heart: RRR Lung: decreased breath sounds at the bases Abd: soft, nontender Ext: no edema Laboratory Results - last 24 hr 02/15/19 02/15/19 10:08 10:08 WBC 15.8 H RBC 3.73 Hgb 11.9 Hct 37.1 MCV 99.6 H MCH 32.0 MCHC 32.1 RDW 15.2 Plt Count 127 L MPV 9.6 Absolute Neuts (auto) 13.1 H Neutrophils % 82.5 Neutrophils % (Manual) 76.0 Band Neutrophils % 0.0 Lymphocytes % 8.2 D Lymphocytes % (Manual) 11.0 D Monocytes % 8.0 Monocytes % (Manual) 10 D Eosinophils % 1.0 Eosinophils % (Manual) 2.0 D Basophils % 0.3 Basophils % (Manual) 0.0 Myelocytes % (Man) 1 D Promyelocytes % (Man) 0 Blast Cells % (Manual) 0 Nucleated RBC % 0 Metamyelocytes 0 Hypochromia 0 Platelet Estimate Decreased Polychromasia 0 Poikilocytosis 0 Anisocytosis 1+ Microcytosis 0 Macrocytosis 1+ Target Cells 2+ Sodium 136 Potassium 4.3 Chloride 93 L Carbon Dioxide > 45 H Anion Gap -1 L BUN 5.5 L Creatinine 0.4 L Est GFR (CKD-EPI)AfAm 124.04 Est GFR (CKD-EPI)NonAf 107.02 Random Glucose 124 H Calcium 8.8 Magnesium 1.4 L Total Bilirubin 0.4 AST 15 ALT 25 Alkaline Phosphatase 138 H Total Protein 6.1 L Albumin 3.1 L A/P Acute on Chronic Hypercapneic Respiratory Failure improving Severe Scoliosis/Restrictive Lung Disease Pneumonia Sepsis +Troponins likely [place] Ischemia Elevated LFTs Thrombocytopenia Metastatic Ovarian Cancer on chemotherapy Hyperlipidemia Hypothyroidism - antibiotics per ID - O2 to keep spO2 >90% - inhaled bronchodilators - monitor off steroids - NIPPV at night and PRN during the day - PO as tolerated - rehab/PT - DVT prophylaxis Dr Wang
[2019-02-15] MEDS: SENNOSIDES 8.6MG TABLET (FP) PO SCH (21:52)
[2019-02-15] MEDS: ATORVASTATIN CA 20 MG TABLET (FP) PO SCH (21:52)
[2019-02-16] MEDS: MAG HYDROX/AL HYDROX/SIMETH 30 ML UNIT-DOSE CUP PO SCH ×5 (00:10→21:20)
[2019-02-16] MEDS: DOCUSATE SODIUM 100 MG CAPSULE (FP) PO SCH ×4 (06:09→21:21)
[2019-02-16] MEDS: LEVOTHYROXINE NA 50 MCG TABLET (FP) PO SCH (06:09)
[2019-02-16 06:26] LABS: BASO % 0.3 % (0-2.0); EOS % 1.6 % (0-4.5); HEMATOCRIT 36.4 % (32.4-45.2); HEMOGLOBIN 11.8 GM/dL (10.7-15.3); LYMPH % 10.8 % (8-40); MCH 32.3 pg (25.7-33.7); MCHC 32.5 g/dl (32.0-36.0); MEAN CELL VOLUME 99.4 fl (80-96); MEAN PLT VOLUME 9.2 fl (7.5-11.1); MONO % 9.6 % (3.8-10.2); NEUT % 77.7 % (42.8-82.8); PLATELET COUNT 150 K/MM3 (134-434); RBC 3.66 M/mm3 (3.60-5.2); WHITE BLOOD COUNT 13.2 K/mm3 (4.0-10.0)
[2019-02-16 07:34] LABS: ALK PHOS 132 U/L (45-117); ANION GAP 2 MMOL/L (8-16); BILIRUBIN,TOTAL 0.4 mg/dL (0.2-1); BLOOD UREA NITROGEN 5.7 mg/dL (7-18); CALCIUM 8.7 mg/dL (8.5-10.1); CHLORIDE 93 mmol/L (98-107); CO2 > 45 mmol/L (21-32); CREATININE 0.4 mg/dL (0.55-1.3); GLUCOSE,RANDOM 102 mg/dL (74-106); MAGNESIUM 1.5 mg/dL (1.8-2.4); POTASSIUM 4.2 mmol/L (3.5-5.1); SGOT/AST 12 U/L (15-37); SGPT/ALT 20 U/L (13-61); SODIUM 140 mmol/L (136-145)
[2019-02-16] MEDS ORDERED: MAGNESIUM SULF 50% (8.12 MEQ/2 ML-1 GM VIAL) IVPB ONE (07:45)
[2019-02-16] MEDS: ALBUTEROL SO4 0.083% IH SOL 2.5 MG/3 ML VIAL.NEB. NEB SCH (08:00)
[2019-02-16] MEDS: IPRATROPIUM BR 0.02% 0.5 MG/2.5 ML VIAL.NEB. NEB SCH ×4 (08:00→20:22)
[2019-02-16] MEDS ORDERED: PT OWN MED DRAWER 7, Y5N ONE ×2 (09:11→17:46)
[2019-02-16] MEDS: AMOX TR/POT CLAV 875MG/125MG TABLETS (FP) PO SCH ×2 (09:17→17:45)
[2019-02-16] MEDS: ENOXAPARIN NA (PORCINE) 40 MG/0.4 ML DISP.SYRIN SQ SCH (09:17)
[2019-02-16] MEDS: POLYETHYLENE GLYCOL 3350 119 GM BTL PO SCH (09:17)
[2019-02-16] MEDS: PANTOPRAZOLE 20 MG TABLET (FP) PO SCH (09:18)
[2019-02-16] MEDS: MAGNESIUM OXIDE 400 MG TABLET (FP) PO SCH ×2 (09:19→21:19)
--- NOTE | 2019-02-16 09:25 | PN ---
Progress Note, Physician Chief Complaint: sob History of Present Illness: no acute events overnight, feeling better. generalized weakness - Current Medication List Current Medications: Active Medications Acetaminophen (Tylenol -) 650 mg PO Q6H PRN PRN Reason: HEADACHE Al Hydroxide/Mg Hydroxide (Mylanta Oral Suspension -) 30 ml PO Q6HPO [facility] Last Admin: 02/16/19 06:09 Dose: 30 ml Albuterol Sulfate (Ventolin 0.083% Nebulizer Soln -) 1 amp NEB RQID [facility] Last Admin: 02/15/19 21:15 Dose: 1 amp Amoxicillin/Clavulanate Potassium (Augmentin - 875mg Tablet) 1 tab PO BID@0800, 1730 [facility] Last Admin: 02/16/19 09:17 Dose: 1 tab Atorvastatin Calcium (Lipitor -) 20 mg PO HS [facility] Last Admin: 02/15/19 21:52 Dose: 20 mg Docusate Sodium (Colace -) 100 mg PO TID [facility] Last Admin: 02/16/19 06:09 Dose: 100 mg Enoxaparin Sodium (Lovenox -) 40 mg SQ DAILY [facility] Last Admin: 02/16/19 09:17 Dose: 40 mg Ipratropium [place] (Atrovent 0.02% Nebulizer -) 1 amp NEB RQID [facility] Last Admin: 02/15/19 16:14 Dose: 1 amp Levothyroxine Sodium (Synthroid -) 50 mcg PO AM [facility] Last Admin: 02/16/19 06:09 Dose: 50 mcg Magnesium Oxide (Mag-Ox -) 400 mg PO BID [facility] Last Admin: 02/15/19 21:52 Dose: 400 mg Ondansetron HCl (Zofran Odt -) 8 mg SL Q8H PRN PRN Reason: NAUSEA AND/OR VOMITING Pantoprazole Sodium (Protonix -) 20 mg PO DAILY [facility] Last Admin: 02/16/19 09:18 Dose: 20 mg Phenol/Menthol (Chloraseptic -) 1 spray MM Q6HPO PRN PRN Reason: SORE THROAT Polyethylene Glycol (Miralax (For Daily Use) -) 17 gm PO DAILY [facility] Last Admin: 02/16/19 09:17 Dose: 17 grams Senna (Senna -) 2 tab PO HS [facility] Last Admin: 02/15/19 21:52 Dose: 2 tab - Objective Vital Signs: Vital Signs Temperature 97.9 F 06/15/19 06:00 Pulse Rate 95 H 02/16/19 06:00 Respiratory Rate 20 02/16/19 06:00 Blood Pressure 110/64 02/16/19 06:00 O2 Sat by Pulse Oximetry (%) 100 02/15/19 21:00 Constitutional: Yes: No Distress, Calm, Cachectic Cardiovascular: Yes: WNL, Regular Rate and Rhythm Respiratory: Yes: WNL, Regular, CTA Bilaterally (anteriorly) Gastrointestinal: Yes: WNL, Normal Bowel Sounds, Soft Extremities: Yes: WNL Edema: No Labs: CBC, BMP 02/16/19 05:30 02/16/19 05:30 INR, PTT INR 1.17 (0.83-1.09) H 02/11/19 05:30 Problem List - Problems (1) Acute respiratory failure Code(s): J96.00 - ACUTE RESPIRATORY FAILURE, UNSP W HYPOXIA OR HYPERCAPNIA Qualifiers: Respiratory failure complication: hypoxia and hypercapnia Qualified Code(s) : J96.01 - Acute respiratory failure with hypoxia; J96.02 - Acute respiratory failure with hypercapnia (2) Carcinoma of ovary, stage 4 Code(s): C56.9 - MALIGNANT NEOPLASM OF UNSPECIFIED OVARY (3) Elevated WBC count Code(s): D72.829 - ELEVATED WHITE BLOOD CELL COUNT, UNSPECIFIED (4) Hypercapnia Code(s): R06.89 - OTHER ABNORMALITIES OF BREATHING (5) Hypomagnesemia Code(s): E83.42 - HYPOMAGNESEMIA (6) Hyponatremia Code(s): E87.1 - HYPO-OSMOLALITY AND HYPONATREMIA (7) Hypothyroid Code(s): E03.9 - HYPOTHYROIDISM, UNSPECIFIED (8) Pneumonia Code(s): J18.9 - PNEUMONIA, UNSPECIFIED ORGANISM (9) Thrombocytopenia Code(s): D69.6 - THROMBOCYTOPENIA, UNSPECIFIED (10) Transaminitis Code(s): R74.0 - NONSPEC ELEV OF LEVELS OF TRANSAMNS & LACTIC ACID DEHYDRGNSE (11) Weakness Code(s): R53.1 - WEAKNESS Assessment/Plan Assessment: Acute hypoxic/hypercapneic respiratory failure secondary to pneumonia Leukocytosis Stage 4 Ovarian CA TCP Transaminitis Hyponatremia/Hypomagnesemia Plan: Respiratory failure likely secondary to acute pneumonia, extubated 02/07/19, stable supplemental 02 as needed, BIPAP QHS and PRN complete 14 day abx course-today day 11 of abx, on PO augmentin inhaled BD pulm/ID following stage 4 ovarian CA follows with an oncologist at [facility], recent chemotherapy 02/01/19 which patient states was her last treatment for chemo Received Neulasta. Patient was for a follow CT scan of abdomen at [facility] on February 15, 2019 for follow up with her oncologist Oncologist office informed of patient's hospitalization and they will reschedule abdomen CT scan Leukocytosis, improving afebrile, likely due to two Neulasta injections and dexamathasone on 02/01 prior to chemo continue to monitor Hypomag on PO, will give another gram IV TCP/Hyponatremia/Transaminitis, resolved DVT ppx lovenox 40mg daily STR planning
[2019-02-16] MEDS ORDERED: ALBUTEROL SO4 2.5/IPRATROPIUM 0.5 INH SOL 3 ML VIAL.NEB. NEB PRN (09:35)
[2019-02-16] MEDS: ATORVASTATIN CA 20 MG TABLET (FP) PO SCH (21:20)
[2019-02-16] MEDS: SENNOSIDES 8.6MG TABLET (FP) PO SCH (21:21)
[2019-02-17 06:01] LABS: BASO % 0.4 % (0-2.0); HEMATOCRIT 35.7 % (32.4-45.2); HEMOGLOBIN 11.4 GM/dL (10.7-15.3); MCH 31.6 pg (25.7-33.7); MCHC 31.8 g/dl (32.0-36.0); MEAN CELL VOLUME 99.5 fl (80-96); MEAN PLT VOLUME 9.2 fl (7.5-11.1); NEUT % 74.6 % (42.8-82.8); PLATELET COUNT 178 K/MM3 (134-434); RBC 3.59 M/mm3 (3.60-5.2); WHITE BLOOD COUNT 11.9 K/mm3 (4.0-10.0)
[2019-02-17 06:25] LABS: ALBUMIN 3.1 g/dl (3.4-5.0); ALK PHOS 121 U/L (45-117); ANION GAP 2 MMOL/L (8-16); BILIRUBIN,TOTAL 0.5 mg/dL (0.2-1); BLOOD UREA NITROGEN 6.2 mg/dL (7-18); CALCIUM 8.9 mg/dL (8.5-10.1); CHLORIDE 92 mmol/L (98-107); CO2 > 45 mmol/L (21-32); CREATININE 0.4 mg/dL (0.55-1.3); GLUCOSE,RANDOM 101 mg/dL (74-106); MAGNESIUM 1.6 mg/dL (1.8-2.4); POTASSIUM 4.4 mmol/L (3.5-5.1); SGOT/AST 12 U/L (15-37); SGPT/ALT 19 U/L (13-61); SODIUM 140 mmol/L (136-145)
[2019-02-17] MEDS: DOCUSATE SODIUM 100 MG CAPSULE (FP) PO SCH ×3 (06:34→21:01)
[2019-02-17] MEDS: MAG HYDROX/AL HYDROX/SIMETH 30 ML UNIT-DOSE CUP PO SCH ×4 (06:34→18:00)
[2019-02-17] MEDS: LEVOTHYROXINE NA 50 MCG TABLET (FP) PO SCH (06:34)
[2019-02-17] MEDS: IPRATROPIUM BR 0.02% 0.5 MG/2.5 ML VIAL.NEB. NEB SCH ×4 (08:00→20:12)
[2019-02-17] MEDS ORDERED: MAGNESIUM OXIDE 400 MG TABLET (FP) PO ONE (09:01)
--- NOTE | 2019-02-17 09:06 | PN ---
Physical Exam: SUBJECTIVE: Patient seen and examined, is doing better , no sob . no cp , no palpitations, OBJECTIVE: Vital Signs Period Temp Pulse Resp BP Sys/Humphrey Pulse Ox Last 24 Hr 98.2 F-98.6 F 67-99 16-18 96-106/53-77 97-97 GENERAL: The patient is awake, alert, and fully oriented, in no acute distress. HEAD: Normal with no signs of trauma. EYES: PERRL, extraocular movements intact, sclera anicteric, conjunctiva clear. No ptosis. ENT: Ears normal, nares patent, oropharynx clear without exudates, moist mucous membranes. NECK: Trachea midline, full range of motion, supple. LUNGS: Breath sounds equal, clear to auscultation bilaterally, no wheezes, no crackles, no accessory muscle use. HEART: Regular rate and rhythm, S1, S2 without murmur, rub or gallop. ABDOMEN: Soft, nontender, nondistended, normoactive bowel sounds, no guarding, no rebound, no hepatosplenomegaly, no masses. EXTREMITIES: 2+ pulses, warm, well-perfused, no edema. NEUROLOGICAL: Cranial nerves II through XII grossly intact. Normal speech, gait not observed. PSYCH: Normal mood, normal affect. SKIN: Warm, dry, normal turgor, no rashes or lesions noted Laboratory Results - last 24 hr 02/17/19 02/17/19 05:14 05:14 WBC 11.9 H RBC 3.59 L Hgb 11.4 Hct 35.7 MCV 99.5 H MCH 31.6 MCHC 31.8 L RDW 15.0 Plt Count 178 MPV 9.2 Absolute Neuts (auto) 8.9 H Neutrophils % 74.6 Lymphocytes % 13.0 D Monocytes % 10.0 Eosinophils % 2.0 Basophils % 0.4 Nucleated RBC % 0 Sodium 140 Potassium 4.4 Chloride 92 L Carbon Dioxide > 45 H Anion Gap 2 L BUN 6.2 L Creatinine 0.4 L Est GFR (CKD-EPI)AfAm 124.04 Est GFR (CKD-EPI)NonAf 107.02 Random Glucose 101 Calcium 8.9 Magnesium 1.6 L Total Bilirubin 0.5 AST 12 L ALT 19 Alkaline Phosphatase 121 H Total Protein 6.0 L Albumin 3.1 L Active Medications Generic Name Dose Route Start Last Admin Trade Name Freq PRN Reason Stop Dose Admin Acetaminophen 650 mg 02/15/19 08:59 Tylenol - PO Q6H PRN HEADACHE Al Hydroxide/Mg Hydroxide 30 ml 02/11/19 18:07 02/17/19 06:34 Mylanta Oral Suspension - PO 30 ml Q6HPO PAUL Administration Albuterol/Ipratropium 1 amp 02/16/19 09:35 Duoneb - NEB Q6H PRN SHORTNESS OF BREATH Amoxicillin/Clavulanate Potassium 1 tab 02/14/19 08:00 02/16/19 17:45 Augmentin - 875mg Tablet PO 1 tab BID@0800,1730 PAUL Administration Atorvastatin Calcium 20 mg 02/11/19 22:00 02/16/19 21:20 Lipitor - PO 20 mg HS PAUL Administration Docusate Sodium 100 mg 02/11/19 22:00 02/17/19 06:34 Colace - PO 100 mg TID PAUL Administration Enoxaparin Sodium 40 mg 02/12/19 10:00 02/16/19 09:17 Lovenox - SQ 40 mg DAILY PAUL Administration Ipratropium [place] 1 amp 02/11/19 20:00 02/16/19 20:22 Atrovent 0.02% Nebulizer - NEB 1 amp RQID PAUL Administration Levothyroxine Sodium 50 mcg 02/12/19 07:00 02/17/19 06:34 Synthroid - PO 50 mcg AM PAUL Administration Magnesium Oxide 400 mg 02/14/19 22:00 02/16/19 21:19 Mag-Ox - PO 400 mg BID PAUL Administration Magnesium Oxide 400 mg 02/17/19 09:01 Mag-Ox - PO 02/17/19 09:02 ONCE ONE Ondansetron HCl 8 mg 02/11/19 17:07 Zofran Odt - SL Q8H PRN NAUSEA AND/OR VOMITING Pantoprazole Sodium 20 mg 02/12/19 10:00 02/16/19 09:18 Protonix - PO 20 mg DAILY PAUL Administration Phenol/Menthol 1 spray 02/11/19 17:23 Chloraseptic - MM Q6HPO PRN SORE THROAT Polyethylene Glycol 17 gm 02/12/19 10:00 02/16/19 09:17 Miralax (For Daily Use) - PO 17 grams DAILY [facility]UL Administration Senna 2 tab 02/11/19 22:00 02/16/19 21:21 Senna - PO Not Given HS [facility] ASSESSMENT/PLAN: Assessment: Acute hypoxic/hypercapneic respiratory failure secondary to pneumonia Leukocytosis Stage 4 Ovarian CA Transaminitis Hyponatremia/Hypomagnesemia Plan: Respiratory failure likely secondary to acute pneumonia, extubated 02/07/19, stable supplemental 02 as needed, BIPAP QHS and PRN complete 14 day abx course-today day 12, of abx, on PO augmentin inhaled BD pulm/ID following stage 4 ovarian CA follows with an oncologist at [facility], recent chemotherapy 02/01/19 which patient states was her last treatment for chemo Received Neulasta. Patient was for a follow CT scan of abdomen at [facility] on February 15, 2019 for follow up with her oncologist Oncologist office informed of patient's hospitalization and they will reschedule abdomen CT scan Leukocytosis, improving on ABX, continue to monitor Hypomag on PO, will give another gram IV, supplemented with extra dose, TCP/Hyponatremia/Transaminitis, resolved DVT ppx lovenox 40mg daily STR planning Problem List - Problems (1) Acute respiratory failure Code(s): J96.00 - ACUTE RESPIRATORY FAILURE, UNSP W HYPOXIA OR HYPERCAPNIA Qualifiers: Respiratory failure complication: hypoxia and hypercapnia Qualified Code(s) : J96.01 - Acute respiratory failure with hypoxia; J96.02 - Acute respiratory failure with hypercapnia (2) Carcinoma of ovary, stage 4 Code(s): C56.9 - MALIGNANT NEOPLASM OF UNSPECIFIED OVARY (3) Hypomagnesemia Code(s): E83.42 - HYPOMAGNESEMIA (4) Hypothyroid Code(s): E03.9 - HYPOTHYROIDISM, UNSPECIFIED (5) Pneumonia (6) Weakness Code(s): R53.1 - WEAKNESS Visit type - Emergency Visit Emergency Visit: Yes ED Registration Date: 02/05/19 Care time: The patient presented to the Emergency Department on the above date and was hospitalized for further evaluation of their emergent condition. - New Patient This patient is new to me today: Yes Date on this admission: 02/17/19 - Critical Care Critical Care patient: No - Discharge Referral Referred to [facility] Med P.C.: No
[2019-02-17] MEDS: ENOXAPARIN NA (PORCINE) 40 MG/0.4 ML DISP.SYRIN SQ SCH (10:17)
[2019-02-17] MEDS: AMOX TR/POT CLAV 875MG/125MG TABLETS (FP) PO SCH ×2 (10:18→18:00)
[2019-02-17] MEDS: PANTOPRAZOLE 20 MG TABLET (FP) PO SCH (10:18)
[2019-02-17] MEDS: POLYETHYLENE GLYCOL 3350 119 GM BTL PO SCH (10:18)
[2019-02-17] MEDS: MAGNESIUM OXIDE 400 MG TABLET (FP) PO SCH ×2 (10:18→22:16)
[2019-02-17] MEDS: SENNOSIDES 8.6MG TABLET (FP) PO SCH (21:01)
[2019-02-17] MEDS: ATORVASTATIN CA 20 MG TABLET (FP) PO SCH (22:16)
[2019-02-18] MEDS: DOCUSATE SODIUM 100 MG CAPSULE (FP) PO SCH ×3 (05:53→21:32)
[2019-02-18 06:09] LABS: BASO % 0.6 % (0-2.0); EOS % 1.8 % (0-4.5); HEMATOCRIT 35.6 % (32.4-45.2); HEMOGLOBIN 11.5 GM/dL (10.7-15.3); LYMPH % 18.5 % (8-40); MCH 32.2 pg (25.7-33.7); MCHC 32.4 g/dl (32.0-36.0); MEAN CELL VOLUME 99.3 fl (80-96); MEAN PLT VOLUME 9.1 fl (7.5-11.1); MONO % 15.8 % (3.8-10.2); NEUT % 63.3 % (42.8-82.8); PLATELET COUNT 204 K/MM3 (134-434); RBC 3.59 M/mm3 (3.60-5.2); RDW 14.9 % (11.6-15.6); WHITE BLOOD COUNT 7.9 K/mm3 (4.0-10.0)
[2019-02-18] MEDS: LEVOTHYROXINE NA 50 MCG TABLET (FP) PO SCH (06:40)
[2019-02-18] MEDS: MAG HYDROX/AL HYDROX/SIMETH 30 ML UNIT-DOSE CUP PO SCH ×4 (06:40→17:30)
[2019-02-18 06:48] LABS: ALK PHOS 117 U/L (45-117); ANION GAP 4 MMOL/L (8-16); BILIRUBIN,TOTAL 0.4 mg/dL (0.2-1); BLOOD UREA NITROGEN 7.8 mg/dL (7-18); CALCIUM 8.7 mg/dL (8.5-10.1); CHLORIDE 92 mmol/L (98-107); CO2 > 45 mmol/L (21-32); CREATININE 0.4 mg/dL (0.55-1.3); GLUCOSE,RANDOM 96 mg/dL (74-106); MAGNESIUM 1.4 mg/dL (1.8-2.4); POTASSIUM 4.1 mmol/L (3.5-5.1); SGOT/AST 11 U/L (15-37); SGPT/ALT 18 U/L (13-61); SODIUM 140 mmol/L (136-145); TOT PROT 6.2 g/dl (6.4-8.2)
[2019-02-18] MEDS: IPRATROPIUM BR 0.02% 0.5 MG/2.5 ML VIAL.NEB. NEB SCH ×3 (08:28→15:32)
[2019-02-18] MEDS ORDERED: MAGNESIUM SULF 50% (8.12 MEQ/2 ML-1 GM VIAL) IVPB ONE (08:30)
[2019-02-18] MEDS: AMOX TR/POT CLAV 875MG/125MG TABLETS (FP) PO SCH ×2 (08:51→17:25)
[2019-02-18] MEDS: POLYETHYLENE GLYCOL 3350 119 GM BTL PO SCH (09:42)
[2019-02-18] MEDS: ENOXAPARIN NA (PORCINE) 40 MG/0.4 ML DISP.SYRIN SQ SCH (09:43)
[2019-02-18] MEDS: MAGNESIUM OXIDE 400 MG TABLET (FP) PO SCH ×2 (09:43→21:31)
[2019-02-18] MEDS: PANTOPRAZOLE 20 MG TABLET (FP) PO SCH (09:44)
--- NOTE | 2019-02-18 10:37 | PN ---
Progress Note, Physician - Current Medication List Current Medications: Active Medications Acetaminophen (Tylenol -) 650 mg PO Q6H PRN PRN Reason: HEADACHE Al Hydroxide/Mg Hydroxide (Mylanta Oral Suspension -) 30 ml PO Q6HPO [facility] Last Admin: 02/18/19 06:40 Dose: 30 ml Albuterol/Ipratropium (Duoneb -) 1 amp NEB Q6H PRN PRN Reason: SHORTNESS OF BREATH Amoxicillin/Clavulanate Potassium (Augmentin - 875mg Tablet) 1 tab PO BID@0800, 1730 [facility] Last Admin: 02/18/19 08:51 Dose: 1 tab Atorvastatin Calcium (Lipitor -) 20 mg PO HS [facility] Last Admin: 02/17/19 22:16 Dose: 20 mg Docusate Sodium (Colace -) 100 mg PO TID [facility] Last Admin: 02/18/19 05:53 Dose: Not Given Enoxaparin Sodium (Lovenox -) 40 mg SQ DAILY [facility] Last Admin: 02/18/19 09:43 Dose: 40 mg Ipratropium [place] (Atrovent 0.02% Nebulizer -) 1 amp NEB RQID [facility] Last Admin: 02/17/19 20:12 Dose: 1 amp Levothyroxine Sodium (Synthroid -) 50 mcg PO AM [facility] Last Admin: 02/18/19 06:40 Dose: 50 mcg Magnesium Oxide (Mag-Ox -) 400 mg PO BID [facility] Last Admin: 02/18/19 09:43 Dose: 400 mg Ondansetron HCl (Zofran Odt -) 8 mg SL Q8H PRN PRN Reason: NAUSEA AND/OR VOMITING Pantoprazole Sodium (Protonix -) 20 mg PO DAILY [facility] Last Admin: 02/18/19 09:44 Dose: 20 mg Phenol/Menthol (Chloraseptic -) 1 spray MM Q6HPO PRN PRN Reason: SORE THROAT Polyethylene Glycol (Miralax (For Daily Use) -) 17 gm PO DAILY [facility] Last Admin: 02/18/19 09:42 Dose: Not Given Senna (Senna -) 2 tab PO HS [facility] Last Admin: 02/17/19 21:01 Dose: Not Given - Objective Vital Signs: Vital Signs Temperature 98.5 F 02/18/19 00:00 Pulse Rate 90 02/18/19 07:35 Respiratory Rate 16 02/18/19 07:35 Blood Pressure 96/55 L 02/18/19 07:35 O2 Sat by Pulse Oximetry (%) 100 02/17/19 21:00 Labs: CBC, BMP 02/18/19 05:30 02/18/19 05:30 INR, PTT INR 1.17 (0.83-1.09) H 02/11/19 05:30 Problem List - Problems (1) Acute respiratory failure Code(s): J96.00 - ACUTE RESPIRATORY FAILURE, UNSP W HYPOXIA OR HYPERCAPNIA Qualifiers: Respiratory failure complication: hypoxia and hypercapnia Qualified Code(s) : J96.01 - Acute respiratory failure with hypoxia; J96.02 - Acute respiratory failure with hypercapnia (2) Carcinoma of ovary, stage 4 Code(s): C56.9 - MALIGNANT NEOPLASM OF UNSPECIFIED OVARY (3) Elevated WBC count Code(s): D72.829 - ELEVATED WHITE BLOOD CELL COUNT, UNSPECIFIED (4) Hyponatremia Code(s): E87.1 - HYPO-OSMOLALITY AND HYPONATREMIA (5) Pneumonia Code(s): J18.9 - PNEUMONIA, UNSPECIFIED ORGANISM (6) Thrombocytopenia Code(s): D69.6 - THROMBOCYTOPENIA, UNSPECIFIED (7) Transaminitis Code(s): R74.0 - NONSPEC ELEV OF LEVELS OF TRANSAMNS & LACTIC ACID DEHYDRGNSE (8) Hypomagnesemia Code(s): E83.42 - HYPOMAGNESEMIA (9) Prophylactic measure Code(s): Z29.9 - ENCOUNTER FOR PROPHYLACTIC MEASURES, UNSPECIFIED
--- NOTE | 2019-02-18 10:38 | PN ---
Progress Note, Physician Chief Complaint: still reports malaise, shortness of breath History of Present Illness: desats on room air to 83%. will repeat chest xray. patient refusing STR at this time. hypotensive this a.m. Patient is a 68 year old female with a significant past medical history of HLD , hypothyroidism, GERD, asthma and stage 4 recurrent ovarian cancer (s/p chemo w / Taxol and carboplatin-last dose 02/01/19), complicated by peritoneal carcinomatosis (followed by [facility] oncologist). She presents to the ED for evaluation of malaise, upper extremity weakness and dyspnea x 5 days. Her symptoms started after her chemo session last Monday02/01/2019. She reports dizziness, malaise, dyspnea, upper extremity weakness (unable to hold objects in her hand) and decreased appetite. She denies chest pain. Her oncologist is Dr. Apple Hoyt ([facility] -[phone]). Their office confirmed that patient received two Neulasta injections;1st dose of January 11 and 2nd dose of Neulasta on February 01 after chemotherapy. She also received Dexamethasone 10mg prior to chemotherapy on 02/01/2019. Patient has agreed to pulmonary rehab, her oxygen levels are low and when oxygen is withdrawn, she drops to 83% on room air. Discussed with her that if she is to seek further chemo treatments, she will need to be stronger and pulmonary rehab may be a good option for her. She is now in agreement. - Current Medication List Current Medications: Active Medications Acetaminophen (Tylenol -) 650 mg PO Q6H PRN PRN Reason: HEADACHE Al Hydroxide/Mg Hydroxide (Mylanta Oral Suspension -) 30 ml PO Q6HPO [facility] Last Admin: 02/18/19 06:40 Dose: 30 ml Albuterol/Ipratropium (Duoneb -) 1 amp NEB Q6H PRN PRN Reason: SHORTNESS OF BREATH Amoxicillin/Clavulanate Potassium (Augmentin - 875mg Tablet) 1 tab PO BID@0800, 1730 [facility] Last Admin: 02/18/19 08:51 Dose: 1 tab Atorvastatin Calcium (Lipitor -) 20 mg PO HS [facility] Last Admin: 02/17/19 22:16 Dose: 20 mg Docusate Sodium (Colace -) 100 mg PO TID [facility] Last Admin: 02/18/19 05:53 Dose: Not Given Enoxaparin Sodium (Lovenox -) 40 mg SQ DAILY [facility] Last Admin: 02/18/19 09:43 Dose: 40 mg Ipratropium [place] (Atrovent 0.02% Nebulizer -) 1 amp NEB RQID [facility] Last Admin: 02/17/19 20:12 Dose: 1 amp Levothyroxine Sodium (Synthroid -) 50 mcg PO AM [facility] Last Admin: 02/18/19 06:40 Dose: 50 mcg Magnesium Oxide (Mag-Ox -) 400 mg PO BID [facility] Last Admin: 02/18/19 09:43 Dose: 400 mg Ondansetron HCl (Zofran Odt -) 8 mg SL Q8H PRN PRN Reason: NAUSEA AND/OR VOMITING Pantoprazole Sodium (Protonix -) 20 mg PO DAILY [facility] Last Admin: 02/18/19 09:44 Dose: 20 mg Phenol/Menthol (Chloraseptic -) 1 spray MM Q6HPO PRN PRN Reason: SORE THROAT Polyethylene Glycol (Miralax (For Daily Use) -) 17 gm PO DAILY [facility] Last Admin: 02/18/19 09:42 Dose: Not Given Senna (Senna -) 2 tab PO HS [facility] Last Admin: 02/17/19 21:01 Dose: Not Given - Objective Vital Signs: Vital Signs Temperature 98.5 F 02/18/19 00:00 Pulse Rate 90 02/18/19 07:35 Respiratory Rate 16 02/18/19 07:35 Blood Pressure 96/55 L 02/18/19 07:35 O2 Sat by Pulse Oximetry (%) 100 02/17/19 21:00 Constitutional: Yes: Calm Eyes: Yes: WNL HENT: Yes: Atraumatic Neck: Yes: Supple Cardiovascular: Yes: Regular Rate and Rhythm Respiratory: Yes: On BiPap, On Nasal O2, Poor Air Entry, Rales, SOB, SOB on Exertion, Other (crackles from right mid lower to right lower lobe. dyspena on minimal exertion.) Gastrointestinal: Yes: Normal Bowel Sounds ...Rectal Exam: Yes: Deferred Extremities: Yes: WNL Neurological: Yes: Alert, Oriented Psychiatric: Yes: WNL Labs: CBC, BMP 06/17/19 05:30 02/18/19 05:30 INR, PTT INR 1.17 (0.83-1.09) H 02/11/19 05:30 - ....Imaging Chest X-ray: Report Reviewed Problem List - Problems (1) Acute respiratory failure Assessment/Plan: Chest CT 02/13/19: development of atelectasis on LLL, lungs with bibaslar congestive changes with air bronchospams. chest xray 02/18/19: improvement of right lung congestion. Although chest xray today shows improvement, she is unable to be weaned off oxygen at this time. She remains on 2-3 liters of nasal cannula with oxygen saturations above 90%, however, off oxygen, she desats to 83%. She is not home oxygen dependent. Patient intubated on 02/05/19 for acute respiratory failure and retention of CO2. She was extubated 02/07/2019 and is on Bipap at night and PRN. She will complete Augmentin tomorrow 02/19/19. She will benefit from pulmonary rehab and patient is an agreement to go. SW aware. Code(s): J96.00 - ACUTE RESPIRATORY FAILURE, UNSP W HYPOXIA OR HYPERCAPNIA Qualifiers: Respiratory failure complication: hypoxia and hypercapnia Qualified Code(s) : J96.01 - Acute respiratory failure with hypoxia; J96.02 - Acute respiratory failure with hypercapnia (2) Carcinoma of ovary, stage 4 Assessment/Plan: Follows with an oncologist at [facility], recent chemotherapy 02/01/19 which patient states was her last treatment for chemo Received Neulasta. Patient was for a follow CT scan of abdomen at [facility] on February 15 for follow up with her oncologist. Oncologist office informed of patient's hospitalization and they will reschedule abdomen CT scan. Code(s): C56.9 - MALIGNANT NEOPLASM OF UNSPECIFIED OVARY (3) Elevated WBC count Assessment/Plan: Leukocytosis resolved. Afebrile, immunocompromised. Patient has received two Neulasta injections with her oncologist and dexamathasone on 02/01 prior to chemo. Code(s): D72.829 - ELEVATED WHITE BLOOD CELL COUNT, UNSPECIFIED (4) Hyponatremia Assessment/Plan: Monitor CMP daily. Code(s): E87.1 - HYPO-OSMOLALITY AND HYPONATREMIA (5) Pneumonia Assessment/Plan: Chest CT/CTA shows No PE but with a right sided and trace left sided pleural effusion. BC cultures negative to date. IV solumedrol discontinued. pulmonary following. on Augmentin day 13 of 14. Code(s): J18.9 - PNEUMONIA, UNSPECIFIED ORGANISM (6) Thrombocytopenia Assessment/Plan: Platelets stable. Maintain bleeding precautions. maintain platelets above 80. Code(s): D69.6 - THROMBOCYTOPENIA, UNSPECIFIED (7) Transaminitis Assessment/Plan: resolved. daily monitoring. Code(s): R74.0 - NONSPEC ELEV OF LEVELS OF TRANSAMNS & LACTIC ACID DEHYDRGNSE (8) Hypomagnesemia Assessment/Plan: on magnesium 400mg bid, but levels still low. given mag 2k run now. Code(s): E83.42 - HYPOMAGNESEMIA (9) Scoliosis Assessment/Plan: scoliosis deformity likely affecting pulmonary function. for pulmonary rehab. Code(s): M41.9 - SCOLIOSIS, UNSPECIFIED (10) Prophylactic measure Assessment/Plan: fen tolerating PO monitor electrolytes regular diet lovenox 40mg daily Code(s): Z29.9 - ENCOUNTER FOR PROPHYLACTIC MEASURES, UNSPECIFIED Visit type - Emergency Visit Emergency Visit: Yes ED Registration Date: 02/05/19 Care time: The patient presented to the Emergency Department on the above date and was hospitalized for further evaluation of their emergent condition. - New Patient This patient is new to me today: No - Critical Care Critical Care patient: No - Discharge Referral Referred to [facility] Med P.C.: No
--- NOTE | 2019-02-18 11:49 | PN ---
Progress Note (short form) - Note Progress Note: Resting in NAD. Breathing is non-labored. No acute events overnight. CXR: continued clearing of the right pleural/parenchymal changes Intake & Output 02/15/19 02/16/19 02/17/19 02/18/19 23:59 23:59 23:59 23:59 Intake Total 750 680 470 110 Output Total 300 Balance 750 380 470 110 Weight 125 lb 6 oz 118 lb 14.4 oz 118 lb 3.2 oz 121 lb 11.123 oz Last Vital Signs Temp Pulse Resp BP Pulse Ox 98.5 F 90 16 96/55 L 100 02/18/19 00:00 02/18/19 07:35 02/18/19 07:35 02/18/19 07:35 02/17/19 21:00 Active Medications Acetaminophen (Tylenol -) 650 mg PO Q6H PRN PRN Reason: HEADACHE Al Hydroxide/Mg Hydroxide (Mylanta Oral Suspension -) 30 ml PO Q6HPO [facility] Last Admin: 02/18/19 06:40 Dose: 30 ml Albuterol/Ipratropium (Duoneb -) 1 amp NEB Q6H PRN PRN Reason: SHORTNESS OF BREATH Amoxicillin/Clavulanate Potassium (Augmentin - 875mg Tablet) 1 tab PO BID@0800, 1730 [facility] Last Admin: 02/18/19 08:51 Dose: 1 tab Atorvastatin Calcium (Lipitor -) 20 mg PO HS [facility] Last Admin: 02/17/19 22:16 Dose: 20 mg Docusate Sodium (Colace -) 100 mg PO TID [facility] Last Admin: 02/18/19 05:53 Dose: Not Given Enoxaparin Sodium (Lovenox -) 40 mg SQ DAILY [facility] Last Admin: 02/18/19 09:43 Dose: 40 mg Ipratropium [place] (Atrovent 0.02% Nebulizer -) 1 amp NEB RQID [facility] Last Admin: 02/17/19 20:12 Dose: 1 amp Levothyroxine Sodium (Synthroid -) 50 mcg PO AM [facility] Last Admin: 02/18/19 06:40 Dose: 50 mcg Magnesium Oxide (Mag-Ox -) 400 mg PO BID [facility] Last Admin: 02/18/19 09:43 Dose: 400 mg Ondansetron HCl (Zofran Odt -) 8 mg SL Q8H PRN PRN Reason: NAUSEA AND/OR VOMITING Pantoprazole Sodium (Protonix -) 20 mg PO DAILY [facility] Last Admin: 02/18/19 09:44 Dose: 20 mg Phenol/Menthol (Chloraseptic -) 1 spray MM Q6HPO PRN PRN Reason: SORE THROAT Polyethylene Glycol (Miralax (For Daily Use) -) 17 gm PO DAILY [facility] Last Admin: 02/18/19 09:42 Dose: Not Given Senna (Senna -) 2 tab PO HS [facility] Last Admin: 02/17/19 21:01 Dose: Not Given Gen: NAD Heart: RRR Lung: decreased breath sounds at the bases, few scattered rhonchi Abd: soft, nontender Ext: no edema Laboratory Results - last 24 hr 02/18/19 02/18/19 05:30 05:30 WBC 7.9 RBC 3.59 L Hgb 11.5 Hct 35.6 MCV 99.3 H MCH 32.2 MCHC 32.4 RDW 14.9 Plt Count 204 MPV 9.1 Absolute Neuts (auto) 5.0 Neutrophils % 63.3 Lymphocytes % 18.5 D Monocytes % 15.8 H Eosinophils % 1.8 Basophils % 0.6 Nucleated RBC % 0 Sodium 140 Potassium 4.1 Chloride 92 L Carbon Dioxide > 45 H Anion Gap 4 L BUN 7.8 Creatinine 0.4 L Est GFR (CKD-EPI)AfAm 124.04 Est GFR (CKD-EPI)NonAf 107.02 Random Glucose 96 Calcium 8.7 Magnesium 1.4 L Total Bilirubin 0.4 AST 11 L ALT 18 Alkaline Phosphatase 117 Total Protein 6.2 L Albumin 3.0 L TSH 3.85 H A/P Acute on Chronic Hypercapneic Respiratory Failure improving Severe Scoliosis/Restrictive Lung Disease Pneumonia Sepsis +Troponins likely Demand Ischemia Elevated LFTs Thrombocytopenia Metastatic Ovarian Cancer on chemotherapy Hyperlipidemia Hypothyroidism - antibiotics per ID - O2 to keep spO2 >90% - inhaled bronchodilators - monitor off steroids - NIPPV at night and PRN during the day - PO as tolerated - rehab/PT - DVT prophylaxis Dr Wang
--- NOTE | 2019-02-18 12:33 | PN ---
Progress Note (short form) - Note Progress Note: asked to re-evaluate by hospitalist she has diarrhea when she takes miralax no diarrhea today no abdominal pain Vital Signs Period Temp Pulse Resp BP Sys/Humphrey Pulse Ox Last 24 Hr 98.5 F 71-94 16-22 95-103/51-80 100 no thrush cor-rrr lungs decreased bs at bases abd soft,nt ext no edema cxray improved right base - now clear CBC, BMP 02/18/19 05:30 02/18/19 05:30 Microbiology 02/05/19 14:14 Blood - Peripheral Venous Blood Culture - Final NO GROWTH AFTER 5 DAYS INCUBATION 02/05/19 13:40 Blood - Peripheral Venous Blood Culture - Final NO GROWTH AFTER 5 DAYS INCUBATION 02/06/19 09:45 Sputum - Endotrachea Suction/Ventilator Gram Stain - Final 02/06/19 09:45 Sputum - Endotrachea Suction/Ventilator Sputum Culture - Final NORMAL RESPIRATORY MONICA 02/06/19 09:45 Urine - Urine Sow Legionella Antigen - Final 02/06/19 09:45 Urine - Urine Sow Streptococcus pneumoniae Antigen (M - Final 02/05/19 13:51 Urine - Urine Clean Catch Urine Culture - Final NO GROWTH OBTAINED a/p leukocytosis-resolved pneumonia-cxray markedly improved completing augmentin- day #13 of 14 encourage incentive spirometry metastatic ovarian cancer scoliosis please call back if needed Problem List - Problems (1) Carcinoma of ovary, stage 4 Code(s): C56.9 - MALIGNANT NEOPLASM OF UNSPECIFIED OVARY (2) Acute respiratory failure Code(s): J96.00 - ACUTE RESPIRATORY FAILURE, UNSP W HYPOXIA OR HYPERCAPNIA Qualifiers: Respiratory failure complication: hypoxia and hypercapnia Qualified Code(s) : J96.01 - Acute respiratory failure with hypoxia; J96.02 - Acute respiratory failure with hypercapnia (3) Pneumonia Code(s): J18.9 - PNEUMONIA, UNSPECIFIED ORGANISM
[2019-02-18 14:25] VITALS: BMI 24.4
[2019-02-18] MEDS ORDERED: PT OWN MED DRAWER 7, Y5N ONE (17:24)
[2019-02-18 20:52] LABS: ALBUMIN 2.9 g/dl (3.4-5.0); ALK PHOS 111 U/L (45-117); ANION GAP 4 MMOL/L (8-16); BILIRUBIN,TOTAL 0.3 mg/dL (0.2-1); BLOOD UREA NITROGEN 8.9 mg/dL (7-18); CALCIUM 8.9 mg/dL (8.5-10.1); CHLORIDE 89 mmol/L (98-107); CO2 > 45 mmol/L (21-32); CREATININE 0.5 mg/dL (0.55-1.3); GLUCOSE,RANDOM 161 mg/dL (74-106); MAGNESIUM 1.7 mg/dL (1.8-2.4); SGOT/AST 13 U/L (15-37); SGPT/ALT 18 U/L (13-61); SODIUM 137 mmol/L (136-145)
[2019-02-18] MEDS: ATORVASTATIN CA 20 MG TABLET (FP) PO SCH (21:31)
[2019-02-18] MEDS: SENNOSIDES 8.6MG TABLET (FP) PO SCH (21:32)
[2019-02-19] MEDS: MAG HYDROX/AL HYDROX/SIMETH 30 ML UNIT-DOSE CUP PO SCH ×4 (06:00→17:59)
[2019-02-19] MEDS: DOCUSATE SODIUM 100 MG CAPSULE (FP) PO SCH ×3 (06:00→21:34)
[2019-02-19] MEDS: LEVOTHYROXINE NA 50 MCG TABLET (FP) PO SCH (06:00)
--- NOTE | 2019-02-19 07:29 | PN ---
Progress Note, Physician History of Present Illness: 68 year old latvian-speaking female with a past medical history of metastatic ovarian cancer with peritoneal carcinomatosis presents to the hospital for generalized weakness and shortness of breath since Monday. States that she received chemotherapy (carbotaxol) on Monday, and since then has been short of breath on exertion with weakness, decreased appetite and poor PO intake. States that she also has been suffering from a cough productive of yellow sputum. Denies any over chest pain, shortness of breath at rest, nausea, vomiting, diarrhea, fevers, chills. Denies any swelling in her legs, headache, vision changes, dysuria, abdominal pain. Denies recent travel or sick contacts. Patient is from [facility] and has no children. Lives alone at home with an aid for 1/4th of the day and ambulates with a walker. Reports difficulty in ambulating after her chemotherapy treatment. She follows with Oncologist Dr. Hoyt at [facility] Reports being diagnosed with ovarian CA in 2017 and had a surgery to resect ovaries. On admission to the ED, patient was saturating in the 60s with a respiratory acidosis on VBG and concern was risen about respiratory status and need for ICU monitoring. - Current Medication List Current Medications: Active Medications Acetaminophen (Tylenol -) 650 mg PO Q6H PRN PRN Reason: HEADACHE Al Hydroxide/Mg Hydroxide (Mylanta Oral Suspension -) 30 ml PO Q6HPO [facility] Last Admin: 02/19/19 06:00 Dose: 30 ml Albuterol/Ipratropium (Duoneb -) 1 amp NEB Q6H PRN PRN Reason: SHORTNESS OF BREATH Amoxicillin/Clavulanate Potassium (Augmentin - 875mg Tablet) 1 tab PO BID@0800, 1730 [facility] Last Admin: 02/18/19 17:25 Dose: 1 tab Atorvastatin Calcium (Lipitor -) 20 mg PO HS [facility] Last Admin: 02/18/19 21:31 Dose: 20 mg Docusate Sodium (Colace -) 100 mg PO TID [facility] Last Admin: 02/19/19 06:00 Dose: Not Given Enoxaparin Sodium (Lovenox -) 40 mg SQ DAILY [facility] Last Admin: 02/18/19 09:43 Dose: 40 mg Ipratropium [place] (Atrovent 0.02% Nebulizer -) 1 amp NEB RQID [facility] Last Admin: 02/18/19 15:32 Dose: 1 amp Levothyroxine Sodium (Synthroid -) 50 mcg PO AM [facility] Last Admin: 02/19/19 06:00 Dose: 50 mcg Magnesium Oxide (Mag-Ox -) 400 mg PO BID [facility] Last Admin: 02/18/19 21:31 Dose: 400 mg Ondansetron HCl (Zofran Odt -) 8 mg SL Q8H PRN PRN Reason: NAUSEA AND/OR VOMITING Pantoprazole Sodium (Protonix -) 20 mg PO DAILY [facility] Last Admin: 02/18/19 09:44 Dose: 20 mg Phenol/Menthol (Chloraseptic -) 1 spray MM Q6HPO PRN PRN Reason: SORE THROAT Polyethylene Glycol (Miralax (For Daily Use) -) 17 gm PO DAILY [facility] Last Admin: 02/18/19 09:42 Dose: Not Given Senna (Senna -) 2 tab PO HS [facility] Last Admin: 02/18/19 21:32 Dose: Not Given - Objective Vital Signs: Vital Signs Temperature 97.8 F 02/19/19 02:00 Pulse Rate 85 02/19/19 06:00 Respiratory Rate 22 H 02/19/19 06:00 Blood Pressure 99/54 L 02/19/19 06:00 O2 Sat by Pulse Oximetry (%) 100 02/18/19 20:23 Constitutional: Yes: Well Nourished, No Distress, Calm, Thin Eyes: Yes: WNL, Conjunctiva Clear, EOM Intact HENT: Yes: WNL, Atraumatic, Normocephalic, Pharyngeal Erythema, Other Neck: Yes: WNL, Supple, Trachea Midline Cardiovascular: Yes: WNL, Regular Rate and Rhythm Respiratory: Yes: WNL, Regular, Diminished (at bases) Gastrointestinal: Yes: WNL, Normal Bowel Sounds, Soft ...Rectal Exam: Yes: Deferred Genitourinary: Yes: WNL Musculoskeletal: Yes: WNL Extremities: Yes: WNL Edema: Yes Edema: LLE: Trace, RLE: Trace Peripheral Pulses WNL: Yes Integumentary: Yes: WNL Neurological: Yes: WNL, Alert, Oriented (latvian speaking) ...Motor Strength: WNL Psychiatric: Yes: WNL, Alert, Oriented Labs: CBC, BMP 02/18/19 05:30 02/18/19 19:20 INR, PTT INR 1.17 (0.83-1.09) H 02/11/19 05:30 - ....Imaging Chest X-ray: Report Reviewed, Image Reviewed Problem List - Problems (1) Acute respiratory failure Assessment/Plan: patient on intermittent NIPPV at night and PRN during the day Will request for Tiliogy for home use -Patient has had multiple readmissions in recent months with conditions worsening due to patients chronic respiratory failure and advancement of COPD along with lack of gas exchange. Patient requires ventilation via ventilator bipap is no longer effective in treatment and if left untreated may result in harm to patient -incentive spirometry and chest PT -continue inhaled bronchodilators -supplemental O2 to maintain O2 <92-presently 2L Code(s): J96.00 - ACUTE RESPIRATORY FAILURE, UNSP W HYPOXIA OR HYPERCAPNIA Qualifiers: Respiratory failure complication: hypoxia and hypercapnia Qualified Code(s) : J96.01 - Acute respiratory failure with hypoxia; J96.02 - Acute respiratory failure with hypercapnia (2) Carcinoma of ovary, stage 4 Assessment/Plan: -gets treatment at [facility] Code(s): C56.9 - MALIGNANT NEOPLASM OF UNSPECIFIED OVARY (3) Elevated brain natriuretic peptide (BNP) level Assessment/Plan: resolved Code(s): R79.89 - OTHER SPECIFIED ABNORMAL FINDINGS OF BLOOD CHEMISTRY (4) Hypercapnia Assessment/Plan: resolved with positive pressure ventilation NIPPV as needed & while sleeping or napping Code(s): R06.89 - OTHER ABNORMALITIES OF BREATHING (5) Hyponatremia Assessment/Plan: resolved Na 137 maintian on NS free water restriction when taking fluids monitor daily CMP Code(s): E87.1 - HYPO-OSMOLALITY AND HYPONATREMIA (6) Hypoxia Assessment/Plan: 2/2 RLL pneumonia resolving; patient is immunocompromised - all cultures NGTD -continue with supplemental O2 with BiPap as needed Code(s): R09.02 - HYPOXEMIA (7) Pneumonia Assessment/Plan: - RLL pneumonia; patient is immunocompromised -ID following and appreciate Cx as followin02/06/19 09:45 Sputum - Endotrachea Suction/Ventilator Sputum Culture - Preliminary NORMAL RESPIRATORY MONICA 02/05/19 14:14 Blood NGTD 02/05/19 13:40 Blood NGTD 02/06/19 09:45 Urine Legionella Antigen 02/06/19 09:45 Urine - Streptococcus pneumoniae Antigen Sow 02/05/19 13:51 Urine - Urine Clean Catch NGTD clean catch Code(s): J18.9 - PNEUMONIA, UNSPECIFIED ORGANISM (8) Prophylactic measure Assessment/Plan: FEN monitor daily CMP tolerating diet High riskfor DVT SCDs in place PPI BID Dispo -Remains in ICU with telemetry monitoring full code discharge palnning-requested service at home Code(s): Z29.9 - ENCOUNTER FOR PROPHYLACTIC MEASURES, UNSPECIFIED (9) Thrombocytopenia Assessment/Plan: -resolved -daily cbc Code(s): D69.6 - THROMBOCYTOPENIA, UNSPECIFIED (10) Transaminitis Assessment/Plan: -resolved - RUQ ultrasound showed fatty liver -hepatitis panel negative Code(s): R74.0 - NONSPEC ELEV OF LEVELS OF TRANSAMNS & LACTIC ACID DEHYDRGNSE (11) Admitted to intensive care unit Assessment/Plan: remains in ICU awaitng tele bed appreciate Critical Care mananagement pending transfer to floor Code(s): Z78.9 - OTHER SPECIFIED HEALTH STATUS Visit type - Emergency Visit Emergency Visit: Yes ED Registration Date: 02/05/19 Care time: The patient presented to the Emergency Department on the above date and was hospitalized for further evaluation of their emergent condition. - New Patient This patient is new to me today: No - Critical Care Critical Care patient: No - Discharge Referral Referred to [facility] Med P.C.: No
[2019-02-19] MEDS ORDERED: PT OWN MED DRAWER 7, Y5N ONE ×2 (08:04→17:28)
[2019-02-19] MEDS: IPRATROPIUM BR 0.02% 0.5 MG/2.5 ML VIAL.NEB. NEB SCH ×4 (08:05→19:55)
[2019-02-19] MEDS: AMOX TR/POT CLAV 875MG/125MG TABLETS (FP) PO SCH ×2 (08:07→17:29)
[2019-02-19 09:27] LABS: BASO % 0.6 % (0-2.0); HEMATOCRIT 35.9 % (32.4-45.2); HEMOGLOBIN 11.7 GM/dL (10.7-15.3); LYMPH % 20.9 % (8-40); MCH 32.5 pg (25.7-33.7); MCHC 32.6 g/dl (32.0-36.0); MEAN CELL VOLUME 99.6 fl (80-96); MONO % 14.6 % (3.8-10.2); NEUT % 62.9 % (42.8-82.8); PLATELET COUNT 243 K/MM3 (134-434); WHITE BLOOD COUNT 6.6 K/mm3 (4.0-10.0)
[2019-02-19 10:18] LABS: ALBUMIN 3.2 g/dl (3.4-5.0); ALK PHOS 115 U/L (45-117); ANION GAP 2 MMOL/L (8-16); BILIRUBIN,TOTAL 0.5 mg/dL (0.2-1); BLOOD UREA NITROGEN 7.7 mg/dL (7-18); CALCIUM 9.3 mg/dL (8.5-10.1); CHLORIDE 90 mmol/L (98-107); CO2 > 45 mmol/L (21-32); CREATININE 0.4 mg/dL (0.55-1.3); GLUCOSE,RANDOM 94 mg/dL (74-106); POTASSIUM 4.5 mmol/L (3.5-5.1); SGOT/AST 14 U/L (15-37); SGPT/ALT 18 U/L (13-61); SODIUM 137 mmol/L (136-145); TOT PROT 6.6 g/dl (6.4-8.2)
--- NOTE | 2019-02-19 10:27 | PN ---
Progress Note (short form) - Note Progress Note: NAD. No acute events overnight. Overall appears better. Intake & Output 02/16/19 02/17/19 02/18/19 02/19/19 23:59 23:59 23:59 23:59 Intake Total 680 470 330 Output Total 300 Balance 380 470 330 Weight 118 lb 14.4 oz 118 lb 3.2 oz 121 lb 11.123 oz 121 lb 4.068 oz Last Vital Signs Temp Pulse Resp BP Pulse Ox 97.8 F 85 22 H 99/54 L 100 02/19/19 02:00 02/19/19 06:00 02/19/19 06:00 02/19/19 06:00 02/18/19 20:23 Active Medications Acetaminophen (Tylenol -) 650 mg PO Q6H PRN PRN Reason: HEADACHE Al Hydroxide/Mg Hydroxide (Mylanta Oral Suspension -) 30 ml PO Q6HPO [facility] Last Admin: 02/19/19 06:00 Dose: 30 ml Albuterol/Ipratropium (Duoneb -) 1 amp NEB Q6H PRN PRN Reason: SHORTNESS OF BREATH Amoxicillin/Clavulanate Potassium (Augmentin - 875mg Tablet) 1 tab PO BID@0800, 1730 [facility] Last Admin: 02/19/19 08:07 Dose: 1 tab Atorvastatin Calcium (Lipitor -) 20 mg PO HS [facility] Last Admin: 02/18/19 21:31 Dose: 20 mg Docusate Sodium (Colace -) 100 mg PO TID [facility] Last Admin: 02/19/19 06:00 Dose: Not Given Enoxaparin Sodium (Lovenox -) 40 mg SQ DAILY [facility] Last Admin: 02/18/19 09:43 Dose: 40 mg Ipratropium [place] (Atrovent 0.02% Nebulizer -) 1 amp NEB RQID [facility] Last Admin: 02/18/19 15:32 Dose: 1 amp Levothyroxine Sodium (Synthroid -) 50 mcg PO AM [facility] Last Admin: 02/19/19 06:00 Dose: 50 mcg Magnesium Oxide (Mag-Ox -) 400 mg PO BID [facility] Last Admin: 02/18/19 21:31 Dose: 400 mg Ondansetron HCl (Zofran Odt -) 8 mg SL Q8H PRN PRN Reason: NAUSEA AND/OR VOMITING Pantoprazole Sodium (Protonix -) 20 mg PO DAILY [facility] Last Admin: 02/18/19 09:44 Dose: 20 mg Phenol/Menthol (Chloraseptic -) 1 spray MM Q6HPO PRN PRN Reason: SORE THROAT Polyethylene Glycol (Miralax (For Daily Use) -) 17 gm PO DAILY [facility] Last Admin: 02/18/19 09:42 Dose: Not Given Senna (Senna -) 2 tab PO HS [facility] Last Admin: 02/18/19 21:32 Dose: Not Given Gen: NAD Heart: RRR Lung: decreased breath sounds at the bases, few scattered rhonchi Abd: soft, nontender Ext: no edema Laboratory Results - last 24 hr 02/18/19 02/19/19 02/19/19 19:20 08:50 08:50 WBC 6.6 RBC 3.60 Hgb 11.7 Hct 35.9 MCV 99.6 H MCH 32.5 MCHC 32.6 RDW 15.0 Plt Count 243 MPV 9.0 Absolute Neuts (auto) 4.2 Neutrophils % 62.9 Lymphocytes % 20.9 Monocytes % 14.6 H Eosinophils % 1.0 Basophils % 0.6 Nucleated RBC % 0 Sodium 137 137 Potassium 4.0 4.5 Chloride 89 L 90 L Carbon Dioxide > 45 H > 45 H Anion Gap 4 L 2 L BUN 8.9 7.7 Creatinine 0.5 L 0.4 L Est GFR (CKD-EPI)AfAm 115.26 124.04 Est GFR (CKD-EPI)NonAf 99.45 107.02 Random Glucose 161 H 94 Calcium 8.9 9.3 Magnesium 1.7 L Total Bilirubin 0.3 0.5 AST 13 L 14 L ALT 18 18 Alkaline Phosphatase 111 115 Total Protein 6.0 L 6.6 Albumin 2.9 L 3.2 L 02/19/19 08:50 WBC RBC Hgb Hct MCV MCH MCHC RDW Plt Count MPV Absolute Neuts (auto) Neutrophils % Lymphocytes % Monocytes % Eosinophils % Basophils % Nucleated RBC % Sodium Potassium Chloride Carbon Dioxide Anion Gap BUN Creatinine Est GFR (CKD-EPI)AfAm Est GFR (CKD-EPI)NonAf Random Glucose Calcium Magnesium 1.7 L Total Bilirubin AST ALT Alkaline Phosphatase Total Protein Albumin A/P Acute on Chronic Hypercapneic Respiratory Failure improving Severe Scoliosis/Restrictive Lung Disease Pneumonia Sepsis +Troponins likely Demand Ischemia Elevated LFTs Thrombocytopenia Metastatic Ovarian Cancer on chemotherapy Hyperlipidemia Hypothyroidism - PO ABX per ID - O2 to keep spO2 >90% - inhaled bronchodilators - monitor off steroids - NIPPV at night and PRN during the day - PO as tolerated - DVT prophylaxis - Would benefit from inpatient Pulmonary Rehab in hopes of optimizing her mechanics of breathing Dr Wang
[2019-02-19] MEDS: POLYETHYLENE GLYCOL 3350 119 GM BTL PO SCH ×2 (10:30→12:01)
[2019-02-19] MEDS: ENOXAPARIN NA (PORCINE) 40 MG/0.4 ML DISP.SYRIN SQ SCH (10:31)
[2019-02-19] MEDS: MAGNESIUM OXIDE 400 MG TABLET (FP) PO SCH ×2 (10:31→21:34)
[2019-02-19] MEDS: PANTOPRAZOLE 20 MG TABLET (FP) PO SCH (10:31)
[2019-02-19] MEDS: ATORVASTATIN CA 20 MG TABLET (FP) PO SCH (21:27)
[2019-02-19] MEDS: SENNOSIDES 8.6MG TABLET (FP) PO SCH (21:34)
[2019-02-20] MEDS ORDERED: PT OWN MED DRAWER 7, Y5N ONE (00:32)
[2019-02-20] MEDS: MAG HYDROX/AL HYDROX/SIMETH 30 ML UNIT-DOSE CUP PO SCH ×4 (01:02→17:04)
[2019-02-20] MEDS: LEVOTHYROXINE NA 50 MCG TABLET (FP) PO SCH (06:21)
[2019-02-20] MEDS: DOCUSATE SODIUM 100 MG CAPSULE (FP) PO SCH ×4 (06:21→21:21)
[2019-02-20] MEDS: IPRATROPIUM BR 0.02% 0.5 MG/2.5 ML VIAL.NEB. NEB SCH ×2 (08:00→20:35)
[2019-02-20] MEDS: AMOX TR/POT CLAV 875MG/125MG TABLETS (FP) PO SCH ×2 (08:42→17:04)
--- NOTE | 2019-02-20 10:08 | PN ---
Progress Note, Physician Chief Complaint: examined at bedside-c/o "ears are clogged" History of Present Illness: 68 year old omani-speaking female with a past medical history of metastatic ovarian cancer with peritoneal carcinomatosis presents to the hospital for generalized weakness and shortness of breath since Monday. States that she received chemotherapy (carbotaxol) on Monday, and since then has been short of breath on exertion with weakness, decreased appetite and poor PO intake. States that she also has been suffering from a cough productive of yellow sputum. Denies any over chest pain, shortness of breath at rest, nausea, vomiting, diarrhea, fevers, chills. Denies any swelling in her legs, headache, vision changes, dysuria, abdominal pain. Denies recent travel or sick contacts. Patient is from [facility] and has no children. Lives alone at home with an aid for 1/4th of the day and ambulates with a walker. Reports difficulty in ambulating after her chemotherapy treatment. She follows with Oncologist Dr. Hoyt at [facility] Reports being diagnosed with ovarian CA in 2017 and had a surgery to resect ovaries. On admission to the ED, patient was saturating in the 60s with a respiratory acidosis on VBG and concern was risen about respiratory status and need for ICU monitoring. - Current Medication List Current Medications: Active Medications Acetaminophen (Tylenol -) 650 mg PO Q6H PRN PRN Reason: HEADACHE Al Hydroxide/Mg Hydroxide (Mylanta Oral Suspension -) 30 ml PO Q6HPO [facility] Last Admin: 02/20/19 06:21 Dose: 30 ml Albuterol/Ipratropium (Duoneb -) 1 amp NEB Q6H PRN PRN Reason: SHORTNESS OF BREATH Amoxicillin/Clavulanate Potassium (Augmentin - 875mg Tablet) 1 tab PO BID@0800, 1730 [facility] Last Admin: 02/19/19 17:29 Dose: 1 tab Atorvastatin Calcium (Lipitor -) 20 mg PO HS [facility] Last Admin: 02/19/19 21:27 Dose: 20 mg Docusate Sodium (Colace -) 100 mg PO TID [facility] Last Admin: 02/20/19 06:21 Dose: 100 mg Enoxaparin Sodium (Lovenox -) 40 mg SQ DAILY [facility] Last Admin: 02/19/19 10:31 Dose: 40 mg Ipratropium [place] (Atrovent 0.02% Nebulizer -) 1 amp NEB RQID [facility] Last Admin: 02/19/19 19:55 Dose: 1 amp Levothyroxine Sodium (Synthroid -) 50 mcg PO AM [facility] Last Admin: 02/20/19 06:21 Dose: 50 mcg Magnesium Oxide (Mag-Ox -) 400 mg PO BID [facility] Last Admin: 02/19/19 21:34 Dose: Not Given Ondansetron HCl (Zofran Odt -) 8 mg SL Q8H PRN PRN Reason: NAUSEA AND/OR VOMITING Pantoprazole Sodium (Protonix -) 20 mg PO DAILY [facility] Last Admin: 02/19/19 10:31 Dose: 20 mg Phenol/Menthol (Chloraseptic -) 1 spray MM Q6HPO PRN PRN Reason: SORE THROAT Polyethylene Glycol (Miralax (For Daily Use) -) 17 gm PO DAILY [facility] Last Admin: 02/19/19 12:01 Dose: Not Given Senna (Senna -) 2 tab PO HS [facility] Last Admin: 02/19/19 21:34 Dose: Not Given - Objective Vital Signs: Vital Signs Temperature 98.9 F 02/20/19 06:00 Pulse Rate 90 02/20/19 06:00 Respiratory Rate 20 02/20/19 06:00 Blood Pressure 107/49 L 02/20/19 06:00 O2 Sat by Pulse Oximetry (%) 98 02/19/19 19:52 Constitutional: Yes: No Distress, Calm, Thin Eyes: Yes: WNL, Conjunctiva Clear, EOM Intact HENT: Yes: WNL, Atraumatic, Normocephalic Neck: Yes: WNL, Supple, Trachea Midline Cardiovascular: Yes: WNL, Regular Rate and Rhythm Respiratory: Yes: WNL, Regular, CTA Bilaterally, Diminished (at bases) Gastrointestinal: Yes: WNL, Normal Bowel Sounds, Soft ...Rectal Exam: Yes: Deferred Musculoskeletal: Yes: WNL Extremities: Yes: WNL Edema: No Peripheral Pulses WNL: Yes Integumentary: Yes: WNL Neurological: Yes: WNL, Alert, Oriented ...Motor Strength: WNL Psychiatric: Yes: WNL, Alert, Oriented Labs: CBC, BMP 02/19/19 08:50 02/19/19 08:50 INR, PTT INR 1.17 (0.83-1.09) H 02/11/19 05:30 - ....Imaging Chest X-ray: Report Reviewed (no effusions, Right consolidation improved), Image Reviewed Problem List - Problems (1) Acute respiratory failure Assessment/Plan: patient on intermittent NIPPV at night and PRN during the day Trilogy ventilator requested and being delivered today -Patient has had multiple readmissions in recent months with conditions worsening due to patients chronic respiratory failure and advancement of COPD along with lack of gas exchange. Patient requires ventilation via ventilator -incentive spirometry and chest PT -continue inhaled bronchodilators -supplemental O2 to maintain O2 <92-presently 2L Code(s): J96.00 - ACUTE RESPIRATORY FAILURE, UNSP W HYPOXIA OR HYPERCAPNIA Qualifiers: Respiratory failure complication: hypoxia and hypercapnia Qualified Code(s) : J96.01 - Acute respiratory failure with hypoxia; J96.02 - Acute respiratory failure with hypercapnia (2) Carcinoma of ovary, stage 4 Assessment/Plan: -gets treatment at [facility] Code(s): C56.9 - MALIGNANT NEOPLASM OF UNSPECIFIED OVARY (3) Elevated brain natriuretic peptide (BNP) level Assessment/Plan: resolved Code(s): R79.89 - OTHER SPECIFIED ABNORMAL FINDINGS OF BLOOD CHEMISTRY (4) Hypercapnia Assessment/Plan: resolved with positive pressure ventilation NIPPV as needed & while sleeping or napping Code(s): R06.89 - OTHER ABNORMALITIES OF BREATHING (5) Hyponatremia Assessment/Plan: resolved Na 137 Code(s): E87.1 - HYPO-OSMOLALITY AND HYPONATREMIA (6) Hypoxia Assessment/Plan: 2/2 RLL pneumonia resolving; patient is immunocompromised - all cultures NGTD -continue with supplemental O2 with BiPap as needed Code(s): R09.02 - HYPOXEMIA (7) Pneumonia Assessment/Plan: - RLL pneumonia improved; patient is immunocompromised, course of abx completed -ID following and appreciate Cx as followin02/06/19 09:45 Sputum - Endotrachea Suction/Ventilator Sputum Culture - Preliminary NORMAL RESPIRATORY MONICA 02/05/19 14:14 Blood NGTD 02/05/19 13:40 Blood NGTD 02/06/19 09:45 Urine Legionella Antigen 02/06/19 09:45 Urine - Streptococcus pneumoniae Antigen Sow 02/05/19 13:51 Urine - Urine Clean Catch NGTD clean catch Code(s): J18.9 - PNEUMONIA, UNSPECIFIED ORGANISM (8) Prophylactic measure Assessment/Plan: FEN monitor daily CMP tolerating diet High riskfor DVT SCDs in place PPI BID Dispo -Remains in ICU with telemetry monitoring full code discharge planning-requested services at home. If services are in place possible discharge today. Appreciate SW/CN assistance Code(s): Z29.9 - ENCOUNTER FOR PROPHYLACTIC MEASURES, UNSPECIFIED (9) Thrombocytopenia Assessment/Plan: -resolved -daily cbc Code(s): D69.6 - THROMBOCYTOPENIA, UNSPECIFIED (10) Transaminitis Assessment/Plan: -resolved - RUQ ultrasound showed fatty liver -hepatitis panel negative Code(s): R74.0 - NONSPEC ELEV OF LEVELS OF TRANSAMNS & LACTIC ACID DEHYDRGNSE (11) Admitted to intensive care unit Assessment/Plan: remains in ICU awaitng tele bed appreciate Critical Care mananagement pending transfer to floor/home Code(s): Z78.9 - OTHER SPECIFIED HEALTH STATUS Visit type - Emergency Visit Emergency Visit: Yes ED Registration Date: 02/05/19 Care time: The patient presented to the Emergency Department on the above date and was hospitalized for further evaluation of their emergent condition. - New Patient This patient is new to me today: No - Critical Care Critical Care patient: No - Discharge Referral Referred to [facility] Med P.C.: No
[2019-02-20 10:37] LABS: BASO % 0.4 % (0-2.0); EOS % 0.8 % (0-4.5); HEMATOCRIT 33.6 % (32.4-45.2); LYMPH % 18.6 % (8-40); MCH 32.4 pg (25.7-33.7); MCHC 32.9 g/dl (32.0-36.0); MEAN CELL VOLUME 98.6 fl (80-96); NEUT % 64.2 % (42.8-82.8); PLATELET COUNT 264 K/MM3 (134-434); RDW 14.7 % (11.6-15.6)
[2019-02-20] MEDS: MAGNESIUM OXIDE 400 MG TABLET (FP) PO SCH ×2 (10:42→21:19)
[2019-02-20] MEDS: ENOXAPARIN NA (PORCINE) 40 MG/0.4 ML DISP.SYRIN SQ SCH (10:42)
[2019-02-20] MEDS: PANTOPRAZOLE 20 MG TABLET (FP) PO SCH (10:42)
[2019-02-20] MEDS: POLYETHYLENE GLYCOL 3350 119 GM BTL PO SCH (10:43)
[2019-02-20 11:37] LABS: ALBUMIN 3.1 g/dl (3.4-5.0); ALK PHOS 104 U/L (45-117); ANION GAP 4 MMOL/L (8-16); BILIRUBIN,TOTAL 0.7 mg/dL (0.2-1); CALCIUM 8.8 mg/dL (8.5-10.1); CHLORIDE 90 mmol/L (98-107); CO2 > 45 mmol/L (21-32); CREATININE 0.5 mg/dL (0.55-1.3); GLUCOSE,RANDOM 190 mg/dL (74-106); MAGNESIUM 1.4 mg/dL (1.8-2.4); POTASSIUM 4.1 mmol/L (3.5-5.1); SGOT/AST 14 U/L (15-37); SGPT/ALT 17 U/L (13-61); SODIUM 139 mmol/L (136-145); TOT PROT 6.3 g/dl (6.4-8.2)
--- NOTE | 2019-02-20 12:34 | PN ---
Progress Note (short form) - Note Progress Note: PULMONARY Breathing continues to improve. No fevers recorded. Vital Signs Period Temp Pulse Resp BP Sys/Humphrey Pulse Ox Last 24 Hr 98.7 F-99.3 F 88-91 18-21 90-108/46-53 98-98 Gen: NAD in chair Heart: RRR Lung: decreased breath sounds at the bases Abd: soft, nontender Ext: no edema CBC, BMP 02/20/19 10:07 02/20/19 10:07 Active Medications Acetaminophen (Tylenol -) 650 mg PO Q6H PRN PRN Reason: HEADACHE Al Hydroxide/Mg Hydroxide (Mylanta Oral Suspension -) 30 ml PO Q6HPO [facility] Last Admin: 02/20/19 11:23 Dose: 30 ml Albuterol/Ipratropium (Duoneb -) 1 amp NEB Q6H PRN PRN Reason: SHORTNESS OF BREATH Amoxicillin/Clavulanate Potassium (Augmentin - 875mg Tablet) 1 tab PO BID@0800, 1730 [facility] Last Admin: 02/20/19 08:42 Dose: 1 tab Atorvastatin Calcium (Lipitor -) 20 mg PO HS [facility] Last Admin: 02/19/19 21:27 Dose: 20 mg Docusate Sodium (Colace -) 100 mg PO TID [facility] Last Admin: 02/20/19 06:21 Dose: 100 mg Enoxaparin Sodium (Lovenox -) 40 mg SQ DAILY [facility] Last Admin: 02/20/19 10:42 Dose: 40 mg Ipratropium [place] (Atrovent 0.02% Nebulizer -) 1 amp NEB RQID [facility] Last Admin: 02/20/19 08:00 Dose: 1 amp Levothyroxine Sodium (Synthroid -) 50 mcg PO AM [facility] Last Admin: 02/20/19 06:21 Dose: 50 mcg Magnesium Oxide (Mag-Ox -) 400 mg PO BID [facility] Last Admin: 02/20/19 10:42 Dose: 400 mg Ondansetron HCl (Zofran Odt -) 8 mg SL Q8H PRN PRN Reason: NAUSEA AND/OR VOMITING Pantoprazole Sodium (Protonix -) 20 mg PO DAILY [facility] Last Admin: 02/20/19 10:42 Dose: 20 mg Phenol/Menthol (Chloraseptic -) 1 spray MM Q6HPO PRN PRN Reason: SORE THROAT Polyethylene Glycol (Miralax (For Daily Use) -) 17 gm PO DAILY [facility] Last Admin: 02/20/19 10:43 Dose: Not Given Senna (Senna -) 2 tab PO HS [facility] Last Admin: 02/19/19 21:34 Dose: Not Given A/P Acute on Chronic Hypercapneic Respiratory Failure improving Severe Scoliosis/Restrictive Lung Disease Pneumonia Sepsis +Troponins likely Demand Ischemia Elevated LFTs Thrombocytopenia Metastatic Ovarian Cancer on chemotherapy Hyperlipidemia Hypothyroidism - antibiotics per ID - O2 to keep spO2 >90% - inhaled bronchodilators - monitor off steroids - NIPPV at night and PRN during the day - PO as tolerated - rehab/PT - DVT prophylaxis - d/c planning in progress
[2019-02-20] MEDS: SENNOSIDES 8.6MG TABLET (FP) PO SCH ×2 (21:19→21:22)
[2019-02-20] MEDS: ATORVASTATIN CA 20 MG TABLET (FP) PO SCH (21:19)
[2019-02-21] MEDS: MAG HYDROX/AL HYDROX/SIMETH 30 ML UNIT-DOSE CUP PO SCH ×4 (03:19→21:54)
[2019-02-21] MEDS: DOCUSATE SODIUM 100 MG CAPSULE (FP) PO SCH ×3 (05:33→21:55)
[2019-02-21] MEDS: LEVOTHYROXINE NA 50 MCG TABLET (FP) PO SCH ×2 (05:55→07:58)
[2019-02-21] MEDS: IPRATROPIUM BR 0.02% 0.5 MG/2.5 ML VIAL.NEB. NEB SCH ×4 (07:15→20:58)
[2019-02-21] MEDS ORDERED: PT OWN MED DRAWER 7, Y5N ONE ×2 (09:30→10:10)
[2019-02-21 09:31] LABS: BASO % 0.5 % (0-2.0); EOS % 1.3 % (0-4.5); HEMATOCRIT 36.2 % (32.4-45.2); LYMPH % 25.5 % (8-40); MCH 32.6 pg (25.7-33.7); MCHC 33.1 g/dl (32.0-36.0); MEAN CELL VOLUME 98.5 fl (80-96); MEAN PLT VOLUME 8.9 fl (7.5-11.1); MONO % 14.6 % (3.8-10.2); NEUT % 58.1 % (42.8-82.8); PLATELET COUNT 319 K/MM3 (134-434); RBC 3.67 M/mm3 (3.60-5.2); RDW 14.9 % (11.6-15.6); WHITE BLOOD COUNT 5.8 K/mm3 (4.0-10.0)
[2019-02-21] MEDS: POLYETHYLENE GLYCOL 3350 119 GM BTL PO SCH (10:07)
[2019-02-21] MEDS: PANTOPRAZOLE 20 MG TABLET (FP) PO SCH (10:10)
[2019-02-21] MEDS: MAGNESIUM OXIDE 400 MG TABLET (FP) PO SCH ×2 (10:10→21:55)
[2019-02-21] MEDS: ENOXAPARIN NA (PORCINE) 40 MG/0.4 ML DISP.SYRIN SQ SCH (10:11)
[2019-02-21 10:18] LABS: ALBUMIN 3.4 g/dl (3.4-5.0); BILIRUBIN,TOTAL 0.4 mg/dL (0.2-1); BLOOD UREA NITROGEN 7.3 mg/dL (7-18); CALCIUM 9.5 mg/dL (8.5-10.1); CREATININE 0.4 mg/dL (0.55-1.3); MAGNESIUM 1.6 mg/dL (1.8-2.4); POTASSIUM 4.2 mmol/L (3.5-5.1); TOT PROT 7.2 g/dl (6.4-8.2)
--- NOTE | 2019-02-21 10:43 | DS ---
Physical Examination Vital Signs: Vital Signs Temperature 98.1 F 02/21/19 08:00 Pulse Rate 87 02/21/19 08:00 Respiratory Rate 19 02/21/19 08:00 Blood Pressure 104/63 02/21/19 08:00 O2 Sat by Pulse Oximetry (%) 100 02/21/19 08:00 Constitutional: Yes: Well Nourished, No Distress, Calm Eyes: Yes: WNL, Conjunctiva Clear, EOM Intact HENT: Yes: WNL, Atraumatic, Normocephalic Neck: Yes: WNL, Supple, Trachea Midline Cardiovascular: Yes: WNL, Regular Rate and Rhythm Respiratory: Yes: WNL, Regular, CTA Bilaterally Gastrointestinal: Yes: WNL, Normal Bowel Sounds ...Rectal Exam: Yes: Deferred Breast(s): Yes: WNL Musculoskeletal: Yes: Muscle Weakness Extremities: Yes: WNL Edema: No Peripheral Pulses WNL: Yes Integumentary: Yes: WNL Neurological: Yes: WNL, Alert, Oriented ...Motor Strength: WNL Psychiatric: Yes: WNL, Alert, Oriented Labs: CBC, BMP 02/21/19 09:10 02/21/19 09:10 Discharge Summary Reason For Visit: BNP LEVEL 1 Current Active Problems Acute respiratory failure (Acute) Admitted to intensive care unit (Acute) Carcinoma of ovary, stage 4 (Acute) Elevated WBC count (Acute) Elevated brain natriuretic peptide (BNP) level (Acute) Hypercapnia (Acute) Hypomagnesemia (Acute) Hyponatremia (Acute) Hypothyroid (Acute) Hypoxia (Acute) Peritoneal carcinomatosis (Acute) Pneumonia (Acute) Prophylactic measure (Acute) Scoliosis (Acute) Thrombocytopenia (Acute) Transaminitis (Acute) Weakness (Acute) - Instructions Diet, Activity, Other Instructions: D/C home arranged through [employer] (confirmation # [id number]) for 2:00 PM, this staff writer requested [facility]. FALL PREVENTION AT HOME WHAT YOU NEED TO KNOW There are many different factors that can increase your risk of falls. Falls can happen any time, but the majority of them occur in the home. Fall prevention includes ways to make your home and other areas safer. It also includes ways you can move more carefully to prevent a fall. Health conditions that cause changes in your blood pressure, vision, or muscle strength and coordination may increase your risk for falls. Medicines, including anesthesia, may increase your risk for falls if they make you dizzy, weak, or sleepy. FALL PREVENTION TIPS Stand or sit up slowly. This may help you keep your balance and prevent falls. Do not walk and talk at the same time. Concentrate on the task of walking and continue the conversation after you've reached a safe place. Wear shoes that fit well and have soles that oil process stillman. Wear shoes both inside and outside. Use slippers with good oil process stillman. Avoid shoes with high heels. Use assistive devices as directed. Your healthcare provider may suggest that you use a cane or walker to help you keep you balance. Be sure you have adequate lighting throughout your house. Keep paths clear. Remove books, shoes and other objects from walkways and stairs. Keep cords for telephones and lamps out of the way so you dont need to walk over them. Remove small rugs or secure them with double-sided tape. This will prevent you from tripping. Use a nightlight when getting out of bed at night. Stay active to maintain overall strength and endurance. Know your limitations. If there is a task you can not complete with ease, do not risk a fall by trying to complete it. Call 911 or have someone else call if: You have fallen and are unconscious You have fallen and cannot move part of your body Contact your healthcare provider if: You have fallen and have pain or a headache You have questions or concerns about your condition or care. Disposition: VNS/HOME HEALTH CARE - Home Medications Comprehensive Discharge Medication List: Ambulatory Orders Docusate Sodium [Colace] 100 mg PO TID 09/17/17 Ergocalciferol (Vitamin D2) [Vitamin D2] 50,000 unit PO WEEKLY 09/17/17 Levothyroxine [Synthroid -] 50 mcg PO DAILY 09/17/17 Ondansetron [Zofran *Odt*] 8 mg SL TID PRN #20 od.tablet 09/17/17 Sennosides [Senna] 8.6 mg PO HS PRN 09/17/17 Albuterol Sulfate Inhaler - [Ventolin HFA Inhaler -] 2 puff PO QID 02/05/19 Atorvastatin Calcium [Lipitor] 1 tab PO HS 02/05/19 Carboxymethylcellulose Sodium [Refresh Celluvisc] 1 drop OU BID PRN 02/05/19 Ergocalciferol (Vitamin D2) [Vitamin D2] 1 cap PO WEEKLY 02/05/19 Ferrous Sulfate 325 mg PO DAILY 02/05/19 Levothyroxine [Synthroid -] 50 mcg PO DAILY 02/05/19 Magnesium Oxide [Magnesium] 1 tab PO DAILY 02/05/19 Omeprazole 1 tab PO DAILY 02/05/19 This patient is new to me today: No Emergency Visit: Yes ED Registration Date: 02/05/19 Care time: The patient presented to the Emergency Department on the above date and was hospitalized for further evaluation of their emergent condition. Critical Care patient: No - Discharge Referral Referred to [facility] Med P.C.: No
--- NOTE | 2019-02-21 13:01 | PN ---
Progress Note (short form) - Note Progress Note: NAD. No acute events overnight. Overall appears better. Intake & Output 02/18/19 02/19/19 02/20/19 02/21/19 23:59 23:59 23:59 23:59 Intake Total 330 1050 550 240 Balance 330 1050 550 240 Weight 121 lb 11.123 oz 121 lb 4.068 oz 119 lb 3 oz 121 lb 11.123 oz Last Vital Signs Temp Pulse Resp BP Pulse Ox 98.1 F 91 H 19 111/63 100 02/21/19 08:00 02/21/19 12:00 02/21/19 12:00 02/21/19 12:00 02/21/19 08:00 Active Medications Acetaminophen (Tylenol -) 650 mg PO Q6H PRN PRN Reason: HEADACHE Al Hydroxide/Mg Hydroxide (Mylanta Oral Suspension -) 30 ml PO Q6HPO [facility] Last Admin: 02/21/19 12:56 Dose: Not Given Albuterol/Ipratropium (Duoneb -) 1 amp NEB Q6H PRN PRN Reason: SHORTNESS OF BREATH Atorvastatin Calcium (Lipitor -) 20 mg PO HS [facility] Last Admin: 02/20/19 21:19 Dose: 20 mg Docusate Sodium (Colace -) 100 mg PO TID [facility] Last Admin: 02/21/19 05:33 Dose: Not Given Enoxaparin Sodium (Lovenox -) 40 mg SQ DAILY [facility] Last Admin: 02/21/19 10:11 Dose: 40 mg Ipratropium [place] (Atrovent 0.02% Nebulizer -) 1 amp NEB RQID [facility] Last Admin: 02/21/19 11:07 Dose: 1 amp Levothyroxine Sodium (Synthroid -) 50 mcg PO AM [facility] Last Admin: 02/21/19 07:58 Dose: Not Given Magnesium Oxide (Mag-Ox -) 400 mg PO BID [facility] Last Admin: 02/21/19 10:10 Dose: 400 mg Ondansetron HCl (Zofran Odt -) 8 mg SL Q8H PRN PRN Reason: NAUSEA AND/OR VOMITING Pantoprazole Sodium (Protonix -) 20 mg PO DAILY [facility] Last Admin: 02/21/19 10:10 Dose: 20 mg Phenol/Menthol (Chloraseptic -) 1 spray MM Q6HPO PRN PRN Reason: SORE THROAT Polyethylene Glycol (Miralax (For Daily Use) -) 17 gm PO DAILY [facility] Last Admin: 02/21/19 10:07 Dose: Not Given Senna (Senna -) 2 tab PO HS [facility] Last Admin: 02/20/19 21:22 Dose: Not Given Gen: NAD Heart: RRR Lung: decreased breath sounds at the bases, few scattered rhonchi Abd: soft, nontender Ext: no edema Laboratory Results - last 24 hr 02/21/19 02/21/19 09:10 09:10 WBC 5.8 RBC 3.67 Hgb 12.0 Hct 36.2 MCV 98.5 H MCH 32.6 MCHC 33.1 RDW 14.9 Plt Count 319 D MPV 8.9 Absolute Neuts (auto) 3.3 Neutrophils % 58.1 Lymphocytes % 25.5 D Monocytes % 14.6 H Eosinophils % 1.3 Basophils % 0.5 Nucleated RBC % 0 Sodium 139 Potassium 4.2 Chloride 93 L Carbon Dioxide 44 H Anion Gap 2 L BUN 7.3 Creatinine 0.4 L Est GFR (CKD-EPI)AfAm 124.04 Est GFR (CKD-EPI)NonAf 107.02 Random Glucose 114 H Calcium 9.5 Magnesium 1.6 L Total Bilirubin 0.4 AST 14 L ALT 17 Alkaline Phosphatase 108 Total Protein 7.2 Albumin 3.4 A/P Acute on Chronic Hypercapneic Respiratory Failure improving Severe Scoliosis/Restrictive Lung Disease Pneumonia Sepsis +Troponins likely Demand Ischemia Elevated LFTs Thrombocytopenia Metastatic Ovarian Cancer on chemotherapy Hyperlipidemia Hypothyroidism - PO ABX per ID - O2 to keep spO2 >90% - inhaled bronchodilators - monitor off steroids - D/C planning in progress: awaiting Trilogy device Dr Wang
--- NOTE | 2019-02-21 16:54 | PN ---
Progress Note, Physician Chief Complaint: examined at bedside-c/o "ears are clogged" History of Present Illness: 68 year old ghanaian-speaking female with a past medical history of metastatic ovarian cancer with peritoneal carcinomatosis presents to the hospital for generalized weakness and shortness of breath since Monday. States that she received chemotherapy (carbotaxol) on Monday, and since then has been short of breath on exertion with weakness, decreased appetite and poor PO intake. States that she also has been suffering from a cough productive of yellow sputum. Denies any over chest pain, shortness of breath at rest, nausea, vomiting, diarrhea, fevers, chills. Denies any swelling in her legs, headache, vision changes, dysuria, abdominal pain. Denies recent travel or sick contacts. Patient is from [facility] and has no children. Lives alone at home with an aid for 1/4th of the day and ambulates with a walker. Reports difficulty in ambulating after her chemotherapy treatment. She follows with Oncologist Dr. Hoyt at [facility] Reports being diagnosed with ovarian CA in 2017 and had a surgery to resect ovaries. On admission to the ED, patient was saturating in the 60s with a respiratory acidosis on VBG and concern was risen about respiratory status and need for ICU monitoring. - Current Medication List Current Medications: Active Medications Acetaminophen (Tylenol -) 650 mg PO Q6H PRN PRN Reason: HEADACHE Al Hydroxide/Mg Hydroxide (Mylanta Oral Suspension -) 30 ml PO Q6HPO [facility] Last Admin: 02/21/19 12:56 Dose: Not Given Albuterol/Ipratropium (Duoneb -) 1 amp NEB Q6H PRN PRN Reason: SHORTNESS OF BREATH Atorvastatin Calcium (Lipitor -) 20 mg PO HS [facility] Last Admin: 02/20/19 21:19 Dose: 20 mg Docusate Sodium (Colace -) 100 mg PO TID [facility] Last Admin: 02/21/19 13:12 Dose: 100 mg Enoxaparin Sodium (Lovenox -) 40 mg SQ DAILY [facility] Last Admin: 02/21/19 10:11 Dose: 40 mg Ipratropium [place] (Atrovent 0.02% Nebulizer -) 1 amp NEB RQID [facility] Last Admin: 02/21/19 16:06 Dose: 1 amp Levothyroxine Sodium (Synthroid -) 50 mcg PO AM [facility] Last Admin: 02/21/19 07:58 Dose: Not Given Magnesium Oxide (Mag-Ox -) 400 mg PO BID [facility] Last Admin: 02/21/19 10:10 Dose: 400 mg Ondansetron HCl (Zofran Odt -) 8 mg SL Q8H PRN PRN Reason: NAUSEA AND/OR VOMITING Pantoprazole Sodium (Protonix -) 20 mg PO DAILY [facility] Last Admin: 02/21/19 10:10 Dose: 20 mg Phenol/Menthol (Chloraseptic -) 1 spray MM Q6HPO PRN PRN Reason: SORE THROAT Polyethylene Glycol (Miralax (For Daily Use) -) 17 gm PO DAILY [facility] Last Admin: 02/21/19 10:07 Dose: Not Given Senna (Senna -) 2 tab PO HS [facility] Last Admin: 02/20/19 21:22 Dose: Not Given - Objective Vital Signs: Vital Signs Temperature 98.3 F 02/21/19 14:00 Pulse Rate 90 02/21/19 16:26 Respiratory Rate 19 02/21/19 16:26 Blood Pressure 99/55 L 02/21/19 16:26 O2 Sat by Pulse Oximetry (%) 100 02/21/19 08:00 Constitutional: Yes: No Distress, Calm Eyes: Yes: WNL, Conjunctiva Clear, EOM Intact HENT: Yes: WNL, Atraumatic, Normocephalic Neck: Yes: WNL, Supple, Trachea Midline Cardiovascular: Yes: WNL, Regular Rate and Rhythm Respiratory: Yes: WNL, Regular, CTA Bilaterally, Diminished (at bases), On BiPap (at night/napping), On Nasal O2 Gastrointestinal: Yes: WNL, Normal Bowel Sounds, Soft ...Rectal Exam: Yes: Deferred Genitourinary: Yes: WNL Musculoskeletal: Yes: WNL Extremities: Yes: WNL Edema: No Peripheral Pulses WNL: Yes Integumentary: Yes: WNL Neurological: Yes: WNL, Alert, Oriented ...Motor Strength: WNL Psychiatric: Yes: WNL, Alert, Oriented Labs: CBC, BMP 02/21/19 09:10 02/21/19 09:10 INR, PTT INR 1.17 (0.83-1.09) H 02/11/19 05:30 - ....Imaging Chest X-ray: Report Reviewed, Image Reviewed Problem List - Problems (1) Acute respiratory failure Assessment/Plan: patient on intermittent NIPPV at night and PRN during the day Trilogy ventilator requested and being delivered today -Patient has had multiple readmissions in recent months with conditions worsening due to patients chronic respiratory failure and advancement of COPD along with lack of gas exchange. Patient requires ventilation via ventilator -incentive spirometry and chest PT -continue inhaled bronchodilators -supplemental O2 to maintain O2 <92-presently 2L Code(s): J96.00 - ACUTE RESPIRATORY FAILURE, UNSP W HYPOXIA OR HYPERCAPNIA Qualifiers: Respiratory failure complication: hypoxia and hypercapnia Qualified Code(s) : J96.01 - Acute respiratory failure with hypoxia; J96.02 - Acute respiratory failure with hypercapnia (2) Carcinoma of ovary, stage 4 Assessment/Plan: -gets treatment at [facility] Code(s): C56.9 - MALIGNANT NEOPLASM OF UNSPECIFIED OVARY (3) Elevated brain natriuretic peptide (BNP) level Assessment/Plan: resolved Code(s): R79.89 - OTHER SPECIFIED ABNORMAL FINDINGS OF BLOOD CHEMISTRY (4) Hypercapnia Assessment/Plan: resolved with positive pressure ventilation NIPPV as needed & while sleeping or napping Code(s): R06.89 - OTHER ABNORMALITIES OF BREATHING (5) Hyponatremia Assessment/Plan: resolved Na 137 Code(s): E87.1 - HYPO-OSMOLALITY AND HYPONATREMIA (6) Hypoxia Assessment/Plan: 2/2 RLL pneumonia resolving; patient is immunocompromised - all cultures NGTD -continue with supplemental O2 with BiPap as needed Code(s): R09.02 - HYPOXEMIA (7) Pneumonia Assessment/Plan: - RLL pneumonia improved; patient is immunocompromised, course of abx completed -ID following and appreciate Cx as followin02/06/19 09:45 Sputum - Endotrachea Suction/Ventilator Sputum Culture - Preliminary NORMAL RESPIRATORY MONICA 02/05/19 14:14 Blood NGTD 02/05/19 13:40 Blood NGTD 02/06/19 09:45 Urine Legionella Antigen 02/06/19 09:45 Urine - Streptococcus pneumoniae Antigen Juanjose 02/05/19 13:51 Urine - Urine Clean Catch NGTD clean catch Code(s): J18.9 - PNEUMONIA, UNSPECIFIED ORGANISM (8) Prophylactic measure Assessment/Plan: FEN monitor daily CMP tolerating diet High riskfor DVT SCDs in place PPI BID Dispo -Remains in ICU with telemetry monitoring full code discharge planning-requested services at home. Waiting for trilogy NIPPV to be delivered tomorrow. Appreciate SW/CN assistance Code(s): Z29.9 - ENCOUNTER FOR PROPHYLACTIC MEASURES, UNSPECIFIED (9) Thrombocytopenia Assessment/Plan: -resolved -daily cbc Code(s): D69.6 - THROMBOCYTOPENIA, UNSPECIFIED (10) Transaminitis Assessment/Plan: -resolved - RUQ ultrasound showed fatty liver -hepatitis panel negative Code(s): R74.0 - NONSPEC ELEV OF LEVELS OF TRANSAMNS & LACTIC ACID DEHYDRGNSE (11) Admitted to intensive care unit Assessment/Plan: remains in ICU awaitng tele bed appreciate Critical Care mananagement pending transfer to floor/home Code(s): Z78.9 - OTHER SPECIFIED HEALTH STATUS Visit type - Emergency Visit Emergency Visit: Yes ED Registration Date: 02/05/19 Care time: The patient presented to the Emergency Department on the above date and was hospitalized for further evaluation of their emergent condition. - New Patient This patient is new to me today: No - Critical Care Critical Care patient: No - Discharge Referral Referred to [facility] Med P.C.: No
[2019-02-21] MEDS: SENNOSIDES 8.6MG TABLET (FP) PO SCH (21:55)
[2019-02-21] MEDS: ATORVASTATIN CA 20 MG TABLET (FP) PO SCH (21:56)
[2019-02-22] MEDS: MAG HYDROX/AL HYDROX/SIMETH 30 ML UNIT-DOSE CUP PO SCH ×3 (00:05→12:42)
[2019-02-22] MEDS: LEVOTHYROXINE NA 50 MCG TABLET (FP) PO SCH (06:07)
[2019-02-22] MEDS: DOCUSATE SODIUM 100 MG CAPSULE (FP) PO SCH ×2 (06:07→14:40)
[2019-02-22] MEDS: IPRATROPIUM BR 0.02% 0.5 MG/2.5 ML VIAL.NEB. NEB SCH ×2 (07:40→11:45)
--- NOTE | 2019-02-22 09:25 | PN ---
Progress Note (short form) - Note Progress Note: NAD on NC O2. No acute events overnight. Intake & Output 02/19/19 02/20/19 02/21/19 02/22/19 23:59 23:59 23:59 23:59 Intake Total 1050 550 540 Balance 1050 550 540 Weight 121 lb 4.068 oz 119 lb 3 oz 121 lb 11.123 oz Last Vital Signs Temp Pulse Resp BP Pulse Ox 98.3 F 85 18 95/46 L 100 02/22/19 04:00 02/22/19 04:00 02/22/19 04:00 02/22/19 04:00 02/21/19 20:44 Active Medications Acetaminophen (Tylenol -) 650 mg PO Q6H PRN PRN Reason: HEADACHE Al Hydroxide/Mg Hydroxide (Mylanta Oral Suspension -) 30 ml PO Q6HPO [facility] Last Admin: 02/22/19 06:07 Dose: 30 ml Albuterol/Ipratropium (Duoneb -) 1 amp NEB Q6H PRN PRN Reason: SHORTNESS OF BREATH Atorvastatin Calcium (Lipitor -) 20 mg PO HS [facility] Last Admin: 02/21/19 21:56 Dose: 20 mg Docusate Sodium (Colace -) 100 mg PO TID [facility] Last Admin: 02/22/19 06:07 Dose: 100 mg Enoxaparin Sodium (Lovenox -) 40 mg SQ DAILY [facility] Last Admin: 02/21/19 10:11 Dose: 40 mg Ipratropium [place] (Atrovent 0.02% Nebulizer -) 1 amp NEB RQID [facility] Last Admin: 02/21/19 20:58 Dose: 1 amp Levothyroxine Sodium (Synthroid -) 50 mcg PO AM [facility] Last Admin: 02/22/19 06:07 Dose: 50 mcg Magnesium Oxide (Mag-Ox -) 400 mg PO BID [facility] Last Admin: 02/21/19 21:55 Dose: 400 mg Ondansetron HCl (Zofran Odt -) 8 mg SL Q8H PRN PRN Reason: NAUSEA AND/OR VOMITING Pantoprazole Sodium (Protonix -) 20 mg PO DAILY [facility] Last Admin: 02/21/19 10:10 Dose: 20 mg Phenol/Menthol (Chloraseptic -) 1 spray MM Q6HPO PRN PRN Reason: SORE THROAT Polyethylene Glycol (Miralax (For Daily Use) -) 17 gm PO DAILY [facility] Last Admin: 02/21/19 10:07 Dose: Not Given Senna (Senna -) 2 tab PO HS [facility] Last Admin: 02/21/19 21:55 Dose: 2 tab Gen: NAD Heart: RRR Lung: decreased breath sounds at the bases, few scattered rhonchi Abd: soft, nontender Ext: no edema Laboratory Results - last 24 hr 02/21/19 02/21/19 09:10 09:10 WBC 5.8 RBC 3.67 Hgb 12.0 Hct 36.2 MCV 98.5 H MCH 32.6 MCHC 33.1 RDW 14.9 Plt Count 319 D MPV 8.9 Absolute Neuts (auto) 3.3 Neutrophils % 58.1 Lymphocytes % 25.5 D Monocytes % 14.6 H Eosinophils % 1.3 Basophils % 0.5 Nucleated RBC % 0 Sodium 139 Potassium 4.2 Chloride 93 L Carbon Dioxide 44 H Anion Gap 2 L BUN 7.3 Creatinine 0.4 L Est GFR (CKD-EPI)AfAm 124.04 Est GFR (CKD-EPI)NonAf 107.02 Random Glucose 114 H Calcium 9.5 Magnesium 1.6 L Total Bilirubin 0.4 AST 14 L ALT 17 Alkaline Phosphatase 108 Total Protein 7.2 Albumin 3.4 A/P Acute on Chronic Hypercapneic Respiratory Failure improving Severe Scoliosis/Restrictive Lung Disease Pneumonia Sepsis +Troponins likely Demand Ischemia Elevated LFTs Thrombocytopenia Metastatic Ovarian Cancer on chemotherapy Hyperlipidemia Hypothyroidism - PO ABX per ID - O2 to keep spO2 >90% - inhaled bronchodilators - monitor off steroids - D/C planning in progress: awaiting Trilogy device The patient has a history of COPD and chronic respiratory failure with a worsening state. She will now need ventilation via a ventilator as BiPAP is not effective in treatment to decrease her work of breathing and to improve her pulmonary status and prevent interruption or failure of respiratory support. Dr Wang
[2019-02-22] MEDS: MAGNESIUM OXIDE 400 MG TABLET (FP) PO SCH (09:33)
[2019-02-22] MEDS: ENOXAPARIN NA (PORCINE) 40 MG/0.4 ML DISP.SYRIN SQ SCH (09:33)
[2019-02-22] MEDS: PANTOPRAZOLE 20 MG TABLET (FP) PO SCH (09:33)
[2019-02-22] MEDS: POLYETHYLENE GLYCOL 3350 119 GM BTL PO SCH (09:34)
--- NOTE | 2019-02-22 11:56 | DS ---
Physical Examination Vital Signs: Vital Signs Temperature 98.3 F 02/22/19 04:00 Pulse Rate 93 H 02/22/19 08:00 Respiratory Rate 18 02/22/19 08:00 Blood Pressure 98/58 L 02/22/19 08:00 O2 Sat by Pulse Oximetry (%) 100 02/22/19 09:00 Constitutional: Yes: Well Nourished, No Distress, Thin Eyes: Yes: WNL, Conjunctiva Clear, EOM Intact HENT: Yes: WNL, Atraumatic, Normocephalic Neck: Yes: WNL, Supple, Trachea Midline Cardiovascular: Yes: WNL, Regular Rate and Rhythm Respiratory: Yes: WNL, Regular, CTA Bilaterally, Diminished Gastrointestinal: Yes: WNL, Normal Bowel Sounds, Soft ...Rectal Exam: Yes: Deferred Renal/: Yes: WNL Breast(s): Yes: WNL Musculoskeletal: Yes: WNL Extremities: Yes: WNL Edema: No Peripheral Pulses WNL: Yes Integumentary: Yes: WNL Neurological: Yes: WNL, Alert, Oriented ...Motor Strength: WNL Psychiatric: Yes: WNL, Alert, Oriented Labs: CBC, BMP 02/21/19 09:10 02/21/19 09:10 Discharge Summary Reason For Visit: BNP LEVEL 1 Current Active Problems Acute respiratory failure (Acute) Admitted to intensive care unit (Acute) Carcinoma of ovary, stage 4 (Acute) Elevated WBC count (Acute) Elevated brain natriuretic peptide (BNP) level (Acute) Hypercapnia (Acute) Hypomagnesemia (Acute) Hyponatremia (Acute) Hypothyroid (Acute) Hypoxia (Acute) Peritoneal carcinomatosis (Acute) Pneumonia (Acute) Prophylactic measure (Acute) Scoliosis (Acute) Thrombocytopenia (Acute) Transaminitis (Acute) Weakness (Acute) Hospital Course: Progress Note, Physician Chief Complaint: examined at bedside-c/o "ears are clogged" History of Present Illness: 68 year old nigerian-speaking female with a past medical history of metastatic ovarian cancer with peritoneal carcinomatosis presents to the hospital for generalized weakness and shortness of breath since Monday. States that she received chemotherapy (carbotaxol) on Monday, and since then has been short of breath on exertion with weakness, decreased appetite and poor PO intake. States that she also has been suffering from a cough productive of yellow sputum. Denies any over chest pain, shortness of breath at rest, nausea, vomiting, diarrhea, fevers, chills. Denies any swelling in her legs, headache, vision changes, dysuria, abdominal pain. Denies recent travel or sick contacts. Patient is from [facility] and has no children. Lives alone at home with an aid for 1/4th of the day and ambulates with a walker. Reports difficulty in ambulating after her chemotherapy treatment. She follows with Oncologist Dr. Hoyt at [facility] Reports being diagnosed with ovarian CA in 2017 and had a surgery to resect ovaries. On admission to the ED, patient was saturating in the 60s with a respiratory acidosis on VBG and concern was risen about respiratory status and need for ICU monitoring. - ....Imaging Chest X-ray: Report Reviewed, Image Reviewed Problem List - Problems (1) Acute respiratory failure Assessment/Plan: patient on intermittent NIPPV at night and PRN during the day/Trilogy ventilator -Patient has had multiple readmissions in recent months with conditions worsening due to patients chronic respiratory failure and advancement of COPD along with lack of gas exchange. Patient requires ventilation via ventilator -incentive spirometry and chest PT -continue inhaled bronchodilators at home -supplemental O2 to maintain O2 <92-presently 2L at home (2) Carcinoma of ovary, stage 4 Assessment/Plan: [facility] ([facility]) Elevated brain natriuretic peptide (BNP) level Assessment/Plan: resolved (4) Hypercapnia Assessment/Plan: resolved with positive pressure ventilation NIPPV as needed & while sleeping or napping (5) Hyponatremia Assessment/Plan: resolved (6) Hypoxia Assessment/Plan: 2/2 RLL pneumonia resolved patient is immunocompromised Completed course of IV abx -transistioned to PO and now completed all ABx therapy - all cultures NGTD -continue with supplemental O2 with BiPap as needed (7) Pneumonia Assessment/Plan: Resolved Cx as followin02/06/19 09:45 Sputum - Endotrachea Suction/Ventilator Sputum Culture - Preliminary NORMAL RESPIRATORY MONICA 02/05/19 14:14 Blood NGTD 02/05/19 13:40 Blood NGTD 02/06/19 09:45 Urine Legionella Antigen 02/06/19 09:45 Urine - Streptococcus pneumoniae Antigen Sow 02/05/19 13:51 Urine - Urine Clean Catch NGTD clean catch (8) Thrombocytopenia Assessment/Plan: -resolved Pateint to return home with services in place Condition: Improved - Instructions Diet, Activity, Other Instructions: D/C home arranged through [employer] (confirmation # [id number]) for 2:00 PM, this publicity writer requested [facility]. FALL PREVENTION AT HOME WHAT YOU NEED TO KNOW There are many different factors that can increase your risk of falls. Falls can happen any time, but the majority of them occur in the home. Fall prevention includes ways to make your home and other areas safer. It also includes ways you can move more carefully to prevent a fall. Health conditions that cause changes in your blood pressure, vision, or muscle strength and coordination may increase your risk for falls. Medicines, including anesthesia, may increase your risk for falls if they make you dizzy, weak, or sleepy. FALL PREVENTION TIPS Stand or sit up slowly. This may help you keep your balance and prevent falls. Do not walk and talk at the same time. Concentrate on the task of walking and continue the conversation after you've reached a safe place. Wear shoes that fit well and have soles that test engineer. Wear shoes both inside and outside. Use slippers with good test engineer. Avoid shoes with high heels. Use assistive devices as directed. Your healthcare provider may suggest that you use a cane or walker to help you keep you balance. Be sure you have adequate lighting throughout your house. Keep paths clear. Remove books, shoes and other objects from walkways and stairs. Keep cords for telephones and lamps out of the way so you dont need to walk over them. Remove small rugs or secure them with double-sided tape. This will prevent you from tripping. Use a nightlight when getting out of bed at night. Stay active to maintain overall strength and endurance. Know your limitations. If there is a task you can not complete with ease, do not risk a fall by trying to complete it. Call 911 or have someone else call if: You have fallen and are unconscious You have fallen and cannot move part of your body Contact your healthcare provider if: You have fallen and have pain or a headache You have questions or concerns about your condition or care. - Home Medications Comprehensive Discharge Medication List: Ambulatory Orders Docusate Sodium [Colace] 100 mg PO TID 09/17/17 Ergocalciferol (Vitamin D2) [Vitamin D2] 50,000 unit PO WEEKLY 09/17/17 Sennosides [Senna] 8.6 mg PO HS PRN 09/17/17 Carboxymethylcellulose Sodium [Refresh Celluvisc] 1 drop OU BID PRN 02/05/19 Ferrous Sulfate 325 mg PO DAILY 02/05/19 Levothyroxine [Synthroid -] 50 mcg PO DAILY 02/05/19 Magnesium Oxide [Magnesium] 1 tab PO DAILY 02/05/19 Omeprazole 1 tab PO DAILY 02/05/19 Acetaminophen [Tylenol .Regular Strength -] 650 mg PO Q6H PRN tablet 02/21/19 Albuterol Sulfate Inhaler - [Ventolin HFA Inhaler -] 2 puff PO QID #1 inhaler Atorvastatin Ca [Lipitor] 20 mg PO HS #30 tablet 02/21/19 Enoxaparin [Lovenox -] 40 mg SQ DAILY #30 disp.syrin 02/21/19 Levothyroxine [Synthroid -] 50 mcg PO DAILY #30 tablet 02/21/19 Mag Hydrox/Al Hydrox/Simeth [Mylanta Oral Suspension -] 30 ml PO Q6HPO cup Magnesium Oxide [Mag-Ox -] 400 mg PO BID tablet 02/21/19 Ondansetron [Zofran Odt -] 8 mg SL Q8H PRN tab.rapdis 02/21/19 Polyethylene Glycol 3350 [Miralax 119 gm Btl -] 17 gm PO DAILY bottle 02/21/19 Sennosides [Senna -] 2 tab PO HS tablet 02/21/19 This patient is new to me today: No Emergency Visit: Yes ED Registration Date: 02/05/19 Care time: The patient presented to the Emergency Department on the above date and was hospitalized for further evaluation of their emergent condition. Critical Care patient: No - Discharge Referral Referred to [facility] Med P.C.: No
[2019-02-22 14:45] VITALS: BP 100/56; PULSE 95; TEMP 97.8
== END 2019-02-22 14:46 | disposition home or self-care (01) | DRG 871 ==
LOC: JER 12:07 → MERGE 16:29 → JERBED 16:29 → J4W 18:45 → JICU 23:51 → J2W 02-10 19:31
PROVIDERS: ATTEND Nurse Practitioner Acute Care
PROC: 5A1935Z Respiratory Ventilation, Less than 24 Consecutive Hours (ICD-10-PCS; principal; 2019-02-05)
PROC: 0BH17EZ Insertion of Endotracheal Airway into Trachea, Via Natural or Artificial Opening (ICD-10-PCS; 2019-02-05)
DX: A41.9 Sepsis, unspecified organism (principal); J18.9 Pneumonia, unspecified organism; J96.22 Acute and chronic respiratory failure with hypercapnia; J96.21 Acute and chronic respiratory failure with hypoxia; C56.9 Malignant neoplasm of unspecified ovary; E87.1 Hypo-osmolality and hyponatremia; C78.6 Secondary malignant neoplasm of retroperitoneum and peritoneum; E87.2 Acidosis; R64 Cachexia; E87.3 Alkalosis; E83.42 Hypomagnesemia; E03.9 Hypothyroidism, unspecified; D69.6 Thrombocytopenia, unspecified; R74.0 Nonspecific elevation of levels of transaminase and lactic acid dehydrogenase [LDH]; M41.9 Scoliosis, unspecified; R53.1 Weakness; E78.5 Hyperlipidemia, unspecified; D72.829 Elevated white blood cell count, unspecified; K21.9 Gastro-esophageal reflux disease without esophagitis; Z68.24 Body mass index [BMI] 24.0-24.9, adult; D64.9 Anemia, unspecified; E87.6 Hypokalemia
CPT/HCPCS: 36415; 36600; 71045-TC-FY; 71250-TC; 71275-TC; 76705-TC; 80048; 80053; 80074; 81003; 82803; 83605; 83735; 83880; 84100; 84443; 84484; 85025; 85610; 85730; 86850; 86900; 86901; 87040; 87070; 87086; 87205; 87899; 93005; 93010; 93306-TC; 94002; 94640; 94660; 97116-GP; 97161-GP; 99284-25; J0131; J1644; J7030

== ENCOUNTER 2019-07-08 12:06 | Day surgery (SDC) | payer MEDICARE ==
[2019-07-05 16:48] VITALS: BMI 23.6
[2019-07-08 14:02] VITALS: TEMP 97.5
[2019-07-08 14:50] VITALS: BP 133/79; PULSE 90
--- NOTE | 2019-07-10 17:46 | PATH ---
Surgical Pathology Report Patient Name: MARISA ZIEGLER [facility]. Rec. #: [id number] /Age/Gender: 1950 (Age: 69) / F Account: [id number] Location: [facility]-ENDOSCOPY Taken: 07/09/2019 Received: 07/09/2019 Reported: 07/10/2019 Physicians: Toribio Nelson M.D. Specimen(s) Received A: ANTRUM B: MID ESOPHAGUS Clinical History Dysphagia Postoperative diagnosis: Gastritis Final Diagnosis A. STOMACH, ANTRUM, BIOPSY: GASTRIC ANTRAL MUCOSA WITH MODERATE CHRONIC GASTRITIS AND INTESTINAL METAPLASIA. NO DYSPLASIA IDENTIFIED. IMMUNOHISTOCHEMICAL STAIN FOR H. PYLORI IS NEGATIVE. B. MID ESOPHAGUS, BIOPSY: SQUAMOUS MUCOSA WITH CHANGES OF MILD TO MODERATE REFLUX ESOPHAGITIS. Electronically Signed Yulisa Albrecht M.D. Gross Description A. Received in formalin, labeled "biopsy antrum" are 2 way, irregular portions of soft tissue measuring 0.2 and 0.3 cm. in greatest dimension. The specimens are submitted in toto in one cassette. B. Received in formalin, labeled "biopsy mid esophagus" are 2 way, irregular portions of soft tissue measuring 0.2 and 0.3 cm. in greatest dimension. The specimens are submitted in toto in one cassette. 07/09/201907/09/2019
== END 2019-07-08 15:00 | disposition home or self-care (01) ==
LOC: JASU-ENDO 12:06
PROVIDERS: ATTEND Internal Medicine Gastroenterology
PROC: 0DB68ZX Excision of Stomach, Via Natural or Artificial Opening Endoscopic, Diagnostic (ICD-10-PCS; 2019-07-08)
PROC: 0DB58ZX Excision of Esophagus, Via Natural or Artificial Opening Endoscopic, Diagnostic (ICD-10-PCS; principal; 2019-07-08 14:30)
DX: K21.0 Gastro-esophageal reflux disease with esophagitis (principal); R13.10 Dysphagia, unspecified; K29.50 Unspecified chronic gastritis without bleeding
CPT/HCPCS: 88305-TC; 88342-TC

== ENCOUNTER 2019-07-22 12:01 | Emergency (ER) | payer MEDICARE ==
[2019-07-22 12:16] VITALS: TEMP 97.7; BMI 32.3
--- NOTE | 2019-07-22 13:00 | PDOC ---
History of Present Illness - General Chief Complaint: Headache Stated Complaint: Headache Time Seen by Provider: 07/22/19 12:56 Past History - Past Medical History Allergies/Adverse Reactions: Allergies Allergy/AdvReac Type Severity Reaction Status Date / Time No Known Drug Allergies Allergy Verified 07/22/19 12:16 Home Medications: Ambulatory Orders Sennosides [Senna] 8.6 mg PO HS PRN 09/17/17 Ferrous Sulfate 325 mg PO DAILY 02/05/19 Omeprazole 40 mg PO DAILY 02/05/19 Levothyroxine [Synthroid -] 50 mcg PO DAILY #30 tablet 02/21/19 Magnesium Oxide [Mag-Ox -] 400 mg PO BID tablet 02/21/19 Albuterol Sulfate Inhaler - [Ventolin HFA Inhaler -] 2 puff PO PRN 07/08/19 Niraparib Tosylate [Zejula] 100 mg PO DAILY 07/08/19 Prochlorperazine Maleate [Compazine] 10 mg PO DAILY 07/08/19 Ranitidine HCl [Zantac] 150 mg PO DAILY 07/08/19 Anemia: No Asthma: Yes Cancer: Yes (ovarian with metastasis) Cardiac Disorders: No CVA: No COPD: No CHF: No Dementia: No Diabetes: No GI Disorders: No Disorders: No HTN: No Hypercholesterolemia: No Liver Disease: No Seizures: No Thyroid Disease: Yes - Surgical History Abdominal Surgery: Yes (SPLEENECTOMY) Appendectomy: No Cardiac Surgery: No Cholecystectomy: No Lung Surgery: No Neurologic Surgery: Yes (BACK SURGERY) Orthopedic Surgery: No - Psycho Social/Smoking Cessation Hx Smoking History: Unknown if ever smoked Have you smoked in the past 12 months: No Information on smoking cessation initiated: No Hx Alcohol Use: No Drug/Substance Use Hx: No Substance Use Type: None Hx Substance Use Treatment: No *Physical Exam - Vital Signs Last Vital Signs Temp Pulse Resp BP Pulse Ox 97.7 F 104 H 18 160/78 100 07/22/19 12:14 07/22/19 12:14 07/22/19 12:14 07/22/19 12:14 07/22/19 12:14 ED Treatment Course - LABORATORY CBC & Chemistry Diagram: 07/22/19 14:30 07/22/19 14:30 Medical Decision Making - Medical Decision Making 07/22/19 13:49 HPI: 69yo F hx stage 4 ovarian carcinoma with peritoneal carcinomatosis on PO chemo ( s/p oophorectomy), HLD, hypothyroidism, and GERD presents from home c/o headache. 3 days ago (07/19) at 0830 pt had sudden onset "explosive" headache diffusely but worst on R side plus R-sided neck pain, pressure type and throbbing, associated with nausea and 2 episodes of emesis (nausea improved with prochlorperazine which pt takes for chemo meds), no provoking factors, took 1 tylenol and pain gradually improved, yesterday better. Then today at 0900 pt had another explosive headache and R-sided neck pain exactly the same as 07/19, took tylenol at 1310 today without improvement yet. Denies trauma, heavy lifting, weird movements of neck or head, inciting events. Pt has had headaches rarely in the past but they are always bitemporal only throbbing and a lot less severity, denies ever having pain similar to this. Denies fever, fatigue, vision changes, photophobia, neck stiffness, numbness/tingling, weakness, difficulty walking, difficulty speaking, current nausea or vomiting today, syncope. Endorses chills this AM. Endorses chronic intermittent episodes of lightheadedness for a few seconds x many years, denies vertigo, denies current lightheadedness or vertigo. Endorses chronic abdominal discomfort and decreased appetite since starting chemo medications, unchanged recently. Denies shortness of breath, cough, chest pain, palpitations, leg swelling, blood in stool, diarrhea, constipation, dysuria, hematuria, confusion, sick contacts, recent travel. Lives alone at home with MANAGER PATIENT 6hrs, 5 days a week, walks with walker or assistance. ROS: Constitutional: Positive for chills. Negative for fever, fatigue, diaphoresis. HENT: Negative for sore throat, rhinorrhea, congestion. Eyes: Negative for visual disturbance. Respiratory: Negative for shortness of breath, cough, and wheezing. Cardiovascular: Negative for chest pain, palpitations, and leg swelling. Gastrointestinal: Positive for chronic abdominal discomfort, nausea, vomiting. Negative for blood in stool, constipation, diarrhea. Genitourinary: Negative for dysuria, flank pain, and hematuria. Musculoskeletal: Positive for neck pain. Negative for myalgias, back pain. Skin: Negative for rash. Neurological: Positive for headache and chronic light-headedness. Negative for vertigo, syncope, weakness, numbness. Psychiatric/Behavioral: Negative for behavioral problems and confusion. PE: Gen: Alert, NAD, comfortable-appearing. HEENT: Neck supple, +TTP R lateral neck. PERRL, EOMI, MMM, NCAT. No conjunctival pallor. Sclera are non-icteric. Oropharynx is clear. CV: Regular rate and rhythm. No murmurs, rubs, or gallops. PULM: No resp distress. CTAB, no wheezes, rales, or rhonchi. ABD: soft, NT/ND, no rebound tenderness or guarding, no CVA tenderness. BACK: No TTP of c/t/l-spine. No step-offs or deformities. MSK: No bony deformities. 2+ pulses in all extremities. NEURO: AAOx3. PERRL. CN 2-12 intact. 5/5 strength in all extremities. Sensation to light touch intact in all extremities. No pronator drift. No dysmetria. No dysdiadochokinesia. No abnormal nystagmus. Normal but slow gait. EXTREMITIES: No cyanosis. No clubbing. No edema. No calf tenderness. PSYCH: Normal mood and thought pattern. SKIN: Warm and dry. Normal capillary refill. No rashes. No jaundice. MDM: 69yo F hx stage 4 ovarian carcinoma with peritoneal carcinomatosis on PO chemo ( s/p oophorectomy), HLD, hypothyroidism, and GERD presents from home with 2 episodes of sudden "explosive" headache diffusely but worst on R side and R- sided neck pain, pressure type and throbbing, associated with nausea and 2 episodes of emesis, once on Monday and once today. Tachycardic to 104, remaining VS WNL, afebrile, neurologically intact, TTP R neck. Due to rapid onset and description of headache, concern for SAH or carotid artery dissection, although lower concern due to hemodynamic stability and lack of neurologic deficits - CTH and CTA neck/brain; if CTH negative and w/u equivocal, consider LP. Consider other ICHs and eval with CTH. Also consider anemia, metabolic derangement, or thyroid pathology - labs. Very low concern for meningitis due to supple neck and lack of photophobia or fever, but due to chills and neck pain, will reassess and consider LP if w/u equivocal. Also consider benign pathology such as tension headache, migraine, dehydration, or chemo medication AE. No eye exam abnormalities or vision changes concerning for acute glaucoma. No temporal artery tenderness or jaw pain concerning for GCA. -CBC,CMP,Mg,Phos,TSH -CTH, CTA brain/neck -IVF -Reglan -Consider LP -Dispo: pending w/u 07/22/19 16:46 Labs reviewed. No concerning findings. CTH and CTA brain/neck reviewed. No concerning findings. Discussion with pt recommending LP to r/o SAH and meningitis. Pt understands risk and benefits and refuses LP. Pt feeling better, headache resolved, well appearing, VS WNL (HR 88). Pt wants to go home. Clinically stable for d/c. Will dc home with PCP f/u. Strict return precautions given. Pt understands all dc instructions and all questions were answered. Discharge - Discharge Information Problems reviewed: Yes Clinical Impression/Diagnosis: Headache Condition: Improved Disposition: HOME - Admission No - Follow up/Referral Referrals: Tanner Gutierrez MD [Primary Care Provider] - - Patient Discharge Instructions Patient Printed Discharge Instructions: DI for Headache Additional Instructions: You have been seen in the Emergency Department for your headache and neck pain. Your exam, CT scan of your head, CT scan of the vessels in your head and neck, and labs show no signs concerning for an emergent condition such as a head bleed. We discussed the need for a lumbar puncture (needle into your spine to analyse the spinal fluid) to rule out a specific type of brain bleed including the risks of not getting the test, but you did not want the exam. There are many causes of headaches and the cause of yours is uncertain, but it is most likely a tension headache or migraine. At this time, it's most important to stay hydrated. If you experience pain, you can take Tylenol or Ibuprofen as directed on the medication bottle, but do not exceed 3g of Ibuprofen or 4g of Tylenol a day. Follow-up with your primary care doctor within 1 week. Return to the ED immediately if you experience pain not controlled by over the counter medications, fever, neck pain or stiffness, dizziness, vomiting, numbness or tingling, difficulty walking, or any other new or worsening symptom. Le manzanares visto en el departamento de emergencias por dolor de tanner y dolor de leona. El examen, la tomografa computarizada de la tanner, la tomografa computarizada de los vasos de la tanner y el leona y los laboratorios no muestran signos de corrine afeccin emergente, genaro un sangrado de la tanner. Discutimos la necesidad de corrine puncin lumbar (aguja en la columna vertebral para analizar el lquido cefalorraqudeo) para descartar un tipo especfico de hemorragia cerebral, incluidos los riesgos de no hacerse la prueba, annetta no deseaba el examen. Hay muchas causas de jeff de tanner y la causa de los suyos es incierta, annetta lo ms probable es que sea un dolor de tanner por tensin o migraa. En nathalie momento, es ms importante mantenerse hidratado. Si siente dolor, puede parisa Tylenol o Ibuprofeno genaro se indica en la botella del medicamento, annetta no exceda 3 g de Ibuprofeno o 4 g de Tylenol por da. Raiza un seguimiento con [place] mdico de atencin primaria dentro de 1 semana. Regrese al servicio de urgencias de inmediato si experimenta dolor no controlado por medicamentos de venta nathaniel, fiebre, dolor o rigidez en el leona , mareos, vmitos, entumecimiento u hormigueo, dificultad para caminar o cualquier otro sntoma nuevo o que empeore. Print Language: JAPANESE - Post Discharge Activity
[2019-07-22] MEDS ORDERED: SODIUM CHLORIDE 1,000 ML IV STA (13:36)
[2019-07-22] MEDS ORDERED: METOCLOPRAMIDE HCL INJECTION 10 MG/2 ML VIAL IVPB ONE (14:35)
--- NOTE | 2019-07-22 14:47 | PDOC ---
Documentation entered by Nir Huang SCRIBE, acting as scribe for Hammad Loyola MD. Hammad Loyola MD: This documentation has been prepared by the Sal sam Daniel, SCRIBE, under my direction and personally reviewed by me in its entirety. I confirm that the documentation accurately reflects all work, treatment, procedures, and medical decision making performed by me. Attending Attestation - Resident Resident Name: Geovanna Rocha - ED Attending Attestation I have performed the following: I have examined & evaluated the patient, The case was reviewed & discussed with the resident, I agree w/resident's findings & plan, Exceptions are as noted - HPI HPI: 07/22/19 14:05 The patient is a year old with a past medical history of ovarian cancer (stage 4 with metastasis) on oral chemo, hypothyroidism, varicose veins, and asthma here today for evaluation of headache. The patient reports that her headache began on monday (07/20/19) which she describes as sudden onset frontal that radiates to the back of her head. Pt also reports associated R sided neck pain. She notes that her headache got better with tylenol but returned today. She also reports associated nausea and 3 episodes of vomiting. She reports taking tylenol 1 hour prior to arrival with some improvement in her pain. Patient denies lightheadedness. Denies fever, chills. Denies chest pain, shortness of breath. Denies abdominal pain. Allergies: NKDA PCP: Tanner Gutierrez - Physicial Exam PE: 07/22/19 14:05 GENERAL: Awake, alert, and fully oriented, in no acute distress. HEAD: No signs of trauma EYES: PERRLA, EOMI, sclera anicteric, conjunctiva clear ENT: Auricles normal inspection, hearing grossly normal, nares patent, oropharynx clear without exudates. Moist mucosa NECK: Nontender, no stepoffs, Normal ROM, supple, no lymphadenopathy, JVD, or masses LUNGS: Breath sounds equal, clear to auscultation bilaterally. No wheezes, and no crackles HEART: Regular rate and rhythm, normal S1 and S2, no murmurs, rubs or gallops ABDOMEN: Soft, nontender, normoactive bowel sounds. No guarding, no rebound. No masses EXTREMITIES: Normal range of motion, no edema. No clubbing or cyanosis. No cords, erythema, or tenderness NEUROLOGICAL: Cranial nerves II through XII intact. 5/5 strength and sensation in all extremities, Normal speech, normal gait, normal cerebellar function SKIN: Warm, Dry, normal turgor, no rashes or lesions noted. - Medical Decision Making 07/22/19 14:52 69 F with intermittent headaches and neck pain x 3 days. No neuro deficits on exam. Pt well appearing with normal exam. - Labs - CT head - CTA to r/o dissection 07/22/19 16:[address] head unremarkable CTA without dissection 07/22/19 16:43 Pt reassessed - states she feels completely better. Denies any headache or neck pain at this time. Discussed with pt the possibility that she may still have a SAH or meningitis, which cannot be completely ruled out at this time. However, pt adamantly refusing lumbar puncture at this time. Pt counseled on risks/benefits of LP as well as risk of refusing LP. Pt is well appearing, with normal vitals. Clinically stable for DC at this time. I discussed the physical exam findings, ancillary test results and final diagnoses with the patient. I answered all of the patient's questions. The patient was satisfied with the care received and felt comfortable with the discharge plan and treatment plan. The patient agrees to follow up with the primary care physician within 24-72 hours.
[2019-07-22 15:13] LABS: BASO % 0.4 % (0-2.0); EOS % 0.4 % (0-4.5); HEMATOCRIT 37.4 % (32.4-45.2); HEMOGLOBIN 12.5 GM/dL (10.7-15.3); LYMPH % 29.6 % (8-40); MCH 34.1 pg (25.7-33.7); MCHC 33.4 g/dl (32.0-36.0); MEAN CELL VOLUME 102.1 fl (80-96); MEAN PLT VOLUME 8.4 fl (7.5-11.1); MONO % 6.5 % (3.8-10.2); NEUT % 63.1 % (42.8-82.8); PLATELET COUNT 290 K/MM3 (134-434); RBC 3.67 M/mm3 (3.60-5.2); RDW 14.2 % (11.6-15.6); WHITE BLOOD COUNT 7.2 K/mm3 (4.0-10.0)
[2019-07-22 15:26] LABS: BILIRUBIN,TOTAL 0.5 mg/dL (0.2-1); BLOOD UREA NITROGEN 9.8 mg/dL (7-18); CALCIUM 9.3 mg/dL (8.5-10.1); CREATININE 0.6 mg/dL (0.55-1.3); MAGNESIUM 1.7 mg/dL (1.8-2.4); PHOSPHOROUS 2.8 mg/dL (2.5-4.9); POTASSIUM 3.9 mmol/L (3.5-5.1); TOT PROT 7.5 g/dl (6.4-8.2)
[2019-07-22 15:34] LABS: PROTHROMBIN TIME (PATIENT) 11.8 SEC (9.7-13.0)
[2019-07-22 15:37] LABS: ACTIVATED PTT 28.7 SECONDS (25.2-36.5)
[2019-07-22] MEDS ORDERED: METOCLOPRAMIDE HCL INJECTION 10 MG/2 ML VIAL ONE (15:44)
[2019-07-22 17:13] VITALS: BP 0/0; PULSE 100
== END 2019-07-22 17:13 | disposition home or self-care (01) ==
LOC: JER 12:01
PROC: 3E033GC Introduction of Other Therapeutic Substance into Peripheral Vein, Percutaneous Approach (ICD-10-PCS; principal; 2019-07-22)
DX: R51 Headache (principal); E03.9 Hypothyroidism, unspecified; J45.909 Unspecified asthma, uncomplicated; I83.90 Asymptomatic varicose veins of unspecified lower extremity; C56.9 Malignant neoplasm of unspecified ovary
CPT/HCPCS: 36415; 70450-TC; 70496-TC; 70498-TC; 80053; 83735; 84100; 84443; 85025; 85610; 85730; 96374; 99284-25; J7030

== ENCOUNTER 2020-12-18 11:36 | Inpatient (IN) | payer MEDICARE, OTHER ==
[2020-12-18 11:38] VITALS: BMI 21.9
[2020-12-18] MEDS ORDERED: PIPERACILLIN/TAZOB 4.5 GM 4.5 GM in DEXTROSE 5%-WATER 100 ML IVPB ONE (12:41)
[2020-12-18] MEDS ORDERED: PIPERACILLIN/TAZOB 4.5 GM 4.5 GM/100 ML BAG IVPB ONE (13:31)
[2020-12-18 14:39] LABS: BASO % 0.2 % (0-2.0); EOS % 1.3 % (0-4.5); HEMATOCRIT 43.3 % (32.4-45.2); HEMOGLOBIN 14.4 GM/dL (10.7-15.3); LYMPH % 13.5 % (8-40); MCH 34.3 pg (25.7-33.7); MCHC 33.4 g/dl (32.0-36.0); MEAN CELL VOLUME 102.7 fl (80-96); MEAN PLT VOLUME 9.7 fl (7.5-11.1); MONO % 13.3 % (3.8-10.2); NEUT % 71.7 % (42.8-82.8); PLATELET COUNT 336 K/MM3 (134-434); RBC 4.21 M/mm3 (3.60-5.2); RDW 15.8 % (11.6-15.6); WHITE BLOOD COUNT 8.7 K/mm3 (4.0-10.0)
[2020-12-18 15:03] LABS: CALCIUM 10.3 mg/dL (8.5-10.1)
[2020-12-18 15:04] LABS: ALBUMIN 4.1 g/dl (3.4-5.0); BLOOD UREA NITROGEN 7.7 mg/dL (7-18)
[2020-12-18 15:07] LABS: CREATININE 0.6 mg/dL (0.55-1.3)
[2020-12-18 15:08] LABS: BILIRUBIN,TOTAL 0.5 mg/dL (0.2-1); TOT PROT 8.9 g/dl (6.4-8.2)
[2020-12-18 15:22] LABS: URINE APPEARANCE CLEAR; URINE BILIRUBIN NEGATIVE (NEGATIVE); URINE COLOR YELLOW; URINE GLUCOSE (UA) NEGATIVE (NEGATIVE); URINE KETONE NEGATIVE (NEGATIVE)
[2020-12-18 15:23] LABS: URINE PROTEIN NEGATIVE (NEGATIVE)
[2020-12-18 15:25] LABS: URINE LEUK ESTERASE NEGATIVE (NEGATIVE); URINE NITRITE NEGATIVE (NEGATIVE); URINE UROBILINOGEN 0.2 mg/dL (0.2-1.0)
[2020-12-18 15:26] LABS: EPI CELLS 0.8 /uL (0-25.1); URINE RBC 6.5 /uL (0-23.9); URINE WBC 1.7 /uL (0-25.8)
[2020-12-18 15:27] LABS: URINE BACTERIA 10.4 /uL (0-1359)
[2020-12-18] MEDS ORDERED: ALBUTEROL SO4 HFA INHALER IH PRN (19:09)
[2020-12-18] MEDS ORDERED: ONDANSETRON 4 MG/2 ML VIAL IVPUSH PRN (19:10)
[2020-12-18] MEDS ORDERED: HEPARIN NA (PORCINE) 5,000 UNITS/ML 1ML VIAL ONE (22:45)
[2020-12-18] MEDS ORDERED: ATORVASTATIN CA 20 MG TABLET (FP) ONE (22:45)
[2020-12-18] MEDS: HEPARIN NA (PORCINE) 5,000 UNITS/ML 1ML VIAL SQ SCH (22:54)
[2020-12-18] MEDS: ATORVASTATIN CA 20 MG TABLET (FP) PO SCH (22:54)
[2020-12-19] MEDS ORDERED: PIPERACILLIN/TAZOB 3.375 GM 3.375 GM in DEXTROSE 5%-WATER - 50 ML IVPB SCH (02:00)
[2020-12-19] MEDS ORDERED: PIPERACILLIN/TAZOBACTAM 3.375 GM VIAL IVPB ONE ×3 (03:37→17:50)
[2020-12-19] MEDS ORDERED: DEXTROSE 5%-WATER - 50 ML IVPB ONE ×3 (03:38→17:52)
[2020-12-19] MEDS: PIPERACILLIN/TAZOB 3.375 GM 3.375 GM in DEXTROSE 5%-WATER - 50 ML IVPB SCH ×3 (03:40→18:00)
[2020-12-19] MEDS: HEPARIN NA (PORCINE) 5,000 UNITS/ML 1ML VIAL SQ SCH ×3 (06:23→21:22)
[2020-12-19] MEDS: LEVOTHYROXINE NA 50 MCG TABLET (FP) PO SCH (06:23)
[2020-12-19 09:08] LABS: BASO % 0.7 % (0-2.0); EOS % 3.4 % (0-4.5); HEMATOCRIT 35.8 % (32.4-45.2); HEMOGLOBIN 12.2 GM/dL (10.7-15.3); LYMPH % 17.4 % (8-40); MCH 35.3 pg (25.7-33.7); MCHC 34.2 g/dl (32.0-36.0); MEAN CELL VOLUME 103.4 fl (80-96); MEAN PLT VOLUME 9.5 fl (7.5-11.1); MONO % 17.2 % (3.8-10.2); NEUT % 61.3 % (42.8-82.8); PLATELET COUNT 312 K/MM3 (134-434); RBC 3.46 M/mm3 (3.60-5.2); RDW 15.8 % (11.6-15.6); WHITE BLOOD COUNT 5.4 K/mm3 (4.0-10.0)
[2020-12-19 10:10] LABS: CALCIUM 9.4 mg/dL (8.5-10.1)
[2020-12-19 10:11] LABS: BILIRUBIN,TOTAL 0.5 mg/dL (0.2-1); TOT PROT 6.9 g/dl (6.4-8.2)
[2020-12-19 10:12] LABS: CREATININE 0.6 mg/dL (0.55-1.3)
[2020-12-19] MEDS: ATORVASTATIN CA 20 MG TABLET (FP) PO SCH (21:22)
[2020-12-20] MEDS ORDERED: DEXTROSE 5%-WATER - 50 ML IVPB ONE ×3 (00:11→16:58)
[2020-12-20] MEDS ORDERED: PIPERACILLIN/TAZOBACTAM 3.375 GM VIAL IVPB ONE ×3 (00:11→16:58)
[2020-12-20] MEDS: PIPERACILLIN/TAZOB 3.375 GM 3.375 GM in DEXTROSE 5%-WATER - 50 ML IVPB SCH ×3 (01:00→17:23)
[2020-12-20] MEDS: LEVOTHYROXINE NA 50 MCG TABLET (FP) PO SCH (06:04)
[2020-12-20] MEDS: HEPARIN NA (PORCINE) 5,000 UNITS/ML 1ML VIAL SQ SCH ×3 (06:04→21:53)
[2020-12-20 09:34] LABS: HEMOGLOBIN 12.4 GM/dL (10.7-15.3); MCH 34.5 pg (25.7-33.7); MCHC 33.5 g/dl (32.0-36.0); MEAN CELL VOLUME 102.9 fl (80-96); MEAN PLT VOLUME 9.2 fl (7.5-11.1); PLATELET COUNT 335 K/MM3 (134-434); RBC 3.59 M/mm3 (3.60-5.2); RDW 15.6 % (11.6-15.6); WHITE BLOOD COUNT 2.7 K/mm3 (4.0-10.0)
[2020-12-20 10:55] LABS: BLOOD UREA NITROGEN 6.2 mg/dL (7-18)
[2020-12-20 10:56] LABS: CREATININE 0.7 mg/dL (0.55-1.3)
[2020-12-20 10:57] LABS: CALCIUM 9.3 mg/dL (8.5-10.1)
[2020-12-20] MEDS ORDERED: SODIUM CHLORIDE 1,000 ML IV SCH (19:30)
[2020-12-20] MEDS: ATORVASTATIN CA 20 MG TABLET (FP) PO SCH (21:53)
[2020-12-21] MEDS ORDERED: PIPERACILLIN/TAZOBACTAM 3.375 GM VIAL IVPB ONE ×3 (00:31→17:49)
[2020-12-21] MEDS ORDERED: DEXTROSE 5%-WATER - 50 ML IVPB ONE ×3 (00:31→17:49)
[2020-12-21] MEDS: PIPERACILLIN/TAZOB 3.375 GM 3.375 GM in DEXTROSE 5%-WATER - 50 ML IVPB SCH ×3 (01:05→18:04)
[2020-12-21] MEDS: LEVOTHYROXINE NA 75 MCG TABLET (FP) PO SCH (06:53)
[2020-12-21 09:10] LABS: HEMATOCRIT 39.6 % (32.4-45.2); HEMOGLOBIN 13.5 GM/dL (10.7-15.3); MCH 35.4 pg (25.7-33.7); MEAN CELL VOLUME 104.1 fl (80-96); MEAN PLT VOLUME 9.3 fl (7.5-11.1); PLATELET COUNT 353 K/MM3 (134-434); RDW 15.5 % (11.6-15.6); WHITE BLOOD COUNT 4.4 K/mm3 (4.0-10.0)
[2020-12-21 09:19] LABS: INR 1.11 (0.83-1.09); PROTHROMBIN TIME (PATIENT) 13.4 SEC (9.7-13.0)
[2020-12-21 09:56] LABS: ALBUMIN 3.4 g/dl (3.4-5.0); BLOOD UREA NITROGEN 4.9 mg/dL (7-18); CALCIUM 9.4 mg/dL (8.5-10.1); MAGNESIUM 1.7 mg/dL (1.8-2.4)
[2020-12-21 09:58] LABS: BILIRUBIN,TOTAL 0.3 mg/dL (0.2-1); TOT PROT 7.5 g/dl (6.4-8.2)
[2020-12-21 09:59] LABS: CREATININE 0.6 mg/dL (0.55-1.3); PHOSPHOROUS 3.1 mg/dL (2.5-4.9)
[2020-12-21] MEDS ORDERED: MAGNESIUM SULF 50% (8.12 MEQ/2 ML-1 GM VIAL) IVPB ONE (12:37)
[2020-12-21] MEDS: HEPARIN NA (PORCINE) 5,000 UNITS/ML 1ML VIAL SQ SCH ×2 (15:00→21:57)
[2020-12-21] MEDS: ATORVASTATIN CA 20 MG TABLET (FP) PO SCH (21:57)
[2020-12-22] MEDS ORDERED: PIPERACILLIN/TAZOBACTAM 3.375 GM VIAL IVPB ONE ×2 (02:45→09:06)
[2020-12-22] MEDS ORDERED: DEXTROSE 5%-WATER - 50 ML IVPB ONE ×2 (02:45→09:06)
[2020-12-22] MEDS: PIPERACILLIN/TAZOB 3.375 GM 3.375 GM in DEXTROSE 5%-WATER - 50 ML IVPB SCH ×2 (02:53→09:10)
[2020-12-22] MEDS: LEVOTHYROXINE NA 75 MCG TABLET (FP) PO SCH (06:07)
[2020-12-22] MEDS: HEPARIN NA (PORCINE) 5,000 UNITS/ML 1ML VIAL SQ SCH ×2 (06:07→13:33)
[2020-12-22 08:30] LABS: HEMATOCRIT 37.4 % (32.4-45.2); HEMOGLOBIN 12.4 GM/dL (10.7-15.3); MCH 34.5 pg (25.7-33.7); MCHC 33.2 g/dl (32.0-36.0); MEAN CELL VOLUME 104.1 fl (80-96); MEAN PLT VOLUME 9.1 fl (7.5-11.1); PLATELET COUNT 329 K/MM3 (134-434); RBC 3.59 M/mm3 (3.60-5.2); RDW 15.8 % (11.6-15.6); WHITE BLOOD COUNT 2.8 K/mm3 (4.0-10.0)
[2020-12-22 08:53] LABS: ALBUMIN 3.1 g/dl (3.4-5.0); CALCIUM 9.6 mg/dL (8.5-10.1); MAGNESIUM 1.8 mg/dL (1.8-2.4)
[2020-12-22 08:56] LABS: CREATININE 0.6 mg/dL (0.55-1.3); PHOSPHOROUS 3.5 mg/dL (2.5-4.9)
[2020-12-22 08:58] LABS: BILIRUBIN,TOTAL 0.3 mg/dL (0.2-1); TOT PROT 6.8 g/dl (6.4-8.2)
[2020-12-22 09:14] LABS: BLOOD UREA NITROGEN 3.4 mg/dL (7-18)
[2020-12-22 14:21] VITALS: BP 120/64; PULSE 83; TEMP 97.8
== END 2020-12-22 15:59 | disposition home or self-care (01) | DRG 392 ==
LOC: JER 11:36 → JERBED 16:40 → J6S 12-19 01:51
PROVIDERS: ATTEND Internal Medicine
DX: K57.20 Diverticulitis of large intestine with perforation and abscess without bleeding (principal); C56.9 Malignant neoplasm of unspecified ovary; R18.8 Other ascites; I10 Essential (primary) hypertension; E78.5 Hyperlipidemia, unspecified; K21.9 Gastro-esophageal reflux disease without esophagitis; J44.9 Chronic obstructive pulmonary disease, unspecified; R10.32 Left lower quadrant pain; E03.9 Hypothyroidism, unspecified
CPT/HCPCS: 36415; 71045-TC-FY; 80048; 80053; 81003; 82607; 82746; 82962; 83605; 83735; 84100; 85025; 85027; 85610; 87040; 87086; 93005; 93010; 99285-25; C9803; J1644; U0003; U0005

== ENCOUNTER 2021-01-26 15:55 | Inpatient (IN) | payer MEDICARE, OTHER ==
[2021-01-26] MEDS ORDERED: SODIUM CHLORIDE 1,524 ML IV ONE (16:42)
[2021-01-26] MEDS ORDERED: ACETAMINOPHEN 1000 MG/100 ML VIAL (NON FORMULARY) IVPB ONE ×2 (16:52→16:56)
[2021-01-26] MEDS ORDERED: PIPERACILLIN/TAZOB 3.375 GM 3.375 GM in DEXTROSE 5%-WATER - 50 ML IVPB ONE (16:56)
[2021-01-26] MEDS ORDERED: VANCOMYCIN 1 GM in D5W (PRE-DOCKED) 1,000 MG/250 ML IVPB ONE (16:56)
[2021-01-26] MEDS ORDERED: ACETAMINOPHEN INJECTION 100 ML IVPB ONE (18:20)
[2021-01-26] MEDS ORDERED: PIPERACILLIN/TAZOB 3.375 GM 3.375 GM/50 ML BAG IVPB ONE (18:20)
[2021-01-26 18:41] LABS: BASO % 0.2 % (0-2.0); EOS % 0.2 % (0-4.5); HEMOGLOBIN 13.1 GM/dL (10.7-15.3); LYMPH % 6.9 % (8-40); MCH 34.2 pg (25.7-33.7); MCHC 33.7 g/dl (32.0-36.0); MEAN CELL VOLUME 101.5 fl (80-96); MONO % 9.6 % (3.8-10.2); NEUT % 83.1 % (42.8-82.8); PLATELET COUNT 238 K/MM3 (134-434); RBC 3.84 M/mm3 (3.60-5.2); RDW 14.1 % (11.6-15.6); WHITE BLOOD COUNT 10.4 K/mm3 (4.0-10.0)
[2021-01-26 19:01] LABS: CHLORIDE 96 mmol/L (98-107); SODIUM 133 mmol/L (136-145)
[2021-01-26 19:03] LABS: ALBUMIN 3.8 g/dl (3.4-5.0); ANION GAP 6 MMOL/L (8-16); BLOOD UREA NITROGEN 9.4 mg/dL (7-18); CALCIUM 9.2 mg/dL (8.5-10.1); CO2 31 mmol/L (21-32); GLUCOSE,RANDOM 96 mg/dL (74-106)
[2021-01-26 19:06] LABS: SGPT/ALT 26 U/L (13-61)
[2021-01-26 19:07] LABS: CREATININE 0.5 mg/dL (0.55-1.3); SGOT/AST 42 U/L (15-37)
[2021-01-26] MEDS ORDERED: VANCOMYCIN 1 GRAM (PRE-DOCKED) 1,000 MG/250 ML BAG IVPB ONE ×2 (19:07→19:15)
[2021-01-26 19:08] LABS: BILIRUBIN,TOTAL 0.9 mg/dL (0.2-1); TOT PROT 7.8 g/dl (6.4-8.2)
[2021-01-26 19:09] LABS: ALK PHOS 87 U/L (45-117)
[2021-01-26 20:17] LABS: URINE APPEARANCE CLEAR; URINE BILIRUBIN NEGATIVE (NEGATIVE); URINE COLOR YELLOW; URINE GLUCOSE (UA) NEGATIVE (NEGATIVE); URINE KETONE NEGATIVE (NEGATIVE); URINE LEUK ESTERASE NEGATIVE (NEGATIVE); URINE NITRITE NEGATIVE (NEGATIVE); URINE PROTEIN NEGATIVE (NEGATIVE); URINE UROBILINOGEN 0.2 mg/dL (0.2-1.0)
[2021-01-26] MEDS ORDERED: ONDANSETRON 4 MG/2 ML VIAL IVPUSH PRN (23:24)
[2021-01-26] MEDS: DEXTROSE 5%-NORMAL SALINE 1,000 ML IV SCH (23:31)
[2021-01-26] MEDS ORDERED: ALBUTEROL SO4 HFA INHALER IH PRN (23:47)
[2021-01-27] MEDS ORDERED: PIPERACILLIN/TAZOB 3.375 GM 3.375 GM/50 ML BAG IVPB ONE (02:13)
[2021-01-27] MEDS: PIPERACILLIN/TAZOB 3.375 GM 3.375 GM in DEXTROSE 5%-WATER - 50 ML IVPB SCH ×3 (02:17→17:52)
[2021-01-27 04:12] VITALS: BMI 22.8
[2021-01-27] MEDS ORDERED: MORPHINE SULFATE 2 MG/ML VIAL IVPUSH PRN (04:32)
[2021-01-27] MEDS ORDERED: ACETAMINOPHEN 1000 MG/100 ML VIAL (NON FORMULARY) IVPB PRN (04:32)
[2021-01-27] MEDS: LEVOTHYROXINE NA 50 MCG TABLET (FP) PO SCH (06:14)
[2021-01-27] MEDS ORDERED: PIPERACILLIN/TAZOBACTAM 3.375 GM VIAL IVPB ONE ×2 (08:42→17:42)
[2021-01-27] MEDS ORDERED: DEXTROSE 5%-WATER - 50 ML IVPB ONE ×2 (08:43→17:42)
[2021-01-27 09:17] LABS: HEMATOCRIT 35.4 % (32.4-45.2); HEMOGLOBIN 11.9 GM/dL (10.7-15.3); MCH 34.3 pg (25.7-33.7); MCHC 33.6 g/dl (32.0-36.0); MEAN CELL VOLUME 101.9 fl (80-96); MEAN PLT VOLUME 9.7 fl (7.5-11.1); PLATELET COUNT 201 K/MM3 (134-434); RBC 3.47 M/mm3 (3.60-5.2); RDW 13.9 % (11.6-15.6)
[2021-01-27 09:24] LABS: CALCIUM 8.1 mg/dL (8.5-10.1)
[2021-01-27 09:25] LABS: MAGNESIUM 1.3 mg/dL (1.8-2.4)
[2021-01-27 09:28] LABS: CREATININE 0.5 mg/dL (0.55-1.3); PHOSPHOROUS 2.5 mg/dL (2.5-4.9)
[2021-01-27 09:29] LABS: BILIRUBIN,TOTAL 0.8 mg/dL (0.2-1); TOT PROT 6.3 g/dl (6.4-8.2)
[2021-01-27 09:31] LABS: BLOOD UREA NITROGEN 6.4 mg/dL (7-18)
[2021-01-27] MEDS: DEXTROSE 5%-NORMAL SALINE 1,000 ML IV SCH (11:04)
[2021-01-27] MEDS: ENOXAPARIN NA (PORCINE) 40 MG/0.4 ML DISP.SYRIN SQ SCH (11:04)
[2021-01-27] MEDS ORDERED: VANCOMYCIN 1,000 MG in DEXTROSE 5%-WATER - 250 ML IVPB SCH (19:00)
[2021-01-28] MEDS ORDERED: PIPERACILLIN/TAZOBACTAM 3.375 GM VIAL IVPB ONE ×3 (01:33→17:52)
[2021-01-28] MEDS ORDERED: DEXTROSE 5%-WATER - 50 ML IVPB ONE ×3 (01:33→17:52)
[2021-01-28] MEDS: DEXTROSE 5%-NORMAL SALINE 1,000 ML IV SCH ×2 (01:40→17:54)
[2021-01-28] MEDS: PIPERACILLIN/TAZOB 3.375 GM 3.375 GM in DEXTROSE 5%-WATER - 50 ML IVPB SCH ×3 (01:41→17:54)
[2021-01-28] MEDS ORDERED: PIPERACILLIN/TAZOB 3.375 GM 3.375 GM in DEXTROSE 5%-WATER - 50 ML IVPB SCH (02:00)
[2021-01-28] MEDS: LEVOTHYROXINE NA 50 MCG TABLET (FP) PO SCH (06:03)
[2021-01-28 08:15] LABS: BASO % 0.3 % (0-2.0); EOS % 1.7 % (0-4.5); HEMOGLOBIN 11.9 GM/dL (10.7-15.3); LYMPH % 15.2 % (8-40); MCH 34.1 pg (25.7-33.7); MCHC 33.1 g/dl (32.0-36.0); MEAN CELL VOLUME 102.8 fl (80-96); MEAN PLT VOLUME 9.1 fl (7.5-11.1); MONO % 10.1 % (3.8-10.2); NEUT % 72.7 % (42.8-82.8); PLATELET COUNT 197 K/MM3 (134-434); RDW 14.1 % (11.6-15.6); WHITE BLOOD COUNT 9.2 K/mm3 (4.0-10.0)
[2021-01-28 08:38] LABS: CHLORIDE 103 mmol/L (98-107); SODIUM 140 mmol/L (136-145)
[2021-01-28 08:44] LABS: CALCIUM 8.2 mg/dL (8.5-10.1); GLUCOSE,RANDOM 95 mg/dL (74-106)
[2021-01-28 08:45] LABS: ALBUMIN 2.9 g/dl (3.4-5.0); ANION GAP 3 MMOL/L (8-16); CO2 34 mmol/L (21-32); MAGNESIUM 1.3 mg/dL (1.8-2.4)
[2021-01-28 08:47] LABS: CREATININE 0.4 mg/dL (0.55-1.3); SGOT/AST 27 U/L (15-37)
[2021-01-28 08:48] LABS: PHOSPHOROUS 2.4 mg/dL (2.5-4.9)
[2021-01-28 08:49] LABS: BILIRUBIN,TOTAL 0.6 mg/dL (0.2-1); SGPT/ALT 20 U/L (13-61); TOT PROT 6.2 g/dl (6.4-8.2)
[2021-01-28 08:50] LABS: ALK PHOS 71 U/L (45-117)
[2021-01-28 08:54] LABS: BLOOD UREA NITROGEN 1.7 mg/dL (7-18)
[2021-01-28] MEDS ORDERED: MAGNESIUM 1GM/D5W - 1 GM/100 ML IVPB IVPB ONE (09:15)
[2021-01-28] MEDS: ENOXAPARIN NA (PORCINE) 40 MG/0.4 ML DISP.SYRIN SQ SCH (09:28)
[2021-01-28] MEDS ORDERED: NAPH,MB-DB/K PH,MBDB POWDER PACKET PO ONE (09:30)
[2021-01-28] MEDS ORDERED: VANCOMYCIN 1,000 MG in DEXTROSE 5%-WATER - 250 ML IVPB SCH (19:00)
[2021-01-29] MEDS ORDERED: DEXTROSE 5%-WATER - 50 ML IVPB ONE ×3 (02:03→18:01)
[2021-01-29] MEDS ORDERED: PIPERACILLIN/TAZOBACTAM 3.375 GM VIAL IVPB ONE ×3 (02:03→18:00)
[2021-01-29] MEDS: PIPERACILLIN/TAZOB 3.375 GM 3.375 GM in DEXTROSE 5%-WATER - 50 ML IVPB SCH ×3 (02:04→18:12)
[2021-01-29] MEDS: LEVOTHYROXINE NA 50 MCG TABLET (FP) PO SCH (07:06)
[2021-01-29 08:56] LABS: HEMATOCRIT 35.9 % (32.4-45.2); HEMOGLOBIN 12.1 GM/dL (10.7-15.3); MCH 33.9 pg (25.7-33.7); MCHC 33.7 g/dl (32.0-36.0); MEAN CELL VOLUME 100.7 fl (80-96); PLATELET COUNT 225 K/MM3 (134-434); RBC 3.57 M/mm3 (3.60-5.2); RDW 13.7 % (11.6-15.6); WHITE BLOOD COUNT 5.3 K/mm3 (4.0-10.0)
[2021-01-29] MEDS: ENOXAPARIN NA (PORCINE) 40 MG/0.4 ML DISP.SYRIN SQ SCH (09:18)
[2021-01-29] MEDS: DEXTROSE 5%-NORMAL SALINE 1,000 ML IV SCH (09:21)
[2021-01-29 09:24] LABS: CHLORIDE 102 mmol/L (98-107); SODIUM 139 mmol/L (136-145)
[2021-01-29 09:34] LABS: CALCIUM 7.9 mg/dL (8.5-10.1)
[2021-01-29 09:35] LABS: ANION GAP 5 MMOL/L (8-16); CO2 33 mmol/L (21-32); GLUCOSE,RANDOM 88 mg/dL (74-106); MAGNESIUM 1.4 mg/dL (1.8-2.4)
[2021-01-29 09:37] LABS: SGOT/AST 21 U/L (15-37); SGPT/ALT 21 U/L (13-61)
[2021-01-29 09:38] LABS: CREATININE 0.4 mg/dL (0.55-1.3); PHOSPHOROUS 2.8 mg/dL (2.5-4.9)
[2021-01-29 09:39] LABS: BILIRUBIN,TOTAL 0.3 mg/dL (0.2-1); TOT PROT 6.3 g/dl (6.4-8.2)
[2021-01-29 09:40] LABS: ALK PHOS 67 U/L (45-117)
[2021-01-29 09:41] LABS: BLOOD UREA NITROGEN 1.3 mg/dL (7-18)
[2021-01-29] MEDS ORDERED: MAGNESIUM SULF 50% (8.12 MEQ/2 ML-1 GM VIAL) IVPB ONE (11:51)
[2021-01-29] MEDS ORDERED: KCL 10 MEQ IVPB 10 MEQ/100 ML INFUS.BAG IVPB SCH (12:00)
[2021-01-29] MEDS ORDERED: POTASSIUM CHLORIDE ORAL LIQUID 20 MEQ/15 ML PO ONE (18:52)
[2021-01-30] MEDS ORDERED: PIPERACILLIN/TAZOBACTAM 3.375 GM VIAL IVPB ONE ×3 (01:26→17:28)
[2021-01-30] MEDS ORDERED: DEXTROSE 5%-WATER - 50 ML IVPB ONE ×3 (01:29→17:28)
[2021-01-30] MEDS: PIPERACILLIN/TAZOB 3.375 GM 3.375 GM in DEXTROSE 5%-WATER - 50 ML IVPB SCH ×3 (01:29→17:30)
[2021-01-30] MEDS: LEVOTHYROXINE NA 50 MCG TABLET (FP) PO SCH (06:00)
[2021-01-30 09:01] LABS: BASO % 0.8 % (0-2.0); EOS % 3.9 % (0-4.5); HEMATOCRIT 36.8 % (32.4-45.2); HEMOGLOBIN 12.6 GM/dL (10.7-15.3); LYMPH % 35.1 % (8-40); MCH 34.8 pg (25.7-33.7); MCHC 34.3 g/dl (32.0-36.0); MEAN CELL VOLUME 101.4 fl (80-96); MEAN PLT VOLUME 9.3 fl (7.5-11.1); NEUT % 42.2 % (42.8-82.8); PLATELET COUNT 217 K/MM3 (134-434); RBC 3.63 M/mm3 (3.60-5.2); RDW 13.8 % (11.6-15.6); WHITE BLOOD COUNT 4.6 K/mm3 (4.0-10.0)
[2021-01-30 09:16] LABS: CALCIUM 8.3 mg/dL (8.5-10.1); MAGNESIUM 1.5 mg/dL (1.8-2.4)
[2021-01-30 09:19] LABS: CREATININE 0.5 mg/dL (0.55-1.3); PHOSPHOROUS 3.3 mg/dL (2.5-4.9)
[2021-01-30 09:20] LABS: BILIRUBIN,TOTAL 0.4 mg/dL (0.2-1); TOT PROT 6.6 g/dl (6.4-8.2)
[2021-01-30] MEDS: ENOXAPARIN NA (PORCINE) 40 MG/0.4 ML DISP.SYRIN SQ SCH (09:35)
[2021-01-30] MEDS ORDERED: MAGNESIUM SULF 50% (8.12 MEQ/2 ML-1 GM VIAL) IVPB ONE (09:37)
[2021-01-31] MEDS ORDERED: PIPERACILLIN/TAZOBACTAM 3.375 GM VIAL IVPB ONE ×3 (01:44→17:16)
[2021-01-31] MEDS ORDERED: DEXTROSE 5%-WATER - 50 ML IVPB ONE ×3 (01:44→17:16)
[2021-01-31] MEDS: PIPERACILLIN/TAZOB 3.375 GM 3.375 GM in DEXTROSE 5%-WATER - 50 ML IVPB SCH ×3 (01:48→17:42)
[2021-01-31] MEDS: LEVOTHYROXINE NA 50 MCG TABLET (FP) PO SCH (06:13)
[2021-01-31 08:31] LABS: BASO % 0.8 % (0-2.0); EOS % 4.6 % (0-4.5); HEMATOCRIT 38.6 % (32.4-45.2); HEMOGLOBIN 13.3 GM/dL (10.7-15.3); LYMPH % 40.8 % (8-40); MCHC 34.4 g/dl (32.0-36.0); MEAN CELL VOLUME 101.9 fl (80-96); MONO % 19.9 % (3.8-10.2); NEUT % 33.9 % (42.8-82.8); PLATELET COUNT 244 K/MM3 (134-434); RBC 3.79 M/mm3 (3.60-5.2); RDW 13.8 % (11.6-15.6); WHITE BLOOD COUNT 4.6 K/mm3 (4.0-10.0)
[2021-01-31 08:55] LABS: CALCIUM 8.7 mg/dL (8.5-10.1)
[2021-01-31 08:56] LABS: ALBUMIN 3.5 g/dl (3.4-5.0); BLOOD UREA NITROGEN 5.2 mg/dL (7-18); MAGNESIUM 1.4 mg/dL (1.8-2.4)
[2021-01-31 08:59] LABS: CREATININE 0.5 mg/dL (0.55-1.3); PHOSPHOROUS 3.1 mg/dL (2.5-4.9)
[2021-01-31 09:00] LABS: BILIRUBIN,TOTAL 0.4 mg/dL (0.2-1); TOT PROT 7.4 g/dl (6.4-8.2)
[2021-01-31] MEDS: ENOXAPARIN NA (PORCINE) 40 MG/0.4 ML DISP.SYRIN SQ SCH (09:30)
[2021-02-01] MEDS ORDERED: PIPERACILLIN/TAZOBACTAM 3.375 GM VIAL IVPB ONE ×3 (01:14→17:01)
[2021-02-01] MEDS: PIPERACILLIN/TAZOB 3.375 GM 3.375 GM in DEXTROSE 5%-WATER - 50 ML IVPB SCH ×3 (01:45→17:09)
[2021-02-01] MEDS: LEVOTHYROXINE NA 50 MCG TABLET (FP) PO SCH (06:26)
[2021-02-01] MEDS ORDERED: DEXTROSE 5%-WATER - 50 ML IVPB ONE ×2 (08:55→17:02)
[2021-02-01] MEDS: ENOXAPARIN NA (PORCINE) 40 MG/0.4 ML DISP.SYRIN SQ SCH (09:15)
[2021-02-01 11:07] VITALS: TEMP 98.2
[2021-02-01 14:12] VITALS: BP 145/73; PULSE 80
== END 2021-02-01 18:56 | disposition home or self-care (01) | DRG 872 ==
LOC: JER 15:55 → JERBED 20:44 → J6S 01-27 03:13
PROVIDERS: ADMIT Internal Medicine; ATTEND Internal Medicine
DX: A41.9 Sepsis, unspecified organism (principal); K51.00 Ulcerative (chronic) pancolitis without complications; C56.9 Malignant neoplasm of unspecified ovary; C78.6 Secondary malignant neoplasm of retroperitoneum and peritoneum; K63.0 Abscess of intestine; E87.1 Hypo-osmolality and hyponatremia; R19.7 Diarrhea, unspecified; E03.9 Hypothyroidism, unspecified; E78.5 Hyperlipidemia, unspecified; K21.9 Gastro-esophageal reflux disease without esophagitis; D72.829 Elevated white blood cell count, unspecified
CPT/HCPCS: 36415; 71045-TC-FY; 74177-TC; 80053; 81003; 83605; 83735; 84100; 84484; 85025; 85027; 87040; 87045; 87046; 87086; 87177; 87209; 87324; 87449; 87804; 87899; 93005; 93010; 99285-25; C9803; J0131; Q9967; U0003; U0005

== ENCOUNTER 2021-02-16 10:45 | Inpatient (IN) | payer MEDICARE, OTHER ==
[2021-02-16] MEDS ORDERED: SODIUM CHLORIDE 0.9% 500 ML INFUS.BAG IV ONE (11:15)
[2021-02-16] MEDS ORDERED: ACETAMINOPHEN 1000 MG/100 ML VIAL (NON FORMULARY) IVPB ONE (11:18)
[2021-02-16] MEDS ORDERED: ACETAMINOPHEN INJECTION 100 ML IVPB ONE (11:29)
[2021-02-16 12:21] LABS: BASO % 0.3 % (0-2.0); EOS % 0.1 % (0-4.5); HEMATOCRIT 36.8 % (32.4-45.2); HEMOGLOBIN 12.3 GM/dL (10.7-15.3); LYMPH % 11.4 % (8-40); MCH 33.3 pg (25.7-33.7); MCHC 33.5 g/dl (32.0-36.0); MEAN CELL VOLUME 99.3 fl (80-96); MEAN PLT VOLUME 9.4 fl (7.5-11.1); MONO % 17.8 % (3.8-10.2); NEUT % 70.4 % (42.8-82.8); PLATELET COUNT 219 10^3/uL (134-434); RBC 3.71 M/mm3 (3.60-5.2); WHITE BLOOD COUNT 8.9 K/mm3 (4.0-10.0)
[2021-02-16 12:34] LABS: CHLORIDE 92 mmol/L (98-107); SODIUM 130 mmol/L (136-145)
[2021-02-16 12:36] LABS: ALBUMIN 3.4 g/dl (3.4-5.0); ANION GAP 6 MMOL/L (8-16); BLOOD UREA NITROGEN 13.6 mg/dL (7-18); CALCIUM 9.2 mg/dL (8.5-10.1); CO2 32 mmol/L (21-32); GLUCOSE,RANDOM 117 mg/dL (74-106)
[2021-02-16 12:39] LABS: CREATININE 0.7 mg/dL (0.55-1.3); SGOT/AST 42 U/L (15-37); SGPT/ALT 19 U/L (13-61)
[2021-02-16 12:41] LABS: BILIRUBIN,TOTAL 1.1 mg/dL (0.2-1)
[2021-02-16 12:42] LABS: ALK PHOS 51 U/L (45-117)
[2021-02-16 12:50] LABS: ANISOCYTOSIS 0; HELMET CELLS 0; HOWELL-JOLLY BODIES 0; MACROCYTOSIS 0; OVALOCYTE 0; PLATELET ESTIMATE NORMAL; ROULEAU 0; SICKELED CELLS 0; TARGET CELLS 0; TEAR DROP CELLS 0; TOXIC GRANULATION 0
[2021-02-16] MEDS ORDERED: PIPERACILLIN/TAZOB 4.5 GM 4.5 GM in DEXTROSE 5%-WATER 100 ML IVPB ONE (16:32)
[2021-02-16] MEDS ORDERED: KETOROLAC TROMETHAMINE 30 MG/1 ML VIAL IVPUSH ONE (16:49)
[2021-02-16] MEDS ORDERED: KETOROLAC TROMETHAMINE 30 MG/1 ML VIAL ONE (17:07)
[2021-02-16] MEDS ORDERED: PIPERACILLIN/TAZOB 4.5 GM 4.5 GM/100 ML BAG IVPB ONE (17:07)
[2021-02-16 17:35] LABS: URINE APPEARANCE Clear; URINE BILIRUBIN Negative (NEGATIVE); URINE COLOR Yellow; URINE GLUCOSE (UA) Negative (NEGATIVE); URINE KETONE 2+ (NEGATIVE); URINE LEUK ESTERASE Negative (NEGATIVE); URINE NITRITE Negative (NEGATIVE); URINE PROTEIN Trace (NEGATIVE); URINE UROBILINOGEN 0.2 mg/dL (0.2-1.0)
[2021-02-16] MEDS ORDERED: LIDOCAINE HCL 2% JELLY 10 ML CARTRIDGE UR ONE (17:58)
[2021-02-16] MEDS ORDERED: LIDOCAINE HCL 2% JELLY 10 ML CARTRIDGE ONE (18:16)
[2021-02-16] MEDS ORDERED: ACETAMINOPHEN 325 MG TABLET (FP) PO PRN (19:05)
[2021-02-16] MEDS: SODIUM CHLORIDE 1,000 ML IV SCH (21:42)
[2021-02-16 22:06] LABS: BLOOD UREA NITROGEN 10.9 mg/dL (7-18); CALCIUM 8.4 mg/dL (8.5-10.1); MAGNESIUM 1.4 mg/dL (1.8-2.4)
[2021-02-16 22:10] LABS: CREATININE 0.5 mg/dL (0.55-1.3); PHOSPHOROUS 2.4 mg/dL (2.5-4.9)
[2021-02-16 23:11] VITALS: BMI 22.2
[2021-02-17] MEDS ORDERED: PIPERACILLIN/TAZOB 3.375 GM 3.375 GM in DEXTROSE 5%-WATER - 50 ML IVPB SCH (02:00)
[2021-02-17] MEDS ORDERED: PIPERACILLIN/TAZOBACTAM 3.375 GM VIAL IVPB ONE (02:38)
[2021-02-17] MEDS ORDERED: DEXTROSE 5%-WATER - 50 ML IVPB ONE (02:39)
[2021-02-17] MEDS: LEVOTHYROXINE NA 75 MCG TABLET (FP) PO SCH (06:04)
[2021-02-17 07:49] LABS: HEMATOCRIT 36.8 % (32.4-45.2); HEMOGLOBIN 12.4 GM/dL (10.7-15.3); MCH 33.9 pg (25.7-33.7); MCHC 33.8 g/dl (32.0-36.0); MEAN CELL VOLUME 100.4 fl (80-96); MEAN PLT VOLUME 8.8 fl (7.5-11.1); PLATELET COUNT 204 10^3/uL (134-434); RBC 3.67 M/mm3 (3.60-5.2); RDW 13.9 % (11.6-15.6); WHITE BLOOD COUNT 9.3 K/mm3 (4.0-10.0)
[2021-02-17 08:04] LABS: CALCIUM 9.3 mg/dL (8.5-10.1)
[2021-02-17 08:05] LABS: ALBUMIN 3.5 g/dl (3.4-5.0); BLOOD UREA NITROGEN 12.7 mg/dL (7-18)
[2021-02-17 08:07] LABS: CREATININE 0.5 mg/dL (0.55-1.3); PHOSPHOROUS 2.8 mg/dL (2.5-4.9)
[2021-02-17 08:09] LABS: BILIRUBIN,TOTAL 0.9 mg/dL (0.2-1); TOT PROT 7.6 g/dl (6.4-8.2)
[2021-02-17] MEDS: ENOXAPARIN NA (PORCINE) 40 MG/0.4 ML DISP.SYRIN SQ SCH (09:41)
[2021-02-17] MEDS: SODIUM CHLORIDE 1,000 ML IV SCH ×2 (09:41→20:07)
[2021-02-17] MEDS: SIMETHICONE 80 MG TAB.CHEW (FP) PO PRN ×2 (12:18→18:14)
[2021-02-17] MEDS: ONDANSETRON 4 MG/2 ML VIAL IVPB PRN (18:49)
[2021-02-17] MEDS ORDERED: METOCLOPRAMIDE HCL INJECTION 10 MG/2 ML VIAL IVPUSH ONE (19:32)
[2021-02-18] MEDS: SIMETHICONE 80 MG TAB.CHEW (FP) PO PRN ×3 (01:18→17:16)
[2021-02-18] MEDS: SODIUM CHLORIDE 1,000 ML IV SCH (01:21)
[2021-02-18] MEDS ORDERED: ALBUTEROL SO4 HFA INHALER IH PRN (02:36)
[2021-02-18] MEDS: LEVOTHYROXINE NA 75 MCG TABLET (FP) PO SCH (06:10)
[2021-02-18 09:14] LABS: BASO % 0.3 % (0-2.0); EOS % 0.1 % (0-4.5); HEMATOCRIT 35.8 % (32.4-45.2); HEMOGLOBIN 11.7 GM/dL (10.7-15.3); LYMPH % 11.1 % (8-40); MCH 33.1 pg (25.7-33.7); MCHC 32.8 g/dl (32.0-36.0); MEAN CELL VOLUME 100.8 fl (80-96); MEAN PLT VOLUME 8.9 fl (7.5-11.1); MONO % 12.3 % (3.8-10.2); NEUT % 76.2 % (42.8-82.8); PLATELET COUNT 195 10^3/uL (134-434); RBC 3.55 M/mm3 (3.60-5.2)
[2021-02-18 09:37] LABS: ALBUMIN 2.9 g/dl (3.4-5.0); CALCIUM 8.4 mg/dL (8.5-10.1)
[2021-02-18] MEDS: ENOXAPARIN NA (PORCINE) 40 MG/0.4 ML DISP.SYRIN SQ SCH (09:38)
[2021-02-18 09:41] LABS: CREATININE 0.3 mg/dL (0.55-1.3)
[2021-02-18 09:42] LABS: BILIRUBIN,TOTAL 0.4 mg/dL (0.2-1); TOT PROT 6.3 g/dl (6.4-8.2)
[2021-02-18 09:43] LABS: BLOOD UREA NITROGEN 5.8 mg/dL (7-18)
[2021-02-18 10:14] LABS: ANISOCYTOSIS 1+; MACROCYTOSIS 0; PLATELET ESTIMATE NORMAL; TARGET CELLS 1+
[2021-02-18] MEDS: MAG HYDROX/AL HYDROX/SIMETH 30 ML UNIT-DOSE CUP PO PRN (12:27)
[2021-02-18] MEDS: LACTOBACILLUS ACIDOPHILUS 1 TABLET PO SCH (12:27)
[2021-02-18] MEDS: metroNIDAZOLE 250 MG TABLET PO SCH (21:00)
[2021-02-19] MEDS: metroNIDAZOLE 250 MG TABLET PO SCH ×3 (05:20→21:13)
[2021-02-19] MEDS: LEVOTHYROXINE NA 75 MCG TABLET (FP) PO SCH (06:11)
[2021-02-19 07:51] LABS: BASO % 0.6 % (0-2.0); EOS % 1.5 % (0-4.5); HEMATOCRIT 35.5 % (32.4-45.2); MCH 33.2 pg (25.7-33.7); MCHC 33.7 g/dl (32.0-36.0); MEAN CELL VOLUME 98.4 fl (80-96); MEAN PLT VOLUME 8.6 fl (7.5-11.1); MONO % 24.8 % (3.8-10.2); NEUT % 55.1 % (42.8-82.8); PLATELET COUNT 208 10^3/uL (134-434); RBC 3.61 M/mm3 (3.60-5.2); RDW 13.5 % (11.6-15.6); WHITE BLOOD COUNT 4.1 K/mm3 (4.0-10.0)
[2021-02-19 08:10] LABS: CHLORIDE 93 mmol/L (98-107); SODIUM 135 mmol/L (136-145)
[2021-02-19 08:14] LABS: CALCIUM 8.4 mg/dL (8.5-10.1); GLUCOSE,RANDOM 99 mg/dL (74-106)
[2021-02-19 08:15] LABS: ANION GAP 8 MMOL/L (8-16); CO2 33 mmol/L (21-32)
[2021-02-19 08:17] LABS: CREATININE 0.3 mg/dL (0.55-1.3)
[2021-02-19 08:57] LABS: BLOOD UREA NITROGEN 2.3 mg/dL (7-18)
[2021-02-19] MEDS: LACTOBACILLUS ACIDOPHILUS 1 TABLET PO SCH (09:02)
[2021-02-19] MEDS: ENOXAPARIN NA (PORCINE) 40 MG/0.4 ML DISP.SYRIN SQ SCH (09:02)
[2021-02-19] MEDS: SIMETHICONE 80 MG TAB.CHEW (FP) PO PRN (09:02)
[2021-02-19] MEDS: MAG HYDROX/AL HYDROX/SIMETH 30 ML UNIT-DOSE CUP PO PRN (09:09)
[2021-02-19 10:59] LABS: ANISOCYTOSIS 1+; MACROCYTOSIS 1+; PLATELET ESTIMATE NORMAL
[2021-02-19] MEDS ORDERED: SODIUM CHLORIDE 1,000 ML IV SCH (11:15)
[2021-02-19] MEDS: POTASSIUM CHLORIDE ORAL LIQUID 20 MEQ/15 ML PO SCH ×2 (12:17→21:13)
[2021-02-19] MEDS: SODIUM CHLORIDE 1,000 ML IV SCH (12:17)
[2021-02-20] MEDS: metroNIDAZOLE 250 MG TABLET PO SCH ×3 (06:08→21:29)
[2021-02-20] MEDS: LEVOTHYROXINE NA 75 MCG TABLET (FP) PO SCH (06:08)
[2021-02-20] MEDS: MAG HYDROX/AL HYDROX/SIMETH 30 ML UNIT-DOSE CUP PO PRN ×2 (06:21→16:56)
[2021-02-20 08:07] LABS: BASO % 1.3 % (0-2.0); EOS % 0.7 % (0-4.5); HEMATOCRIT 41.2 % (32.4-45.2); HEMOGLOBIN 13.6 GM/dL (10.7-15.3); LYMPH % 23.1 % (8-40); MCH 32.7 pg (25.7-33.7); MCHC 33.2 g/dl (32.0-36.0); MEAN CELL VOLUME 98.6 fl (80-96); MONO % 24.9 % (3.8-10.2); PLATELET COUNT 232 10^3/uL (134-434); RBC 4.17 M/mm3 (3.60-5.2); RDW 13.6 % (11.6-15.6); WHITE BLOOD COUNT 5.4 K/mm3 (4.0-10.0)
[2021-02-20 08:28] LABS: CHLORIDE 82 mmol/L (98-107); SODIUM 126 mmol/L (136-145)
[2021-02-20 08:30] LABS: CALCIUM 8.6 mg/dL (8.5-10.1)
[2021-02-20 08:31] LABS: ANION GAP 10 MMOL/L (8-16); CO2 34 mmol/L (21-32); GLUCOSE,RANDOM 147 mg/dL (74-106); MAGNESIUM 1.1 mg/dL (1.8-2.4)
[2021-02-20 08:33] LABS: CREATININE 0.4 mg/dL (0.55-1.3)
[2021-02-20] MEDS: POTASSIUM CHLORIDE ORAL LIQUID 20 MEQ/15 ML PO SCH ×2 (09:10→21:29)
[2021-02-20] MEDS: ENOXAPARIN NA (PORCINE) 40 MG/0.4 ML DISP.SYRIN SQ SCH (09:10)
[2021-02-20] MEDS: LACTOBACILLUS ACIDOPHILUS 1 TABLET PO SCH (09:11)
[2021-02-20] MEDS: PANTOPRAZOLE 40 MG TABLET PO SCH (09:11)
[2021-02-20] MEDS: SIMETHICONE 80 MG TAB.CHEW (FP) PO PRN (09:12)
[2021-02-20 09:44] LABS: BLOOD UREA NITROGEN 2.1 mg/dL (7-18); PHOSPHOROUS 0.4 mg/dL (2.5-4.9)
[2021-02-20 10:29] LABS: ANISOCYTOSIS 1+; PLATELET ESTIMATE NORMAL
[2021-02-20] MEDS ORDERED: MAGNESIUM 2GM/50ML STERILE WATER IVPB IVPB ONE (11:30)
[2021-02-20] MEDS ORDERED: POTASSIUM PHOSPHATE 30 MM in DEXTROSE 5%-WATER - 500 ML IVPB ONE (12:00)
[2021-02-21] MEDS: MAG HYDROX/AL HYDROX/SIMETH 30 ML UNIT-DOSE CUP PO PRN ×2 (03:34→15:23)
[2021-02-21] MEDS: metroNIDAZOLE 250 MG TABLET PO SCH ×3 (05:28→21:02)
[2021-02-21] MEDS: LEVOTHYROXINE NA 75 MCG TABLET (FP) PO SCH (06:02)
[2021-02-21 08:15] LABS: BASO % 0.6 % (0-2.0); CALCIUM 8.5 mg/dL (8.5-10.1); EOS % 1.3 % (0-4.5); HEMOGLOBIN 14.6 GM/dL (10.7-15.3); MCH 32.8 pg (25.7-33.7); MCHC 33.3 g/dl (32.0-36.0); MEAN CELL VOLUME 98.7 fl (80-96); MEAN PLT VOLUME 9.3 fl (7.5-11.1); MONO % 23.9 % (3.8-10.2); NEUT % 56.2 % (42.8-82.8); PLATELET COUNT 266 10^3/uL (134-434); RBC 4.46 M/mm3 (3.60-5.2); RDW 13.7 % (11.6-15.6); WHITE BLOOD COUNT 6.8 K/mm3 (4.0-10.0)
[2021-02-21 08:16] LABS: ALBUMIN 3.4 g/dl (3.4-5.0); BLOOD UREA NITROGEN 4.9 mg/dL (7-18)
[2021-02-21 08:19] LABS: CREATININE 0.4 mg/dL (0.55-1.3)
[2021-02-21 08:20] LABS: BILIRUBIN,TOTAL 0.6 mg/dL (0.2-1); TOT PROT 6.8 g/dl (6.4-8.2)
[2021-02-21] MEDS: ENOXAPARIN NA (PORCINE) 40 MG/0.4 ML DISP.SYRIN SQ SCH (08:59)
[2021-02-21] MEDS: POTASSIUM CHLORIDE ORAL LIQUID 20 MEQ/15 ML PO SCH ×2 (08:59→21:02)
[2021-02-21] MEDS: LACTOBACILLUS ACIDOPHILUS 1 TABLET PO SCH (09:00)
[2021-02-21] MEDS: PANTOPRAZOLE 40 MG TABLET PO SCH (09:00)
[2021-02-21] MEDS: ONDANSETRON 4 MG/2 ML VIAL IVPB PRN (10:30)
[2021-02-21 11:04] LABS: ANISOCYTOSIS 0; MACROCYTOSIS 0; PLATELET ESTIMATE NORMAL
[2021-02-21] MEDS: SODIUM CHLORIDE 1,000 ML IV SCH (11:34)
[2021-02-21 19:19] LABS: URINE APPEARANCE CLEAR; URINE BILIRUBIN NEGATIVE (NEGATIVE); URINE COLOR YELLOW; URINE GLUCOSE (UA) NEGATIVE (NEGATIVE); URINE KETONE NEGATIVE (NEGATIVE); URINE LEUK ESTERASE NEGATIVE (NEGATIVE); URINE NITRITE NEGATIVE (NEGATIVE); URINE PROTEIN NEGATIVE (NEGATIVE); URINE UROBILINOGEN 0.2 mg/dL (0.2-1.0)
[2021-02-22] MEDS: SODIUM CHLORIDE 1,000 ML IV SCH ×2 (02:33→14:54)
[2021-02-22] MEDS: MAG HYDROX/AL HYDROX/SIMETH 30 ML UNIT-DOSE CUP PO PRN ×2 (05:35→10:31)
[2021-02-22] MEDS: metroNIDAZOLE 250 MG TABLET PO SCH ×3 (05:35→21:31)
[2021-02-22] MEDS: LEVOTHYROXINE NA 75 MCG TABLET (FP) PO SCH (06:09)
[2021-02-22 07:46] LABS: CALCIUM 8.8 mg/dL (8.5-10.1)
[2021-02-22 07:47] LABS: ALBUMIN 3.2 g/dl (3.4-5.0); BLOOD UREA NITROGEN 8.1 mg/dL (7-18); MAGNESIUM 1.5 mg/dL (1.8-2.4)
[2021-02-22 07:48] LABS: BASO % 0.7 % (0-2.0); EOS % 1.4 % (0-4.5); HEMATOCRIT 42.1 % (32.4-45.2); HEMOGLOBIN 13.8 GM/dL (10.7-15.3); LYMPH % 30.4 % (8-40); MCH 32.6 pg (25.7-33.7); MCHC 32.8 g/dl (32.0-36.0); MEAN CELL VOLUME 99.2 fl (80-96); MEAN PLT VOLUME 9.7 fl (7.5-11.1); MONO % 20.5 % (3.8-10.2); PLATELET COUNT 266 10^3/uL (134-434); RBC 4.24 M/mm3 (3.60-5.2); RDW 13.7 % (11.6-15.6); WHITE BLOOD COUNT 4.4 K/mm3 (4.0-10.0)
[2021-02-22 07:50] LABS: CREATININE 0.5 mg/dL (0.55-1.3); URIC ACID 2.4 mg/dL (2.6-7.2)
[2021-02-22 07:51] LABS: PHOSPHOROUS 2.4 mg/dL (2.5-4.9)
[2021-02-22 07:52] LABS: BILIRUBIN,TOTAL 0.6 mg/dL (0.2-1); TOT PROT 6.4 g/dl (6.4-8.2)
[2021-02-22 09:06] LABS: ANISOCYTOSIS 1+; MACROCYTOSIS 1+; PLATELET ESTIMATE NORMAL
[2021-02-22] MEDS: PANTOPRAZOLE 40 MG TABLET PO SCH (10:30)
[2021-02-22] MEDS: POTASSIUM CHLORIDE ORAL LIQUID 20 MEQ/15 ML PO SCH ×2 (10:30→21:38)
[2021-02-22] MEDS: LACTOBACILLUS ACIDOPHILUS 1 TABLET PO SCH (10:31)
[2021-02-22] MEDS: ENOXAPARIN NA (PORCINE) 40 MG/0.4 ML DISP.SYRIN SQ SCH (10:31)
[2021-02-22] MEDS: SIMETHICONE 80 MG TAB.CHEW (FP) PO PRN ×2 (10:32→18:12)
[2021-02-22] MEDS ORDERED: PORTA CATH FLUSH 10 ML IVPUSH ONE (14:06)
[2021-02-22] MEDS ORDERED: SODIUM CHLORIDE 1,000 ML IV SCH (15:00)
[2021-02-22] MEDS ORDERED: MAGNESIUM SULF 50% (8.12 MEQ/2 ML-1 GM VIAL) IVPB ONE ×2 (15:00→15:09)
[2021-02-22] MEDS ORDERED: SODIUM PHOSPHATE - 20 MM in SODIUM CHLORIDE 250 ML IVPB ONE (15:01)
[2021-02-22] MEDS: NAPH,MB-DB/K PH,MBDB POWDER PACKET PO SCH (21:31)
[2021-02-23] MEDS: LEVOTHYROXINE NA 75 MCG TABLET (FP) PO SCH (06:14)
[2021-02-23] MEDS: metroNIDAZOLE 250 MG TABLET PO SCH ×2 (06:14→13:59)
[2021-02-23 08:14] VITALS: BP 111/70; PULSE 83; TEMP 99.3
[2021-02-23 08:16] LABS: CALCIUM 8.2 mg/dL (8.5-10.1)
[2021-02-23 08:17] LABS: ALBUMIN 2.7 g/dl (3.4-5.0); BLOOD UREA NITROGEN 7.5 mg/dL (7-18); MAGNESIUM 2.1 mg/dL (1.8-2.4)
[2021-02-23 08:20] LABS: CREATININE 0.4 mg/dL (0.55-1.3); PHOSPHOROUS 4.4 mg/dL (2.5-4.9)
[2021-02-23 08:21] LABS: BILIRUBIN,TOTAL 0.5 mg/dL (0.2-1); TOT PROT 5.6 g/dl (6.4-8.2)
[2021-02-23] MEDS: SIMETHICONE 80 MG TAB.CHEW (FP) PO PRN (09:00)
[2021-02-23] MEDS: NAPH,MB-DB/K PH,MBDB POWDER PACKET PO SCH (09:00)
[2021-02-23] MEDS: ENOXAPARIN NA (PORCINE) 40 MG/0.4 ML DISP.SYRIN SQ SCH (09:00)
[2021-02-23] MEDS: PANTOPRAZOLE 40 MG TABLET PO SCH (09:01)
[2021-02-23] MEDS: LACTOBACILLUS ACIDOPHILUS 1 TABLET PO SCH (09:01)
[2021-02-23] MEDS ORDERED: POTASSIUM CHLORIDE TABS 20 MEQ TABLET.ER (FP) PO SCH (10:00)
== END 2021-02-23 14:56 | disposition home health service (06) | DRG 372 ==
LOC: JER 10:45 → JERBED 16:35 → J7W 19:54
PROVIDERS: ATTEND Internal Medicine
DX: A04.72 Enterocolitis due to Clostridium difficile, not specified as recurrent (principal); C56.9 Malignant neoplasm of unspecified ovary; E87.1 Hypo-osmolality and hyponatremia; I45.10 Unspecified right bundle-branch block; E03.9 Hypothyroidism, unspecified; E78.5 Hyperlipidemia, unspecified; K21.9 Gastro-esophageal reflux disease without esophagitis; J45.909 Unspecified asthma, uncomplicated; E83.42 Hypomagnesemia; E86.0 Dehydration
CPT/HCPCS: 36415; 71045-TC-FY; 74177-TC; 80048; 80053; 81003; 82436; 82962; 83605; 83735; 83930; 83935; 84100; 84133; 84300; 84439; 84443; 84484; 84550; 85025; 85027; 87040; 87086; 87324; 87449; 93005; 93010; 97116-GP; 97161-GP; 99285-25; C9803; J0131; U0003; U0005

== ENCOUNTER 2021-03-10 14:51 | Emergency (ER) | payer MEDICARE, OTHER ==
[2021-03-10 15:16] VITALS: BP 167/84; PULSE 88; BMI 21.2
[2021-03-10] MEDS ORDERED: SODIUM CHLORIDE 1,000 ML IV STA (15:45)
[2021-03-10] MEDS ORDERED: ACETAMINOPHEN 1000 MG/100 ML VIAL (NON FORMULARY) IVPB ONE (15:45)
[2021-03-10] MEDS ORDERED: FAMOTIDINE 20 MG/50 ML IVPB 20 MG/50 ML MG IVPB ONE ×2 (15:45→16:00)
[2021-03-10] MEDS ORDERED: ONDANSETRON 4 MG/2 ML VIAL IVPUSH ONE (15:45)
[2021-03-10] MEDS ORDERED: ONDANSETRON 4 MG/2 ML VIAL ONE (16:00)
[2021-03-10 18:38] LABS: INR 0.96 (0.83-1.09); PROTHROMBIN TIME (PATIENT) 11.8 SEC (9.7-13.0)
[2021-03-10 18:51] LABS: CHLORIDE 87 mmol/L (98-107); SODIUM 126 mmol/L (136-145)
[2021-03-10 18:55] LABS: CALCIUM 9.3 mg/dL (8.5-10.1); CO2 32 mmol/L (21-32); GLUCOSE,RANDOM 107 mg/dL (74-106); LIPASE 36 U/L (73-393)
[2021-03-10 18:58] LABS: CREATININE 0.6 mg/dL (0.55-1.3); SGOT/AST 67 U/L (15-37); SGPT/ALT 26 U/L (13-61)
[2021-03-10 19:00] LABS: BILIRUBIN,TOTAL 0.9 mg/dL (0.2-1); TOT PROT 9.5 g/dl (6.4-8.2)
[2021-03-10 19:01] LABS: ALK PHOS 69 U/L (45-117)
[2021-03-10] MEDS ORDERED: ACETAMINOPHEN INJECTION 100 ML IVPB ONE (19:26)
[2021-03-10 19:27] LABS: ANION GAP 7 MMOL/L (8-16)
[2021-03-10 20:10] LABS: BASO % 0.8 % (0-2.0); EOS % 0.3 % (0-4.5); HEMATOCRIT 35.3 % (32.4-45.2); HEMOGLOBIN 11.9 GM/dL (10.7-15.3); LYMPH % 27.1 % (8-40); MCH 32.6 pg (25.7-33.7); MCHC 33.6 g/dl (32.0-36.0); MEAN CELL VOLUME 97.1 fl (80-96); MEAN PLT VOLUME 8.9 fl (7.5-11.1); MONO % 18.7 % (3.8-10.2); NEUT % 53.1 % (42.8-82.8); PLATELET COUNT 276 10^3/uL (134-434); RBC 3.64 M/mm3 (3.60-5.2); RDW 14.4 % (11.6-15.6); WHITE BLOOD COUNT 4.1 K/mm3 (4.0-10.0)
[2021-03-10 22:48] LABS: PH,URINE 8.5 (5.0-8.0); URINE APPEARANCE CLEAR; URINE BILIRUBIN NEGATIVE (NEGATIVE); URINE COLOR YELLOW; URINE GLUCOSE (UA) NEGATIVE (NEGATIVE); URINE KETONE NEGATIVE (NEGATIVE); URINE LEUK ESTERASE NEGATIVE (NEGATIVE); URINE NITRITE NEGATIVE (NEGATIVE); URINE PROTEIN NEGATIVE (NEGATIVE); URINE UROBILINOGEN 0.2 mg/dL (0.2-1.0)
== END 2021-03-10 22:56 | disposition home or self-care (01) ==
LOC: JER 14:51
PROC: 3E0337Z Introduction of Electrolytic and Water Balance Substance into Peripheral Vein, Percutaneous Approach (ICD-10-PCS; principal; 2021-03-10)
DX: A08.4 Viral intestinal infection, unspecified (principal)
CPT/HCPCS: 36415; 71046-TC-FY; 74177-TC; 80053; 81003; 82550; 82553; 83605; 83690; 84484; 85025; 85610; 87040; 87086; 93005; 93010; 96360; 99285-25; Q9967

== ENCOUNTER 2021-11-17 15:56 | Observation (INO) | payer MEDICARE, OTHER ==
[2021-11-17 16:32] VITALS: BMI 21.2
[2021-11-17] MEDS ORDERED: SODIUM CHLORIDE 0.9% 500 ML INFUS.BAG IV ONE (17:21)
[2021-11-17 18:44] LABS: BASO % 0.7 % (0-2.0); EOS % 1.9 % (0-4.5); HEMATOCRIT 36.7 % (32.4-45.2); HEMOGLOBIN 12.2 GM/dL (10.7-15.3); LYMPH % 20.6 % (8-40); MCH 35.2 pg (25.7-33.7); MCHC 33.3 g/dl (32.0-36.0); MEAN CELL VOLUME 105.6 fl (80-96); MEAN PLT VOLUME 8.8 fl (7.5-11.1); NEUT % 56.8 % (42.8-82.8); PLATELET COUNT 182 10^3/uL (134-434); RBC 3.48 M/mm3 (3.60-5.2); RDW 15.4 % (11.6-15.6); WHITE BLOOD COUNT 3.4 K/mm3 (4.0-10.0)
[2021-11-17 18:44] LABS: URINE APPEARANCE CLEAR; URINE BILIRUBIN NEGATIVE (NEGATIVE); URINE COLOR YELLOW; URINE GLUCOSE (UA) NEGATIVE (NEGATIVE); URINE KETONE NEGATIVE (NEGATIVE); URINE LEUK ESTERASE NEGATIVE (NEGATIVE); URINE NITRITE NEGATIVE (NEGATIVE); URINE PROTEIN NEGATIVE (NEGATIVE); URINE UROBILINOGEN 0.2 mg/dL (0.2-1.0)
[2021-11-17 18:56] LABS: CHLORIDE 97 mmol/L (98-107); SODIUM 135 mmol/L (136-145)
[2021-11-17 18:59] LABS: ALBUMIN 3.9 g/dl (3.4-5.0); BLOOD UREA NITROGEN 12.5 mg/dL (7-18); CALCIUM 9.6 mg/dL (8.5-10.1); CO2 35 mmol/L (21-32); GLUCOSE,RANDOM 100 mg/dL (74-106); MAGNESIUM 1.7 mg/dL (1.8-2.4)
[2021-11-17 19:02] LABS: CREATININE 0.5 mg/dL (0.55-1.3); PHOSPHOROUS 3.2 mg/dL (2.5-4.9); SGOT/AST 44 U/L (15-37)
[2021-11-17 19:04] LABS: BILIRUBIN,TOTAL 0.5 mg/dL (0.2-1); TOT PROT 7.6 g/dl (6.4-8.2)
[2021-11-17 19:05] LABS: ALK PHOS 83 U/L (45-117)
[2021-11-17] MEDS ORDERED: MAGNESIUM SULF 50% (8.12 MEQ/2 ML-1 GM VIAL) IVPB ONE ×2 (19:06→21:46)
[2021-11-17 19:11] LABS: SGPT/ALT 24 U/L (13-61)
[2021-11-17 19:24] LABS: ANION GAP 2 MMOL/L (8-16)
[2021-11-17 19:56] LABS: ANISOCYTOSIS 2+; MACROCYTOSIS 2+
[2021-11-17 19:57] LABS: OVALOCYTE 1+; PLATELET ESTIMATE ADEQUATE; TARGET CELLS 1+
[2021-11-17 20:35] LABS: CHLORIDE 102 mmol/L (98-107); SODIUM 134 mmol/L (136-145)
[2021-11-17 20:38] LABS: GLUCOSE,RANDOM 99 mg/dL (74-106)
[2021-11-17 20:39] LABS: CALCIUM 9.1 mg/dL (8.5-10.1)
[2021-11-17 20:40] LABS: CO2 28 mmol/L (21-32)
[2021-11-17 20:41] LABS: CREATININE 0.6 mg/dL (0.55-1.3); MAGNESIUM 1.5 mg/dL (1.8-2.4)
[2021-11-17 20:45] LABS: ANION GAP 4 MMOL/L (8-16)
[2021-11-17] MEDS ORDERED: ASPIRIN 81 MG CHEWABLE TABLETS PO ONE (21:16)
[2021-11-17] MEDS ORDERED: ASPIRIN 81 MG CHEWABLE TABLETS ONE (21:32)
[2021-11-17 21:42] LABS: BLOOD UREA NITROGEN 10.4 mg/dL (7-18); MAGNESIUM 1.5 mg/dL (1.8-2.4)
[2021-11-17 21:45] LABS: CREATININE 0.4 mg/dL (0.55-1.3)
[2021-11-17] MEDS ORDERED: MAGNESIUM SULFATE IN WATER 2 GM/50 ML IVPB IVPB ONE (21:57)
[2021-11-18] MEDS ORDERED: SODIUM CHLORIDE 1,000 ML IV SCH (01:15)
[2021-11-18] MEDS ORDERED: SIMETHICONE 80 MG TAB.CHEW (FP) PO PRN (02:39)
[2021-11-18] MEDS ORDERED: PATIENT'S OWN MEDICATION (NON-FORMULARY) (Lipase/Protease/Amylase [Zenpep Dr 40,000 Unit C PO SCH (06:00)
[2021-11-18] MEDS ORDERED: LEVOTHYROXINE NA 75 MCG TABLET (FP) ONE (06:58)
[2021-11-18] MEDS ORDERED: LEVOTHYROXINE NA 75 MCG TABLET (FP) PO SCH (07:00)
[2021-11-18 07:18] LABS: BASO % 1.2 % (0-2.0); EOS % 4.9 % (0-4.5); HEMATOCRIT 34.6 % (32.4-45.2); HEMOGLOBIN 11.9 GM/dL (10.7-15.3); LYMPH % 25.9 % (8-40); MCH 36.3 pg (25.7-33.7); MCHC 34.5 g/dl (32.0-36.0); MEAN PLT VOLUME 8.7 fl (7.5-11.1); MONO % 24.7 % (3.8-10.2); NEUT % 43.3 % (42.8-82.8); PLATELET COUNT 179 10^3/uL (134-434); RBC 3.29 M/mm3 (3.60-5.2); RDW 15.6 % (11.6-15.6); WHITE BLOOD COUNT 3.2 K/mm3 (4.0-10.0)
[2021-11-18 07:34] LABS: ALBUMIN 3.6 g/dl (3.4-5.0); BLOOD UREA NITROGEN 9.5 mg/dL (7-18); CALCIUM 9.3 mg/dL (8.5-10.1); MAGNESIUM 2.2 mg/dL (1.8-2.4)
[2021-11-18 07:37] LABS: CREATININE 0.5 mg/dL (0.55-1.3)
[2021-11-18 07:39] LABS: BILIRUBIN,TOTAL 0.6 mg/dL (0.2-1); TOT PROT 6.8 g/dl (6.4-8.2)
[2021-11-18] MEDS ORDERED: ENOXAPARIN NA (PORCINE) 40 MG/0.4 ML DISP.SYRIN SQ ONE (09:32)
[2021-11-18] MEDS ORDERED: ENOXAPARIN NA (PORCINE) 40 MG/0.4 ML DISP.SYRIN SQ SCH (10:00)
[2021-11-18] MEDS ORDERED: LACTOBACILLUS ACIDOPHILUS 1 TABLET PO SCH (10:00)
[2021-11-18] MEDS ORDERED: CYCLOPHOSPHAMIDE 50 MG CAPSULE PO SCH (10:00)
[2021-11-18 10:50] LABS: ANISOCYTOSIS 2+; MACROCYTOSIS 2+; OVALOCYTE 2+; TARGET CELLS 2+
[2021-11-18] MEDS ORDERED: LIPASE/PROTEASE/AMYLASE 36,000 UNIT CAPSULE PO SCH (12:00)
[2021-11-18] MEDS ORDERED: amLODIPine BESYLATE 5 MG TABLET (FP) PO ONE (12:10)
[2021-11-18 16:33] VITALS: BP 145/61; PULSE 72; TEMP 98.2
[2021-11-19] MEDS ORDERED: CYCLOPHOSPHAMIDE 50 MG CAPSULE PO SCH (10:00)
== END 2021-11-18 16:00 | disposition home or self-care (01) ==
LOC: JER 15:56 → JERBED 21:14
PROVIDERS: ADMIT Internal Medicine; ATTEND Internal Medicine
PROC: 3E033GC Introduction of Other Therapeutic Substance into Peripheral Vein, Percutaneous Approach (ICD-10-PCS; principal; 2021-11-17)
PROC: 3E0337Z Introduction of Electrolytic and Water Balance Substance into Peripheral Vein, Percutaneous Approach (ICD-10-PCS; 2021-11-17)
PROC: 3E013GC Introduction of Other Therapeutic Substance into Subcutaneous Tissue, Percutaneous Approach (ICD-10-PCS; 2021-11-17)
DX: R55 Syncope and collapse (principal); I10 Essential (primary) hypertension; R74.8 Abnormal levels of other serum enzymes; E78.5 Hyperlipidemia, unspecified; E03.9 Hypothyroidism, unspecified; K21.9 Gastro-esophageal reflux disease without esophagitis; J45.909 Unspecified asthma, uncomplicated; E83.42 Hypomagnesemia; C56.9 Malignant neoplasm of unspecified ovary; Z92.21 Personal history of antineoplastic chemotherapy
CPT/HCPCS: 36415; 70450-TC; 71045-TC-FY; 80048; 80053; 81003; 82607; 82746; 83735; 84100; 84439; 84443; 84484; 85025; 87040; 87086; 93005; 93010; 96361; 96374; 96376; 99285-25; C9803-CS; G0378; U0003; U0005

== ENCOUNTER 2022-10-13 12:38 | Inpatient (IN) | payer MEDICARE, OTHER ==
[2022-10-13] MEDS ORDERED: SODIUM CHLORIDE 0.9% 500 ML INFUS.BAG IV ONE (13:20)
[2022-10-13] MEDS ORDERED: ACETAMINOPHEN 1000 MG/100 ML BAG IVPB ONE (13:20)
[2022-10-13] MEDS ORDERED: ACETAMINOPHEN INJECTION 100 ML IVPB ONE (14:29)
[2022-10-13] MEDS ORDERED: PIPERACILLIN/TAZOB 4.5 GM 4.5 GM in DEXTROSE 5%-WATER 100 ML IVPB ONE (14:42)
[2022-10-13] MEDS ORDERED: VANCOMYCIN 1 GM in D5W (PRE-DOCKED) 1,000 MG/250 ML IVPB ONE (14:42)
[2022-10-13] MEDS ORDERED: AZITHROMYCIN IVPB 500 MG in DEXTROSE 5%-WATER - 250 ML IVPB ONE (14:43)
[2022-10-13 14:45] LABS: VENOUS BASE EXCESS 6.2 mmol/L (-2-2); VENOUS O2 SATURATION 15.5 % (70-80); VENOUS PH 7.298 (7.310-7.410)
[2022-10-13 14:56] LABS: EPI CELLS 24 /uL (0-25.1); HYALINE CASTS 17 /uL (0-3.1); PH,URINE 5.5 (5.0-8.0); URINE APPEARANCE CLEAR; URINE BACTERIA 11 /uL (0-1359); URINE BILIRUBIN 1+ (NEGATIVE); URINE COLOR DK YELLOW; URINE GLUCOSE (UA) NEGATIVE (NEGATIVE); URINE KETONE TRACE (NEGATIVE); URINE LEUK ESTERASE NEGATIVE (NEGATIVE); URINE NITRITE NEGATIVE (NEGATIVE); URINE PROTEIN 1+ (NEGATIVE); URINE WBC 22 /uL (0-25.8)
[2022-10-13 14:57] LABS: INR 1.17 (0.83-1.09); PROTHROMBIN TIME (PATIENT) 13.5 SEC (9.7-13.0)
[2022-10-13 14:59] LABS: ACTIVATED PTT 27.2 SECONDS (25.2-36.5)
[2022-10-13 15:05] LABS: BASO % 1.4 % (0-2.0); HEMATOCRIT 32.2 % (32.4-45.2); LYMPH % 12.7 % (8-40); MCH 32.3 pg (25.7-33.7); MCHC 34.1 g/dl (32.0-36.0); MEAN CELL VOLUME 94.8 fl (80-96); MONO % 19.5 % (3.8-10.2); NEUT % 66.4 % (42.8-82.8); RDW 16.4 % (11.6-15.6); WHITE BLOOD COUNT 3.5 K/mm3 (4.0-10.0)
[2022-10-13 15:09] LABS: ALBUMIN 3.1 g/dl (3.4-5.0); BLOOD UREA NITROGEN 14.6 mg/dL (7-18); CALCIUM 8.7 mg/dL (8.5-10.1)
[2022-10-13] MEDS ORDERED: PIPERACILLIN/TAZOB 4.5 GM 4.5 GM/100 ML BAG IVPB ONE (15:10)
[2022-10-13] MEDS ORDERED: VANCOMYCIN/WATER FOR INJ (PEG) 1,000 MG/200 ML BAG IVPB ONE (15:10)
[2022-10-13] MEDS ORDERED: AZITHROMYCIN IVPB 500 MG/250 ML BAG IVPB ONE (15:10)
[2022-10-13 15:12] LABS: CREATININE 0.9 mg/dL (0.55-1.3)
[2022-10-13 15:14] LABS: BILIRUBIN,TOTAL 0.7 mg/dL (0.2-1); TOT PROT 7.4 g/dl (6.4-8.2)
[2022-10-13 15:23] LABS: URINE RBC 28 /uL (0-23.9)
[2022-10-13 15:51] LABS: ANISOCYTOSIS 1+; MACROCYTOSIS 0; OVALOCYTE 1+; TARGET CELLS 2+
[2022-10-13 15:55] LABS: PLATELET COUNT 102 10^3/uL (134-434); PLATELET ESTIMATE DECREASED
[2022-10-13 16:10] LABS: ARTERIAL BLD GAS O2 SATURATION 97.5 % (95-98); ARTERIAL BLOOD GAS BASE EXCESS 2.7 mmol/L (-2-2); ARTERIAL BLOOD GAS PO2 115.1 mmHg (80-100); ARTERIAL BLOOD GAS pH 7.269 (7.350-7.450)
[2022-10-13 17:02] LABS: LACTIC ACID 2.1 mmol/L (0.4-2.0)
[2022-10-14] MEDS: LACTATED RINGERS SOLUTION 1,000 ML/1,000 ML INFUS.BAG IV SCH ×2 (00:47→17:53)
[2022-10-14] MEDS ORDERED: PIPERACILLIN/TAZOB 3.375 GM 3.375 GM in DEXTROSE 5%-WATER - 50 ML IVPB SCH (03:00)
[2022-10-14] MEDS: PIPERACILLIN/TAZOB 3.375 GM 3.375 GM in DEXTROSE 5%-WATER - 50 ML IVPB SCH ×4 (03:40→17:53)
[2022-10-14 04:32] VITALS: BMI 21.7
[2022-10-14] MEDS ORDERED: ALBUTEROL SO4 HFA INHALER IH SCH (05:00)
[2022-10-14] MEDS ORDERED: PATIENT'S OWN MEDICATION (NON-FORMULARY) (Lipase/Protease/Amylase [Zenpep Dr 40,000 Unit C PO SCH (06:00)
[2022-10-14] MEDS ORDERED: ALBUTEROL SO4 HFA INHALER IH PRN (06:46)
[2022-10-14] MEDS: INSULIN SLIDING SCALE (NOVOLOG) 1 VIAL SQ SCH ×4 (07:00→21:14)
[2022-10-14] MEDS ORDERED: LEVOTHYROXINE NA 75 MCG TABLET (FP) PO SCH (07:00)
[2022-10-14 09:44] LABS: HEMATOCRIT 29.7 % (32.4-45.2); HEMOGLOBIN 9.8 GM/dL (10.7-15.3); MCH 31.9 pg (25.7-33.7); MCHC 32.9 g/dl (32.0-36.0); MEAN CELL VOLUME 97.2 fl (80-96); MEAN PLT VOLUME 8.5 fl (7.5-11.1); PLATELET COUNT 75 10^3/uL (134-434); RBC 3.06 M/mm3 (3.60-5.2); RDW 14.9 % (11.6-15.6); WHITE BLOOD COUNT 4.5 K/mm3 (4.0-10.0)
[2022-10-14 09:55] LABS: ALBUMIN 2.7 g/dl (3.4-5.0); CALCIUM 8.7 mg/dL (8.5-10.1)
[2022-10-14 09:56] LABS: BLOOD UREA NITROGEN 11.6 mg/dL (7-18); MAGNESIUM 1.5 mg/dL (1.8-2.4)
[2022-10-14 10:00] LABS: BILIRUBIN,TOTAL 0.5 mg/dL (0.2-1); CREATININE 0.6 mg/dL (0.55-1.3); TOT PROT 6.5 g/dl (6.4-8.2)
[2022-10-14] MEDS ORDERED: VANCOMYCIN 1 GM in D5W (PRE-DOCKED) 1,000 MG/250 ML IVPB SCH (10:00)
[2022-10-14] MEDS ORDERED: KETOCONAZOLE 2 % SHAMPOO 120 ML BOTTLE TP SCH (10:00)
[2022-10-14] MEDS ORDERED: PANTOPRAZOLE 40 MG TABLET PO SCH (10:00)
[2022-10-14] MEDS ORDERED: ENOXAPARIN NA (PORCINE) 40 MG/0.4 ML DISP.SYRIN SQ SCH (10:00)
[2022-10-14 10:25] LABS: ANISOCYTOSIS 0; MACROCYTOSIS 0; TARGET CELLS 1+
[2022-10-14 10:26] LABS: PLATELET ESTIMATE DECREASED
[2022-10-14] MEDS: NYSTATIN 100,000 UNIT/GM TOPICAL CREAM 15 GM TUBE TP SCH (10:57)
[2022-10-14] MEDS ORDERED: PANTOPRAZOLE SODIUM 40 MG VIAL IVPUSH SCH (12:15)
[2022-10-14] MEDS ORDERED: LEVOTHYROXINE SODIUM 100 MCG 5 ML VIAL IVPUSH SCH (12:15)
[2022-10-14] MEDS ORDERED: VANCOMYCIN/WATER FOR INJ (PEG) 1,000 MG/200 ML BAG IVPB SCH (14:00)
[2022-10-14 17:35] LABS: BF WBC & OTHER NUCLEATED CELLS 674 /mm3
[2022-10-14 18:44] LABS: BODY FLUID MONOCYTE 14 %
[2022-10-15] MEDS: PIPERACILLIN/TAZOB 3.375 GM 3.375 GM in DEXTROSE 5%-WATER - 50 ML IVPB SCH ×3 (01:48→17:30)
[2022-10-15] MEDS: INSULIN SLIDING SCALE (NOVOLOG) 1 VIAL SQ SCH ×4 (06:17→22:02)
[2022-10-15] MEDS: LACTATED RINGERS SOLUTION 1,000 ML/1,000 ML INFUS.BAG IV SCH (06:28)
[2022-10-15] MEDS: LEVOTHYROXINE NA 75 MCG TABLET (FP) PO SCH (06:30)
[2022-10-15 08:52] LABS: HEMATOCRIT 28.2 % (32.4-45.2); HEMOGLOBIN 9.1 GM/dL (10.7-15.3); MCH 31.8 pg (25.7-33.7); MCHC 32.4 g/dl (32.0-36.0); MEAN CELL VOLUME 98.2 fl (80-96); MEAN PLT VOLUME 8.7 fl (7.5-11.1); PLATELET COUNT 48 10^3/uL (134-434); RBC 2.87 M/mm3 (3.60-5.2); WHITE BLOOD COUNT 3.6 K/mm3 (4.0-10.0)
[2022-10-15 09:12] LABS: ALBUMIN 2.2 g/dl (3.4-5.0); BLOOD UREA NITROGEN 10.7 mg/dL (7-18); CALCIUM 8.2 mg/dL (8.5-10.1); MAGNESIUM 1.3 mg/dL (1.8-2.4)
[2022-10-15 09:15] LABS: CREATININE 0.4 mg/dL (0.55-1.3)
[2022-10-15 09:17] LABS: BILIRUBIN,TOTAL 0.3 mg/dL (0.2-1); TOT PROT 5.5 g/dl (6.4-8.2)
[2022-10-15] MEDS ORDERED: LEVOTHYROXINE SODIUM 100 MCG 5 ML VIAL IVPUSH SCH (10:00)
[2022-10-15] MEDS: PANTOPRAZOLE 40 MG TABLET PO SCH (10:13)
[2022-10-15] MEDS: NYSTATIN 100,000 UNIT/GM TOPICAL CREAM 15 GM TUBE TP SCH (10:15)
[2022-10-15 11:03] LABS: ANISOCYTOSIS 0; MACROCYTOSIS 0
[2022-10-16] MEDS: LACTATED RINGERS SOLUTION 1,000 ML/1,000 ML INFUS.BAG IV SCH (01:54)
[2022-10-16] MEDS: PIPERACILLIN/TAZOB 3.375 GM 3.375 GM in DEXTROSE 5%-WATER - 50 ML IVPB SCH ×3 (01:54→18:01)
[2022-10-16] MEDS: INSULIN SLIDING SCALE (NOVOLOG) 1 VIAL SQ SCH ×4 (06:54→22:13)
[2022-10-16] MEDS: LEVOTHYROXINE NA 75 MCG TABLET (FP) PO SCH (06:55)
[2022-10-16 09:18] LABS: HEMATOCRIT 28.5 % (32.4-45.2); HEMOGLOBIN 9.3 GM/dL (10.7-15.3); MCH 31.7 pg (25.7-33.7); MCHC 32.5 g/dl (32.0-36.0); MEAN CELL VOLUME 97.4 fl (80-96); PLATELET COUNT 62 10^3/uL (134-434); RBC 2.92 M/mm3 (3.60-5.2); WHITE BLOOD COUNT 3.6 K/mm3 (4.0-10.0)
[2022-10-16 09:26] LABS: CHLORIDE 91 mmol/L (98-107); SODIUM 136 mmol/L (136-145)
[2022-10-16 09:28] LABS: CALCIUM 8.4 mg/dL (8.5-10.1); GLUCOSE,RANDOM 113 mg/dL (74-106)
[2022-10-16 09:29] LABS: ALBUMIN 2.5 g/dl (3.4-5.0); BLOOD UREA NITROGEN 9.8 mg/dL (7-18); MAGNESIUM 1.2 mg/dL (1.8-2.4)
[2022-10-16 09:31] LABS: SGPT/ALT 21 U/L (13-61)
[2022-10-16 09:32] LABS: CREATININE 0.5 mg/dL (0.55-1.3); SGOT/AST 20 U/L (15-37)
[2022-10-16 09:33] LABS: BILIRUBIN,TOTAL 0.3 mg/dL (0.2-1); TOT PROT 5.8 g/dl (6.4-8.2)
[2022-10-16 09:34] LABS: ALK PHOS 53 U/L (45-117)
[2022-10-16 09:37] LABS: ANION GAP -1 MMOL/L (8-16); CO2 > 45 mmol/L (21-32)
[2022-10-16] MEDS: NYSTATIN 100,000 UNIT/GM TOPICAL CREAM 15 GM TUBE TP SCH (09:43)
[2022-10-16] MEDS: AMINO ACIDS/PROTEIN HYDROLYS 30 ML LIQUID.PKT PO SCH (09:43)
[2022-10-16 09:44] LABS: ANISOCYTOSIS 2+; MACROCYTOSIS 0
[2022-10-16] MEDS: amLODIPine BESYLATE 5 MG TABLET (FP) PO SCH (09:44)
[2022-10-16] MEDS: PANTOPRAZOLE 40 MG TABLET PO SCH (09:44)
[2022-10-16] MEDS ORDERED: INSULIN (NOVOLOG) ASPART 100 UNITS/ML 10ML VIAL ONE (12:57)
[2022-10-16] MEDS ORDERED: MAGNESIUM OXIDE 400 MG TABLET (FP) PO ONE (14:29)
[2022-10-16] MEDS ORDERED: MAGNESIUM SULF 50% (8.12 MEQ/2 ML-1 GM VIAL) IVPB ONE (14:29)
[2022-10-16] MEDS: GABAPENTIN 100 MG CAPSULE PO SCH (22:12)
[2022-10-17] MEDS: PIPERACILLIN/TAZOB 3.375 GM 3.375 GM in DEXTROSE 5%-WATER - 50 ML IVPB SCH ×2 (02:33→11:02)
[2022-10-17] MEDS: LEVOTHYROXINE NA 75 MCG TABLET (FP) PO SCH (06:11)
[2022-10-17] MEDS: INSULIN SLIDING SCALE (NOVOLOG) 1 VIAL SQ SCH ×4 (06:18→21:30)
[2022-10-17 09:02] LABS: INR 1.05 (0.83-1.09); PROTHROMBIN TIME (PATIENT) 12.2 SEC (9.7-13.0)
[2022-10-17 09:07] LABS: HEMATOCRIT 27.5 % (32.4-45.2); HEMOGLOBIN 9.2 GM/dL (10.7-15.3); MCH 32.1 pg (25.7-33.7); MCHC 33.3 g/dl (32.0-36.0); MEAN CELL VOLUME 96.4 fl (80-96); MEAN PLT VOLUME 8.4 fl (7.5-11.1); PLATELET COUNT 67 10^3/uL (134-434); RBC 2.86 M/mm3 (3.60-5.2); RDW 15.4 % (11.6-15.6)
[2022-10-17 09:09] LABS: WHITE BLOOD COUNT 3.9 K/mm3 (4.0-10.0)
[2022-10-17 09:17] LABS: ALBUMIN 2.5 g/dl (3.4-5.0); CALCIUM 8.5 mg/dL (8.5-10.1)
[2022-10-17 09:18] LABS: BLOOD UREA NITROGEN 8.6 mg/dL (7-18); MAGNESIUM 1.5 mg/dL (1.8-2.4)
[2022-10-17 09:21] LABS: BILIRUBIN,TOTAL 0.4 mg/dL (0.2-1); CREATININE 0.3 mg/dL (0.55-1.3)
[2022-10-17 09:24] LABS: TOT PROT 5.8 g/dl (6.4-8.2)
[2022-10-17] MEDS ORDERED: MAGNESIUM SULF 50% (8.12 MEQ/2 ML-1 GM VIAL) IVPB ONE (09:51)
[2022-10-17] MEDS ORDERED: MAGNESIUM OXIDE 400 MG TABLET (FP) PO ONE (09:51)
[2022-10-17 09:57] LABS: ANISOCYTOSIS 2+; MACROCYTOSIS 0; OVALOCYTE 1+
[2022-10-17] MEDS: AMINO ACIDS/PROTEIN HYDROLYS 30 ML LIQUID.PKT PO SCH (11:02)
[2022-10-17] MEDS: NYSTATIN 100,000 UNIT/GM TOPICAL CREAM 15 GM TUBE TP SCH (11:03)
[2022-10-17] MEDS: PANTOPRAZOLE 40 MG TABLET PO SCH (11:03)
[2022-10-17] MEDS: amLODIPine BESYLATE 5 MG TABLET (FP) PO SCH (11:03)
[2022-10-17 20:13] VITALS: RESP 18
[2022-10-17] MEDS: GABAPENTIN 100 MG CAPSULE PO SCH (21:28)
[2022-10-18] MEDS: LEVOTHYROXINE NA 75 MCG TABLET (FP) PO SCH (06:40)
[2022-10-18] MEDS: INSULIN SLIDING SCALE (NOVOLOG) 1 VIAL SQ SCH ×4 (06:40→23:25)
[2022-10-18 09:17] LABS: INR 1.01 (0.83-1.09); PROTHROMBIN TIME (PATIENT) 11.7 SEC (9.7-13.0)
[2022-10-18 09:28] LABS: CHLORIDE 86 mmol/L (98-107); SODIUM 136 mmol/L (136-145)
[2022-10-18 09:29] LABS: HEMATOCRIT 35.3 % (32.4-45.2); HEMOGLOBIN 11.4 GM/dL (10.7-15.3); MCH 31.6 pg (25.7-33.7); MCHC 32.3 g/dl (32.0-36.0); MEAN CELL VOLUME 97.7 fl (80-96); MEAN PLT VOLUME 8.8 fl (7.5-11.1); PLATELET COUNT 82 10^3/uL (134-434); RBC 3.61 M/mm3 (3.60-5.2); RDW 15.4 % (11.6-15.6)
[2022-10-18 09:31] LABS: WHITE BLOOD COUNT 4.3 K/mm3 (4.0-10.0)
[2022-10-18 09:33] LABS: CALCIUM 8.8 mg/dL (8.5-10.1)
[2022-10-18 09:34] LABS: ALBUMIN 2.3 g/dl (3.4-5.0); BLOOD UREA NITROGEN 9.2 mg/dL (7-18); GLUCOSE,RANDOM 107 mg/dL (74-106); MAGNESIUM 1.8 mg/dL (1.8-2.4)
[2022-10-18 09:36] LABS: SGOT/AST 19 U/L (15-37); SGPT/ALT 16 U/L (13-61)
[2022-10-18 09:37] LABS: CREATININE 0.3 mg/dL (0.55-1.3)
[2022-10-18 09:38] LABS: BILIRUBIN,TOTAL 0.3 mg/dL (0.2-1); TOT PROT 5.6 g/dl (6.4-8.2)
[2022-10-18 09:39] LABS: ALK PHOS 49 U/L (45-117); ANION GAP 5 MMOL/L (8-16); CO2 > 45 mmol/L (21-32)
[2022-10-18] MEDS: amLODIPine BESYLATE 5 MG TABLET (FP) PO SCH (10:13)
[2022-10-18] MEDS: PANTOPRAZOLE 40 MG TABLET PO SCH (10:13)
[2022-10-18] MEDS: AMINO ACIDS/PROTEIN HYDROLYS 30 ML LIQUID.PKT PO SCH (10:14)
[2022-10-18] MEDS: NYSTATIN 100,000 UNIT/GM TOPICAL CREAM 15 GM TUBE TP SCH (10:14)
[2022-10-18 10:49] LABS: ANISOCYTOSIS 1+; MACROCYTOSIS 0; TARGET CELLS 2+
[2022-10-18 13:07] LABS: BODY FLUID ALBUMIN 2.4 g/dL (Not Estab.)
[2022-10-18] MEDS: GABAPENTIN 100 MG CAPSULE PO SCH (22:51)
[2022-10-19] MEDS: LEVOTHYROXINE NA 75 MCG TABLET (FP) PO SCH (06:40)
[2022-10-19] MEDS: INSULIN SLIDING SCALE (NOVOLOG) 1 VIAL SQ SCH ×3 (07:01→18:05)
[2022-10-19] MEDS: PANTOPRAZOLE 40 MG TABLET PO SCH (09:16)
[2022-10-19] MEDS: AMINO ACIDS/PROTEIN HYDROLYS 30 ML LIQUID.PKT PO SCH (09:16)
[2022-10-19] MEDS: amLODIPine BESYLATE 5 MG TABLET (FP) PO SCH (09:16)
[2022-10-19] MEDS: NYSTATIN 100,000 UNIT/GM TOPICAL CREAM 15 GM TUBE TP SCH (09:17)
[2022-10-19 15:41] LABS: HEMATOCRIT 27.4 % (32.4-45.2); HEMOGLOBIN 8.9 GM/dL (10.7-15.3); MCH 31.3 pg (25.7-33.7); MCHC 32.5 g/dl (32.0-36.0); MEAN CELL VOLUME 96.3 fl (80-96); PLATELET COUNT 79 10^3/uL (134-434); RBC 2.84 M/mm3 (3.60-5.2); RDW 14.9 % (11.6-15.6)
[2022-10-19 15:44] VITALS: BP 115/62; PULSE 100; TEMP 99.6
[2022-10-19 16:21] LABS: BLOOD UREA NITROGEN 14.2 mg/dL (7-18); CALCIUM 8.7 mg/dL (8.5-10.1)
[2022-10-19 16:23] LABS: ALBUMIN 2.4 g/dl (3.4-5.0); MAGNESIUM 1.5 mg/dL (1.8-2.4)
[2022-10-19 16:24] LABS: TOT PROT 5.8 g/dl (6.4-8.2)
[2022-10-19 16:25] LABS: BILIRUBIN,TOTAL 0.4 mg/dL (0.2-1)
[2022-10-19 16:29] LABS: CREATININE 0.4 mg/dL (0.55-1.3)
[2022-10-19 16:33] LABS: ANISOCYTOSIS 1+; MACROCYTOSIS 0; PLATELET ESTIMATE DECREASED; TARGET CELLS 2+; TEAR DROP CELLS 1+
== END 2022-10-19 20:10 | disposition home health service (06) | DRG 754 ==
LOC: JER 12:38 → JERBED 20:09 → J8W 10-14 01:46
PROVIDERS: ADMIT Internal Medicine; ATTEND Nurse Practitioner Family
PROC: 0W9G3ZZ Drainage of Peritoneal Cavity, Percutaneous Approach (ICD-10-PCS; principal; 2022-10-14)
DX: C56.9 Malignant neoplasm of unspecified ovary (principal); E43 Unspecified severe protein-calorie malnutrition; I21.A1 Myocardial infarction type 2; C78.6 Secondary malignant neoplasm of retroperitoneum and peritoneum; E87.1 Hypo-osmolality and hyponatremia; E87.20 Acidosis, unspecified; D61.818 Other pancytopenia; C16.9 Malignant neoplasm of stomach, unspecified; R13.10 Dysphagia, unspecified; K22.2 Esophageal obstruction; R62.7 Adult failure to thrive; E78.5 Hyperlipidemia, unspecified; I10 Essential (primary) hypertension; E03.9 Hypothyroidism, unspecified; Z68.21 Body mass index [BMI] 21.0-21.9, adult
CPT/HCPCS: 0241U-QW; 36415; 36600; 71045-TC-FY; 71275-TC; 74177-TC; 76705-TC; 76942-TC; 80053; 81003; 82042; 82150; 82465; 82550; 82553; 82803; 82945; 82962; 83036; 83605; 83615; 83735; 83986; 84100; 84132; 84157; 84478; 84484; 85025; 85610; 85730; 86850; 86900; 86901; 87040; 87070; 87075; 87086; 87102; 87116; 87205; 87206; 87210; 88108; 88305-TC; 88341-TC; 93005; 93010; 93306-TC; 97116-GP; 97161-GP; 99285-25; C9803-CS; Q9967; U0003; U0005

== ENCOUNTER 2022-11-03 00:55 | Inpatient (IN) | payer OTHER ==
[2022-11-03] MEDS ORDERED: SODIUM CHLORIDE 0.9% 500 ML INFUS.BAG IV ONE (01:24)
[2022-11-03] MEDS: SODIUM CHLORIDE 0.9% 500 ML INFUS.BAG IV ONE ×2 (01:31→02:00)
[2022-11-03 01:33] VITALS: BMI 25.6
[2022-11-03 01:46] LABS: VENOUS O2 SATURATION 95.7 % (70-80)
[2022-11-03 01:48] LABS: EPI CELLS 30 /uL (0-25.1); HYALINE CASTS 9 /uL (0-3.1); URINE APPEARANCE CLEAR; URINE BACTERIA 17 /uL (0-1359); URINE BILIRUBIN NEGATIVE (NEGATIVE); URINE COLOR YELLOW; URINE GLUCOSE (UA) NEGATIVE (NEGATIVE); URINE KETONE 2+ (NEGATIVE); URINE LEUK ESTERASE NEGATIVE (NEGATIVE); URINE NITRITE NEGATIVE (NEGATIVE); URINE PROTEIN 2+ (NEGATIVE); URINE RBC 22 /uL (0-23.9); URINE WBC 12 /uL (0-25.8)
[2022-11-03 02:09] LABS: VENOUS PH 7.161 (7.310-7.410)
[2022-11-03 02:10] LABS: HEMATOCRIT 27.4 % (32.4-45.2); HEMOGLOBIN 8.8 GM/dL (10.7-15.3); MCH 31.5 pg (25.7-33.7); MEAN CELL VOLUME 98.5 fl (80-96); MEAN PLT VOLUME 9.3 fl (7.5-11.1); RBC 2.78 M/mm3 (3.60-5.2); RDW 17.7 % (11.6-15.6); VENOUS PCO2 144.1 mmHg (38-52)
[2022-11-03 02:13] LABS: WHITE BLOOD COUNT 2.8 K/mm3 (4.0-10.0)
[2022-11-03 02:15] LABS: BLOOD UREA NITROGEN 11.2 mg/dL (7-18)
[2022-11-03 02:18] LABS: CREATININE 0.4 mg/dL (0.55-1.3)
[2022-11-03 02:20] LABS: BILIRUBIN,TOTAL 0.4 mg/dL (0.2-1); TOT PROT 7.1 g/dl (6.4-8.2)
[2022-11-03 02:29] LABS: INR 1.18 (0.83-1.09); PROTHROMBIN TIME (PATIENT) 13.7 SEC (9.7-13.0)
[2022-11-03 02:32] LABS: ACTIVATED PTT 30.5 SECONDS (25.2-36.5)
[2022-11-03 03:55] LABS: ANISOCYTOSIS 1+; MACROCYTOSIS 1+; OVALOCYTE 1+; TARGET CELLS 1+
[2022-11-03 04:01] LABS: PLATELET COUNT 99 10^3/uL (134-434)
[2022-11-03 05:01] LABS: VENOUS BASE EXCESS 19.3 mmol/L (-2-2); VENOUS O2 SATURATION 75.8 % (70-80)
[2022-11-03 05:07] LABS: VENOUS PCO2 146.7 mmHg (38-52); VENOUS PH 7.17 (7.310-7.410)
[2022-11-03 06:12] LABS: N-TERMINAL BNP 820.9 pg/ml (5-125)
[2022-11-03] MEDS ORDERED: VANCOMYCIN 1 GM in D5W (PRE-DOCKED) 1,000 MG/250 ML IVPB SCH (06:44)
[2022-11-03] MEDS ORDERED: CEFEPIME 2 GM/100 ML BAG IVPB ONE (06:54)
[2022-11-03] MEDS: CEFEPIME 2 GM in DEXTROSE 5%-WATER 100 ML IVPB SCH ×2 (06:58→11:49)
[2022-11-03] MEDS ORDERED: ACETAMINOPHEN 1000 MG/100 ML BAG IVPB PRN (07:18)
[2022-11-03] MEDS ORDERED: methylPREDNISolone NA SUCC 40 MG/1 ML VIAL ONE (07:25)
[2022-11-03] MEDS ORDERED: VANCOMYCIN/WATER FOR INJ (PEG) 1,000 MG/200 ML BAG IVPB ONE (07:25)
[2022-11-03] MEDS: methylPREDNISolone NA SUCC 40 MG/1 ML VIAL IVPUSH SCH ×3 (07:46→18:31)
[2022-11-03] MEDS: SODIUM CHLORIDE 1,000 ML IV SCH (07:47)
[2022-11-03] MEDS ORDERED: VANCOMYCIN 1 GM/200 ML PREMIX BAG (RESTRICTED TO ID ONLY) IVPB SCH (08:00)
[2022-11-03] MEDS ORDERED: ALBUTEROL SO4 2.5/IPRATROPIUM 0.5 INH SOL 3 ML VIAL.NEB. NEB PRN (08:22)
[2022-11-03 09:04] LABS: ALLENS TEST POSITIVE; ARTERIAL BLD GAS O2 SATURATION 89.6 % (95-98); ARTERIAL BLOOD GAS BASE EXCESS 19.8 mmol/L (-2-2); ARTERIAL BLOOD GAS PO2 72.4 mmHg (80-100); ARTERIAL BLOOD GAS pH 7.234 (7.350-7.450)
[2022-11-03] MEDS ORDERED: PANTOPRAZOLE SODIUM 40 MG VIAL IVPUSH SCH (10:00)
[2022-11-03 11:42] LABS: HEMATOCRIT 27.3 % (32.4-45.2); HEMOGLOBIN 8.5 GM/dL (10.7-15.3); MCH 30.5 pg (25.7-33.7); MEAN CELL VOLUME 98.2 fl (80-96); MEAN PLT VOLUME 8.7 fl (7.5-11.1); RBC 2.78 M/mm3 (3.60-5.2); RDW 17.7 % (11.6-15.6)
[2022-11-03 11:45] LABS: WHITE BLOOD COUNT 2.5 K/mm3 (4.0-10.0)
[2022-11-03 11:46] LABS: PLATELET COUNT 70 10^3/uL (134-434)
[2022-11-03] MEDS: INSULIN SLIDING SCALE (NOVOLOG) 1 VIAL SQ SCH ×4 (12:04→21:15)
[2022-11-03 12:09] LABS: CHLORIDE 90 mmol/L (98-107); SODIUM 138 mmol/L (136-145)
[2022-11-03 12:11] LABS: BLOOD UREA NITROGEN 13.2 mg/dL (7-18)
[2022-11-03 12:12] LABS: ALBUMIN 2.9 g/dl (3.4-5.0); GLUCOSE,RANDOM 153 mg/dL (74-106); MAGNESIUM 1.5 mg/dL (1.8-2.4)
[2022-11-03 12:14] LABS: CREATININE 0.4 mg/dL (0.55-1.3)
[2022-11-03 12:15] LABS: IRON SERUM 19 ug/dL (50-175); PHOSPHOROUS 3.6 mg/dL (2.5-4.9); SGOT/AST 20 U/L (15-37); SGPT/ALT 15 U/L (13-61); TOTAL IRON BINDING CAPACITY 216 ug/dL (250-450)
[2022-11-03 12:16] LABS: BILIRUBIN,TOTAL 0.3 mg/dL (0.2-1); TOT PROT 6.7 g/dl (6.4-8.2)
[2022-11-03 12:17] LABS: ALK PHOS 67 U/L (45-117)
[2022-11-03 12:28] LABS: ANION GAP 3 MMOL/L (8-16); CO2 > 45 mmol/L (21-32)
[2022-11-03 12:36] LABS: ANISOCYTOSIS 1+; MACROCYTOSIS 1+
[2022-11-03] MEDS: PIPERACILLIN/TAZOB 3.375 GM 3.375 GM in DEXTROSE 5%-WATER - 50 ML IVPB SCH (18:31)
[2022-11-03] MEDS: PANTOPRAZOLE SODIUM 40 MG VIAL IVPUSH SCH (20:04)
[2022-11-04] MEDS: PIPERACILLIN/TAZOB 3.375 GM 3.375 GM in DEXTROSE 5%-WATER - 50 ML IVPB SCH ×3 (01:49→18:12)
[2022-11-04] MEDS: methylPREDNISolone NA SUCC 40 MG/1 ML VIAL IVPUSH SCH ×3 (01:49→18:12)
[2022-11-04] MEDS ORDERED: CEFEPIME 2 GM in DEXTROSE 5%-WATER 100 ML IVPB SCH (02:00)
[2022-11-04] MEDS: INSULIN SLIDING SCALE (NOVOLOG) 1 VIAL SQ SCH ×5 (06:02→22:25)
[2022-11-04] MEDS ORDERED: VANCOMYCIN 1 GM/200 ML PREMIX BAG (RESTRICTED TO ID ONLY) IVPB SCH (07:00)
[2022-11-04] MEDS: SODIUM CHLORIDE 1,000 ML IV SCH (07:30)
[2022-11-04 07:42] LABS: HEMATOCRIT 27.7 % (32.4-45.2); HEMOGLOBIN 8.7 GM/dL (10.7-15.3); MCH 30.5 pg (25.7-33.7); MCHC 31.5 g/dl (32.0-36.0); MEAN CELL VOLUME 97.1 fl (80-96); MEAN PLT VOLUME 8.9 fl (7.5-11.1); RBC 2.85 M/mm3 (3.60-5.2); RDW 17.3 % (11.6-15.6); RETICULOCYTES 1.98 % (0.5-1.5)
[2022-11-04 07:54] LABS: CHLORIDE 92 mmol/L (98-107); SODIUM 143 mmol/L (136-145)
[2022-11-04 07:55] LABS: CALCIUM 9.2 mg/dL (8.5-10.1)
[2022-11-04 07:56] LABS: GLUCOSE,RANDOM 138 mg/dL (74-106); MAGNESIUM 1.7 mg/dL (1.8-2.4)
[2022-11-04 07:59] LABS: PHOSPHOROUS 2.8 mg/dL (2.5-4.9); WHITE BLOOD COUNT 4.6 K/mm3 (4.0-10.0)
[2022-11-04 08:00] LABS: CREATININE 0.4 mg/dL (0.55-1.3); PLATELET COUNT 71 10^3/uL (134-434)
[2022-11-04 08:32] LABS: ANION GAP 5 MMOL/L (8-16); CO2 > 45 mmol/L (21-32)
[2022-11-04 08:48] LABS: ANISOCYTOSIS 0; MACROCYTOSIS 0
[2022-11-04] MEDS: PANTOPRAZOLE SODIUM 40 MG VIAL IVPUSH SCH ×2 (09:44→22:25)
[2022-11-04 13:15] LABS: ARTERIAL BLD GAS O2 SATURATION 97.5 % (95-98); ARTERIAL BLOOD GAS BASE EXCESS 24.8 mmol/L (-2-2); ARTERIAL BLOOD GAS PO2 105.5 mmHg (80-100); ARTERIAL BLOOD GAS pH 7.412 (7.350-7.450)
[2022-11-04 13:17] LABS: ALLENS TEST POSITIVE
[2022-11-04 13:18] LABS: VENT MODE S/T; VENT RATE 20
[2022-11-05] MEDS: methylPREDNISolone NA SUCC 40 MG/1 ML VIAL IVPUSH SCH ×3 (01:15→17:11)
[2022-11-05] MEDS: PIPERACILLIN/TAZOB 3.375 GM 3.375 GM in DEXTROSE 5%-WATER - 50 ML IVPB SCH ×3 (01:16→17:11)
[2022-11-05] MEDS: INSULIN SLIDING SCALE (NOVOLOG) 1 VIAL SQ SCH ×5 (06:40→22:05)
[2022-11-05] MEDS: SODIUM CHLORIDE 1,000 ML IV SCH ×2 (07:30→13:15)
[2022-11-05] MEDS: PANTOPRAZOLE SODIUM 40 MG VIAL IVPUSH SCH ×2 (09:16→21:17)
[2022-11-05 17:07] LABS: FREE KAPPA,SERUM 15.8 mg/L (3.3-19.4)
[2022-11-06] MEDS: PIPERACILLIN/TAZOB 3.375 GM 3.375 GM in DEXTROSE 5%-WATER - 50 ML IVPB SCH ×3 (01:56→17:30)
[2022-11-06] MEDS: methylPREDNISolone NA SUCC 40 MG/1 ML VIAL IVPUSH SCH ×3 (01:56→17:31)
[2022-11-06] MEDS: INSULIN SLIDING SCALE (NOVOLOG) 1 VIAL SQ SCH ×5 (06:54→21:20)
[2022-11-06] MEDS: SODIUM CHLORIDE 1,000 ML IV SCH (09:19)
[2022-11-06] MEDS: PANTOPRAZOLE SODIUM 40 MG VIAL IVPUSH SCH ×2 (09:21→21:17)
[2022-11-06] MEDS: AMINO ACIDS 4.25%/D5W 1,000 ML IV SCH (17:31)
[2022-11-07] MEDS: PIPERACILLIN/TAZOB 3.375 GM 3.375 GM in DEXTROSE 5%-WATER - 50 ML IVPB SCH ×3 (02:24→17:43)
[2022-11-07] MEDS: methylPREDNISolone NA SUCC 40 MG/1 ML VIAL IVPUSH SCH ×3 (02:24→17:43)
[2022-11-07] MEDS: INSULIN SLIDING SCALE (NOVOLOG) 1 VIAL SQ SCH ×5 (06:07→21:51)
[2022-11-07 08:18] LABS: HEMATOCRIT 27.3 % (32.4-45.2); HEMOGLOBIN 8.8 GM/dL (10.7-15.3); MCH 31.7 pg (25.7-33.7); MCHC 32.3 g/dl (32.0-36.0); MEAN CELL VOLUME 98.3 fl (80-96); MEAN PLT VOLUME 9.2 fl (7.5-11.1); PLATELET COUNT 63 10^3/uL (134-434); RBC 2.78 M/mm3 (3.60-5.2); RDW 16.2 % (11.6-15.6)
[2022-11-07 08:42] LABS: CHLORIDE 93 mmol/L (98-107); SODIUM 147 mmol/L (136-145)
[2022-11-07 08:45] LABS: BLOOD UREA NITROGEN 28.1 mg/dL (7-18); CALCIUM 9.3 mg/dL (8.5-10.1); GLUCOSE,RANDOM 167 mg/dL (74-106)
[2022-11-07 08:46] LABS: ALBUMIN 2.8 g/dl (3.4-5.0)
[2022-11-07 08:47] LABS: SGPT/ALT 13 U/L (13-61)
[2022-11-07 08:49] LABS: CREATININE 0.4 mg/dL (0.55-1.3); SGOT/AST 10 U/L (15-37)
[2022-11-07 08:50] LABS: BILIRUBIN,TOTAL 0.4 mg/dL (0.2-1)
[2022-11-07 08:51] LABS: ALK PHOS 49 U/L (45-117)
[2022-11-07 08:55] LABS: WHITE BLOOD COUNT 2.4 K/mm3 (4.0-10.0)
[2022-11-07 08:59] LABS: ANION GAP 9 MMOL/L (8-16); CO2 > 45 mmol/L (21-32)
[2022-11-07 09:17] LABS: ANISOCYTOSIS 0; HELMET CELLS 0; HOWELL-JOLLY BODIES 0; MACROCYTOSIS 0; OVALOCYTE 0; ROULEAU 0; SICKELED CELLS 0; TARGET CELLS 0; TEAR DROP CELLS 0; TOXIC GRANULATION 0
[2022-11-07] MEDS: PANTOPRAZOLE SODIUM 40 MG VIAL IVPUSH SCH ×2 (09:31→21:48)
[2022-11-07 10:27] LABS: ARTERIAL BLD GAS O2 SATURATION 97.5 % (95-98); ARTERIAL BLOOD GAS BASE EXCESS 28.4 mmol/L (-2-2); ARTERIAL BLOOD GAS PO2 104.2 mmHg (80-100); ARTERIAL BLOOD GAS pH 7.428 (7.350-7.450)
[2022-11-07 10:29] LABS: ALLENS TEST POSITIVE; VENT MODE BIPAPIZ/6RR20
[2022-11-07] MEDS: AMINO ACIDS 4.25%/D5W 1,000 ML IV SCH (17:40)
[2022-11-07] MEDS ORDERED: ACETAMINOPHEN 1000 MG/100 ML BAG IVPB ONE (20:31)
[2022-11-08] MEDS: methylPREDNISolone NA SUCC 40 MG/1 ML VIAL IVPUSH SCH ×3 (01:25→17:31)
[2022-11-08] MEDS: PIPERACILLIN/TAZOB 3.375 GM 3.375 GM in DEXTROSE 5%-WATER - 50 ML IVPB SCH ×3 (01:25→17:30)
[2022-11-08] MEDS: INSULIN SLIDING SCALE (NOVOLOG) 1 VIAL SQ SCH ×7 (06:36→22:15)
[2022-11-08] MEDS: LEVOTHYROXINE NA 75 MCG TABLET (FP) PO SCH (06:37)
[2022-11-08] MEDS: PANTOPRAZOLE SODIUM 40 MG VIAL IVPUSH SCH ×2 (11:06→21:47)
[2022-11-08] MEDS: AMINO ACIDS 4.25%/D5W 1,000 ML IV SCH (17:30)
[2022-11-08 19:50] LABS: ARTERIAL BLD GAS O2 SATURATION 88.2 % (95-98); ARTERIAL BLOOD GAS BASE EXCESS 19.8 mmol/L (-2-2); ARTERIAL BLOOD GAS PO2 53.9 mmHg (80-100); ARTERIAL BLOOD GAS pH 7.459 (7.350-7.450)
[2022-11-08 19:53] LABS: ALLENS TEST POSITIVE
[2022-11-09] MEDS: PIPERACILLIN/TAZOB 3.375 GM 3.375 GM in DEXTROSE 5%-WATER - 50 ML IVPB SCH ×3 (01:50→17:12)
[2022-11-09] MEDS: methylPREDNISolone NA SUCC 40 MG/1 ML VIAL IVPUSH SCH ×3 (01:50→17:12)
[2022-11-09] MEDS: LEVOTHYROXINE NA 75 MCG TABLET (FP) PO SCH (06:01)
[2022-11-09] MEDS: INSULIN SLIDING SCALE (NOVOLOG) 1 VIAL SQ SCH ×4 (06:01→21:17)
[2022-11-09] MEDS: PANTOPRAZOLE SODIUM 40 MG VIAL IVPUSH SCH ×2 (10:10→21:17)
[2022-11-09 10:18] LABS: HEMATOCRIT 28.4 % (32.4-45.2); HEMOGLOBIN 9.4 GM/dL (10.7-15.3); MCH 31.4 pg (25.7-33.7); MEAN CELL VOLUME 95.1 fl (80-96); RBC 2.99 M/mm3 (3.60-5.2); RDW 16.7 % (11.6-15.6); WHITE BLOOD COUNT 3.4 K/mm3 (4.0-10.0)
[2022-11-09 10:21] LABS: MEAN PLT VOLUME 8.8 fl (7.5-11.1); PLATELET COUNT 58 10^3/uL (134-434)
[2022-11-09 10:39] LABS: CHLORIDE 91 mmol/L (98-107); SODIUM 138 mmol/L (136-145)
[2022-11-09 10:40] LABS: ALBUMIN 2.7 g/dl (3.4-5.0); CALCIUM 8.5 mg/dL (8.5-10.1)
[2022-11-09 10:41] LABS: BLOOD UREA NITROGEN 24.1 mg/dL (7-18); GLUCOSE,RANDOM 165 mg/dL (74-106)
[2022-11-09 10:44] LABS: CREATININE 0.3 mg/dL (0.55-1.3); SGOT/AST 18 U/L (15-37); SGPT/ALT 18 U/L (13-61)
[2022-11-09 10:46] LABS: BILIRUBIN,TOTAL 0.4 mg/dL (0.2-1); TOT PROT 5.6 g/dl (6.4-8.2)
[2022-11-09 10:48] LABS: ALK PHOS 46 U/L (45-117)
[2022-11-09 10:54] LABS: PLATELET ESTIMATE ADEQUATE
[2022-11-09 10:58] LABS: ANION GAP 2 MMOL/L (8-16); CO2 > 45 mmol/L (21-32)
[2022-11-09 11:14] LABS: ANISOCYTOSIS 2+; MACROCYTOSIS 1+; TARGET CELLS 2+
[2022-11-09] MEDS: AMINO ACIDS 4.25%/D5W 1,000 ML IV SCH (20:42)
[2022-11-10] MEDS: PIPERACILLIN/TAZOB 3.375 GM 3.375 GM in DEXTROSE 5%-WATER - 50 ML IVPB SCH ×2 (01:46→09:24)
[2022-11-10] MEDS: methylPREDNISolone NA SUCC 40 MG/1 ML VIAL IVPUSH SCH (01:46)
[2022-11-10] MEDS: INSULIN SLIDING SCALE (NOVOLOG) 1 VIAL SQ SCH ×4 (06:12→21:55)
[2022-11-10] MEDS: LEVOTHYROXINE NA 75 MCG TABLET (FP) PO SCH (06:12)
[2022-11-10] MEDS ORDERED: SENNOSIDES 8.6MG TABLET (FP) PO PRN (07:51)
[2022-11-10] MEDS ORDERED: BISACODYL 5 MG TABLET.DR (FP) PO ONE (07:51)
[2022-11-10] MEDS: PANTOPRAZOLE 40 MG TABLET PO SCH (09:24)
[2022-11-10] MEDS: predniSONE 20 MG TABLET (UD) PO SCH ×2 (09:24→21:56)
[2022-11-10] MEDS: BISACODYL 5 MG TABLET.DR (FP) PO SCH ×2 (13:17→21:56)
[2022-11-10] MEDS: AMOX TR/POT CLAV 875MG/125MG TABLETS (FP) PO SCH (17:56)
[2022-11-11] MEDS: INSULIN SLIDING SCALE (NOVOLOG) 1 VIAL SQ SCH ×4 (06:29→21:37)
[2022-11-11] MEDS: LEVOTHYROXINE NA 75 MCG TABLET (FP) PO SCH (06:30)
[2022-11-11] MEDS: BISACODYL 5 MG TABLET.DR (FP) PO SCH ×2 (11:11→21:10)
[2022-11-11] MEDS: AMOX TR/POT CLAV 875MG/125MG TABLETS (FP) PO SCH ×2 (11:11→18:24)
[2022-11-11] MEDS: predniSONE 20 MG TABLET (UD) PO SCH ×2 (11:11→21:10)
[2022-11-11] MEDS: PANTOPRAZOLE 40 MG TABLET PO SCH (11:11)
[2022-11-11] MEDS ORDERED: IRON SUCROSE INJECTION 200 MG in SODIUM CHLORIDE 90 ML IVPB ONE (21:18)
[2022-11-12] MEDS: INSULIN SLIDING SCALE (NOVOLOG) 1 VIAL SQ SCH ×4 (06:43→21:47)
[2022-11-12] MEDS: LEVOTHYROXINE NA 75 MCG TABLET (FP) PO SCH (06:43)
[2022-11-12] MEDS: ACETAMINOPHEN 500 MG TABLET (FP) PO PRN (08:24)
[2022-11-12] MEDS: AMOX TR/POT CLAV 875MG/125MG TABLETS (FP) PO SCH ×2 (08:24→16:37)
[2022-11-12] MEDS: BISACODYL 5 MG TABLET.DR (FP) PO SCH ×2 (09:26→21:47)
[2022-11-12] MEDS: predniSONE 20 MG TABLET (UD) PO SCH ×2 (09:26→21:47)
[2022-11-12] MEDS: PANTOPRAZOLE 40 MG TABLET PO SCH (09:26)
[2022-11-13] MEDS: LEVOTHYROXINE NA 75 MCG TABLET (FP) PO SCH (06:15)
[2022-11-13] MEDS: INSULIN SLIDING SCALE (NOVOLOG) 1 VIAL SQ SCH ×4 (06:15→21:22)
[2022-11-13 08:05] LABS: CHLORIDE 89 mmol/L (98-107); SODIUM 139 mmol/L (136-145)
[2022-11-13 08:06] LABS: CALCIUM 9.1 mg/dL (8.5-10.1)
[2022-11-13 08:07] LABS: BLOOD UREA NITROGEN 14.6 mg/dL (7-18); GLUCOSE,RANDOM 89 mg/dL (74-106); HEMATOCRIT 27.3 % (32.4-45.2); HEMOGLOBIN 8.8 GM/dL (10.7-15.3); MCH 30.2 pg (25.7-33.7); MCHC 32.1 g/dl (32.0-36.0); MEAN PLT VOLUME 9.7 fl (7.5-11.1); RBC 2.91 M/mm3 (3.60-5.2); RDW 16.6 % (11.6-15.6); WHITE BLOOD COUNT 6.1 K/mm3 (4.0-10.0)
[2022-11-13 08:10] LABS: CREATININE 0.3 mg/dL (0.55-1.3)
[2022-11-13 08:26] LABS: ANION GAP 5 MMOL/L (8-16); CO2 > 45 mmol/L (21-32)
[2022-11-13] MEDS: AMOX TR/POT CLAV 875MG/125MG TABLETS (FP) PO SCH ×2 (10:04→17:05)
[2022-11-13] MEDS: predniSONE 20 MG TABLET (UD) PO SCH (10:04)
[2022-11-13] MEDS: BISACODYL 5 MG TABLET.DR (FP) PO SCH ×2 (10:04→21:23)
[2022-11-13] MEDS: PANTOPRAZOLE 40 MG TABLET PO SCH (10:04)
[2022-11-13 11:40] LABS: PLATELET COUNT 66 10^3/uL (134-434)
[2022-11-13] MEDS: methylPREDNISolone NA SUCC 40 MG/1 ML VIAL IVPUSH SCH (17:05)
[2022-11-14] MEDS: methylPREDNISolone NA SUCC 40 MG/1 ML VIAL IVPUSH SCH (01:45)
[2022-11-14] MEDS: LEVOTHYROXINE NA 75 MCG TABLET (FP) PO SCH (06:36)
[2022-11-14] MEDS: INSULIN SLIDING SCALE (NOVOLOG) 1 VIAL SQ SCH ×4 (06:37→22:40)
[2022-11-14 08:20] LABS: CHLORIDE 88 mmol/L (98-107); SODIUM 138 mmol/L (136-145)
[2022-11-14 08:29] LABS: BLOOD UREA NITROGEN 18.6 mg/dL (7-18); CALCIUM 9.3 mg/dL (8.5-10.1); GLUCOSE,RANDOM 144 mg/dL (74-106)
[2022-11-14 08:32] LABS: CREATININE 0.3 mg/dL (0.55-1.3)
[2022-11-14 08:33] LABS: HEMOGLOBIN 8.6 GM/dL (10.7-15.3)
[2022-11-14 08:38] LABS: HEMATOCRIT 25.8 % (32.4-45.2); MCH 31.7 pg (25.7-33.7); MCHC 33.2 g/dl (32.0-36.0); MEAN CELL VOLUME 95.6 fl (80-96); MEAN PLT VOLUME 9.3 fl (7.5-11.1); PLATELET COUNT 77 10^3/uL (134-434); RDW 16.2 % (11.6-15.6)
[2022-11-14 08:40] LABS: WHITE BLOOD COUNT 5.2 K/mm3 (4.0-10.0)
[2022-11-14 08:41] LABS: ANION GAP 6 MMOL/L (8-16); CO2 > 45 mmol/L (21-32)
[2022-11-14 09:12] LABS: ANISOCYTOSIS 1+; MACROCYTOSIS 0; PLATELET ESTIMATE DECREASED; TARGET CELLS 2+
[2022-11-14] MEDS: BISACODYL 5 MG TABLET.DR (FP) PO SCH ×2 (10:34→22:31)
[2022-11-14] MEDS: predniSONE 10 MG TABLET (UD) PO SCH ×2 (10:34→22:31)
[2022-11-14] MEDS: AMOX TR/POT CLAV 875MG/125MG TABLETS (FP) PO SCH ×2 (10:34→17:54)
[2022-11-14] MEDS: PANTOPRAZOLE 40 MG TABLET PO SCH (10:34)
[2022-11-14] MEDS: ALBUTEROL SO4 2.5/IPRATROPIUM 0.5 INH SOL 3 ML VIAL.NEB. NEB SCH ×3 (11:27→20:06)
[2022-11-14] MEDS: ACETAMINOPHEN 500 MG TABLET (FP) PO PRN (22:30)
[2022-11-15] MEDS: LEVOTHYROXINE NA 75 MCG TABLET (FP) PO SCH (06:24)
[2022-11-15] MEDS: INSULIN SLIDING SCALE (NOVOLOG) 1 VIAL SQ SCH ×4 (06:25→21:37)
[2022-11-15] MEDS: ALBUTEROL SO4 2.5/IPRATROPIUM 0.5 INH SOL 3 ML VIAL.NEB. NEB SCH ×4 (08:15→19:38)
[2022-11-15] MEDS: AMOX TR/POT CLAV 875MG/125MG TABLETS (FP) PO SCH ×2 (09:28→17:40)
[2022-11-15] MEDS: PANTOPRAZOLE 40 MG TABLET PO SCH (09:29)
[2022-11-15] MEDS: BISACODYL 5 MG TABLET.DR (FP) PO SCH ×2 (09:29→21:38)
[2022-11-15] MEDS: predniSONE 10 MG TABLET (UD) PO SCH ×2 (09:29→21:38)
[2022-11-16] MEDS: LEVOTHYROXINE NA 75 MCG TABLET (FP) PO SCH (06:07)
[2022-11-16] MEDS: INSULIN SLIDING SCALE (NOVOLOG) 1 VIAL SQ SCH ×4 (06:07→23:18)
[2022-11-16] MEDS: ALBUTEROL SO4 2.5/IPRATROPIUM 0.5 INH SOL 3 ML VIAL.NEB. NEB SCH ×4 (07:50→20:34)
[2022-11-16] MEDS: PANTOPRAZOLE 40 MG TABLET PO SCH (09:15)
[2022-11-16] MEDS: BISACODYL 5 MG TABLET.DR (FP) PO SCH ×2 (09:15→21:59)
[2022-11-16] MEDS: predniSONE 10 MG TABLET (UD) PO SCH ×2 (09:15→21:59)
[2022-11-16] MEDS: AMOX TR/POT CLAV 875MG/125MG TABLETS (FP) PO SCH (09:15)
[2022-11-16] MEDS: MAGNESIUM HYDROX 2400MG/30ML ORAL SUSPENSION 30 ML CUP PO SCH (21:59)
[2022-11-17] MEDS: INSULIN SLIDING SCALE (NOVOLOG) 1 VIAL SQ SCH ×4 (06:08→22:24)
[2022-11-17] MEDS: LEVOTHYROXINE NA 75 MCG TABLET (FP) PO SCH (06:25)
[2022-11-17] MEDS: ALBUTEROL SO4 2.5/IPRATROPIUM 0.5 INH SOL 3 ML VIAL.NEB. NEB SCH ×4 (08:08→20:01)
[2022-11-17] MEDS: BISACODYL 5 MG TABLET.DR (FP) PO SCH ×2 (09:08→22:05)
[2022-11-17] MEDS: MAGNESIUM HYDROX 2400MG/30ML ORAL SUSPENSION 30 ML CUP PO SCH ×2 (09:08→22:05)
[2022-11-17] MEDS: PANTOPRAZOLE 40 MG TABLET PO SCH (09:08)
[2022-11-17] MEDS: predniSONE 10 MG TABLET (UD) PO SCH ×2 (09:08→22:05)
[2022-11-17] MEDS: ACETAMINOPHEN 500 MG TABLET (FP) PO PRN (17:03)
[2022-11-18] MEDS: INSULIN SLIDING SCALE (NOVOLOG) 1 VIAL SQ SCH ×4 (06:06→22:20)
[2022-11-18] MEDS: LEVOTHYROXINE NA 75 MCG TABLET (FP) PO SCH (06:07)
[2022-11-18] MEDS: ALBUTEROL SO4 2.5/IPRATROPIUM 0.5 INH SOL 3 ML VIAL.NEB. NEB SCH ×4 (07:47→20:28)
[2022-11-18] MEDS: MAGNESIUM HYDROX 2400MG/30ML ORAL SUSPENSION 30 ML CUP PO SCH ×2 (09:47→22:14)
[2022-11-18] MEDS: predniSONE 10 MG TABLET (UD) PO SCH ×2 (09:48→22:13)
[2022-11-18] MEDS: BISACODYL 5 MG TABLET.DR (FP) PO SCH ×2 (09:48→22:14)
[2022-11-18] MEDS: PANTOPRAZOLE 40 MG TABLET PO SCH (09:48)
[2022-11-19] MEDS: LEVOTHYROXINE NA 75 MCG TABLET (FP) PO SCH (06:27)
[2022-11-19] MEDS: INSULIN SLIDING SCALE (NOVOLOG) 1 VIAL SQ SCH ×3 (06:32→17:39)
[2022-11-19] MEDS: ALBUTEROL SO4 2.5/IPRATROPIUM 0.5 INH SOL 3 ML VIAL.NEB. NEB SCH (08:55)
[2022-11-19] MEDS: predniSONE 10 MG TABLET (UD) PO SCH (09:02)
[2022-11-19] MEDS: PANTOPRAZOLE 40 MG TABLET PO SCH (09:02)
[2022-11-19] MEDS: BISACODYL 5 MG TABLET.DR (FP) PO SCH (09:02)
[2022-11-19] MEDS: MAGNESIUM HYDROX 2400MG/30ML ORAL SUSPENSION 30 ML CUP PO SCH (09:02)
[2022-11-19] MEDS: ACETAMINOPHEN 500 MG TABLET (FP) PO PRN (11:59)
[2022-11-19 14:01] VITALS: RESP 18
[2022-11-19 18:33] VITALS: BP 108/64; PULSE 95; TEMP 97.8
== END 2022-11-19 19:43 | DRG 193 ==
LOC: JER 00:55 → JERBED 04:57 → J4S 09:17
PROVIDERS: ADMIT Internal Medicine; ATTEND Family Medicine
DX: J18.9 Pneumonia, unspecified organism (principal); G93.41 Metabolic encephalopathy; J96.21 Acute and chronic respiratory failure with hypoxia; J96.22 Acute and chronic respiratory failure with hypercapnia; D61.818 Other pancytopenia; J90 Pleural effusion, not elsewhere classified; E87.29 Other acidosis; J81.1 Chronic pulmonary edema; E87.1 Hypo-osmolality and hyponatremia; J98.11 Atelectasis; C56.9 Malignant neoplasm of unspecified ovary; C78.6 Secondary malignant neoplasm of retroperitoneum and peritoneum; C16.9 Malignant neoplasm of stomach, unspecified; J45.901 Unspecified asthma with (acute) exacerbation; I45.10 Unspecified right bundle-branch block; J44.9 Chronic obstructive pulmonary disease, unspecified; D64.9 Anemia, unspecified; I10 Essential (primary) hypertension; D69.6 Thrombocytopenia, unspecified; K59.00 Constipation, unspecified; E78.5 Hyperlipidemia, unspecified; E11.9 Type 2 diabetes mellitus without complications; R62.7 Adult failure to thrive; E03.9 Hypothyroidism, unspecified; R00.0 Tachycardia, unspecified; Z85.43 Personal history of malignant neoplasm of ovary; Z85.3 Personal history of malignant neoplasm of breast; Z85.89 Personal history of malignant neoplasm of other organs and systems; Z68.25 Body mass index [BMI] 25.0-25.9, adult; K22.2 Esophageal obstruction
CPT/HCPCS: 0241U-QW; 36415; 36600; 71045-TC-FY; 71250-TC; 80048; 80053; 81003; 82136; 82553; 82607; 82728; 82747; 82803; 82962; 83540; 83550; 83605; 83615; 83735; 83880; 83883; 83918; 84100; 84155; 84165; 84443; 84484; 85014; 85025; 85027; 85045; 85610; 85730; 86850; 86900; 86901; 87040; 87086; 87899; 93005; 93010; 94640; 94660; 97116-GP; 97161-GP; 99285-25; C9803-CS; J1756; U0003; U0005